=== PATIENT | female | born 1950 | race Caucasian/White ===

== ENCOUNTER 2017-04-14 23:21 | Observation (INO) | payer MEDICARE, OTHER ==
[2017-04-15 00:40] LABS: Appearance,Urine Clear (Clear); Bilirubin,Urine Negative (Negative); Glucose,Urine (UA) Negative (Negative); Ketones,Urine 1+ (Negative); Leukocyte Esterase,Urine Negative (Negative); Nitrite,Urine Negative (Negative); PH, Urine 7.5 (5.0-8.0); Protein,Urine Negative (Negative); Specific Gravity,Urine 1.004 (1.001-1.035); UA Billing (MACRO vs. MICRO) CHEM; Urobilinogen,Urine <2.0 mg/dL (<2.0)
[2017-04-15 00:57] LABS: Basophils # (A) 0.1 k/uL (0-0.2); Basophils % (A) 0 %; CH 32.2; CHCM 34.3; Eosinophils # (A) 0.1 k/uL (0-0.7); Eosinophils % (A) 1 %; HCT 48.1 % (34.0-46.0); HDW 2.28; HGB 15.9 gm/dL (11.4-16.0); Luc # (Auto) 0.15; Luc % (Auto) 1; Lymphocytes # (A) 1.3 k/uL (1.0-4.8); Lymphocytes % (A) 6 %; MCH 31.2 pg (25.0-35.0); MCHC 33.1 g/dL (31.0-37.0); MCV 94.4 fL (80.0-100.0); Mean Platelet Volume 7.7; Monocytes # (A) 1.3 k/uL (0-1.0); Monocytes % (A) 6 %; Neutrophils # (A) 18.9 k/uL (1.3-7.7); Neutrophils % (A) 87 %; RDW 13.2 % (11.5-15.5); WBC 21.8 k/uL (3.8-10.6); WBC (Perox) 20.46
[2017-04-15 01:11] LABS: ALT 20 U/L (9-52); AST 32 U/L (14-36); Alkaline Phosphatase 85 U/L (38-126); Anion Gap 13 mmol/L; Blood Urea Nitrogen 6 mg/dL (7-17); Calcium 9.5 mg/dL (8.4-10.2); Carbon Dioxide 20 mmol/L (22-30); Chloride 98 mmol/L (98-107); Glucose 107 mg/dL (74-99); Non-African American GFR(MDRD) >60 (>60 ml/min/1.73 sqM); Potassium 4.7 mmol/L (3.5-5.1); Sodium 131 mmol/L (137-145); Total Bilirubin 1.2 mg/dL (0.2-1.3); Total Protein 7.1 g/dL (6.3-8.2)
[2017-04-15] MEDS ORDERED: SODIUM CHLORIDE 0.9% 1,000 ML IV ONE (02:09)
--- NOTE | 2017-04-15 02:12 | CT ---
EXAM: CT Head Without Intravenous Contrast CLINICAL HISTORY: Reason: Pain TECHNIQUE: Axial computed tomography images of the head/brain without intravenous contrast. CTDI is 60.30 mGy and DLP is 1090.40 mGy-cm. This CT exam was performed using one or more of the following dose reduction techniques: automated exposure control, adjustment of the mA and/or kV according to patient size, and/or use of iterative reconstruction technique. COMPARISON: None available. FINDINGS: Brain: Mild generalized atrophy and minimal presumed chronic small vessel ischemic changes. No acute bleed, midline shift, mass effect or recent territorial infarct. Ventricles: No hydrocephalus. Bones/joints: No acute fracture. Soft tissues: Unremarkable. Sinuses: Unremarkable. No acute sinusitis. Mastoid air cells: No mastoid effusion. IMPRESSION: No definite acute intracranial abnormality is seen, as above.
[2017-04-15] MEDS ORDERED: NALOXONE 0.4 MG/ML 1 ML VIAL IV PRN (02:15)
[2017-04-15] MEDS ORDERED: SODIUM CHLORIDE 0.9% 1,000 ML IV SCH (02:15)
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
--- NOTE | 2017-04-15 02:47 | XR ---
EXAM: XR Chest, 1 View CLINICAL HISTORY: Reason: Pain TECHNIQUE: Frontal view of the chest. COMPARISON: No relevant prior studies available. FINDINGS: The patient is rotated towards the right. Lungs: No defined airspace consolidation. Pleural space: Unremarkable. No effusion or pneumothorax. Heart: Within normal limits without cardiomegaly. Mediastinum: Within normal limits for portable AP technique and rightward rotation. Bones/joints: Degenerative changes without acute displaced fracture seen. IMPRESSION: No definite acute intrathoracic abnormality is seen.
[2017-04-15 03:51] VITALS: BMI 32.9
[2017-04-15 07:30] LABS: Basophils # (A) 0.1 k/uL (0-0.2); Basophils % (A) 0 %; CH 31.8; CHCM 32.8; Eosinophils % (A) 0 %; HCT 46.7 % (34.0-46.0); HGB 15.1 gm/dL (11.4-16.0); Luc # (Auto) 0.29; Luc % (Auto) 2; Lymphocytes # (A) 1.1 k/uL (1.0-4.8); Lymphocytes % (A) 6 %; MCH 31.6 pg (25.0-35.0); MCHC 32.4 g/dL (31.0-37.0); MCV 97.6 fL (80.0-100.0); Mean Platelet Volume 7.7; Monocytes # (A) 1.4 k/uL (0-1.0); Monocytes % (A) 8 %; Neutrophils # (A) 15.2 k/uL (1.3-7.7); Neutrophils % (A) 84 %; RBC 4.78 m/uL (3.80-5.40); RDW 13.2 % (11.5-15.5); WBC 18.1 k/uL (3.8-10.6); WBC (Perox) 17.22
[2017-04-15 07:51] LABS: Anion Gap 9 mmol/L; Blood Urea Nitrogen 5 mg/dL (7-17); Calcium 8.9 mg/dL (8.4-10.2); Carbon Dioxide 23 mmol/L (22-30); Chloride 105 mmol/L (98-107); Glucose 109 mg/dL (74-99); Non-African American GFR(MDRD) >60 (>60 ml/min/1.73 sqM); Sodium 137 mmol/L (137-145)
[2017-04-15 08:03] LABS: Potassium 3.5 mmol/L (3.5-5.1)
[2017-04-15] MEDS ORDERED: DIVALPROEX 500 MG TABLET.DR PO SCH (10:45)
[2017-04-15] MEDS ORDERED: LEVOTHYROXINE 75 MCG TAB PO SCH (11:00)
[2017-04-15] MEDS ORDERED: SPIRONOLACTONE 25 MG TAB PO SCH (11:00)
[2017-04-15] MEDS ORDERED: VENLAFAXINE HCL ER 75 MG CAP PO SCH (11:00)
[2017-04-15] MEDS ORDERED: FUROSEMIDE 40 MG TAB PO SCH (11:00)
[2017-04-15] MEDS: oxyCODONE-APAP 10-325MG 1 EACH TAB PO SCH ×2 (11:13→17:07)
[2017-04-15] MEDS ORDERED: MULTIVITAMINS, THERA 1 EACH TAB PO SCH (12:00)
[2017-04-15] MEDS ORDERED: CHOLECALCIFEROL 1,000 UNIT TAB PO SCH (12:00)
[2017-04-15] MEDS ORDERED: ALBUTEROL NEBULIZED 2.5 MG/3 ML INHALATION SCH (13:00)
[2017-04-15 17:11] LABS: Glucose,Whole Blood 80 mg/dL (75-99)
[2017-04-15 18:24] VITALS: BP 101/58; PULSE 68; RESP 15; TEMP 97.8
[2017-04-15] MEDS ORDERED: traZODone HCL 50 MG TAB PO SCH (21:00)
[2017-04-15] MEDS ORDERED: CYCLOBENZAPRINE 10 MG TAB PO SCH (21:00)
[2017-04-15] MEDS ORDERED: ATORVASTATIN 10 MG TAB PO SCH (21:00)
[2017-04-15] MEDS ORDERED: LORazepam 1 MG TAB PO SCH (21:00)
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
[2017-04-16] MEDS ORDERED: NICOTINE 14MG/24HR PATCH TRANSDERM SCH (09:00)
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
== END 2017-04-15 18:45 ==
LOC: EC 23:21 → 3OBS 04-15 02:17
PROVIDERS: ADMIT Hospitalist; ATTEND Hospitalist
DX: F22 Delusional disorders (principal); F23 Brief psychotic disorder; F31.9 Bipolar disorder, unspecified; M19.90 Unspecified osteoarthritis, unspecified site; J44.9 Chronic obstructive pulmonary disease, unspecified; E78.5 Hyperlipidemia, unspecified; H40.9 Unspecified glaucoma; C50.819 Malignant neoplasm of overlapping sites of unspecified female breast; F41.9 Anxiety disorder, unspecified; E87.1 Hypo-osmolality and hyponatremia; G89.29 Other chronic pain; I10 Essential (primary) hypertension; G40.909 Epilepsy, unspecified, not intractable, without status epilepticus; E03.9 Hypothyroidism, unspecified; Z87.891 Personal history of nicotine dependence; Z79.899 Other long term (current) drug therapy; Z79.51 Long term (current) use of inhaled steroids; Z88.3 Allergy status to other anti-infective agents; Z88.5 Allergy status to narcotic agent; Z88.2 Allergy status to sulfonamides; Z88.0 Allergy status to penicillin; Z88.8 Allergy status to other drugs, medicaments and biological substances; Z85.3 Personal history of malignant neoplasm of breast
CPT/HCPCS: 96365 ×2; 99285 ×2; 82075; 36415; 80053; 80048; 83605; 85025; 81003; 87040; 80306; 71010; 70450; G0378; J0696

== ENCOUNTER 2017-04-15 18:19 | Inpatient (IN) | payer MEDICARE, MEDICAID ==
[2017-04-15] MEDS ORDERED: ZIPRASIDONE 20 MG VIAL IM PRN (18:30)
[2017-04-15] MEDS: ALBUTEROL NEBULIZED 2.5 MG/3 ML INHALATION SCH (18:40)
[2017-04-15] MEDS ORDERED: LORazepam 2 MG/ML SYRINGE IM PRN (18:43)
[2017-04-15] MEDS: ATORVASTATIN 10 MG TAB PO SCH (21:13)
[2017-04-15] MEDS: CYCLOBENZAPRINE 10 MG TAB PO SCH (21:16)
[2017-04-15] MEDS: DIVALPROEX 500 MG TABLET.DR PO SCH (21:16)
[2017-04-15] MEDS: traZODone HCL 50 MG TAB PO SCH (21:16)
[2017-04-15] MEDS: oxyCODONE-APAP 10-325MG 1 EACH TAB PO SCH (21:16)
[2017-04-16] MEDS: LEVOTHYROXINE 75 MCG TAB PO SCH (05:59)
[2017-04-16] MEDS: ACETAMINOPHEN TAB 325 MG TAB PO PRN ×2 (06:02→12:20)
[2017-04-16] MEDS ORDERED: VENLAFAXINE HCL ER 75 MG CAP PO SCH (09:00)
[2017-04-16] MEDS: SPIRONOLACTONE 25 MG TAB PO SCH (09:31)
[2017-04-16] MEDS: DIVALPROEX 500 MG TABLET.DR PO SCH (09:31)
[2017-04-16] MEDS: oxyCODONE-APAP 10-325MG 1 EACH TAB PO SCH ×3 (09:31→21:35)
[2017-04-16] MEDS: CHOLECALCIFEROL 1,000 UNIT TAB PO SCH (09:31)
[2017-04-16] MEDS: ALBUTEROL NEBULIZED 2.5 MG/3 ML INHALATION SCH ×3 (09:41→21:24)
[2017-04-16 09:48] LABS: Basophils # (A) 0.1 k/uL (0-0.2); Basophils % (A) 0 %; CH 31.7; CHCM 34.2; Eosinophils # (A) 0.1 k/uL (0-0.7); Eosinophils % (A) 1 %; HDW 2.35; HGB 14.2 gm/dL (11.4-16.0); Luc # (Auto) 0.19; Luc % (Auto) 1; Lymphocytes # (A) 1.5 k/uL (1.0-4.8); Lymphocytes % (A) 11 %; MCH 32.1 pg (25.0-35.0); MCHC 34.5 g/dL (31.0-37.0); MCV 93.1 fL (80.0-100.0); Mean Platelet Volume 8.3; Monocytes # (A) 0.9 k/uL (0-1.0); Monocytes % (A) 6 %; Neutrophils # (A) 11.4 k/uL (1.3-7.7); Neutrophils % (A) 81 %; RDW 13.1 % (11.5-15.5); WBC 14.2 k/uL (3.8-10.6); WBC (Perox) 13.54
[2017-04-16 11:26] LABS: Anion Gap 14 mmol/L; Calcium 9.2 mg/dL (8.4-10.2); Carbon Dioxide 20 mmol/L (22-30); Chloride 104 mmol/L (98-107); Glucose 74 mg/dL (74-99); Non-African American GFR(MDRD) >60 (>60 ml/min/1.73 sqM); Sodium 138 mmol/L (137-145); Total Bilirubin 0.4 mg/dL (0.2-1.3)
[2017-04-16 12:19] LABS: ALT 26 U/L (9-52); AST 21 U/L (14-36); Blood Urea Nitrogen 8 mg/dL (7-17)
[2017-04-16] MEDS: MULTIVITAMINS, THERA 1 EACH TAB PO SCH (12:19)
[2017-04-16 12:20] LABS: Alkaline Phosphatase 77 U/L (38-126)
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
--- NOTE | 2017-04-16 17:23 | P.CONS ---
History of Present Illness - Reason for Consult leukocytosis, medical clearance, COPD - History of Present Illness 66-year-old female was admitted for acute psychosis, patient had leukocytosis on admission without any signs or symptoms of infection patient is not on antibiotics at this point of time. Patient denies any fever, chills, nausea, vomiting patient denied any shortness of breath. Review of Systems REVIEW OF SYSTEMS: CONSTITUTIONAL: No fever, no malaise, no fatigue. HEENT: No recent visual problems or hearing problems. Denied any sore throat. CARDIOVASCULAR: No chest pain, orthopnea, PND, no palpitations, no syncope. PULMONARY: No shortness of breath, no cough, no hemoptysis. GASTROINTESTINAL: No diarrhea, no nausea, no vomiting, no abdominal pain. Normoactive bowel sounds. NEUROLOGICAL: No headaches, no weakness, no numbness. HEMATOLOGICAL: Denies any bleeding or petechiae. GENITOURINARY: Denies any burning micturition, frequency, or urgency. MUSCULOSKELETAL/RHEUMATOLOGICAL: Denies any joint pain, swelling, or any muscle pain. ENDOCRINE: Denies any polyuria or polydipsia. The rest of the 14-point review of systems is negative. Past Medical History Past Medical History: Asthma, Cancer, Eye Disorder, Hyperlipidemia, Osteoarthritis (OA), Thyroid Disorder Additional Past Medical History / Comment(s): "low BP", edema lower legs, uses a cane, emphysema, glaucoma, "lump on kidney", breast cancer, last seizure 2011 History of Any Multi-Drug Resistant Organisms: None Reported Past Surgical History: Breast Surgery, Hysterectomy, Tubal Ligation Additional Past Surgical History / Comment(s): left mastectomy Past Anesthesia/Blood Transfusion Reactions: Motion Sickness Past Psychological History: Anxiety, Bipolar, Schizophrenia Smoking Status: Former smoker Past Alcohol Use History: None Reported Past Drug Use History: Marijuana - Past Family History Father Additional Family Medical History / Comment(s): Father at age at 87 from old age. Daughter(s) Additional Family Medical History / Comment(s): Patient states that she has 3 children and 2 are on drugs. Sister(s) Family Medical History: Cancer Additional Family Medical History / Comment(s): She has one sister that from some type of cancer. Mother Family Medical History: Cancer Additional Family Medical History / Comment(s): Mother at age 56 from cancer, unknown type. Medications and Allergies Home Medications Medication Instructions Recorded Confirmed Type Cholecalciferol [Vitamin D3] 5,000 unit PO DAILY 03/06/15 04/15/17 History Cyclobenzaprine [Flexeril] 10 mg PO HS 03/06/15 04/15/17 History Divalproex [Depakote] 1,000 mg PO BID 03/06/15 04/15/17 History Levothyroxine Sodium [Synthroid] 150 mcg PO DAILY 03/06/15 04/15/17 History Multivitamins, Thera [Multivitamin 1 tab PO DAILY 03/06/15 04/15/17 History (formulary)] Simvastatin [Zocor] 10 mg PO HS 03/06/15 04/15/17 History oxyCODONE-APAP 10-325MG [Percocet 1 tab PO TID 03/06/15 04/15/17 History 10-325 mg] Albuterol Nebulized [Ventolin 2.5 mg INHALATION RT-TID 04/15/17 04/15/17 History Nebulized] LORazepam [Ativan] 2 mg PO HS 04/15/17 04/15/17 History Spironolactone [Aldactone] 25 mg PO DAILY 04/15/17 04/15/17 History rOPINIRole HCL [Requip] 0.25 mg PO TID 04/15/17 04/15/17 History Allergies Allergy/AdvReac Type Severity Reaction Status Date / Time metronidazole [From Flagyl] Allergy Severe Swelling Verified 04/15/17 20:02 morphine Allergy Severe passed out Verified 04/15/17 20:02 pregabalin [From Lyrica] Allergy Severe throat Verified 04/15/17 20:02 swelling Sulfa (Sulfonamide Allergy Severe Swelling Verified 04/15/17 20:02 Antibiotics) cortisone Allergy Rash/Hives Verified 04/15/17 20:02 Penicillins Allergy Rash/Hives Verified 04/15/17 20:02 Physical Exam Vitals: Vital Signs Temp Pulse Pulse Resp BP Pulse Ox 04/16/17 13:50 76 04/16/17 09:40 94 20 126/68 97 04/16/17 01:57 97.3 F L 94 12 122/58 04/15/17 22:52 97 110/56 04/15/17 19:00 98.4 F 101 H 20 100/61 94 L PHYSICAL EXAMINATION: GENERAL: The patient is alert and oriented x3, not in any acute distress. Well developed, well nourished. HEENT: Pupils are round and equally reacting to light. EOMI. No scleral icterus. No conjunctival pallor. Normocephalic, atraumatic. No pharyngeal erythema. No thyromegaly. CARDIOVASCULAR: S1 and S2 present. No murmurs, rubs, or gallops. PULMONARY: Chest is clear to auscultation, no wheezing or crackles. ABDOMEN: Soft, nontender, nondistended, normoactive bowel sounds. No palpable organomegaly. MUSCULOSKELETAL: No joint swelling or deformity. EXTREMITIES: No cyanosis, clubbing, or pedal edema. NEUROLOGICAL: Gross neurological examination did not reveal any focal deficits. SKIN: No rashes. Results CBC & Chem 7: 04/16/17 08:53 04/16/17 08:53 Labs: Abnormal Lab Results - Last 24 Hours (Table) 04/16/17 04/16/17 04/16/17 Range/Units 08:53 08:53 15:16 WBC 14.2 H (3.8-10.6) k/uL Neutrophils # 11.4 H (1.3-7.7) k/uL Carbon Dioxide 20 L (22-30) mmol/L Creatinine 0.50 L (0.52-1.04) mg/dL Ammonia 90 H (<30) umol/L Total Protein 6.0 L (6.3-8.2) g/dL TSH <0.015 L (0.465-4.680) mIU/L Assessment and Plan Plan: 1 leukocytosis without any acute infection. This is improving and reactive in nature. 2 COPD without any acute exacerbation. 3 hypothyroidism 4 hyperlipidemia 6 chronic pain 7 acute psychosis with possible schizophrenia management as per primary service Plan: At admission medications were reviewed and appear to be appropriate, no further recommendation from his perspective will follow the patient on as- needed basis.
[2017-04-16] MEDS: CYCLOBENZAPRINE 10 MG TAB PO SCH (21:35)
[2017-04-16] MEDS: ATORVASTATIN 10 MG TAB PO SCH (21:35)
[2017-04-16] MEDS: traZODone HCL 50 MG TAB PO SCH (21:35)
[2017-04-16] MEDS: LACTULOSE 20 GM/30 ML CUP PO SCH (21:35)
[2017-04-17] MEDS: ACETAMINOPHEN TAB 325 MG TAB PO PRN ×2 (03:53→12:29)
[2017-04-17] MEDS: LEVOTHYROXINE 75 MCG TAB PO SCH (03:54)
[2017-04-17 04:29] LABS: Hepatitis B Surface Ag Index 0.04
[2017-04-17 04:35] LABS: Hepatitis B Core IgM Index 0.03
[2017-04-17 04:46] LABS: Hepatitis C Virus IgG Ab Negative (Negative); Hepatitis C Virus IgG Index 0.02
[2017-04-17] MEDS: oxyCODONE-APAP 10-325MG 1 EACH TAB PO SCH ×3 (08:23→21:23)
[2017-04-17] MEDS: LACTULOSE 20 GM/30 ML CUP PO SCH ×2 (08:23→21:24)
[2017-04-17] MEDS: CHOLECALCIFEROL 1,000 UNIT TAB PO SCH (08:23)
[2017-04-17] MEDS: SPIRONOLACTONE 25 MG TAB PO SCH (08:25)
[2017-04-17] MEDS: ALBUTEROL NEBULIZED 2.5 MG/3 ML INHALATION SCH ×2 (10:06→13:22)
[2017-04-17] MEDS: ARIPiprazole 5 MG TAB PO SCH (12:00)
[2017-04-17] MEDS: MULTIVITAMINS, THERA 1 EACH TAB PO SCH (12:00)
[2017-04-17] MEDS: VENLAFAXINE HCL ER 75 MG CAP PO SCH (12:00)
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
[2017-04-17] MEDS: ALBUTEROL INHALER 60 PUFF/8 GM INHALER INHALATION SCH (20:59)
[2017-04-17] MEDS: ATORVASTATIN 10 MG TAB PO SCH (21:23)
[2017-04-17] MEDS: traZODone HCL 50 MG TAB PO SCH (21:23)
[2017-04-17] MEDS: CYCLOBENZAPRINE 10 MG TAB PO SCH (21:23)
[2017-04-18] MEDS: LEVOTHYROXINE 75 MCG TAB PO SCH (06:02)
[2017-04-18] MEDS: oxyCODONE-APAP 10-325MG 1 EACH TAB PO SCH ×3 (06:08→20:49)
[2017-04-18] MEDS: LACTULOSE 20 GM/30 ML CUP PO SCH ×2 (08:16→20:50)
[2017-04-18] MEDS: VENLAFAXINE HCL ER 75 MG CAP PO SCH (08:16)
[2017-04-18] MEDS: ARIPiprazole 5 MG TAB PO SCH (08:16)
[2017-04-18] MEDS: SPIRONOLACTONE 25 MG TAB PO SCH (08:16)
[2017-04-18] MEDS: CHOLECALCIFEROL 1,000 UNIT TAB PO SCH (08:17)
[2017-04-18] MEDS: ALBUTEROL INHALER 60 PUFF/8 GM INHALER INHALATION SCH ×3 (11:36→19:23)
[2017-04-18] MEDS: MULTIVITAMINS, THERA 1 EACH TAB PO SCH (12:08)
[2017-04-18] MEDS: ACETAMINOPHEN TAB 325 MG TAB PO PRN (12:13)
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
[2017-04-18] MEDS: ATORVASTATIN 10 MG TAB PO SCH (20:50)
[2017-04-18] MEDS: CYCLOBENZAPRINE 10 MG TAB PO SCH (20:50)
[2017-04-18] MEDS: traZODone HCL 50 MG TAB PO SCH (20:51)
[2017-04-19] MEDS: LEVOTHYROXINE 75 MCG TAB PO SCH (06:08)
[2017-04-19] MEDS: ALBUTEROL INHALER 60 PUFF/8 GM INHALER INHALATION SCH ×3 (08:33→21:26)
[2017-04-19] MEDS: SPIRONOLACTONE 25 MG TAB PO SCH (09:00)
[2017-04-19] MEDS: VENLAFAXINE HCL ER 37.5 MG CAP PO SCH (09:00)
[2017-04-19] MEDS: CHOLECALCIFEROL 1,000 UNIT TAB PO SCH (09:00)
[2017-04-19] MEDS: ARIPiprazole 5 MG TAB PO SCH (09:00)
[2017-04-19] MEDS: LACTULOSE 20 GM/30 ML CUP PO SCH ×2 (09:01→20:04)
[2017-04-19] MEDS: oxyCODONE-APAP 10-325MG 1 EACH TAB PO SCH ×3 (09:01→21:19)
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
[2017-04-19] MEDS: ACETAMINOPHEN TAB 325 MG TAB PO PRN (13:44)
[2017-04-19] MEDS: MULTIVITAMINS, THERA 1 EACH TAB PO SCH (13:44)
[2017-04-19] MEDS: CYCLOBENZAPRINE 10 MG TAB PO SCH (20:04)
[2017-04-19] MEDS: traZODone HCL 50 MG TAB PO SCH (20:04)
[2017-04-19] MEDS: ATORVASTATIN 10 MG TAB PO SCH (20:04)
[2017-04-20] MEDS: LEVOTHYROXINE 75 MCG TAB PO SCH (07:15)
[2017-04-20] MEDS: ALBUTEROL INHALER 60 PUFF/8 GM INHALER INHALATION SCH ×3 (08:01→21:52)
[2017-04-20] MEDS: CHOLECALCIFEROL 1,000 UNIT TAB PO SCH (08:17)
[2017-04-20] MEDS: ARIPiprazole 10 MG TAB PO SCH (08:17)
[2017-04-20] MEDS: oxyCODONE-APAP 10-325MG 1 EACH TAB PO SCH ×3 (08:17→21:06)
[2017-04-20] MEDS: SPIRONOLACTONE 25 MG TAB PO SCH (08:17)
[2017-04-20] MEDS: VENLAFAXINE HCL ER 37.5 MG CAP PO SCH (08:17)
[2017-04-20] MEDS: LACTULOSE 20 GM/30 ML CUP PO SCH ×2 (08:21→20:28)
--- NOTE | 2017-04-20 10:12 | P.PN ---
Progress Note - Text Interval history: The patient is found in her room she is seated upright at the side of her bed leaning on the adjacent table. She is observed talking to herself prior to me entering the room. She states that someone next order her was killed today. She states nursing did something to her medication because after she took it it tasted like "cottage cheese". She spontaneously describes other delusional thoughts. Mental status exam: The patient is an overweight female she seated upright at the side of her bed. Eye contact is appropriate. She is dressed in her own clothing. Speech is spontaneous she is verbose hyperverbal at times. She describes a variety of delusional thoughts. For the most part these are persecutory in nature. Insight and judgment are poor. Thought process is not well organized she demonstrates tangential thinking and loose associations. She demonstrates no verbal or physical aggressiveness. Briefly she will become mildly verbally agitated but she is easily redirected. She was oriented to person place and date today. She recalls my name upon approach. Again affect demonstrates lability. She is reporting no suicidal or homicidal ideation. Plan: The patient will continue on her current medication, I have just titrated the Abilify yesterday. We will continue to monitor her for safety. Reality orientation is provided when possible. We are looking for some attenuation of her psychosis prior to discharge. Vital signs reviewed.
[2017-04-20] MEDS: ACETAMINOPHEN TAB 325 MG TAB PO PRN (13:28)
[2017-04-20] MEDS: MULTIVITAMINS, THERA 1 EACH TAB PO SCH (13:28)
[2017-04-20] MEDS: ATORVASTATIN 10 MG TAB PO SCH (20:28)
[2017-04-20] MEDS: traZODone HCL 50 MG TAB PO SCH (20:29)
[2017-04-20] MEDS: CYCLOBENZAPRINE 10 MG TAB PO SCH (20:29)
[2017-04-21] MEDS: LEVOTHYROXINE 75 MCG TAB PO SCH (06:00)
[2017-04-21] MEDS: ALBUTEROL INHALER 60 PUFF/8 GM INHALER INHALATION SCH ×3 (09:26→20:21)
[2017-04-21] MEDS: CHOLECALCIFEROL 1,000 UNIT TAB PO SCH (09:44)
[2017-04-21] MEDS: SPIRONOLACTONE 25 MG TAB PO SCH (09:45)
[2017-04-21] MEDS: VENLAFAXINE HCL ER 37.5 MG CAP PO SCH (09:45)
[2017-04-21] MEDS: LACTULOSE 20 GM/30 ML CUP PO SCH ×2 (09:46→21:56)
[2017-04-21] MEDS: ARIPiprazole 10 MG TAB PO SCH (09:47)
[2017-04-21] MEDS: oxyCODONE-APAP 10-325MG 1 EACH TAB PO SCH ×3 (09:47→21:55)
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
[2017-04-21] MEDS: MULTIVITAMINS, THERA 1 EACH TAB PO SCH (13:05)
[2017-04-21] MEDS: LORazepam 1 MG TAB PO PRN (19:27)
[2017-04-21] MEDS: ACETAMINOPHEN TAB 325 MG TAB PO PRN (19:30)
[2017-04-21] MEDS: traZODone HCL 50 MG TAB PO SCH (21:54)
[2017-04-21] MEDS: CYCLOBENZAPRINE 10 MG TAB PO SCH (21:56)
[2017-04-21] MEDS: ATORVASTATIN 10 MG TAB PO SCH (21:56)
[2017-04-22] MEDS: LEVOTHYROXINE 75 MCG TAB PO SCH (07:12)
[2017-04-22] MEDS: VENLAFAXINE HCL ER 37.5 MG CAP PO SCH (08:16)
[2017-04-22] MEDS: CHOLECALCIFEROL 1,000 UNIT TAB PO SCH (08:16)
[2017-04-22] MEDS: MULTIVITAMINS, THERA 1 EACH TAB PO SCH (08:17)
[2017-04-22] MEDS: oxyCODONE-APAP 10-325MG 1 EACH TAB PO SCH ×3 (08:17→21:41)
[2017-04-22] MEDS: ARIPiprazole 10 MG TAB PO SCH (08:17)
[2017-04-22] MEDS: SPIRONOLACTONE 25 MG TAB PO SCH (08:17)
[2017-04-22] MEDS: LACTULOSE 20 GM/30 ML CUP PO SCH ×2 (10:47→21:02)
[2017-04-22] MEDS: ACETAMINOPHEN TAB 325 MG TAB PO PRN (11:17)
[2017-04-22] MEDS: MAG HYDROX/AL HYDROX/SIMETH 30 ML CUP PO PRN (11:18)
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
[2017-04-22] MEDS: ALBUTEROL INHALER 60 PUFF/8 GM INHALER INHALATION SCH ×3 (12:09→20:13)
[2017-04-22] MEDS: CYCLOBENZAPRINE 10 MG TAB PO SCH (21:01)
[2017-04-22] MEDS: OXcarbazepine 150 MG TAB PO SCH (21:01)
[2017-04-22] MEDS: traZODone HCL 50 MG TAB PO SCH (21:01)
[2017-04-22] MEDS: ATORVASTATIN 10 MG TAB PO SCH (21:02)
[2017-04-23] MEDS: LEVOTHYROXINE 75 MCG TAB PO SCH (06:05)
[2017-04-23] MEDS: SPIRONOLACTONE 25 MG TAB PO SCH (08:47)
[2017-04-23] MEDS: CHOLECALCIFEROL 1,000 UNIT TAB PO SCH (08:47)
[2017-04-23] MEDS: LACTULOSE 20 GM/30 ML CUP PO SCH ×2 (08:47→21:25)
[2017-04-23] MEDS: VENLAFAXINE HCL ER 37.5 MG CAP PO SCH (08:48)
[2017-04-23] MEDS: ARIPiprazole 15 MG TAB PO SCH (08:49)
[2017-04-23] MEDS: oxyCODONE-APAP 10-325MG 1 EACH TAB PO SCH ×3 (08:49→21:29)
[2017-04-23] MEDS: OXcarbazepine 150 MG TAB PO SCH ×2 (08:50→21:25)
[2017-04-23] MEDS: ALBUTEROL INHALER 60 PUFF/8 GM INHALER INHALATION SCH ×5 (09:35→21:20)
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
[2017-04-23] MEDS: MULTIVITAMINS, THERA 1 EACH TAB PO SCH (12:08)
--- NOTE | 2017-04-23 15:48 | P.PN ---
Subjective This 66-year-old woman who was admitted for psych evaluation also had a COPD. Patient is complaining of bilateral edema. Lasix is being initiated. Recommended close monitoring of the electrolytes. Objective - Vital Signs Vital signs: Vital Signs Temp 98.3 F 04/23/17 02:27 Pulse 99 04/23/17 08:55 Resp 18 04/23/17 08:55 BP 133/76 04/23/17 08:55 Pulse Ox 97 04/16/17 09:40 - Exam On exam, alert and oriented x3. HEENT: Conjunctivae normal. eyes normal. NECK: No JVD. No thyroid enlargement. No LNs CARDIOVASCULAR: S1, S2 muffled. No murmur RESPIRATION: Breath sounds diminished in the bases. No rhonchi or crackles. No bronchial breathing. ABDOMEN: Soft, nontender . No guarding. no masses palpable. No ascites, No hepatosplenomegaly.Bowel sounds heard. LEGS: Mild bilateral leg swelling plus. NERVOUS SYSTEM: Cranial N 2-12 grossly normal. Moves all 4 limbs. No focal deficits. No sensory deficit. No signs of cerebellar dysfucntion. Skin: no ulcer no rash Joints: No active swelling. No inflammation. Lymphatic system. No LN neck axilla or groin. - Labs CBC & Chem 7: 04/16/17 08:53 04/16/17 08:53 Assessment and Plan Plan: Assessment 1. Generalized edema accidental. COPD 3. Hypothyroidism explained 4. Hyperlipidemia 6. Chronic pain syndrome 7. Acute psychosis Line In this 66-year-old woman who was admitted with the one medical issues at this time recommend to continue with the current medications add small dose of Lasix and potassium check BMP in 2 days and monitor periodically. once the swelling is improved Lasix can be stopped. Be happy to review. Recommended close follow -up with primary physician. Thank you.
[2017-04-23] MEDS: POTASSIUM CHLORIDE ER 20 MEQ TAB.ER PO SCH (16:35)
[2017-04-23] MEDS: CYCLOBENZAPRINE 10 MG TAB PO SCH (21:25)
[2017-04-23] MEDS: ATORVASTATIN 10 MG TAB PO SCH (21:25)
[2017-04-23] MEDS: traZODone HCL 50 MG TAB PO SCH (21:25)
[2017-04-24] MEDS: LEVOTHYROXINE 75 MCG TAB PO SCH (05:34)
[2017-04-24] MEDS: FUROSEMIDE 20 MG TAB PO SCH (08:15)
[2017-04-24] MEDS: CHOLECALCIFEROL 1,000 UNIT TAB PO SCH (08:15)
[2017-04-24] MEDS: LACTULOSE 20 GM/30 ML CUP PO SCH ×2 (08:15→21:44)
[2017-04-24] MEDS: OXcarbazepine 150 MG TAB PO SCH ×2 (08:15→21:11)
[2017-04-24] MEDS: POTASSIUM CHLORIDE ER 20 MEQ TAB.ER PO SCH (08:15)
[2017-04-24] MEDS: oxyCODONE-APAP 10-325MG 1 EACH TAB PO SCH ×3 (08:16→21:11)
[2017-04-24] MEDS: SPIRONOLACTONE 25 MG TAB PO SCH (08:16)
[2017-04-24] MEDS: ARIPiprazole 15 MG TAB PO SCH (08:17)
[2017-04-24] MEDS ORDERED: FUROSEMIDE 40 MG TAB PO SCH (09:00)
[2017-04-24] MEDS: ALBUTEROL INHALER 60 PUFF/8 GM INHALER INHALATION SCH ×3 (09:16→21:36)
[2017-04-24] MEDS: MULTIVITAMINS, THERA 1 EACH TAB PO SCH (12:17)
[2017-04-24] MEDS: MAGNESIUM HYDROXIDE 2,400 MG/10 ML CUP PO PRN (12:54)
[2017-04-24] MEDS: ACETAMINOPHEN TAB 325 MG TAB PO PRN (12:54)
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
[2017-04-24] MEDS: CYCLOBENZAPRINE 10 MG TAB PO SCH (21:10)
[2017-04-24] MEDS: ATORVASTATIN 10 MG TAB PO SCH (21:10)
[2017-04-24] MEDS: traZODone HCL 50 MG TAB PO SCH (21:11)
[2017-04-24] MEDS: LORazepam 1 MG TAB PO PRN (21:16)
[2017-04-25] MEDS: ACETAMINOPHEN TAB 325 MG TAB PO PRN (04:07)
[2017-04-25] MEDS: LEVOTHYROXINE 75 MCG TAB PO SCH (05:39)
[2017-04-25] MEDS: ALBUTEROL INHALER 60 PUFF/8 GM INHALER INHALATION SCH ×3 (09:28→18:48)
[2017-04-25] MEDS: OXcarbazepine 150 MG TAB PO SCH (09:47)
[2017-04-25] MEDS: SPIRONOLACTONE 25 MG TAB PO SCH (09:48)
[2017-04-25] MEDS: oxyCODONE-APAP 10-325MG 1 EACH TAB PO SCH ×3 (09:48→21:28)
[2017-04-25] MEDS: LACTULOSE 20 GM/30 ML CUP PO SCH ×3 (09:49→21:29)
[2017-04-25] MEDS: ARIPiprazole 15 MG TAB PO SCH (09:49)
[2017-04-25] MEDS: CHOLECALCIFEROL 1,000 UNIT TAB PO SCH (09:50)
[2017-04-25] MEDS: FUROSEMIDE 20 MG TAB PO SCH (09:50)
[2017-04-25] MEDS: POTASSIUM CHLORIDE ER 20 MEQ TAB.ER PO SCH (09:50)
[2017-04-25 10:01] LABS: Anion Gap 11 mmol/L; Blood Urea Nitrogen 8 mg/dL (7-17); Calcium 9.5 mg/dL (8.4-10.2); Carbon Dioxide 26 mmol/L (22-30); Chloride 100 mmol/L (98-107); Glucose 97 mg/dL (74-99); Non-African American GFR(MDRD) >60 (>60 ml/min/1.73 sqM); Sodium 137 mmol/L (137-145)
[2017-04-25] MEDS: MAGNESIUM HYDROXIDE 2,400 MG/10 ML CUP PO PRN (10:02)
[2017-04-25] MEDS: MULTIVITAMINS, THERA 1 EACH TAB PO SCH (12:17)
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
[2017-04-25] MEDS: LORazepam 1 MG TAB PO PRN (15:16)
[2017-04-25] MEDS: ATORVASTATIN 10 MG TAB PO SCH (21:27)
[2017-04-25] MEDS: CYCLOBENZAPRINE 10 MG TAB PO SCH (21:27)
[2017-04-25] MEDS: OXcarbazepine 300 MG TAB PO SCH (21:28)
[2017-04-25] MEDS: traZODone HCL 50 MG TAB PO SCH (21:28)
[2017-04-26] MEDS: LORazepam 1 MG TAB PO PRN ×2 (03:25→22:21)
[2017-04-26] MEDS: LEVOTHYROXINE 75 MCG TAB PO SCH (08:49)
[2017-04-26] MEDS: ARIPiprazole 15 MG TAB PO SCH (08:52)
[2017-04-26] MEDS: oxyCODONE-APAP 10-325MG 1 EACH TAB PO SCH ×3 (08:52→21:01)
[2017-04-26] MEDS: OXcarbazepine 300 MG TAB PO SCH ×2 (08:52→21:01)
[2017-04-26] MEDS: CHOLECALCIFEROL 1,000 UNIT TAB PO SCH (08:53)
[2017-04-26] MEDS: FUROSEMIDE 20 MG TAB PO SCH (08:53)
[2017-04-26] MEDS: POTASSIUM CHLORIDE ER 20 MEQ TAB.ER PO SCH (08:54)
[2017-04-26] MEDS: SPIRONOLACTONE 25 MG TAB PO SCH (08:54)
[2017-04-26] MEDS: ALBUTEROL INHALER 60 PUFF/8 GM INHALER INHALATION SCH ×3 (08:59→19:33)
[2017-04-26] MEDS: LACTULOSE 20 GM/30 ML CUP PO SCH ×2 (09:14→21:01)
[2017-04-26] MEDS: MAGNESIUM HYDROXIDE 2,400 MG/10 ML CUP PO PRN (11:17)
[2017-04-26] MEDS: MULTIVITAMINS, THERA 1 EACH TAB PO SCH (11:21)
[2017-04-26] MEDS: MAG HYDROX/AL HYDROX/SIMETH 30 ML CUP PO PRN (16:41)
--- NOTE | 2017-04-26 17:25 | P.PN ---
Progress Note - Text Date of service: 04/26/2017 Chief complaint: "I want to be transferred to the babies floor " Subjective: The patient has been seen today as follow-up, chart reviewed, case discussed with the treatment team. The patient presented very delusional, circumstantial , and sometimes tangential. She was talking about she wanted be discharged or to be transferred to the babies floor because she doesn't like people here. Patient admitted for feeling very agitated, and angry. She presented with very agitated mood, talking about "I want to be my own psychiatrist" and addressed "all the staff not helping me". Patient was not fully coherent and she has bizarre speech. She was alert and fully oriented, but she presented very paranoid and extremely guarded especially about the staff. The patient kept asking for nicotine gum. Review of other systems: Patient denies any physical symptoms besides what has been mentioned above. No breathing problems, no chest pain reported today. Objective: Vitals has been reviewed. Mental status examination; Appearance: The patient appears older than his stated age, disheveled, or rapidly obese and using the cane. Gait/posture: using cocaine, No abnormal movements. Attitude and behavior: Not fully engaged, not cooperative, staring eye contact. Motor activity: increased psychomotor activity Speech: Loud and pressured Mood: Agitated Affect: Labile Thought form: Circumstantial sometimes tangential: In general bizarre speech. Thought content: Delusional, paranoid. Perception: Denies any auditory or visual hallucinations Attention: No impairment. Orientation: Patient patient was fully oriented to time place person and situation. Insight: Patient has limited insight about his psychiatric disorder. Judgment: Patient has limited judgment about his psychiatric treatment. Assessment: bipolar disorder, manic with psychotic symptoms. Plan: Continue with inpatient psychiatric hospitalization for monitoring and continue treatment. Continue group therapy and other unit activities. Continue follow up with medical team to address physical problems including asthma, low vitamin D, hypothyroidism, restless leg syndrome, and chronic pain Continue psychiatric medications: increase in Abilify to 20 mg by mouth daily to address psychotic symptoms, and increase Trileptal to 300 mg a.m. and 600 mg at bedtime to address the mood symptoms. Nicotine gum 2 mg by mouth when necessary for cravings Continue monitoring and follow-up
[2017-04-26] MEDS ORDERED: OLANZapine ODT 5 MG TAB PO PRN (17:28)
[2017-04-26] MEDS ORDERED: NICOTINE POLACRILEX 2 MG GUM BUCCAL PRN (17:30)
[2017-04-26] MEDS: traZODone HCL 50 MG TAB PO SCH (21:01)
[2017-04-26] MEDS: ATORVASTATIN 10 MG TAB PO SCH (21:01)
[2017-04-26] MEDS: CYCLOBENZAPRINE 10 MG TAB PO SCH (21:01)
[2017-04-27] MEDS: ALBUTEROL INHALER 60 PUFF/8 GM INHALER INHALATION SCH ×3 (09:08→21:04)
[2017-04-27] MEDS: POTASSIUM CHLORIDE ER 20 MEQ TAB.ER PO SCH (09:53)
[2017-04-27] MEDS: SPIRONOLACTONE 25 MG TAB PO SCH (09:53)
[2017-04-27] MEDS: CHOLECALCIFEROL 1,000 UNIT TAB PO SCH (09:53)
[2017-04-27] MEDS: LACTULOSE 20 GM/30 ML CUP PO SCH ×2 (09:53→21:31)
[2017-04-27] MEDS: FUROSEMIDE 20 MG TAB PO SCH (09:53)
[2017-04-27] MEDS: LEVOTHYROXINE 75 MCG TAB PO SCH (09:54)
[2017-04-27] MEDS: oxyCODONE-APAP 10-325MG 1 EACH TAB PO SCH ×3 (09:55→21:32)
[2017-04-27] MEDS: OXcarbazepine 300 MG TAB PO SCH ×2 (09:56→21:31)
--- NOTE | 2017-04-27 11:25 | P.PN ---
Progress Note - Text Date of service: 04/27/2017 Chief complaint: "I feel better today" Subjective: The patient has been seen today as follow-up, chart reviewed, case discussed with the treatment team. Patient slept about 4-5 hours last night. Patient has been not going to groups and other unit activities. Patient reports appetite problems. Patient presented with less agitated mood and more cooperative and less demanding. The patient continued to have some bizarre talk about dancing with Catarino Vidal in the past. She continued to be circumstantial with flight of ideas. She denies feeling hopeless or suicidal. Patient continued to present with some paranoid behavior and refused to go to groups. She was watched eating by herself earlier today. Review of other systems: Patient denies any physical symptoms besides what has been mentioned above. No breathing problems, no chest pain reported today. Objective: Vitals has been reviewed. Mental status examination; Appearance: The patient appears older than his stated age, partially disheveled , morbidly obese and using the cane. Gait/posture: using cane, No abnormal movements. Attitude and behavior: Not fully engaged, partially cooperative, fair eye contact. Motor activity: increased psychomotor activity Speech: less pressured but circumstantial Mood: irritable Affect: Labile Thought form: Circumstantial. Thought content: Delusional (grandiose delusions), paranoid. Perception: Denies any auditory or visual hallucinations Attention: No impairment. Orientation: Patient was fully oriented to time place person and situation. Insight: Patient has limited insight about her psychiatric disorder. Judgment: Patient has limited judgment about her psychiatric treatment. Assessment: bipolar disorder, manic with psychotic symptoms. Plan: Continue with inpatient psychiatric hospitalization for monitoring and continue treatment. Continue group therapy and other unit activities. Continue follow up with medical team to address physical problems including asthma, low vitamin D, hypothyroidism, restless leg syndrome, and chronic pain Continue psychiatric medications: Abilify 20 mg by mouth daily to address psychotic symptoms, and Trileptal 300 mg a.m. and 600 mg at bedtime to address the mood symptoms. Continue monitoring and follow-up
[2017-04-27] MEDS: MULTIVITAMINS, THERA 1 EACH TAB PO SCH (12:31)
[2017-04-27] MEDS: LORazepam 1 MG TAB PO PRN ×2 (12:32→21:32)
[2017-04-27] MEDS: CYCLOBENZAPRINE 10 MG TAB PO SCH (21:31)
[2017-04-27] MEDS: ATORVASTATIN 10 MG TAB PO SCH (21:31)
[2017-04-27] MEDS: traZODone HCL 50 MG TAB PO SCH (21:32)
[2017-04-28] MEDS: LEVOTHYROXINE 75 MCG TAB PO SCH (07:17)
[2017-04-28] MEDS: LACTULOSE 20 GM/30 ML CUP PO SCH ×2 (08:45→20:27)
[2017-04-28] MEDS: CHOLECALCIFEROL 1,000 UNIT TAB PO SCH (08:45)
[2017-04-28] MEDS: POTASSIUM CHLORIDE ER 20 MEQ TAB.ER PO SCH (08:45)
[2017-04-28] MEDS: OXcarbazepine 300 MG TAB PO SCH (08:45)
[2017-04-28] MEDS: SPIRONOLACTONE 25 MG TAB PO SCH (08:46)
[2017-04-28] MEDS: FUROSEMIDE 20 MG TAB PO SCH (08:46)
[2017-04-28] MEDS: oxyCODONE-APAP 10-325MG 1 EACH TAB PO SCH ×3 (08:46→21:06)
[2017-04-28] MEDS: ALBUTEROL INHALER 60 PUFF/8 GM INHALER INHALATION SCH ×3 (09:30→20:18)
[2017-04-28 11:11] LABS: Anion Gap 12 mmol/L; Blood Urea Nitrogen 5 mg/dL (7-17); Calcium 9.1 mg/dL (8.4-10.2); Carbon Dioxide 24 mmol/L (22-30); Chloride 88 mmol/L (98-107); Glucose 86 mg/dL (74-99); Non-African American GFR(MDRD) >60 (>60 ml/min/1.73 sqM); Potassium 4.1 mmol/L (3.5-5.1); Sodium 124 mmol/L (137-145)
--- NOTE | 2017-04-28 11:49 | P.PN ---
Progress Note - Text Interval History: Patient is a 66-year-old female who was seen today and she was requesting discharge. Patient states she's sleeping well and does take naps during the day. She reported that she feels a little groggy this morning and states that she is eating. She denied any visual hallucinations and states she is not hearing any voices. She reported that she was no longer talking to herself. Patient states that she is rating to go home and did not voice any bizarre thoughts that she had been in the past. She denied any side effects from the medication but she did appear groggy on interview. Mental Status: Appearance/Attitude: Patient was neatly dressed, using a cane to ambulate and did come to the interview room today, she was cooperative. Behavior: Patient did not display any psychomotor agitation or retardation, was not found talking to herself in her room. Speech/Language: Patient's speech was spontaneous and of normal volume and rhythm. Thought Process: Patient was goal-directed, she did not exhibit any circumstantial or tangential thought, no loose associations or flight of ideas. Thought Content: Patient denied any auditory or visual hallucinations, did not verbalize any bizarre thoughts and stated she was no longer talking to her self to broadcast the news. She states that she was feeling sleepy this morning, states she has been eating and is ready to return home. Suicidal/Homicidal Ideation: Patient denies any suicidal or homicidal ideation. Sensorium/Cognition: Patient is alert and oriented to person, place, and time and her memory is grossly intact. Mood/Affect: Patient's mood is less irritable and she reports not feeling depressed and her affect was appropriate. Insight/Judgement: Patient's insight and judgment are fair. Assessment: Patient is now on Trileptal 900 mg a day since yesterday as well as her Abilify being increased to 20 mg and she appears slightly sedated this morning, unclear if it was due to her medications or her only sleeping 4-5 hours a night. Patient is requesting to return home and she appears much less irritable today and has not been found talking to herself in her room. She is not attending groups and continues to spend the bulk of her day in her room and she is napping during the day. Patient's sodium this am was 127, down from prior level. Patient discussed in treatment meeting and discharge plans were discussed. Plan: Patient will continue on Abilify 20mg qam to target her mood, psychotic symptoms, will discontinue the trileptal due to her low sodium, will repeat her ammonia level. At this time patient will continue on abilify only. Patient and I discussed her discharge but follow up is being explored, patient wants to return to her PCP. Patient's daughter will be contacted by social work regarding discharge. Plan on discharge in next several days.
[2017-04-28] MEDS: MULTIVITAMINS, THERA 1 EACH TAB PO SCH (12:06)
[2017-04-28 15:31] VITALS: BMI 28.0
[2017-04-28] MEDS: traZODone HCL 50 MG TAB PO SCH (20:27)
[2017-04-28] MEDS: CYCLOBENZAPRINE 10 MG TAB PO SCH (20:27)
[2017-04-28] MEDS: ATORVASTATIN 10 MG TAB PO SCH (20:27)
[2017-04-28] MEDS: LORazepam 1 MG TAB PO PRN (21:09)
[2017-04-28] MEDS: MAG HYDROX/AL HYDROX/SIMETH 30 ML CUP PO PRN (21:10)
[2017-04-29] MEDS: LEVOTHYROXINE 75 MCG TAB PO SCH (05:30)
[2017-04-29] MEDS: LACTULOSE 20 GM/30 ML CUP PO SCH ×2 (08:01→21:14)
[2017-04-29] MEDS: oxyCODONE-APAP 10-325MG 1 EACH TAB PO SCH ×3 (08:02→21:12)
[2017-04-29] MEDS: FUROSEMIDE 20 MG TAB PO SCH (08:02)
[2017-04-29] MEDS: CHOLECALCIFEROL 1,000 UNIT TAB PO SCH (08:02)
[2017-04-29] MEDS: MULTIVITAMINS, THERA 1 EACH TAB PO SCH (08:03)
[2017-04-29] MEDS: SPIRONOLACTONE 25 MG TAB PO SCH (08:03)
[2017-04-29] MEDS: POTASSIUM CHLORIDE ER 20 MEQ TAB.ER PO SCH (08:03)
[2017-04-29] MEDS: ALBUTEROL INHALER 60 PUFF/8 GM INHALER INHALATION SCH ×3 (12:22→19:08)
--- NOTE | 2017-04-29 12:50 | P.PN ---
Progress Note - Text Interval History: Patient is a 66-year-old female who was interviewed today and she reported that she needs to get home so that she can pay her bills. Patient denied any difficulty with her sleep stating that she did sleep last night even though it is documented that the patient only slept about 2 hours. Patient states that she is not hearing or seeing things and states that she has no thoughts of hurting herself or anyone else. She states she is eager to return home so that she can pay her bills. Patient reported no side effects from medication and had no other concerns. Mental Status: Appearance/Attitude: Patient was appropriately dressed and was lying in her bed when I approached. She made good eye contact and was cooperative. Behavior: Patient displayed no evidence of psychomotor agitation or retardation. Was not observed to be talking to herself and was much less irritable. Speech/Language: Patient's speech was spontaneous, normal volume and rhythm and she was coherent. Thought Process: Patient was goal-directed, no evidence of any circumstantial or tangential thought and no evidence of flight of ideas or loose associations. Thought Content: Patient denied any auditory or visual hallucinations, no delusions or paranoid ideation were elicited. Patient did not verbalize any somatic concerns or complaints she has in the past, was not observed to be talking to herself in her room as she has in the past. Patient reported that she is feeling well and needs to return home to pay her bills. Suicidal/Homicidal Ideation: Patient denied any suicidal or homicidal ideation currently. Sensorium/Cognition: Patient was alert and oriented to person, place, and time and her memory is grossly intact. Mood/Affect: Patient's mood was stable, not irritable and her affect was appropriate. Insight/Judgement: Patient's insight and judgment are fair. Assessment: Patient has been less irritable but continues to not attend groups or activities. She is not been observed talking to herself in her room and states that she no longer needs to broadcast the news. Patient and I discussed her medications and she understood the changes that were made. Patient has been cooperative on the unit and reports that her sleep is restful and her appetite is good. Patient was discussed in team treatment meeting, a family meeting was held the phone yesterday and her son has stated he will assist with her medication. Plan: Patient will continue on Abilify 20 mg a day to target her mood and psychotic symptoms. Patient's Trileptal was discontinued yesterday due to a low sodium and her sodium level was repeated this evening. Patient and I discussed discharge tomorrow and she was agreeable with this. Patient's family also feels that the patient is doing well and her son has offered to assist with her medication. Patient's follow-up is being arranged after discharge.
[2017-04-29 18:25] LABS: Anion Gap 10 mmol/L; Blood Urea Nitrogen 7 mg/dL (7-17); Calcium 9.2 mg/dL (8.4-10.2); Carbon Dioxide 24 mmol/L (22-30); Chloride 93 mmol/L (98-107); Glucose 79 mg/dL (74-99); Non-African American GFR(MDRD) >60 (>60 ml/min/1.73 sqM); Potassium 4.6 mmol/L (3.5-5.1); Sodium 127 mmol/L (137-145)
[2017-04-29] MEDS: traZODone HCL 50 MG TAB PO SCH (21:09)
[2017-04-29] MEDS: ATORVASTATIN 10 MG TAB PO SCH (21:09)
[2017-04-29] MEDS: CYCLOBENZAPRINE 10 MG TAB PO SCH (21:09)
[2017-04-29] MEDS: MAG HYDROX/AL HYDROX/SIMETH 30 ML CUP PO PRN (21:09)
[2017-04-29] MEDS: LORazepam 1 MG TAB PO PRN (21:12)
[2017-04-30] MEDS: ACETAMINOPHEN TAB 325 MG TAB PO PRN (01:36)
[2017-04-30] MEDS: LEVOTHYROXINE 75 MCG TAB PO SCH (05:45)
[2017-04-30 05:53] VITALS: TEMP 97.7
[2017-04-30] MEDS: SPIRONOLACTONE 25 MG TAB PO SCH (08:14)
[2017-04-30] MEDS: FUROSEMIDE 20 MG TAB PO SCH (08:14)
[2017-04-30] MEDS: POTASSIUM CHLORIDE ER 20 MEQ TAB.ER PO SCH (08:14)
[2017-04-30] MEDS: LACTULOSE 20 GM/30 ML CUP PO SCH (08:15)
[2017-04-30] MEDS: oxyCODONE-APAP 10-325MG 1 EACH TAB PO SCH (08:15)
[2017-04-30] MEDS: CHOLECALCIFEROL 1,000 UNIT TAB PO SCH (08:18)
[2017-04-30] MEDS: MAG HYDROX/AL HYDROX/SIMETH 30 ML CUP PO PRN (08:20)
[2017-04-30 08:22] VITALS: BP 108/62; PULSE 94; RESP 18
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
== END 2017-04-30 11:45 | disposition home or self-care (01) | DRG 885 ==
LOC: 3MHU 18:48
PROVIDERS: ADMIT Psychiatry & Neurology Psychiatry; ATTEND Psychiatry & Neurology Psychiatry
DX: F31.2 Bipolar disorder, current episode manic severe with psychotic features (principal); J44.9 Chronic obstructive pulmonary disease, unspecified; E66.01 Morbid (severe) obesity due to excess calories; G89.4 Chronic pain syndrome; E03.9 Hypothyroidism, unspecified; H40.9 Unspecified glaucoma; D72.829 Elevated white blood cell count, unspecified; G25.81 Restless legs syndrome; M19.91 Primary osteoarthritis, unspecified site; E78.5 Hyperlipidemia, unspecified; Z79.891 Long term (current) use of opiate analgesic; Z79.899 Other long term (current) drug therapy; Z85.3 Personal history of malignant neoplasm of breast; Z90.12 Acquired absence of left breast and nipple; Z90.710 Acquired absence of both cervix and uterus; Z87.891 Personal history of nicotine dependence; Z88.5 Allergy status to narcotic agent; Z88.0 Allergy status to penicillin; Z88.2 Allergy status to sulfonamides; Z88.8 Allergy status to other drugs, medicaments and biological substances
CPT/HCPCS: 80048; 80053; 80074; 80164; 82140; 84443; 85025; 94640

== ENCOUNTER 2017-05-02 12:59 | Inpatient (IN) | payer MEDICARE, MEDICAID ==
--- NOTE | 2017-05-02 13:43 | ED ---
General Adult HPI - General Source: patient, RN notes reviewed Mode of arrival: ambulatory Limitations: no limitations <Kp Cox - Last Filed: 05/02/17 17:47> <Catarino Mota - Last Filed: 05/03/17 06:01> - General Chief complaint: Psychiatric Symptoms Stated complaint: mental health Time Seen by Provider: 05/02/17 13:17 - History of Present Illness Initial comments: this a 66-year-old female presents emergency Department chief complaint psychiatric evaluation. Patient is brought here by son is patient refused to go to [facility] today. Patient states that she needs her medications. Patient was recently admitted to [facility] for bipolar disorder manic with psychosis. Patient son states that she is presenting similar to last time. She denies any suicidal or homicidal ideations. Patient is making bizarre statements in the emergency Department. She denies any drug or alcohol use. (Kp Cox) - Related Data Home Medications Medication Instructions Recorded Confirmed Cholecalciferol [Vitamin D3] 5,000 unit PO DAILY 03/06/15 05/02/17 Previous Rx's Medication Instructions Recorded ARIPiprazole [Abilify] 20 mg PO DAILY #14 tab 04/30/17 traZODone HCL [Desyrel] 50 mg PO HS #14 tab 04/30/17 Allergies Allergy/AdvReac Type Severity Reaction Status Date / Time metronidazole [From Flagyl] Allergy Severe Swelling Verified 05/02/17 14:17 morphine Allergy Severe passed out Verified 05/02/17 14:17 pregabalin [From Lyrica] Allergy Severe throat Verified 05/02/17 14:17 swelling Sulfa (Sulfonamide Allergy Severe Swelling Verified 05/02/17 14:17 Antibiotics) cortisone Allergy Rash/Hives Verified 05/02/17 14:17 Penicillins Allergy Rash/Hives Verified 05/02/17 14:17 Review of Systems ROS Other: All systems not noted in ROS Statement are negative. <Kp Cox - Last Filed: 05/02/17 17:47> ROS Other: All systems not noted in ROS Statement are negative. <Catarino Mota - Last Filed: 05/03/17 06:01> ROS Statement: Those systems with pertinent positive or pertinent negative responses have been documented in the HPI. Past Medical History Past Medical History: Asthma, Cancer, Eye Disorder, Hyperlipidemia, Osteoarthritis (OA), Thyroid Disorder Additional Past Medical History / Comment(s): "low BP", edema lower legs, uses a cane, emphysema, glaucoma, "lump on kidney", breast cancer, last seizure 2011 History of Any Multi-Drug Resistant Organisms: None Reported Past Surgical History: Breast Surgery, Hysterectomy, Tubal Ligation Additional Past Surgical History / Comment(s): left mastectomy Past Anesthesia/Blood Transfusion Reactions: Motion Sickness Past Psychological History: Anxiety, Bipolar, Schizophrenia Smoking Status: Former smoker Past Alcohol Use History: None Reported Past Drug Use History: Marijuana - Past Family History Father Additional Family Medical History / Comment(s): Father at age at 87 from old age. Daughter(s) Additional Family Medical History / Comment(s): Patient states that she has 3 children and 2 are on drugs. Sister(s) Family Medical History: Cancer Additional Family Medical History / Comment(s): She has one sister that from some type of cancer. Mother Family Medical History: Cancer Additional Family Medical History / Comment(s): Mother at age 56 from cancer, unknown type. <Kp Cox - Last Filed: 05/02/17 17:47> General Exam Limitations: no limitations General appearance: alert, in no apparent distress Head exam: Present: atraumatic, normocephalic, normal inspection Neck exam: Present: normal inspection. Absent: tenderness, meningismus, lymphadenopathy Respiratory exam: Present: normal lung sounds bilaterally. Absent: respiratory distress, wheezes, rales, rhonchi, stridor Cardiovascular Exam: Present: regular rate, normal rhythm, normal heart sounds. Absent: systolic murmur, diastolic murmur, rubs, gallop, clicks Neurological exam: Present: alert, oriented X3, CN II-XII intact, reflexes normal. Absent: motor sensory deficit Psychiatric exam: Present: anxious, manic Skin exam: Present: warm, dry, intact, normal color. Absent: rash <Kp Cox - Last Filed: 05/02/17 17:47> Course <Kp Cox - Last Filed: 05/02/17 17:47> <Catarino Mota - Last Filed: 05/03/17 06:01> Vital Signs 05/02/17 05/02/17 05/03/17 13:03 19:51 02:51 Temperature 97.2 F L 97.8 F Pulse Rate 104 H 85 78 Respiratory 18 18 16 Rate Blood Pressure 125/84 156/66 142/66 O2 Sat by Pulse 98 100 99 Oximetry - Reevaluation(s) Reevaluation #1: 05/03/17 06:00 The patient is resting comfortably throughout the lecturer of portuguese. She is awaiting transfer to a outside psychiatric facility. (Catarino Mota) Medical Decision Making - Lab Data Result diagrams: 05/02/17 13:48 05/02/17 13:48 <Kp Cox - Last Filed: 05/02/17 17:47> - Lab Data Result diagrams: 05/02/17 13:48 05/02/17 13:48 <Catarino Mota - Last Filed: 05/03/17 06:01> - Lab Data Lab Results 05/02/17 05/02/17 05/02/17 Range/Units 13:48 13:48 14:30 WBC 8.1 (3.8-10.6) k/uL RBC 4.07 (3.80-5.40) m/uL Hgb 13.1 (11.4-16.0) gm/dL Hct 39.2 (34.0-46.0) % MCV 96.3 (80.0-100.0) fL MCH 32.2 (25.0-35.0) pg MCHC 33.5 (31.0-37.0) g/dL RDW 14.2 (11.5-15.5) % Plt Count 326 (150-450) k/uL Neutrophils % 76 % Lymphocytes % 16 % Monocytes % 4 % Eosinophils % 2 % Basophils % 1 % Neutrophils # 6.1 (1.3-7.7) k/uL Lymphocytes # 1.3 (1.0-4.8) k/uL Monocytes # 0.4 (0-1.0) k/uL Eosinophils # 0.1 (0-0.7) k/uL Basophils # 0.1 (0-0.2) k/uL Sodium 133 L (137-145) mmol/L Potassium 4.4 (3.5-5.1) mmol/L Chloride 102 (98-107) mmol/L Carbon Dioxide 20 L (22-30) mmol/L Anion Gap 11 mmol/L BUN 7 (7-17) mg/dL Creatinine 0.56 (0.52-1.04) mg/dL Est GFR (MDRD) Af Amer >60 (>60 ml/min/1.73 sqM) Est GFR (MDRD) Non-Af >60 (>60 ml/min/1.73 sqM) Glucose 123 H (74-99) mg/dL Calcium 9.4 (8.4-10.2) mg/dL Total Bilirubin 0.8 (0.2-1.3) mg/dL AST 32 (14-36) U/L ALT 43 (9-52) U/L Alkaline Phosphatase 72 (38-126) U/L Total Protein 6.5 (6.3-8.2) g/dL Albumin 4.0 (3.5-5.0) g/dL Urine Color Yellow Urine Appearance Clear (Clear) Urine pH 6.5 (5.0-8.0) Ur Specific [place] 1.005 (1.001-1.035) Urine Protein Negative (Negative) Urine Glucose (UA) Negative (Negative) Urine Ketones Negative (Negative) Urine Blood Negative (Negative) Urine Nitrite Negative (Negative) Urine Bilirubin Negative (Negative) Urine Urobilinogen <2.0 (<2.0) mg/dL Ur Leukocyte Esterase Negative (Negative) Urine Opiates Screen Not Detected (NotDetected) Ur Oxycodone Screen Not Detected (NotDetected) Urine Methadone Screen Not Detected (NotDetected) Ur Propoxyphene Screen Not Detected (NotDetected) Ur Barbiturates Screen Not Detected (NotDetected) U Tricyclic Antidepress Not Detected (NotDetected) Ur Phencyclidine Scrn Not Detected (NotDetected) Ur Amphetamines Screen Not Detected (NotDetected) U Methamphetamines Scrn Not Detected (NotDetected) U Benzodiazepines Scrn Not Detected (NotDetected) Urine Cocaine Screen Not Detected (NotDetected) U Marijuana (THC) Screen Not Detected (NotDetected) Disposition <Kp Cox - Last Filed: 05/02/17 17:47> <Catarino Mota - Last Filed: 05/03/17 06:01> Clinical Impression: Bipolar disorder Disposition: [facility] Condition: Fair Referrals: Alex Morrissey MD [Primary Care Provider] - 1-2 days
[2017-05-02 14:04] LABS: Basophils # (A) 0.1 k/uL (0-0.2); Basophils % (A) 1 %; CHCM 33.4; Eosinophils # (A) 0.1 k/uL (0-0.7); Eosinophils % (A) 2 %; HCT 39.2 % (34.0-46.0); HDW 2.44; HGB 13.1 gm/dL (11.4-16.0); Luc # (Auto) 0.12; Luc % (Auto) 2; Lymphocytes # (A) 1.3 k/uL (1.0-4.8); Lymphocytes % (A) 16 %; MCH 32.2 pg (25.0-35.0); MCHC 33.5 g/dL (31.0-37.0); MCV 96.3 fL (80.0-100.0); Mean Platelet Volume 7.6; Monocytes # (A) 0.4 k/uL (0-1.0); Monocytes % (A) 4 %; Neutrophils # (A) 6.1 k/uL (1.3-7.7); Neutrophils % (A) 76 %; RBC 4.07 m/uL (3.80-5.40); RDW 14.2 % (11.5-15.5); WBC 8.1 k/uL (3.8-10.6); WBC (Perox) 8.43
[2017-05-02 14:23] LABS: ALT 43 U/L (9-52); AST 32 U/L (14-36); Alkaline Phosphatase 72 U/L (38-126); Anion Gap 11 mmol/L; Blood Urea Nitrogen 7 mg/dL (7-17); Calcium 9.4 mg/dL (8.4-10.2); Carbon Dioxide 20 mmol/L (22-30); Chloride 102 mmol/L (98-107); Glucose 123 mg/dL (74-99); Non-African American GFR(MDRD) >60 (>60 ml/min/1.73 sqM); Potassium 4.4 mmol/L (3.5-5.1); Sodium 133 mmol/L (137-145); Total Bilirubin 0.8 mg/dL (0.2-1.3); Total Protein 6.5 g/dL (6.3-8.2)
[2017-05-02 14:49] LABS: Appearance,Urine Clear (Clear); Bilirubin,Urine Negative (Negative); Glucose,Urine (UA) Negative (Negative); Ketones,Urine Negative (Negative); Leukocyte Esterase,Urine Negative (Negative); Nitrite,Urine Negative (Negative); PH, Urine 6.5 (5.0-8.0); Protein,Urine Negative (Negative); Specific Gravity,Urine 1.005 (1.001-1.035); UA Billing (MACRO vs. MICRO) CHEM; Urobilinogen,Urine <2.0 mg/dL (<2.0)
[2017-05-02] MEDS ORDERED: HYDROcodone/APAP 5-325MG 1 EACH TAB PO STA (21:08)
[2017-05-02] MEDS ORDERED: traZODone HCL 50 MG TAB PO ONE (21:10)
[2017-05-03] MEDS ORDERED: MAG HYDROX/AL HYDROX/SIMETH 30 ML CUP PO PRN (13:42)
[2017-05-03] MEDS ORDERED: MAGNESIUM HYDROXIDE 2,400 MG/10 ML CUP PO PRN (13:42)
[2017-05-03 15:43] VITALS: BMI 34.9
[2017-05-03] MEDS: oxyCODONE-APAP 10-325MG 1 EACH TAB PO SCH ×2 (15:44→23:52)
[2017-05-03] MEDS: LEVOTHYROXINE 75 MCG TAB PO SCH (16:09)
--- NOTE | 2017-05-03 16:38 | P.HP ---
Psychiatric H&P - . H&P Date: 05/03/17 History & Physical: Allergies Allergy/AdvReac Type Severity Reaction Status Date / Time metronidazole [From Flagyl] Allergy Severe Swelling Verified 05/03/17 15:16 morphine Allergy Severe passed out Verified 05/03/17 15:16 pregabalin [From Lyrica] Allergy Severe throat Verified 05/03/17 15:16 swelling Sulfa (Sulfonamide Allergy Severe Swelling Verified 05/03/17 15:16 Antibiotics) cortisone Allergy Rash/Hives Verified 05/03/17 15:16 Penicillins Allergy Rash/Hives Verified 05/03/17 15:16 Vital Signs Temp 98 F 05/03/17 15:22 Pulse 82 05/03/17 15:22 Resp 18 05/03/17 15:22 BP 137/79 05/03/17 15:22 Pulse Ox 98 05/03/17 12:11 Intake & Output 05/02/17 05/03/17 05/03/17 18:59 06:59 18:59 Weight 78.018 kg 86.6 kg Laboratory Last Values WBC 8.1 k/uL (3.8-10.6) 05/02/17 13:48 RBC 4.07 m/uL (3.80-5.40) 05/02/17 13:48 Hgb 13.1 gm/dL (11.4-16.0) 05/02/17 13:48 Hct 39.2 % (34.0-46.0) 05/02/17 13:48 MCV 96.3 fL (80.0-100.0) 05/02/17 13:48 MCH 32.2 pg (25.0-35.0) 05/02/17 13:48 MCHC 33.5 g/dL (31.0-37.0) 05/02/17 13:48 RDW 14.2 % (11.5-15.5) 05/02/17 13:48 Plt Count 326 k/uL (150-450) 05/02/17 13:48 Neutrophils % 76 % 05/02/17 13:48 Lymphocytes % 16 % 05/02/17 13:48 Monocytes % 4 % 05/02/17 13:48 Eosinophils % 2 % 05/02/17 13:48 Basophils % 1 % 05/02/17 13:48 Neutrophils # 6.1 k/uL (1.3-7.7) 05/02/17 13:48 Lymphocytes # 1.3 k/uL (1.0-4.8) 05/02/17 13:48 Monocytes # 0.4 k/uL (0-1.0) 05/02/17 13:48 Eosinophils # 0.1 k/uL (0-0.7) 05/02/17 13:48 Basophils # 0.1 k/uL (0-0.2) 05/02/17 13:48 Sodium 133 mmol/L (137-145) L 05/02/17 13:48 Potassium 4.4 mmol/L (3.5-5.1) 05/02/17 13:48 Chloride 102 mmol/L (98-107) 05/02/17 13:48 Carbon Dioxide 20 mmol/L (22-30) L 05/02/17 13:48 Anion Gap 11 mmol/L 05/02/17 13:48 BUN 7 mg/dL (7-17) 05/02/17 13:48 Creatinine 0.56 mg/dL (0.52-1.04) 05/02/17 13:48 Est GFR (MDRD) Af Amer >60 (>60 ml/min/1.73 sqM) 05/02/17 13:48 Est GFR (MDRD) Non-Af >60 (>60 ml/min/1.73 sqM) 05/02/17 13:48 Glucose 123 mg/dL (74-99) H 05/02/17 13:48 Calcium 9.4 mg/dL (8.4-10.2) 05/02/17 13:48 Total Bilirubin 0.8 mg/dL (0.2-1.3) 05/02/17 13:48 AST 32 U/L (14-36) 05/02/17 13:48 ALT 43 U/L (9-52) 05/02/17 13:48 Alkaline Phosphatase 72 U/L (38-126) 05/02/17 13:48 Total Protein 6.5 g/dL (6.3-8.2) 05/02/17 13:48 Albumin 4.0 g/dL (3.5-5.0) 05/02/17 13:48 Urine Color Yellow 05/02/17 14:30 Urine Appearance Clear (Clear) 05/02/17 14:30 Urine pH 6.5 (5.0-8.0) 05/02/17 14:30 Ur Specific [place] 1.005 (1.001-1.035) 05/02/17 14:30 Urine Protein Negative (Negative) 05/02/17 14:30 Urine Glucose (UA) Negative (Negative) 05/02/17 14:30 Urine Ketones Negative (Negative) 05/02/17 14:30 Urine Blood Negative (Negative) 05/02/17 14:30 Urine Nitrite Negative (Negative) 05/02/17 14:30 Urine Bilirubin Negative (Negative) 05/02/17 14:30 Urine Urobilinogen <2.0 mg/dL (<2.0) 05/02/17 14:30 Ur Leukocyte Esterase Negative (Negative) 05/02/17 14:30 Urine Opiates Screen Not Detected (NotDetected) 05/02/17 14:30 Ur Oxycodone Screen Not Detected (NotDetected) 05/02/17 14:30 Urine Methadone Screen Not Detected (NotDetected) 05/02/17 14:30 Ur Propoxyphene Screen Not Detected (NotDetected) 05/02/17 14:30 Ur Barbiturates Screen Not Detected (NotDetected) 05/02/17 14:30 U Tricyclic Antidepress Not Detected (NotDetected) 05/02/17 14:30 Ur Phencyclidine Scrn Not Detected (NotDetected) 05/02/17 14:30 Ur Amphetamines Screen Not Detected (NotDetected) 05/02/17 14:30 U Methamphetamines Scrn Not Detected (NotDetected) 05/02/17 14:30 U Benzodiazepines Scrn Not Detected (NotDetected) 05/02/17 14:30 Urine Cocaine Screen Not Detected (NotDetected) 05/02/17 14:30 U Marijuana (THC) Screen Not Detected (NotDetected) 05/02/17 14:30 05/03/17 16:15 Identification: Patient is a 66-year-old female who was discharged from the psychiatric unit on 04/30/2017. Apparently when she went home her daughter did not understand that she was supposed to continue the patient's medications for her medical reasons, the patient was given prescriptions for Abilify and trazodone and had sufficient medication at home but her family did not give them to her. Patient was brought to the hospital under a petition from her son who stated that the patient "had knives everywhere in front of her thinking people were coming in to target her". Patient was in the emergency room since yesterday afternoon and was admitted to the inpatient unit today. History of Present Illness: Patient is a 66-year-old female who was brought to the emergency room by her [id number] with a petition signed by her son stating that the patient had "knives everywhere in front of her and was thinking that people were coming in to target her". Patient had been discharged from the psychiatric unit on April 30 and was continued on Abilify and trazodone by her family but they did not give her any of her other medications that were available for the patient, apparently they thought these were all discontinued. Patient was seen today and she was extremely irritable and angry about her family and and there interference in her life. Patient continued to complain about her family, using vulgar language, stating that her [id number] had stolen some of her clothing, that her grandchildren were wearing her clothing and that she couldn't stand to have any of them on her yard. Patient reported that she was not seeing or hearing things currently and stated that she did not sleep when she was at home and was up cleaning her house and washing her clothing. Patient insists that she needs to leave to pay her bills which were due on May 01. Patient continues to insist she is not going to go see a psychiatrist stating "ever since I came out of my mother's ass psychiatrists were waiting in the delivery room". Patient did not keep her appointment on May 02 at [facility] for an intake. She states she is not going to see a psychiatrist and wants to return to have her primary care physician prescribe her medications. Patient also insists that she will control her medications and does not want her son in control of her medication. Past Psychiatric History: Patient states that she has been seeing psychiatrists all her life and has a long history of psychiatric admissions, patient's most recent admission prior to her admission in March was in 2013. Prior to her admission she had been receiving her medication from her primary care physician. Past Medical/Surgical History: Patient has a history of COPD, hyperlipidemia, hypothyroidism, history of breast cancer status post left mastectomy, glaucoma and she complains of chronic pain. Current Medications Acetaminophen (Tylenol Tab) 650 mg PO Q4HR PRN PRN Reason: Pain/Discomfort Al Hydroxide/Mg Hydroxide (Maalox) 30 ml PO Q4HR PRN PRN Reason: GI Upset Albuterol Sulfate (Ventolin Nebulized) 2.5 mg INHALATION TID [facility] Aripiprazole (Abilify) 20 mg PO DAILY [facility] Last Admin: 05/03/17 15:44 Dose: 20 mg Atorvastatin Calcium (Lipitor) 10 mg PO HS [facility] Cholecalciferol (Vitamin D3) 5,000 unit PO DAILY [facility] Cyclobenzaprine HCl (Flexeril) 10 mg PO HS [facility] Levothyroxine Sodium (Synthroid) 150 mcg PO DAILY@0630 [facility] Last Admin: 05/03/17 16:09 Dose: 150 mcg Magnesium Hydroxide (Milk Of Magnesia) 2,400 mg PO DAILY PRN PRN Reason: Constipation Multivitamins (Theragran) 1 each PO DAILY@1200 [facility] Oxycodone/Acetaminophen (Percocet 10-325) 1 each PO Q8HR [facility] Last Admin: 05/03/17 15:44 Dose: 1 each Ropinirole HCl (Requip) 0.25 mg PO TID [facility] Last Admin: 05/03/17 16:10 Dose: 0.25 mg Spironolactone (Aldactone) 25 mg PO DAILY [facility] Trazodone HCl (Desyrel) 75 mg PO [facility] Family History: Patient would not discuss her family history Social History: Patient states that she lives alone, her children live near her and stated that she was able to care for her own ADLs and take her medications. Patient again would not elaborate further on her social history with me at this time. Substance Use History: Patient would not discuss her alcohol or substance use in the past Legal History: Unknown Mental Status:[Appearance/Attitude: Patient is neatly groomed and wearing a hospital gown and sitting in her room. Patient was superficially cooperative and made good eye contact. Behavior: Patient was not exhibiting any psychomotor retardation but became increasingly irritable when discussing her family. Speech/Language: Patient's speech was spontaneous, she spoke in a normal tone until she became irritable and her voice became louder and she was coherent. Thought Process: Patient was goal-directed, mostly complaining about her family and her dislike of them, her dislike of psychiatrists there is no evidence of flight of ideas or loose associations. Thought Content: Patient denied any auditory or visual hallucinations and denied any paranoid or delusional ideation. Patient complained about having to see psychiatrists all of her life, complained about her family and they're taking her clothing, that she was capable of handling her own medication and did not want her children involved in her life. Patient did not report any somatic delusions, as she had on her prior stay. Patient's only complaints were about being return to the hospital, seeing psychiatrist in about her family not being involved with her care. Patient was insistent that she needed to leave to pay bills. Suicidal/Homicidal Ideation: Patient denies any current suicidal or homicidal ideation. Sensorium/Cognition: Patient was alert and oriented to person, place, and time and her memory was grossly intact. Mood/Affect: Patient's mood is irritable and her affect is appropriate to her mood. Insight/Judgement: Patient's insight and judgment are fair. Intellectual Functioning: Her intellectual functioning appears to be average. Strength/Weaknesses: Patient has her own home/noncompliance with referrals for psychiatric outpatient care. Assessment: [Patient was readmitted on a petition by her family which stated the patient was sitting at home with knives everywhere in front of her and thinking that people were coming in to target her. Patient stated she had her wedding knife out to clean it and was getting ready to prepare cake. She complained about her children being in charge of her medication, they're not giving her her medication after her discharge other than the Abilify and trazodone. She is not experiencing any auditory or visual hallucinations currently and did not verbalize any somatic delusions as she had on her prior admission. Patient was agreeable to signing in voluntarily but insists that she will not follow-up with outpatient psychiatrist and only will see her family physician. Patient also insists that she will be in charge of her medication upon discharge. Patient's sodium is 133 and a basic metabolic panel will be repeated. Patient's sodium is been trending upward since the discontinuation of Trileptal. Admission Diagnoses: Bipolar I disorder, hypomanic Plan: Patient was restarted on her Abilify 20 mg in the morning and her trazodone was increased to 75 mg at bedtime due to her reports of not sleeping when she was at home. I suspect some of the difficulties at home were compounded by her not receiving her medical medications and these have all been restarted here. Patient will be placed on routine precautions, group and activity therapy were ordered, the basic metabolic panel will be ordered to recheck her sodium level. Patient is not expressing any delusional ideation, not reporting any suicidal or homicidal ideation and was agreeable to signing in on a voluntary basis. Patient remains irritable especially when discussing her family, follow-up psychiatric care in control of her medications. Discharge planning will be discussed and hopefully patient can be discharged in several days. 05/03/17 16:15 05/03/17 16:20 05/03/17 16:36
[2017-05-03] MEDS: ALBUTEROL NEBULIZED 2.5 MG/3 ML INHALATION SCH ×2 (16:44→21:07)
[2017-05-03] MEDS: traZODone HCL 50 MG TAB PO SCH (20:56)
[2017-05-03] MEDS: CYCLOBENZAPRINE 10 MG TAB PO SCH (20:57)
[2017-05-03] MEDS: ATORVASTATIN 10 MG TAB PO SCH (20:57)
[2017-05-03] MEDS ORDERED: ALBUTEROL INHALER 60 PUFF/8 GM INHALER INHALATION PRN (21:57)
[2017-05-04] MEDS: LEVOTHYROXINE 75 MCG TAB PO SCH (05:41)
[2017-05-04] MEDS: CHOLECALCIFEROL 1,000 UNIT TAB PO SCH (08:08)
[2017-05-04] MEDS: oxyCODONE-APAP 10-325MG 1 EACH TAB PO SCH ×3 (08:08→21:08)
[2017-05-04] MEDS: SPIRONOLACTONE 25 MG TAB PO SCH (08:19)
[2017-05-04] MEDS: ALBUTEROL INHALER 60 PUFF/8 GM INHALER INHALATION SCH ×3 (09:21→21:13)
--- NOTE | 2017-05-04 10:09 | P.PN ---
Progress Note - Text Interval History: Patient is a 66-year-old female who was seen this morning and states that she slept through the evening, she states she is feeling much less irritable as morning now that she is back on her medications. Patient states that she wishes to return home tomorrow so that she can pay her bills and patient continues to be adamant about not seeing a psychiatrist but only receiving her medications from her primary care physician. Patient becomes quite agitated and irritable when discussing having her children control her medications, she states that she has a safe at home that she keeps her medications. Patient had no other complaints this morning. Mental Status: Appearance/Attitude: Patient is neatly dressed and groomed, sitting in a wheelchair and is cooperative. Behavior: Patient is not displaying any psychomotor retardation and she is much less irritable this morning. Speech/Language: Patient's speech is spontaneous, her volume and rhythm are normal and she is coherent. Thought Process: Patient is goal-directed and there is no evidence of any circumstantial or tangential thought and no flu's associations or flight of ideas. Thought Content: Patient denies any auditory or visual hallucinations, continues to insist that her children should not control her medication, she is not expressing any somatic delusions. Patient states that she slept and ate well. Suicidal/Homicidal Ideation: Patient denies any suicidal or homicidal ideation. Sensorium/Cognition: Patient is alert and oriented to person, place, and time and her memory is grossly intact. Mood/Affect: Patient's mood is much less irritable and her affect is appropriate. Insight/Judgement: Patient's insight and judgment are fair. Assessment: Patient is much less irritable today but continues to insist that she will not see a psychiatrist and only wants to receive her medication from her primary care physician and becomes increasingly irritated when discussing her medications and having her children being control of them. Patient has been cooperative on the unit and continues to not attend groups. Plan: Patient will continue on Abilify 20 mg in the morning to target her mood and psychotic symptoms and Desyrel at 75 mg at bedtime to target her insomnia. Patient will continue on her prior medications for her medical problems. Discharge planning regarding follow-up and medication administration will be discussed in team treatment meeting and consider patient for discharge in several days. A basic metabolic panel was done today and the results of which are unavailable to check patient's sodium level.
[2017-05-04 10:48] LABS: Anion Gap 12 mmol/L; Blood Urea Nitrogen 9 mg/dL (7-17); Calcium 9.5 mg/dL (8.4-10.2); Carbon Dioxide 21 mmol/L (22-30); Chloride 106 mmol/L (98-107); Glucose 111 mg/dL (74-99); Non-African American GFR(MDRD) >60 (>60 ml/min/1.73 sqM); Potassium 4.7 mmol/L (3.5-5.1); Sodium 139 mmol/L (137-145)
[2017-05-04] MEDS: MULTIVITAMINS, THERA 1 EACH TAB PO SCH (11:55)
[2017-05-04] MEDS: ACETAMINOPHEN TAB 325 MG TAB PO PRN (12:56)
[2017-05-04] MEDS: ATORVASTATIN 10 MG TAB PO SCH (21:03)
[2017-05-04] MEDS: traZODone HCL 50 MG TAB PO SCH (21:03)
[2017-05-04] MEDS: CYCLOBENZAPRINE 10 MG TAB PO SCH (21:03)
[2017-05-05 03:57] VITALS: RESP 18; TEMP 98.3
[2017-05-05] MEDS: LEVOTHYROXINE 75 MCG TAB PO SCH (06:17)
[2017-05-05] MEDS: CHOLECALCIFEROL 1,000 UNIT TAB PO SCH (08:20)
[2017-05-05] MEDS: oxyCODONE-APAP 10-325MG 1 EACH TAB PO SCH (08:20)
[2017-05-05] MEDS: SPIRONOLACTONE 25 MG TAB PO SCH (08:21)
[2017-05-05] MEDS: ALBUTEROL INHALER 60 PUFF/8 GM INHALER INHALATION SCH ×2 (09:44→13:57)
[2017-05-05 09:48] VITALS: BP 110/67; PULSE 107
[2017-05-05] MEDS: MULTIVITAMINS, THERA 1 EACH TAB PO SCH (11:03)
--- NOTE | 2017-05-05 11:10 | CONS ---
DATE OF CONSULTATION: 05/04/2017 REASON FOR CONSULTATION: Medical management requested by Dr. Fraire. CONSULTATION: This is a 66-year-old patient followed by Dr. Morrissey. Chronic stable medical condition includes seizure disorder, COPD, hypertension, hypothyroidism, osteoarthritis, hyperlipidemia. Patient's psychiatry diagnosis from previous admission of bipolar effective mixed phase disorder with paranoid illusions. Patient was prescribed medications and apparently patient has not been given these by the family and patient is putting a knife around the house. Patient is actually rather upset when interviewing that why she is not getting medications by her family members, hence she was brought in here and admitted in the Psychiatry. At this time, she has been diagnosed with bipolar I disorder, hypomanic. REVIEW OF SYSTEMS: CONSTITUTIONAL: Tired. HEENT: None. RESPIRATORY: Occasional wheezing. CARDIOVASCULAR: None. GASTROINTESTINAL: None. GENITOURINARY: None. MUSCULOSKELETAL: Aches and pains in different joints. DERMATOLOGICAL: None. HEMATOLOGICAL: None. LYMPHATICS: None. PSYCHIATRY: As above. NEUROLOGICAL: None. PAST HISTORY: Seizures, COPD, hypertension, hypothyroid, osteoarthritis, hyperlipidemia, bipolar disorder. PAST SURGICAL HISTORY: Breast surgery, hysterectomy, tubal ligation, left mastectomy. SOCIAL HISTORY: Patient smokes about 1/2 pack a day. She states she just stopped about 2 months ago. She is a . Drinks alcohol rarely, smoked marijuana for a short time. FAMILY HISTORY: Sister from cancer, type unknown. HOME MEDICATIONS: Trazodone, ( ) q.h.s., Requip 0.25 p.o. t.i.d., Percocet 10 one tablet q.8 p.r.n., Aldactone 25 mg p.o. daily, Zocor 10 mg q.h.s., multivitamin 1 tablet p.o. daily, Synthroid 150 mcg p.o. daily, Flexeril 10 mg p.o. q.h.s., vitamin D3 five thousand units p.o. daily, Ventolin 2 puffs t.i.d. , Abilify 20 mg p.o. daily. Allergies to PENICILLIN, CORTISONE, SULFA, LYRICA, MORPHINE, FLAGYL. On examination, temperature 98, pulse 112, respirations 18, blood pressure 111/ 72, pulse ox 98% on room air. GENERAL APPEARANCE: Well build, BMI 34.9, sitting up, not in distress. EYES: Pupils equal, conjunctivae normal. HEENT: Oral cavity normal. NECK; JVD not raised, mass not palpable. RESPIRATORY: Effort normal. LUNGS: Diminished breath sounds. CARDIOVASCULAR: First and second sounds are normal, no edema. ABDOMEN: Distended, soft, liver and spleen not palpable. LYMPHATICS: No lymph node palpable in neck or axilla. PSYCHIATRY; Alert and oriented x3. Mood and affect anxious appearing. NEUROLOGICAL: Pupils equal, cranial nerves grossly intact. Power and sensation grossly intact. INVESTIGATIONS: White count 8.1, hemoglobin 13.1, potassium 4.4. UA negative, urine drug screen negative. ASSESSMENT: 1. Epilepsy disorder, type unknown. 2. Chronic obstructive pulmonary disease in an ex-smoker. 3. Hypertension. 4. Hypothyroidism. 5. 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 5. Hyperlipidemia. 6. Bipolar disorder, hypomanic type per psychiatry. 7. Obesity, body mass index of 34.9. PLAN: Home medications are resumed. Patient asked to cut back on her weight. She will see a batch unloader in outpatient. She says she has already stopped smoking. Thank you Dr. Fraire. [facility]
[2017-05-05] MEDS: ACETAMINOPHEN TAB 325 MG TAB PO PRN (11:53)
--- NOTE | 2017-05-05 12:34 | P.DS ---
Providers Date of admission: 05/03/17 13:32 Expected date of discharge: 05/05/17 Attending physician: Emi Fraire MD Consults: 05/03/17 14:24 Consult Physician Routine Consulting Provider: Mike Cedeño Consult Reason/Comments: H and P and medical management Do you want consulting provider notified?: Yes Primary care physician: Alex Morrissey [place] [facility] Course: Discharge Diagnoses: Bipolar I disorder, current episode hypomanic Reason for Admission: Patient was brought to the hospital by her daughter-in- law and son who petitioned the patient, the patient stated that the patient was sitting at home with knives and threatening to hurt herself. Patient had been discharged several days previously and the family had only been giving her Abilify and trazodone and none of her other medications. Patient was initially kept in the emergency room for 24 hours awaiting an inpatient bed and was eventually admitted to our unit. Hospital Course: Patient was admitted and signed a voluntary admission form and was restarted on her previous home medications and Abilify 20 mg was continued and her Desyrel was increased to 75 mg at bedtime due to her complaints of not sleeping at home. Patient was also placed on routine precautions, a basic metabolic panel was ordered and patient was encouraged to attend groups and activity therapy. Patient was initially quite irritable on the unit, once her medications had been reinstated patient was less irritable, was not verbalizing any somatic delusional ideation as she had in the past. She denied any suicidal ideation and states she was not hearing voices. Patient was adamant that she would not allow her family to control her medication and also was adamant that she would not go to [facility], patient had refused to attend her appointment that was scheduled on the day she was taken to the emergency room. Patient attended only some of the groups. Patient was cooperative on the unit but insisting that she needs to return home to pay her bills. Discharge Mental Status:Appearance/Attitude: Patient was neatly groomed, using a walker to ambulate and was cooperative and made good eye contact. Behavior: Patient displayed no psychomotor agitation or retardation and when questioned about why she was always talking to herself in her room she reported that she has always done that because she has no one to talk to. Speech/Language: Patient was spontaneous, not pressured and at times loud and she was coherent. Thought Process: Patient was goal-directed and responding to questions and no circumstantial or tangential ideation was elicited and no loose associations or flight of ideas were elicited. Thought Content: Patient denied any auditory or visual hallucinations, no paranoid or delusional ideation was elicited and she did not verbalize any somatic delusions she had on her prior admission. Patient however continued to be adamant about the fact that she did not want her family involved with her medication and that she did not want to follow-up with a psychiatrist only with her primary care physician. Patient was able to repeat her medications and stated to me that she was able to cook for herself and had her family take her shopping. Patient stated she was comfortable returning to her home and needed to get back home to pay her bills which were due on May 01. Suicidal/Homicidal Ideation: Patient denied any current suicidal or homicidal ideation. Sensorium/Cognition: She was alert and oriented to person, place, and date and her memory is grossly intact Mood/Affect: Patient's mood was slightly irritable, her affect was appropriate to her mood. Insight/Judgement: Patient's insight and judgment are fair. Risk Assessment: Patient's risk for self-harm remains low that she has no prior history of suicide attempts, has been compliant with her medication Discharge Plan: Patient will return to live in her own home and she will follow- up with her primary care physician for her psychiatric medications. Patient will be discharged on Abilify 20 mg every morning and trazodone 75 mg at bedtime. She will continue on her prior medications for medical problems. Prescriptions for 2 weeks of all of the patient's medications were printed. Patient was agreeable to have [facility] provide medication management and psychiatric nursing. Laboratory Last Values WBC 8.1 k/uL (3.8-10.6) 05/02/17 13:48 RBC 4.07 m/uL (3.80-5.40) 05/02/17 13:48 Hgb 13.1 gm/dL (11.4-16.0) 05/02/17 13:48 Hct 39.2 % (34.0-46.0) 05/02/17 13:48 MCV 96.3 fL (80.0-100.0) 05/02/17 13:48 MCH 32.2 pg (25.0-35.0) 05/02/17 13:48 MCHC 33.5 g/dL (31.0-37.0) 05/02/17 13:48 RDW 14.2 % (11.5-15.5) 05/02/17 13:48 Plt Count 326 k/uL (150-450) 05/02/17 13:48 Neutrophils % 76 % 05/02/17 13:48 Lymphocytes % 16 % 05/02/17 13:48 Monocytes % 4 % 05/02/17 13:48 Eosinophils % 2 % 05/02/17 13:48 Basophils % 1 % 05/02/17 13:48 Neutrophils # 6.1 k/uL (1.3-7.7) 05/02/17 13:48 Lymphocytes # 1.3 k/uL (1.0-4.8) 05/02/17 13:48 Monocytes # 0.4 k/uL (0-1.0) 05/02/17 13:48 Eosinophils # 0.1 k/uL (0-0.7) 05/02/17 13:48 Basophils # 0.1 k/uL (0-0.2) 05/02/17 13:48 Sodium 139 mmol/L (137-145) 05/04/17 09:42 Potassium 4.7 mmol/L (3.5-5.1) 05/04/17 09:42 Chloride 106 mmol/L (98-107) 05/04/17 09:42 Carbon Dioxide 21 mmol/L (22-30) L 05/04/17 09:42 Anion Gap 12 mmol/L 05/04/17 09:42 BUN 9 mg/dL (7-17) 05/04/17 09:42 Creatinine 0.62 mg/dL (0.52-1.04) 05/04/17 09:42 Est GFR (MDRD) Af Amer >60 (>60 ml/min/1.73 sqM) 05/04/17 09:42 Est GFR (MDRD) Non-Af >60 (>60 ml/min/1.73 sqM) 05/04/17 09:42 Glucose 111 mg/dL (74-99) H 05/04/17 09:42 Calcium 9.5 mg/dL (8.4-10.2) 05/04/17 09:42 Total Bilirubin 0.8 mg/dL (0.2-1.3) 05/02/17 13:48 AST 32 U/L (14-36) 05/02/17 13:48 ALT 43 U/L (9-52) 05/02/17 13:48 Alkaline Phosphatase 72 U/L (38-126) 05/02/17 13:48 Total Protein 6.5 g/dL (6.3-8.2) 05/02/17 13:48 Albumin 4.0 g/dL (3.5-5.0) 05/02/17 13:48 Urine Color Yellow 05/02/17 14:30 Urine Appearance Clear (Clear) 05/02/17 14:30 Urine pH 6.5 (5.0-8.0) 05/02/17 14:30 Ur Specific [place] 1.005 (1.001-1.035) 05/02/17 14:30 Urine Protein Negative (Negative) 05/02/17 14:30 Urine Glucose (UA) Negative (Negative) 05/02/17 14:30 Urine Ketones Negative (Negative) 05/02/17 14:30 Urine Blood Negative (Negative) 05/02/17 14:30 Urine Nitrite Negative (Negative) 05/02/17 14:30 Urine Bilirubin Negative (Negative) 05/02/17 14:30 Urine Urobilinogen <2.0 mg/dL (<2.0) 05/02/17 14:30 Ur Leukocyte Esterase Negative (Negative) 05/02/17 14:30 Urine Opiates Screen Not Detected (NotDetected) 05/02/17 14:30 Ur Oxycodone Screen Not Detected (NotDetected) 05/02/17 14:30 Urine Methadone Screen Not Detected (NotDetected) 05/02/17 14:30 Ur Propoxyphene Screen Not Detected (NotDetected) 05/02/17 14:30 Ur Barbiturates Screen Not Detected (NotDetected) 05/02/17 14:30 U Tricyclic Antidepress Not Detected (NotDetected) 05/02/17 14:30 Ur Phencyclidine Scrn Not Detected (NotDetected) 05/02/17 14:30 Ur Amphetamines Screen Not Detected (NotDetected) 05/02/17 14:30 U Methamphetamines Scrn Not Detected (NotDetected) 05/02/17 14:30 U Benzodiazepines Scrn Not Detected (NotDetected) 05/02/17 14:30 Urine Cocaine Screen Not Detected (NotDetected) 05/02/17 14:30 U Marijuana (THC) Screen Not Detected (NotDetected) 05/02/17 14:30 Allergies metronidazole [From Flagyl] Allergy (Severe, Verified 05/03/17 15:16) Swelling morphine Allergy (Severe, Verified 05/03/17 15:16) passed out pregabalin [From Lyrica] Allergy (Severe, Verified 05/03/17 15:16) throat swelling Sulfa (Sulfonamide Antibiotics) Allergy (Severe, Verified 05/03/17 15:16) Swelling cortisone Allergy (Verified 05/03/17 15:16) Rash/Hives Penicillins Allergy (Verified 05/03/17 15:16) Rash/Hives Patient Condition at Discharge: Stable Plan - Discharge Summary New Discharge Prescriptions: Continue Albuterol Nebulized [Ventolin Nebulized] 2 puff INHALATION TID 30 Days ARIPiprazole [Abilify] 20 mg PO DAILY #14 tab Cholecalciferol [Vitamin D3] 5,000 unit PO DAILY #70 Cyclobenzaprine [Flexeril] 10 mg PO HS #14 Levothyroxine Sodium [Synthroid] 150 mcg PO DAILY #14 Multivitamin,Therapeutic [Thera] 1 tab PO DAILY #14 oxyCODONE-APAP 10-325MG [Percocet 10-325 mg] 1 tab PO Q8HR #42 rOPINIRole HCL [Requip] 0.25 mg PO TID #42 Simvastatin [Zocor] 10 mg PO HS #14 Spironolactone [Aldactone] 25 mg PO DAILY #14 traZODone HCL [Desyrel] 75 mg PO HS #21 Discharge Medication List ARIPiprazole [Abilify] 20 mg PO DAILY #14 tab 05/05/17 [Rx] Albuterol Nebulized [Ventolin Nebulized] 2 puff INHALATION TID 30 Days 05/05/17 [Rx] Cholecalciferol [Vitamin D3] 5,000 unit PO DAILY #70 05/05/17 [Rx] Cyclobenzaprine [Flexeril] 10 mg PO HS #14 05/05/17 [Rx] Levothyroxine Sodium [Synthroid] 150 mcg PO DAILY #14 05/05/17 [Rx] Multivitamin,Therapeutic [Thera] 1 tab PO DAILY #14 05/05/17 [Rx] Simvastatin [Zocor] 10 mg PO HS #14 05/05/17 [Rx] Spironolactone [Aldactone] 25 mg PO DAILY #14 05/05/17 [Rx] oxyCODONE-APAP 10-325MG [Percocet 10-325 mg] 1 tab PO Q8HR #42 05/05/17 [Rx] rOPINIRole HCL [Requip] 0.25 mg PO TID #42 05/05/17 [Rx] traZODone HCL [Desyrel] 75 mg PO HS #21 05/05/17 [Rx] Follow up Appointment(s)/Referral(s): Alex Morrissey MD [Primary Care Provider] - 1-2 days Discharge Disposition: HOME WITH HOME HEALTH SERVICES
== END 2017-05-05 14:42 | disposition home health service (06) | DRG 885 ==
LOC: EC 12:59 → 3MHU 05-03 13:32
PROVIDERS: ADMIT Psychiatry & Neurology Psychiatry; ATTEND Psychiatry & Neurology Psychiatry
DX: F31.0 Bipolar disorder, current episode hypomanic (principal); R45.851 Suicidal ideations; J44.9 Chronic obstructive pulmonary disease, unspecified; G40.909 Epilepsy, unspecified, not intractable, without status epilepticus; T45.2X6A Underdosing of vitamins, initial encounter; T46.6X6A Underdosing of antihyperlipidemic and antiarteriosclerotic drugs, initial encounter; F41.9 Anxiety disorder, unspecified; F20.9 Schizophrenia, unspecified; E78.5 Hyperlipidemia, unspecified; E03.9 Hypothyroidism, unspecified; G89.29 Other chronic pain; M19.90 Unspecified osteoarthritis, unspecified site; E66.9 Obesity, unspecified; I10 Essential (primary) hypertension; T48.1X6A Underdosing of skeletal muscle relaxants [neuromuscular blocking agents], initial encounter; T50.0X6A Underdosing of mineralocorticoids and their antagonists, initial encounter; T38.1X6A Underdosing of thyroid hormones and substitutes, initial encounter; T40.2X6A Underdosing of other opioids, initial encounter; T42.8X6A Underdosing of antiparkinsonism drugs and other central muscle-tone depressants, initial encounter; K59.00 Constipation, unspecified; H40.9 Unspecified glaucoma; G47.00 Insomnia, unspecified; Z90.710 Acquired absence of both cervix and uterus; Z98.51 Tubal ligation status; Z80.9 Family history of malignant neoplasm, unspecified; Z71.3 Dietary counseling and surveillance; Z88.0 Allergy status to penicillin; Z90.12 Acquired absence of left breast and nipple; Z85.3 Personal history of malignant neoplasm of breast; Z79.899 Other long term (current) drug therapy; Z91.138 Patient's unintentional underdosing of medication regimen for other reason; Z87.891 Personal history of nicotine dependence; Z88.1 Allergy status to other antibiotic agents; Z88.5 Allergy status to narcotic agent; Z88.2 Allergy status to sulfonamides; Z88.8 Allergy status to other drugs, medicaments and biological substances; Z81.3 Family history of other psychoactive substance abuse and dependence; Z91.19 Patient's noncompliance with other medical treatment and regimen; Z79.891 Long term (current) use of opiate analgesic; Z91.14 Patient's other noncompliance with medication regimen; Y92.009 Unspecified place in unspecified non-institutional (private) residence as the place of occurrence of the external cause
CPT/HCPCS: 36415; 80048; 80053; 80306; 81003; 82075; 85025; 94640; 99285

== ENCOUNTER → 2018-06-24 | Outpatient (CLI) | payer MEDICARE ==
--- NOTE | 2018-06-26 09:50 | MM ---
Reason for exam: screening (asymptomatic). Last mammogram was performed 3 years and 5 months ago. History: Patient is postmenopausal and has history of breast cancer at age 41. Family history of breast cancer in sister at age 42. Mastectomy of the left breast, 1991. Chemotherapy. Took antineoplastic for 5 years beginning at age 41. Physical Findings: A clinical breast exam by your physician is recommended on an annual basis and results should be correlated with mammographic findings. MG Screen Sobeida Unilateral W/Cad Bilateral CC and MLO view(s) were taken. XCCL view(s) were taken of the right breast. Prior study comparison: January 26, 2015, right breast MG diagnostic mammo RT w CAD. January 14, 2014, right diagnostic mammogram w/CAD. There are scattered fibroglandular densities. Finding: There are intermediate concern, suspicious round, grouped/clustered calcifications in the lower inner quadrant, middle position of the right breast 5cm from the nipple. New finding since January 26, 2015. ASSESSMENT: Incomplete: need additional imaging evaluation, BI-RAD 0 RECOMMENDATION: Special view mammogram of the right breast. [facility] will attempt to contact patient to return for supplemental views.
== END | disposition home or self-care (01) ==
LOC: RADMAMWWP 09:08
PROVIDERS: ATTEND Family Medicine
DX: Z12.31 Encounter for screening mammogram for malignant neoplasm of breast (principal)
CPT/HCPCS: 77067

== ENCOUNTER → 2018-07-23 | Outpatient (CLI) | payer MEDICARE ==
--- NOTE | 2018-07-23 09:08 | MM ---
Reason for exam: additional evaluation requested from abnormal screening. Last mammogram was performed 1 month ago. History: Patient is postmenopausal and has history of breast cancer at age 41. Family history of breast cancer in sister at age 42. Mastectomy of the left breast, 1991. Chemotherapy. Took antineoplastic for 5 years beginning at age 41. Physical Findings: Nurse did not find any significant physical abnormalities on exam. MG 3D Work Up W/Cad RT CC and MLO view(s) were taken of the right breast. Prior study comparison: June 24, 2018, bilateral MG screen shira unilateral w/cad. January 26, 2015, right breast MG diagnostic mammo RT w CAD. There are grouped pleomorphic central inner calcifications at middle depth spanning 1.2cm. These results were verbally communicated with the patient and result sheet given to the patient on 07/23/18. ASSESSMENT: Suspicious, BI-RAD 4 RECOMMENDATION: Stereotactic core biopsy of the right breast. Called Dr. Morrissey with mammographic findings and has scheduled an appointment for the patient for 08/28/18 at 9:[address] Mohamud. PRELIMINARY REPORT CALLED AND FAXED TO DR. MOHAMUD ON 07/23/18.
== END | disposition home or self-care (01) ==
LOC: RADMAMWWP 07:32
PROVIDERS: ATTEND Family Medicine
DX: R92.8 Other abnormal and inconclusive findings on diagnostic imaging of breast (principal)
CPT/HCPCS: 77065; G0279; 77061

== ENCOUNTER → 2018-08-07 | Outpatient (CLI) | payer MEDICARE ==
[2018-08-07 10:41] VITALS: BP 107/58; PULSE 58; RESP 18; TEMP 96.8; BMI 32.1
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
== END | disposition home or self-care (01) ==
LOC: WWCWWP 10:14
PROVIDERS: ATTEND Surgery
DX: Z53.9 Procedure and treatment not carried out, unspecified reason (principal)

== ENCOUNTER 2018-09-03 13:34 | Inpatient (IN) | payer MEDICARE, MEDICAID ==
--- NOTE | 2018-09-03 14:48 | ED ---
General Adult HPI - General Chief complaint: Psychiatric Symptoms Stated complaint: MENTAL HEALTH Time Seen by Provider: 09/03/18 14:00 Source: patient, police, EMS, RN notes reviewed Mode of arrival: EMS Limitations: altered mental status - History of Present Illness Initial comments: This is a 67-year-old female who presents to the emergency department in the custody of the police there is a court order for her to come here. There is no family or caregiver the only history we have is that she is hallucinating and taking her medications randomly. Patient has a very poor historian and is uncooperative. Patient did however mention that she is a schizophrenic. She does not know what her medications are she does not answer any questions. Patient will not tell me if she has any physical complaints today but she does not appear to be in any distress. - Related Data Home Medications Medication Instructions Recorded Confirmed ARIPiprazole [Abilify] 20 mg PO DAILY 09/03/18 09/03/18 Albuterol Inhaler [Ventolin Hfa 2 puff INHALATION DIRECTED 09/03/18 09/03/18 Inhaler] Cholecalciferol [Vitamin D3] 5,000 unit PO DAILY 09/03/18 09/03/18 Cyclobenzaprine [Flexeril] 10 mg PO HS 09/03/18 09/03/18 LORazepam [Ativan] 0.5 mg PO TID 09/03/18 09/03/18 Levothyroxine Sodium 150 mcg PO DAILY 09/03/18 09/03/18 Paliperidone IM [Invega Sustenna] 156 mg IM Q7D 09/03/18 09/03/18 Potassium Chloride ER [K-Dur 10] 10 meq PO DAILY 09/03/18 09/03/18 Simvastatin [Zocor] 10 mg PO DAILY 09/03/18 09/03/18 Spironolactone [Aldactone] 25 mg PO DAILY 09/03/18 09/03/18 Travoprost [Travatan Z 0.004%] 1 drop BOTH EYES [id number] 09/03/18 09/03/18 Venlafaxine HCl [Venlafaxine HCl 225 mg PO DAILY 09/03/18 09/03/18 ER] carBAMazepine [TEGretol] 200 mg PO DAILY 09/03/18 09/03/18 oxyCODONE-APAP 10-325MG [Percocet 1 tab PO Q6HR 09/03/18 09/03/18 10-325 mg] rOPINIRole HCL [Requip] 0.25 g PO TID 09/03/18 09/03/18 traZODone HCL [Desyrel] 100 mg PO HS 09/03/18 09/03/18 Previous Rx's Medication Instructions Recorded Furosemide [Lasix] 40 mg PO DAILY tab 10/02/17 Allergies Allergy/AdvReac Type Severity Reaction Status Date / Time lamotrigine [From Lamictal] Allergy Severe throat Verified 09/03/18 15:16 swelling metronidazole [From Flagyl] Allergy Severe Swelling Verified 09/03/18 15:16 pregabalin [From Lyrica] Allergy Severe throat Verified 09/03/18 15:16 swelling Sulfa (Sulfonamide Allergy Severe Swelling Verified 09/03/18 15:16 Antibiotics) morphine AdvReac Severe passed out Verified 09/03/18 15:16 cortisone AdvReac Rash/Hives Verified 09/03/18 15:16 Penicillins AdvReac Rash/Hives Verified 09/03/18 15:16 Review of Systems ROS Statement: Those systems with pertinent positive or pertinent negative responses have been documented in the HPI. ROS Other: All systems not noted in ROS Statement are negative. Past Medical History Past Medical History: Asthma, Cancer, Eye Disorder, Hyperlipidemia, Osteoarthritis (OA), Thyroid Disorder Additional Past Medical History / Comment(s): "low BP", edema lower legs, uses a cane, emphysema, glaucoma, "lump on kidney", breast cancer, last seizure 2011 History of Any Multi-Drug Resistant Organisms: None Reported Past Surgical History: Breast Surgery, Hysterectomy, Tubal Ligation Additional Past Surgical History / Comment(s): left mastectomy Past Anesthesia/Blood Transfusion Reactions: Motion Sickness Past Psychological History: Anxiety, Bipolar, Schizophrenia Smoking Status: Former smoker Past Alcohol Use History: None Reported Past Drug Use History: Marijuana - Past Family History Father Additional Family Medical History / Comment(s): Father at age at 87 from old age. Daughter(s) Additional Family Medical History / Comment(s): Patient states that she has 3 children and 2 are on drugs. Sister(s) Family Medical History: Cancer Additional Family Medical History / Comment(s): She has one sister that from some type of cancer. Mother Family Medical History: Cancer Additional Family Medical History / Comment(s): Mother at age 56 from cancer, unknown type. General Exam - General Exam Comments Initial Comments: GENERAL: Patient is well-developed and well-nourished. Patient is nontoxic and well- hydrated and is in mild distress. ENT: Neck is soft and supple. No significant lymphadenopathy is noted. Oropharynx is clear. Moist mucous membranes. Neck has full range of motion without eliciting any pain. EYES: The sclera were anicteric and conjunctiva were pink and moist. Extraocular movements were intact and pupils were equal round and reactive to light. Eyelids were unremarkable. PULMONARY: Unlabored respirations. Good breath sounds bilaterally. No audible rales rhonchi or wheezing was noted. CARDIOVASCULAR: There is a regular rate and rhythm without any murmurs gallops or rubs. ABDOMEN: Soft and nontender with normal bowel sounds. No palpable organomegaly was noted. There is no palpable pulsatile mass. SKIN: Skin is clear with no lesions or rashes and otherwise unremarkable. NEUROLOGIC: Patient is alert and oriented 1 Cranial nerves II through XII are grossly intact. Motor and sensory are also intact. Normal speech, volume and content. Symmetrical smile. MUSCULOSKELETAL: Normal extremities with adequate strength and full range of motion. No lower extremity swelling or edema. No calf tenderness. LYMPHATICS: No significant lymphadenopathy is noted PSYCHIATRIC: Difficult to assess since patient does not answer any of my questions and does not like to follow commands. Patient is babbling in the room but not about any specific topics I inquired about. Limitations: altered mental status Course Vital Signs 09/03/18 14:37 Temperature 97.2 F L Pulse Rate 91 Respiratory 18 Rate Blood Pressure 151/72 O2 Sat by Pulse 98 Oximetry Medical Decision Making - Medical Decision Making Dr. Villalpando will be taking over the care of this patient at 5 PM - Lab Data Result diagrams: 09/03/18 15:18 09/03/18 15:18 Lab Results 09/03/18 09/03/18 09/03/18 Range/Units 14:20 15:18 15:18 WBC 18.6 H (3.8-10.6) k/uL RBC 4.96 (3.80-5.40) m/uL Hgb 15.1 (11.4-16.0) gm/dL Hct 45.4 (34.0-46.0) % MCV 91.6 (80.0-100.0) fL MCH 30.6 (25.0-35.0) pg MCHC 33.4 (31.0-37.0) g/dL RDW 13.1 (11.5-15.5) % Plt Count 311 (150-450) k/uL Neutrophils % 84 % Lymphocytes % 9 % Monocytes % 4 % Eosinophils % 1 % Basophils % 0 % Neutrophils # 15.7 H (1.3-7.7) k/uL Lymphocytes # 1.8 (1.0-4.8) k/uL Monocytes # 0.7 (0-1.0) k/uL Eosinophils # 0.2 (0-0.7) k/uL Basophils # 0.0 (0-0.2) k/uL Sodium 134 L (137-145) mmol/L Potassium 3.9 (3.5-5.1) mmol/L Chloride 96 L (98-107) mmol/L Carbon Dioxide 27 (22-30) mmol/L Anion Gap 11 mmol/L BUN 15 (7-17) mg/dL Creatinine 0.58 (0.52-1.04) mg/dL Est GFR (CKD-EPI)AfAm >90 (>60 ml/min/1.73 sqM) Est GFR (CKD-EPI)NonAf >90 (>60 ml/min/1.73 sqM) Glucose 78 (74-99) mg/dL Calcium 9.4 (8.4-10.2) mg/dL Total Bilirubin 0.8 (0.2-1.3) mg/dL AST 49 H (14-36) U/L ALT 32 (9-52) U/L Alkaline Phosphatase 123 (38-126) U/L Total Protein 6.6 (6.3-8.2) g/dL Albumin 3.6 (3.5-5.0) g/dL Urine Color Yellow Urine Appearance Cloudy H (Clear) Urine pH 6.0 (5.0-8.0) Ur Specific [place] 1.016 (1.001-1.035) Urine Protein Negative (Negative) Urine Glucose (UA) Negative (Negative) Urine Ketones 1+ H (Negative) Urine Blood Negative (Negative) Urine Nitrite Negative (Negative) Urine Bilirubin Negative (Negative) Urine Urobilinogen 2.0 (<2.0) mg/dL Ur Leukocyte Esterase Negative (Negative) Urine RBC <1 (0-5) /hpf Urine WBC 1 (0-5) /hpf Ur Squamous Epith Cells 1 (0-4) /hpf Urine Bacteria Rare H (None) /hpf Hyaline Casts 8 H (0-2) /lpf Urine Mucus Rare H (None) /hpf Urine Opiates Screen Not Detected (NotDetected) Ur Oxycodone Screen Not Detected (NotDetected) Urine Methadone Screen Not Detected (NotDetected) Ur Propoxyphene Screen Not Detected (NotDetected) Ur Barbiturates Screen Not Detected (NotDetected) U Tricyclic Antidepress Not Detected (NotDetected) Ur Phencyclidine Scrn Not Detected (NotDetected) Ur Amphetamines Screen Not Detected (NotDetected) U Methamphetamines Scrn Not Detected (NotDetected) U Benzodiazepines Scrn Not Detected (NotDetected) Urine Cocaine Screen Not Detected (NotDetected) U Marijuana (THC) Screen Detected H (NotDetected) Disposition Referrals: Alex Morrissey MD [Primary Care Provider] - 1-2 days
[2018-09-03 15:34] LABS: Basophils % (A) 0 %; Eosinophils # (A) 0.2 k/uL (0-0.7); Eosinophils % (A) 1 %; HCT 45.4 % (34.0-46.0); HGB 15.1 gm/dL (11.4-16.0); Lymphocytes # (A) 1.8 k/uL (1.0-4.8); Lymphocytes % (A) 9 %; MCH 30.6 pg (25.0-35.0); MCHC 33.4 g/dL (31.0-37.0); MCV 91.6 fL (80.0-100.0); Mean Platelet Volume 7.8; Monocytes # (A) 0.7 k/uL (0-1.0); Monocytes % (A) 4 %; Neutrophils # (A) 15.7 k/uL (1.3-7.7); Neutrophils % (A) 84 %; Platelet Count 311 k/uL (150-450); RBC 4.96 m/uL (3.80-5.40); RDW 13.1 % (11.5-15.5); WBC 18.6 k/uL (3.8-10.6)
[2018-09-03 15:35] LABS: Appearance,Urine Cloudy (Clear); Bacteria,Urine Rare /hpf; Bilirubin,Urine Negative (Negative); Blood,Urine Negative (Negative); Color,Urine Yellow; Glucose,Urine (UA) Negative (Negative); Hyaline Casts,Urine 8 /lpf (0-2); Ketones,Urine 1+ (Negative); Leukocyte Esterase,Urine Negative (Negative); Mucus,Urine Rare /hpf; Nitrite,Urine Negative (Negative); Protein,Urine Negative (Negative); RBC,Urine <1 /hpf (0-5); Specific Gravity,Urine 1.016 (1.001-1.035); Squamous Epithelial Cell,Urine 1 /hpf (0-4); WBC,Urine 1 /hpf (0-5)
[2018-09-03 15:41] LABS: Amphetamine Screen,Urine Not Detected (NotDetected); Barbiturate Screen,Urine Not Detected (NotDetected); Benzodiazepines Screen,Urine Not Detected (NotDetected); Cocaine Screen,Urine Not Detected (NotDetected); Methadone Screen, Urine Not Detected (NotDetected); Opiate Screen,Urine Not Detected (NotDetected); Oxycodone Screen, Urine Not Detected (NotDetected); Phencyclidine Screen,Urine Not Detected (NotDetected); Tricyclic Antidepressant,Urine Not Detected (NotDetected); Urn Cannabinoid Scrn Detected (NotDetected)
[2018-09-03 15:43] LABS: AST 49 U/L (14-36); Albumin 3.6 g/dL (3.5-5.0); Alkaline Phosphatase 123 U/L (38-126); Anion Gap 11 mmol/L; Blood Urea Nitrogen 15 mg/dL (7-17); Calcium 9.4 mg/dL (8.4-10.2); Carbon Dioxide 27 mmol/L (22-30); Chloride 96 mmol/L (98-107); Glucose 78 mg/dL (74-99); Potassium 3.9 mmol/L (3.5-5.1); Sodium 134 mmol/L (137-145); Total Bilirubin 0.8 mg/dL (0.2-1.3); Total Protein 6.6 g/dL (6.3-8.2)
[2018-09-03 15:44] LABS: ALT 32 U/L (9-52)
--- NOTE | 2018-09-03 16:20 | XR ---
EXAMINATION TYPE: XR chest 2V DATE OF EXAM: 09/03/2018 COMPARISON: 04/15/2017 HISTORY: Shortness of breath TECHNIQUE: Frontal and lateral views of the chest are obtained. FINDINGS: There is no focal air space opacity, pleural effusion, or pneumothorax seen. The cardiac silhouette size is within normal limits. The osseous structures are intact. There is an exaggerated thoracic kyphosis. Interstitial lung markings are slightly pronounced. IMPRESSION: Slightly pronounced interstitial lung markings that could relate to minimal interstitial pulmonary edema or atypical pneumonitis.
[2018-09-03] MEDS ORDERED: MAG HYDROX/AL HYDROX/SIMETH 30 ML CUP PO PRN (21:00)
[2018-09-03] MEDS ORDERED: MAGNESIUM HYDROXIDE 2,400 MG/10 ML CUP PO PRN (21:00)
[2018-09-03] MEDS ORDERED: LORazepam 2 MG/ML INJ IM PRN (21:03)
[2018-09-03] MEDS ORDERED: PALIPERIDONE 3 MG TAB.ER.24 PO PRN (21:04)
[2018-09-03 22:15] LABS: Basophils # (A) 0.1 k/uL (0-0.2); Basophils % (A) 0 %; Eosinophils # (A) 0.3 k/uL (0-0.7); Eosinophils % (A) 1 %; HCT 46.3 % (34.0-46.0); Lymphocytes # (A) 1.8 k/uL (1.0-4.8); Lymphocytes % (A) 9 %; MCH 30.3 pg (25.0-35.0); MCHC 32.5 g/dL (31.0-37.0); MCV 93.3 fL (80.0-100.0); Mean Platelet Volume 7.6; Monocytes # (A) 0.7 k/uL (0-1.0); Monocytes % (A) 4 %; Neutrophils # (A) 16.4 k/uL (1.3-7.7); Neutrophils % (A) 84 %; Platelet Count 318 k/uL (150-450); RBC 4.96 m/uL (3.80-5.40); RDW 13.1 % (11.5-15.5); WBC 19.5 k/uL (3.8-10.6)
[2018-09-03 22:34] LABS: ALT 29 U/L (9-52); AST 52 U/L (14-36); Albumin 3.7 g/dL (3.5-5.0); Alkaline Phosphatase 126 U/L (38-126); Anion Gap 9 mmol/L; Blood Urea Nitrogen 16 mg/dL (7-17); C Reactive Protein 47.7 mg/L (<10.0); Calcium 9.3 mg/dL (8.4-10.2); Carbon Dioxide 27 mmol/L (22-30); Chloride 95 mmol/L (98-107); Glucose 88 mg/dL (74-99); Potassium 4.4 mmol/L (3.5-5.1); Sodium 131 mmol/L (137-145); Total Bilirubin 0.7 mg/dL (0.2-1.3); Total Protein 6.6 g/dL (6.3-8.2)
[2018-09-03] MEDS: CALAMINE/ZINC OXIDE LOTION 177 ML BTL TOPICAL SCH (23:55)
[2018-09-04] MEDS: LEVOTHYROXINE 75 MCG TAB PO SCH (06:28)
--- NOTE | 2018-09-04 07:35 | CONS ---
CONSULTATION DATE OF CONSULTATION: 09/03/2018 REASON FOR CONSULTATION: Medical management requested by Dr. Roy. CONSULTATION: This is a 67-year-old patient of Dr. Morrissey with rather extensive psychiatry history. Apparently , she was not taking her medications. She got a court order was brought in by the police to the ER. The patient is very erratic with a history keeps snapping, really does not give much of a history. What I could collect from the nurse and from the old notes that the patient has a history of asthma/emphysema, hyperlipidemia, bipolar disorder, mixed with psychotic features. All patient wants to do right now is eat. Very difficult to obtain any history from the patient. REVIEW OF SYSTEMS: CONSTITUTIONAL: Tired. HEENT: None. RESPIRATORY: Short of breath, some wheezing. CARDIOVASCULAR: None. GASTROINTESTINAL: None. GENITOURINARY: None. MUSCULOSKELETAL: Does have arthritic pain. PSYCHIATRY: As above. NEUROLOGICAL: None. PAST MEDICAL HISTORY: Eye disorder, hyperlipidemia, osteoarthritis, hypothyroid, edema lower extremities, uses a cane, emphysema, glaucoma, breast cancer, seizure in 2011. PAST SURGICAL HISTORY: Breast surgery, hysterectomy, tubal ligation, left mastectomy. PSYCH HISTORY: Bipolar schizophrenia. The patient still smoking for close to 50 years, about half a pack a day. Does marijuana quite regularly. Denies street drugs. She is a . FAMILY HISTORY: She had a sister who from some type of cancer. HOME MEDICATIONS LISTED: 1. Desyrel 100 mg q.h.s. 2. Requip 0.25 p.o. t.i.d. 3. Percocet 10 one tab q.6. 4. Tegretol 200 mg p.o. daily. 5. Venlafaxine ER 225 p.o. daily. 6. Travatan 0.004% 1 drop to both eyes q.14 days. 7. Aldactone 25 mg a day. 8. Zocor 10 mg p.o. daily. 9. Potassium 10 mEq p.o. daily. 10.Invega 156 mg IM every 7 days. 11.Levothyroxine 150 mcg a day. 12.Ativan 0.5 p.o. t.i.d. 13.Lasix 40 mg p.o. daily. 14.Flexeril 10 mg p.o. q.h.s. 15.Vitamin D3, 5000 units p.o. daily. 16.Ventolin HFA 2 puffs p.r.n. 17.Abilify 20 mg p.o. daily. ALLERGIES: Allergies to LAMICTAL, FLAGYL, LYRICA, SULFA, MORPHINE, CORTISONE, PENICILLIN. PHYSICAL EXAMINATION: On examination, temperature 96.9, pulse 90, respiration 17, blood pressure 107/65 pulse ox 97% on room air. GENERAL APPEARANCE: Well built, BMI 36.2 with kyphotic. EYES: Pupils equal. Conjunctivae normal. HENT: External appearance of nose and ears normal. Oral cavity normal. NECK: JVD unable to assess. Mass not palpable. RESPIRATORY: Effort increased. LUNGS: Diminished breath sounds. CARDIOVASCULAR: First and second sounds normal. Some edema. ABDOMEN: Soft, nontender. Liver and spleen not palpable. LYMPHATIC: No lymph node palpable in neck or axillae. PSYCHIATRY: Difficult to assess. The patient is very short with her answers. NEUROLOGICAL: Pupils equal. No facial asymmetry. DERMATOLOGICAL: The patient has got superficial burn alexander what is typically known erythema ab igne. MUSCULOSKELETAL: Evidence of osteoarthritis especially in the hands and knees. INVESTIGATIONS: White count 19.5, hemoglobin 15. Potassium 4.4. BUN 16, creatinine 0.5. ASSESSMENT: 1. Chronic marijuana use. 2. Chronic nicotine dependence. Patient is a cigarette smoker. 3. Primary osteoarthritis especially of the hands and knees. 4. Erythema ab igne from sitting in the front of the heater. 5. Chronic obstructive pulmonary disease in a current smoker. 6. Hyperlipidemia. 7. Restless legs syndrome. PLAN: Patient's home medications will be resumed. Will hold off patient's antipsychotic medications. This will be determined by Dr. Roy. The patient is advised against smoking. Will be given a nicotine patch. May use a calamine lotion for the legs. Discussed this with the nurse. No need for any antibiotics for the same. Keep a close eye. Thank you Dr. Roy. MMJAIMEL / ESHAN: [id number] /
[2018-09-04] MEDS: ATORVASTATIN 10 MG TAB PO SCH (08:19)
[2018-09-04] MEDS: CALAMINE/ZINC OXIDE LOTION 177 ML BTL TOPICAL SCH ×2 (08:19→20:44)
[2018-09-04] MEDS: FUROSEMIDE 40 MG TAB PO SCH (08:19)
[2018-09-04] MEDS: SPIRONOLACTONE 25 MG TAB PO SCH (08:19)
[2018-09-04 09:46] LABS: Cholesterol 160 mg/dL (<200); HDL Cholesterol 51 mg/dL (40-60); LDL Cholesterol,Calculated 92 mg/dL (0-99); Triglycerides 87 mg/dL (<150)
[2018-09-04 10:44] VITALS: BMI 36.2
[2018-09-04] MEDS ORDERED: HALOPERIDOL LACTATE 5 MG/ML 1 ML VIAL IM PRN (11:33)
--- NOTE | 2018-09-04 13:00 | HP ---
HISTORY AND PHYSICAL DATE OF SERVICE DICTATION: 09/04/2018 IDENTIFYING DATA: This patient is a 67-year-old female who was admitted to the mental health unit through the emergency room for agitated behavior and psychosis. HISTORY OF PRESENT ILLNESS: The patient is well known to this psychiatric service. She has an existing diagnosis of schizoaffective disorder, bipolar type. She presents from a halfway, demonstrating a lack of ability to attend to her own self care. She has been more disorganized in terms of thought process and has been more psychotic. The patient is uncooperative this morning and is a poor historian. Several attempts are made to ask her questions. She provides brief nonsensical answers and is fairly agitated. She refuses to follow me to an interview room. She is laying across her bed in a diagonal fashion. Staff report that her hygiene has been poor. She did eat most of her breakfast this morning and did eat dinner last evening. Please refer to the EPS assessment for further detail. PAST PSYCHIATRIC HISTORY: The patient has had numerous inpatient admissions. Her last admission on this unit was September 25, 2017, another on May 03, 2017, April 15, 2017, January 01, 2016 and several prior to that. She has been on numerous psychotropic medications. It appears that she was just recently restarted on Invega Sustenna. She received the 234 mg injection and received the 156 mg injection on 08/31/2018. She is also prescribed trazodone 100 mg at bedtime and Effexor XR 225 mg daily. PAST MEDICAL HISTORY: She has significant leukocytosis with a white count greater than 19, history of COPD, hyperlipidemia, hypothyroidism, history of breast cancer, glaucoma and chronic pain. ALLERGIES: LAMICTAL, METRONIDAZOLE, LYRICA, SULFA, MORPHINE, CORTISONE, PENICILLIN. There is no known history of alcohol use. She did have marijuana present in her urine during urinary drug screen. FAMILY PSYCHIATRIC HISTORY: Unknown. FAMILY CHEMICAL DEPENDENCY HISTORY: Unknown. SOCIAL HISTORY: The patient is 67 years old. She resides in a halfway. No other informations available at this time. LEGAL HISTORY: Unknown. ABUSE HISTORY: Unknown. MENTAL STATUS EXAM: The patient is a female appearing older than her stated age. She is lying in the bed in a diagonal fashion. Eye contact is poor. She is looking up at the ceiling. She demonstrates psychomotor slowing in her movements. She does not answer some questions asked of her. Others she will provide an answer that is not relevant to the question asked. She uses profanity frequently and appears agitated at times. She appears to have poor hygiene and grooming. She is dressed in a hospital gown. She is demonstrating no involuntary repetitive movements. She demonstrated no physical aggressiveness. Insight and judgment are poor. She provides no relevant answer to questions, such as questions pertaining to suicidal ideation or homicidal ideation. She does not answer if she is experiencing hallucinations or any specific delusions. It is evident; however, she is psychotic. Thought process appears to be disorganized. STRENGTHS: Housing in a halfway, [facility] [address] support. WEAKNESSES: Ongoing symptoms of psychosis. INTELLECT: Average. IMPRESSION: 1. Schizoaffective disorder, bipolar type. Most likely manic. Cannabis use disorder. 2. Leukocytosis. History of chronic obstructive pulmonary disease, hypothyroidism, hyperlipidemia, history of breast cancer, glaucoma, chronic pain. PLAN: The patient has been admitted to the mental health unit involuntarily. She is on an existing court order that will not until October. She has been seen by Internal Medicine for routine history and physical exam. The emergency room physician felt that the leukocytosis was a chronic condition that required no further intervention. Chest x-ray demonstrated no acute findings. Vital signs reviewed. We will monitor her p.o. intake. She has just been initiated on Invega again and received the second dose 4 days ago. We will allow that time to demonstrate efficacy. We will use Haldol as needed for acute symptoms. We will defer restarting the antidepressant at this time. We will provide reality orientation when possible. We will continue monitoring her for safety. We will involve her guardian in treatment and discharge planning. MMODL / IJN: [id number] /
[2018-09-04] MEDS: VANCOMYCIN ORAL SOLUTION 250 MG/5 ML BOTTLE PO SCH (18:36)
[2018-09-04] MEDS: CYCLOBENZAPRINE 10 MG TAB PO SCH (20:44)
[2018-09-04 21:53] LABS: Hemoglobin A1C 5.4 % (4.0-6.0)
[2018-09-05] MEDS: VANCOMYCIN ORAL SOLUTION 250 MG/5 ML BOTTLE PO SCH ×4 (00:01→17:12)
[2018-09-05] MEDS: ACETAMINOPHEN TAB 325 MG TAB PO PRN ×2 (00:04→09:22)
[2018-09-05] MEDS: LEVOTHYROXINE 75 MCG TAB PO SCH (06:02)
[2018-09-05] MEDS: SPIRONOLACTONE 25 MG TAB PO SCH (09:13)
[2018-09-05] MEDS: ATORVASTATIN 10 MG TAB PO SCH (09:13)
[2018-09-05] MEDS: CALAMINE/ZINC OXIDE LOTION 177 ML BTL TOPICAL SCH ×2 (09:14→21:18)
[2018-09-05] MEDS: FUROSEMIDE 40 MG TAB PO SCH (09:14)
[2018-09-05] MEDS: LORazepam 1 MG TAB PO PRN (09:25)
--- NOTE | 2018-09-05 09:36 | P.PN ---
Progress Note - Text Interval history: The patient is found in her room she prefers not to speak in an interview room. She is seated upright at the edge of her bed. Her breakfast tray is in front of her but she has not eaten any of it. Staff report no acute behavioral symptoms. She did test positive for C. diff and has been started on vancomycin. The patient selectively answers questions. Overall she was less agitated today. Mental status exam: The patient is an overweight female dressed in hospital gown seated at the edge of her bed. She maintained alertness throughout our interaction. She has a disheveled appearance. Eye contact is intermittent. She is oriented to person place and date. She indicates she wants to be discharged. She does continued use profanity often and her speech but demonstrates no verbal or physical aggressiveness today. She lacks insight into her presenting symptoms. She endorses auditory and visual hallucinations "all of the time" she reports no command auditory hallucinations. She demonstrates no involuntary repetitive movements. Plan: The patient will continue on her current psychotropic medication. We will monitor her for safety. We will monitor her by mouth intake. Vital signs reviewed. She is encouraged to participate in the milieu when possible.
[2018-09-05] MEDS: CHERRY FLAVOR 60 ML BOTTLE PO PRN (12:10)
[2018-09-05] MEDS: CYCLOBENZAPRINE 10 MG TAB PO SCH (21:17)
[2018-09-06] MEDS: VANCOMYCIN ORAL SOLUTION 250 MG/5 ML BOTTLE PO SCH ×5 (00:07→23:37)
[2018-09-06] MEDS: LORazepam 1 MG TAB PO PRN ×2 (02:08→19:22)
[2018-09-06] MEDS: LEVOTHYROXINE 75 MCG TAB PO SCH (06:10)
[2018-09-06] MEDS: CALAMINE/ZINC OXIDE LOTION 177 ML BTL TOPICAL SCH ×2 (08:19→21:14)
[2018-09-06] MEDS: FUROSEMIDE 40 MG TAB PO SCH (08:19)
[2018-09-06] MEDS: SPIRONOLACTONE 25 MG TAB PO SCH (08:19)
[2018-09-06] MEDS: ATORVASTATIN 10 MG TAB PO SCH (08:19)
--- NOTE | 2018-09-06 09:00 | P.PN ---
Progress Note - Text Interval history: The patient is found in her room seated upright at the edge of her bed eating some of her breakfast. The patient does not prefer to go to an interview room. She states that she has a bag of bees in her abdomen. She indicates they were placed there by her . The patient continues to asked to be discharged. She demonstrates a disorganized thought process and makes several unrelated statements. Mental status exam: The patient is alert she seated upright at the edge of her bed she is eating some of her sausage off of her breakfast tray. She demonstrates some psychomotor slowing. Affect is labile. She can appear irritable and then start laughing which is not congruent with the conversation at the time. She describes certain paranoid and persecutory thoughts. Thoughts are very disorganized she demonstrates loose associations and flight of ideas but is not pressured. Speech is fluent and spontaneous. She demonstrates no involuntary repetitive movements. She describes no thoughts of harming herself or others. Insight and judgment are poor. Plan: The patient will continue on her current psychotropic medications. We will monitor her for safety and provide reality orientation when possible. We will continue to treat the C. diff. Vital signs reviewed.
[2018-09-06] MEDS: CHERRY FLAVOR 60 ML BOTTLE PO PRN ×2 (11:29→17:35)
[2018-09-06] MEDS: CYCLOBENZAPRINE 10 MG TAB PO SCH (21:14)
[2018-09-07] MEDS: LORazepam 1 MG TAB PO PRN (00:14)
[2018-09-07] MEDS: LEVOTHYROXINE 75 MCG TAB PO SCH (08:09)
[2018-09-07] MEDS: VANCOMYCIN ORAL SOLUTION 250 MG/5 ML BOTTLE PO SCH ×3 (08:09→18:07)
[2018-09-07] MEDS: FUROSEMIDE 40 MG TAB PO SCH ×2 (08:10→08:24)
[2018-09-07] MEDS: CALAMINE/ZINC OXIDE LOTION 177 ML BTL TOPICAL SCH ×2 (08:10→22:15)
[2018-09-07] MEDS: SPIRONOLACTONE 25 MG TAB PO SCH ×2 (08:10→08:24)
[2018-09-07] MEDS: ATORVASTATIN 10 MG TAB PO SCH (08:10)
--- NOTE | 2018-09-07 11:59 | P.PN ---
Progress Note - Text Interval history: The patient is found in her room she seated upright in bed. She indicates she does swell herself and is waiting for nursing to help clean her. She has no questions or concerns regarding medication. She makes statements that are unrelated to questions being asked. She spontaneously states that she wants to go home and she has been trying her best to eat enough food. Mental status exam: The patient is alert she demonstrates less psychomotor slowing during our interaction. She is dressed in hospital gown seated on her bed. Speech fluent nonpressured. She is less irritable during our interaction. She continues to demonstrate a delusional thought content. She demonstrates poor insight and judgment for example believing she is providing adequate care for herself. As noted thought process is quite disorganized. She is oriented to being in the hospital and to person. She names the correct month and year incorrectly names the day the week as Friday. She demonstrates no involuntary repetitive movements. She demonstrated no aggressiveness during our interaction. Plan: The patient will continue on her current medications. Her presentation to the hospital may be due in part to medical issues such as the C. diff infection and poor self-care. Social work has spoken with the patient's daughter who plans on obtaining guardianship. At this point appears that the patient would benefit from more structure after being discharged as she obviously was not caring for herself sufficiently. Vital signs reviewed. We will continue to monitor her for safety and provide reality orientation when possible
[2018-09-07 12:38] LABS: Basophils # (A) 0.1 k/uL (0-0.2); Basophils % (A) 1 %; Eosinophils # (A) 0.2 k/uL (0-0.7); Eosinophils % (A) 2 %; HCT 46.5 % (34.0-46.0); HGB 14.5 gm/dL (11.4-16.0); Lymphocytes # (A) 1.6 k/uL (1.0-4.8); Lymphocytes % (A) 13 %; MCH 29.9 pg (25.0-35.0); MCHC 31.2 g/dL (31.0-37.0); MCV 95.7 fL (80.0-100.0); Mean Platelet Volume 7.5; Monocytes # (A) 0.7 k/uL (0-1.0); Monocytes % (A) 6 %; Neutrophils # (A) 8.9 k/uL (1.3-7.7); Neutrophils % (A) 76 %; Platelet Count 292 k/uL (150-450); RBC 4.86 m/uL (3.80-5.40); RDW 13.1 % (11.5-15.5); WBC 11.8 k/uL (3.8-10.6)
[2018-09-07 13:03] LABS: ALT 26 U/L (9-52); AST 44 U/L (14-36); Albumin 3.5 g/dL (3.5-5.0); Alkaline Phosphatase 102 U/L (38-126); Anion Gap 10 mmol/L; Blood Urea Nitrogen 16 mg/dL (7-17); Calcium 9.2 mg/dL (8.4-10.2); Carbon Dioxide 28 mmol/L (22-30); Chloride 96 mmol/L (98-107); Glucose 126 mg/dL (74-99); Sodium 134 mmol/L (137-145); Total Bilirubin 0.5 mg/dL (0.2-1.3); Total Protein 6.3 g/dL (6.3-8.2)
[2018-09-07 13:40] LABS: Potassium 4.3 mmol/L (3.5-5.1)
[2018-09-07] MEDS: CYCLOBENZAPRINE 10 MG TAB PO SCH (22:15)
[2018-09-08] MEDS: LORazepam 1 MG TAB PO PRN ×4 (00:14→23:57)
[2018-09-08] MEDS: VANCOMYCIN ORAL SOLUTION 250 MG/5 ML BOTTLE PO SCH ×4 (00:23→17:45)
[2018-09-08] MEDS: ACETAMINOPHEN TAB 325 MG TAB PO PRN ×2 (05:13→17:47)
[2018-09-08] MEDS: LEVOTHYROXINE 75 MCG TAB PO SCH (05:47)
[2018-09-08] MEDS: FUROSEMIDE 40 MG TAB PO SCH (09:06)
[2018-09-08] MEDS: ATORVASTATIN 10 MG TAB PO SCH (09:06)
[2018-09-08] MEDS: SPIRONOLACTONE 25 MG TAB PO SCH (09:06)
[2018-09-08] MEDS: CALAMINE/ZINC OXIDE LOTION 177 ML BTL TOPICAL SCH ×2 (09:07→22:32)
[2018-09-08] MEDS: ALBUTEROL INHALER 60 PUFF/8 GM INHALER INHALATION PRN (09:42)
--- NOTE | 2018-09-08 09:54 | P.PN ---
Progress Note - Text Interval history: The patient is found in her room. She prefers not to come out of her room. She is beginning to eat some of her breakfast. Staff reported the patient remains irritable and appears psychotic. [facility] the patient was noted to be noncompliant with medication prior to this admission. She had received her first invega systemic injection on 08/25/2018 and the second one was given on 09/01/2018 156 mg. Mental status exam: The patient is an overweight female appearing older than her stated age. She is seated upright in bed she is wearing a hospital gown she has a disheveled appearance. Eye contact is staring in nature. She is irritable in terms of affect. She makes several delusional type statements that are paranoid and persecutory in nature. She states she's not to come out of her room is people will spit on her and assault her. She demands to be discharged today lacking insight into her current presentation. She is requiring assistance for ADLs. Thought process is quite disorganized she struggles with answering questions. Oftentimes a question will be asked and she will go off on a tangent. She is oriented to person been in the hospital the month and the year. She demonstrates no involuntary repetitive movements. She does demonstrate psychomotor slowing. Insight and judgment are poor. Plan: The patient has recently received the to initiation injections of Invega Sustenna prior to this hospitalization. We are using when necessary medication as needed for acute psychosis. She continues being treated for C. diff. Lab studies show a reduction in her total white count. We are monitoring vital signs which can be on the low side at times. We're monitoring her for safety we are providing reality orientation when possible. The patient requires continued psychiatric hospitalization. She cannot be discharged to a less structured environment at this time as she would be expected to decompensate.
[2018-09-08] MEDS: CHERRY FLAVOR 60 ML BOTTLE PO PRN (17:36)
[2018-09-08] MEDS: HALOPERIDOL 5 MG TAB PO PRN (19:10)
[2018-09-08] MEDS: CYCLOBENZAPRINE 10 MG TAB PO SCH (22:34)
[2018-09-09] MEDS: LEVOTHYROXINE 75 MCG TAB PO SCH (06:50)
[2018-09-09] MEDS: VANCOMYCIN ORAL SOLUTION 250 MG/5 ML BOTTLE PO SCH ×5 (06:52→23:15)
[2018-09-09] MEDS: LORazepam 1 MG TAB PO PRN ×3 (07:07→19:10)
[2018-09-09] MEDS: ATORVASTATIN 10 MG TAB PO SCH (09:25)
[2018-09-09] MEDS: FUROSEMIDE 40 MG TAB PO SCH (09:26)
[2018-09-09] MEDS: SPIRONOLACTONE 25 MG TAB PO SCH (09:26)
[2018-09-09] MEDS: CALAMINE/ZINC OXIDE LOTION 177 ML BTL TOPICAL SCH ×2 (09:32→22:14)
[2018-09-09] MEDS: ALBUTEROL INHALER 60 PUFF/8 GM INHALER INHALATION PRN (10:48)
--- NOTE | 2018-09-09 11:07 | P.PN ---
Progress Note - Text Interval history: The patient is found in her room she continues to be on contact precautions due to her C. diff infection. Staff reported the patient was up most of the night yelling and agitated. She can be heard throughout the morning yelling out to herself. She continues to demonstrate significant disorganization of thought with a disorganized delusional thought content. Her daughter informed us that she is scheduled to undergo a breast biopsy on . Mental status exam: The patient is an overweight female she seated in bed she has intermittent eye contact she has spontaneous constant speech. She again demonstrates disorganization of thought frequently demonstrating loose associations and flight of ideas. She demonstrates a labile affect and is often irritable. Disorganized delusions continue. She has poor insight and judgment into her symptoms and demands to be discharged. She demonstrates no involuntary repetitive movements. She reports no thoughts of harming herself or others. Plan: The patient remains acutely symptomatic. We will continue with her current psychotropic medication I will add Depakote ER 500 mg bedtime we may titrate this further. The patient requires continued inpatient psychiatric hospitalization it would be unsafe to discharge her at this time. She is not suitable for a lesser level of care. She is in fact not appropriate for a biopsy at this time but we will hope that her symptoms have stabilized prior to 09/15/18. If not that biopsy will be rescheduled.
[2018-09-09] MEDS: CHERRY FLAVOR 60 ML BOTTLE PO PRN ×2 (12:24→17:32)
[2018-09-09] MEDS: ACETAMINOPHEN TAB 325 MG TAB PO PRN (12:26)
[2018-09-09] MEDS: CYCLOBENZAPRINE 10 MG TAB PO SCH (20:26)
[2018-09-09] MEDS ORDERED: DIVALPROEX ER 500 MG TAB.ER.24H PO SCH (21:00)
[2018-09-10] MEDS: VANCOMYCIN ORAL SOLUTION 250 MG/5 ML BOTTLE PO SCH ×3 (06:26→17:37)
[2018-09-10] MEDS: LEVOTHYROXINE 75 MCG TAB PO SCH (06:28)
[2018-09-10] MEDS: CALAMINE/ZINC OXIDE LOTION 177 ML BTL TOPICAL SCH ×2 (08:16→20:12)
[2018-09-10] MEDS: ATORVASTATIN 10 MG TAB PO SCH (08:16)
[2018-09-10] MEDS: FUROSEMIDE 40 MG TAB PO SCH (08:16)
[2018-09-10] MEDS: SPIRONOLACTONE 25 MG TAB PO SCH (08:16)
[2018-09-10] MEDS: ACETAMINOPHEN TAB 325 MG TAB PO PRN (08:22)
[2018-09-10] MEDS: ALBUTEROL INHALER 60 PUFF/8 GM INHALER INHALATION PRN (08:59)
--- NOTE | 2018-09-10 09:55 | P.PN ---
Progress Note - Text Interval history: The patient is in her room she stated at the edge of her bed. She states she is doing well today. She reports no episodes of diarrhea. We talked about her possibly ambulating out of her room today but she is resistant stating she does not want to clean other people's rooms. She makes several other statements that seem to be delusional in nature. Thought process remains disorganized. She has no questions regarding her psychotropic medication. She continues to demonstrate poor insight into her presenting symptoms. She continues to demand to be discharged. Mental status exam: The patient is an overweight female she is dressed in hospital gowns she seated at the edge of her bed. She has portions of her hair wrapped in toilet paper. She has spontaneous speech. Thought processes disorganized. She demonstrates ongoing disorganized delusional thoughts. Insight and judgment are poor. She demonstrates no involuntary repetitive movements. No verbal or physical aggressiveness demonstrated today. Overall she was less agitated during this interaction. She reports no thoughts of wanting to harm herself or others. When asked about hallucinations she states she's been hearing and seeing things her whole life Plan: The patient will continue on her current medications we have just added the Depakote last evening. We will monitor by mouth intake. Reality orientation is provided when possible. She has not yet approximated her known baseline function and requires continued psychiatric hospitalization. Vital signs reviewed.
[2018-09-10] MEDS: CHERRY FLAVOR 60 ML BOTTLE PO PRN ×2 (11:10→17:37)
[2018-09-10] MEDS: LORazepam 1 MG TAB PO PRN (20:11)
[2018-09-10] MEDS: CYCLOBENZAPRINE 10 MG TAB PO SCH (20:12)
[2018-09-10] MEDS: VALPROIC ACID ORAL SOLN 250 MG/5 ML CUP PO SCH (20:12)
[2018-09-11] MEDS: VANCOMYCIN ORAL SOLUTION 250 MG/5 ML BOTTLE PO SCH ×4 (00:48→20:30)
[2018-09-11] MEDS: HALOPERIDOL 5 MG TAB PO PRN ×2 (01:19→15:14)
[2018-09-11] MEDS: LORazepam 1 MG TAB PO PRN ×2 (04:34→15:14)
[2018-09-11] MEDS: LEVOTHYROXINE 75 MCG TAB PO SCH (06:08)
[2018-09-11] MEDS: ATORVASTATIN 10 MG TAB PO SCH (07:59)
[2018-09-11] MEDS: SPIRONOLACTONE 25 MG TAB PO SCH (07:59)
[2018-09-11] MEDS: FUROSEMIDE 40 MG TAB PO SCH (07:59)
[2018-09-11] MEDS: CALAMINE/ZINC OXIDE LOTION 177 ML BTL TOPICAL SCH ×2 (07:59→22:02)
--- NOTE | 2018-09-11 10:54 | P.PN ---
Progress Note - Text Interval history: The patient is found in her room seated on her bed. Staff report she continues to be loud and overly vocal throughout the day. She struggles with sleep at night. She continues to demonstrate a disorganized thought process and disorganized delusional thought content. She continues to choose to isolate in her room. She has no questions or concerns regarding her psychotropic medication. Mental status exam: The patient is an overweight female she is dressed in hospital gowns. She seated at the side of her bed. Eye contact is appropriate speech is spontaneous fluent pressured at times. She is overly verbose. Thought process is disorganized and mistreating loose associations and flight of ideas. She spontaneously describes disorganized delusions. Some delusional thought is paranoid/persecutory in nature. She reports no thoughts of harming herself or others. Insight and judgment are impaired. She requires frequent redirection from staff in terms of her activities of daily living. Plan: The patient will continue on her current psychotropic medications. After the weekend we will get a Depakote level and then consider titrating the dose if needed. We will monitor her for safety. She requires continued psychiatric hospitalization due to her current level of dysfunction.
[2018-09-11] MEDS: VALPROIC ACID ORAL SOLN 250 MG/5 ML CUP PO SCH (22:02)
[2018-09-11] MEDS: CYCLOBENZAPRINE 10 MG TAB PO SCH (22:02)
[2018-09-12] MEDS: VANCOMYCIN ORAL SOLUTION 250 MG/5 ML BOTTLE PO SCH ×4 (00:58→17:59)
[2018-09-12] MEDS: ACETAMINOPHEN TAB 325 MG TAB PO PRN ×2 (00:59→08:34)
[2018-09-12] MEDS: LORazepam 1 MG TAB PO PRN ×2 (00:59→10:48)
[2018-09-12] MEDS: LEVOTHYROXINE 75 MCG TAB PO SCH (08:13)
[2018-09-12] MEDS: FUROSEMIDE 40 MG TAB PO SCH (08:15)
[2018-09-12] MEDS: SPIRONOLACTONE 25 MG TAB PO SCH (08:15)
[2018-09-12] MEDS: ATORVASTATIN 10 MG TAB PO SCH (08:15)
[2018-09-12] MEDS: CALAMINE/ZINC OXIDE LOTION 177 ML BTL TOPICAL SCH ×2 (08:15→19:49)
--- NOTE | 2018-09-12 15:24 | P.PN ---
Progress Note - Text Progress Note Date: 09/12/18 Interval history: Patient is seen in cross coverage today. She is found in her room seated in a wheelchair. She is agreeable to talk. She does not voice any adverse psychotropic medication side effects. Mental status exam: She is found in her room. She describes her mood as "as usual." She denies any thoughts of harm to self or others. She denies any hallucinations. She does not show any agitation. Plan: Patient will be maintained on current psychotropic medication regimen. We 'll monitor for any medication side effects monitor her ongoing response to treatment. We'll continue to cover this patient through the weekend.
[2018-09-12] MEDS: CYCLOBENZAPRINE 10 MG TAB PO SCH (19:49)
[2018-09-12] MEDS: VALPROIC ACID ORAL SOLN 250 MG/5 ML CUP PO SCH (19:49)
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
[2018-09-13] MEDS: VANCOMYCIN ORAL SOLUTION 250 MG/5 ML BOTTLE PO SCH ×4 (00:47→17:38)
[2018-09-13] MEDS: LORazepam 1 MG TAB PO PRN ×2 (00:51→21:48)
[2018-09-13] MEDS: LEVOTHYROXINE 75 MCG TAB PO SCH (05:57)
[2018-09-13] MEDS: ACETAMINOPHEN TAB 325 MG TAB PO PRN ×2 (05:58→21:04)
[2018-09-13] MEDS: ATORVASTATIN 10 MG TAB PO SCH (08:08)
[2018-09-13] MEDS: FUROSEMIDE 40 MG TAB PO SCH (08:09)
[2018-09-13] MEDS: SPIRONOLACTONE 25 MG TAB PO SCH (08:09)
[2018-09-13] MEDS: CALAMINE/ZINC OXIDE LOTION 177 ML BTL TOPICAL SCH ×2 (08:09→21:04)
--- NOTE | 2018-09-13 13:19 | P.PN ---
Progress Note - Text Progress Note Date: 09/13/18 Interval history: Patient is found in her room seated in a wheelchair. She relays that she slept well last night and is eating well. She seems to be compliant with her psychotropic medications. She makes reference to wanting to be low to go home. She is seen again in cross coverage today. Mental status exam: She is alert and cooperative with the interview. She is not showing any agitation. She relays that her mood is doing good. She does not voice any thoughts of harm to self or others. She denies any active auditory hallucinations but states that she has auditory hallucinations every day. Plan: Patient will be maintained on current psychotropic medication regimen. Continue to monitor for any medication side effects monitor her ongoing response to treatment.
[2018-09-13] MEDS: CYCLOBENZAPRINE 10 MG TAB PO SCH (21:04)
[2018-09-13] MEDS: VALPROIC ACID ORAL SOLN 250 MG/5 ML CUP PO SCH (21:05)
[2018-09-14] MEDS: VANCOMYCIN ORAL SOLUTION 250 MG/5 ML BOTTLE PO SCH ×4 (06:05→17:44)
[2018-09-14] MEDS: LEVOTHYROXINE 75 MCG TAB PO SCH (06:06)
[2018-09-14] MEDS: LORazepam 1 MG TAB PO PRN ×2 (08:42→20:42)
[2018-09-14] MEDS: FUROSEMIDE 40 MG TAB PO SCH (08:42)
[2018-09-14] MEDS: SPIRONOLACTONE 25 MG TAB PO SCH (08:42)
[2018-09-14] MEDS: ATORVASTATIN 10 MG TAB PO SCH (08:43)
[2018-09-14] MEDS: CALAMINE/ZINC OXIDE LOTION 177 ML BTL TOPICAL SCH ×2 (09:10→23:47)
--- NOTE | 2018-09-14 10:57 | P.PN ---
Progress Note - Text Interval history: The patient is found in her room she seated in a chair at a bedside table eating breakfast. Staff report that the patient continues to be disorganized in terms of thought process often yelling out. She slept quite poorly last evening. The patient has no questions or concerns regarding medication. Mental status exam: The patient is an overweight female she is dressed in hospital gowns eye contact is intermittent. She is largely preoccupied during our conversation. She has spontaneous speech that is disorganized. She demonstrates loose associations. She is not oriented fully and describes the current month is October the current year is 1921. She speaks of grandiose paranoid and other disorganized delusions. She demonstrates no verbal or physical aggressiveness but affect is labile. She demonstrates poor insight and judgment. She demonstrates no involuntary repetitive movements. She denies having any suicidal ideation intent or plan or homicidal ideation intent or plan. Plan: The patient will continue on her current psychotropic medications. We will draw a Depakote level and titrate the dose depending on the results. We will repeat a CBC. We will continue to monitor her for safety. Reality orientation is provided. This patient is familiar to us she has not yet achieved her baseline function. She requires continued psychiatric hospitalization. We would expect her to decompensate if discharged to a lesser level of care at this time.
[2018-09-14] MEDS: CHERRY FLAVOR 60 ML BOTTLE PO PRN (17:45)
[2018-09-14] MEDS: VALPROIC ACID ORAL SOLN 250 MG/5 ML CUP PO SCH (20:41)
[2018-09-14] MEDS: CYCLOBENZAPRINE 10 MG TAB PO SCH (20:41)
[2018-09-15] MEDS: VANCOMYCIN ORAL SOLUTION 250 MG/5 ML BOTTLE PO SCH (00:07)
[2018-09-15] MEDS: LEVOTHYROXINE 75 MCG TAB PO SCH (06:33)
[2018-09-15] MEDS: SPIRONOLACTONE 25 MG TAB PO SCH ×2 (09:54→10:09)
[2018-09-15] MEDS: FUROSEMIDE 40 MG TAB PO SCH ×2 (09:54→10:09)
[2018-09-15] MEDS: ATORVASTATIN 10 MG TAB PO SCH (09:54)
[2018-09-15] MEDS: CALAMINE/ZINC OXIDE LOTION 177 ML BTL TOPICAL SCH ×2 (09:54→20:13)
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
[2018-09-15 13:42] LABS: Basophils % (A) 0 %; Eosinophils # (A) 0.2 k/uL (0-0.7); Eosinophils % (A) 2 %; HCT 39.2 % (34.0-46.0); HGB 12.6 gm/dL (11.4-16.0); Lymphocytes # (A) 1.3 k/uL (1.0-4.8); Lymphocytes % (A) 15 %; MCH 30.3 pg (25.0-35.0); MCHC 32.2 g/dL (31.0-37.0); MCV 94.1 fL (80.0-100.0); Mean Platelet Volume 7.4; Monocytes # (A) 0.5 k/uL (0-1.0); Monocytes % (A) 6 %; Neutrophils # (A) 6.5 k/uL (1.3-7.7); Neutrophils % (A) 76 %; Platelet Count 312 k/uL (150-450); RBC 4.17 m/uL (3.80-5.40); RDW 13.4 % (11.5-15.5); WBC 8.7 k/uL (3.8-10.6)
[2018-09-15] MEDS: ACETAMINOPHEN TAB 325 MG TAB PO PRN (14:11)
[2018-09-15] MEDS: LORazepam 1 MG TAB PO PRN (20:12)
[2018-09-15] MEDS: CYCLOBENZAPRINE 10 MG TAB PO SCH (20:12)
[2018-09-15] MEDS ORDERED: VALPROIC ACID ORAL SOLN 250 MG/5 ML CUP PO SCH (21:00)
[2018-09-16] MEDS: LORazepam 1 MG TAB PO PRN ×3 (01:10→20:51)
[2018-09-16] MEDS: LEVOTHYROXINE 75 MCG TAB PO SCH (06:11)
[2018-09-16] MEDS: SPIRONOLACTONE 25 MG TAB PO SCH (08:08)
[2018-09-16] MEDS: ATORVASTATIN 10 MG TAB PO SCH (08:08)
[2018-09-16] MEDS: FUROSEMIDE 40 MG TAB PO SCH (08:08)
[2018-09-16] MEDS: CALAMINE/ZINC OXIDE LOTION 177 ML BTL TOPICAL SCH ×2 (08:09→20:51)
--- NOTE | 2018-09-16 11:01 | P.PN ---
Progress Note - Text Interval history: The patient's found in her room she seated in a geriatric chair. She has just completed her breakfast. Staff report that she is more irritable and agitated this morning she is yelling using profanity. Sleep was decreased and they recorded she slept 3 hours. The patient states that she slept all night. She continues to state that she is ready to be discharged home. She has been compliant with her medication. Her Depakote level came back subtherapeutic at 22. We'll increase the dose to 750 mg for last night. Mental status exam: The patient seated in her chair she continues to demonstrate a disorganized thought process. She spontaneously demonstrates a delusional thought content. She describes paranoid and persecutory thoughts along with other disorganized delusions. Insight and judgment are impaired. She demonstrates labile affect during our brief interaction. She is heard earlier this morning yelling profanities. She refuses to leave her room as she feels it's unsafe. She demonstrates no involuntary repetitive movements. Eye contact is intermittent. Speech is fluent and spontaneous and pressured at times. Plan: The patient will continue on her current medications we will titrate the Depakene to 1000 mg at bedtime. We will monitor her for safety and encourage participation in the milieu. She has not yet stabilized for transfer to a lesser level of care. She will very likely need correction placement upon discharge.
--- NOTE | 2018-09-16 17:26 | US ---
EXAMINATION TYPE: US venous doppler duplex LE BI DATE OF EXAM: 09/16/2018 5:14 PM COMPARISON: NONE CLINICAL HISTORY: r/t DVT. Edema SIDE PERFORMED: Bilateral TECHNIQUE: The lower extremity deep venous system is examined utilizing real time linear array sonog phyllis with graded compression, doppler sonography and color-flow sonography. VESSELS IMAGED: External Iliac Vein (EIV) Common Femoral Vein Deep Femoral Vein Greater Saphenous Vein * Femoral Vein Popliteal Vein Small Saphenous Vein * Proximal Calf Veins (* superficial vessels) Right Leg: No evidence of DVT Left Leg: No evidence of DVT IMPRESSION: Normal bilateral leg duplex venous sonogram.
[2018-09-16] MEDS: CYCLOBENZAPRINE 10 MG TAB PO SCH (20:51)
[2018-09-16] MEDS: ACETAMINOPHEN TAB 325 MG TAB PO PRN (20:52)
[2018-09-16] MEDS: VALPROIC ACID ORAL SOLN 250 MG/5 ML CUP PO SCH (20:53)
[2018-09-17] MEDS: ACETAMINOPHEN TAB 325 MG TAB PO PRN ×2 (01:36→13:44)
[2018-09-17] MEDS: LEVOTHYROXINE 75 MCG TAB PO SCH (06:09)
--- NOTE | 2018-09-17 07:18 | P.PN ---
Progress Note - Text Interval history: The patient is found awake seated upright in the geriatric chair. She states that she did not sleep well last night staff recorded she slept 2-3 hours. She states that she is not getting the correct medicines were giving her counterfeit ones. 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 She states she wants to be discharged. She states that she did not leave her room yesterday. She endorses ongoing auditory hallucinations that she hears all the time. She endorses no command auditory hallucinations. Throughout the morning the patient can be heard talking to herself loudly in the room. Mental status exam: The patient is an overweight disheveled female. She is dressed in hospital gowns. She has fluent and spontaneous speech she is pressured at times and overly verbose. She endorses auditory hallucinations that are noncommanding. She is reporting no suicidal or homicidal ideation. She demonstrates no verbal or physical aggressiveness. Affect continues to be labile during our brief interaction. Insight and judgment are poor. She demonstrates no involuntary repetitive movements. She appears to be in no physical distress. She is oriented to person and place. Plan: The patient will continue on her current psychotropic medication. We have just increased her Depakote. We will monitor her for safety and continue encouraging her participation in the milieu. We are trying to approximate her to her baseline function and we are hoping she will be eligible for halfway placement once sufficiently stabilized. This has been discussed with community mental health. Vital signs reviewed.
[2018-09-17] MEDS: FUROSEMIDE 40 MG TAB PO SCH (07:50)
[2018-09-17] MEDS: CALAMINE/ZINC OXIDE LOTION 177 ML BTL TOPICAL SCH ×2 (07:50→21:22)
[2018-09-17] MEDS: LATANOPROST 0.005% OPHTH DROPS 2.5 ML BTL BOTH EYES SCH (07:50)
[2018-09-17] MEDS: ATORVASTATIN 10 MG TAB PO SCH (07:51)
[2018-09-17] MEDS: SPIRONOLACTONE 25 MG TAB PO SCH (07:51)
[2018-09-17] MEDS: LORazepam 1 MG TAB PO PRN ×2 (13:40→20:55)
[2018-09-17] MEDS: HALOPERIDOL 5 MG TAB PO PRN ×2 (13:40→13:51)
[2018-09-17] MEDS: VALPROIC ACID ORAL SOLN 250 MG/5 ML CUP PO SCH (20:54)
[2018-09-17] MEDS: CYCLOBENZAPRINE 10 MG TAB PO SCH (20:54)
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
[2018-09-18] MEDS: ACETAMINOPHEN TAB 325 MG TAB PO PRN (02:12)
[2018-09-18] MEDS: LEVOTHYROXINE 75 MCG TAB PO SCH (06:39)
[2018-09-18] MEDS: SPIRONOLACTONE 25 MG TAB PO SCH (09:20)
[2018-09-18] MEDS: ATORVASTATIN 10 MG TAB PO SCH (09:20)
[2018-09-18] MEDS: FUROSEMIDE 40 MG TAB PO SCH (09:20)
[2018-09-18] MEDS: CALAMINE/ZINC OXIDE LOTION 177 ML BTL TOPICAL SCH ×2 (09:20→20:47)
--- NOTE | 2018-09-18 10:55 | P.PN ---
Progress Note - Text Interval history: The patient is found in her room she seated in her geriatric chair. She indicates she slept well last night staff reports she slept approximate 3-4 hours. She was seen by internal medicine yesterday their input is appreciated. She underwent ultrasound of her lower extremities bilaterally with no acute findings. She continues to isolate in her room. She continues to demand a discharge believing she is able to return to her own home. We have been discussing the need for her to go to a jail upon discharge. She continues to have spontaneous speech out loud while she is alone in her room. She can be pleasant throughout the day but there are times when she's heard being verbally aggressive. Mental status exam: The patient is an overweight female she seated in her geriatric chair. Eye contact is appropriate speech is spontaneous she is verbose. She demonstrates lability of affect specifically being overly bright and then switching to irritability. She will make several statements that are delusional in nature and unrelated. Thought process therefore can be quite disorganized. There are times when she can provide a linear answer however. She has poor insight into her delusional thoughts and thought disorganization. She is reporting no thoughts of harming herself or others. She endorses always hearing things but no command auditory hallucinations. Plan: The patient will continue on her current psychotropic medication we will order a Depakote level once the medication is had time to reach steady state since the last titration. We will monitor her for safety and encourage participation outside of her room. Once she clinically stabilizes we will pursue a jail as a transition out of the mental health unit. Vital signs reviewed.
[2018-09-18] MEDS: CYCLOBENZAPRINE 10 MG TAB PO SCH (20:45)
[2018-09-18] MEDS: VALPROIC ACID ORAL SOLN 250 MG/5 ML CUP PO SCH (20:45)
[2018-09-19] MEDS: LEVOTHYROXINE 75 MCG TAB PO SCH (07:00)
[2018-09-19] MEDS: ATORVASTATIN 10 MG TAB PO SCH (09:18)
[2018-09-19] MEDS: CALAMINE/ZINC OXIDE LOTION 177 ML BTL TOPICAL SCH ×2 (09:18→22:09)
[2018-09-19] MEDS: FUROSEMIDE 40 MG TAB PO SCH ×2 (09:27→11:19)
[2018-09-19] MEDS: SPIRONOLACTONE 25 MG TAB PO SCH ×2 (09:27→11:19)
--- NOTE | 2018-09-19 19:23 | P.PN ---
Progress Note - Text Progress Note Date: 09/19/18 Interval history: The patient is found in her room. Found responding to internal stimuli. She was very loud and visibly upset. Asked me to help her cut some piece of cloth. She continues to isolate in her room. She continues to demand a discharge believing she is able to return to her own home. She can be pleasant throughout the day but there are times when she's heard being verbally aggressive. Mental status exam: The patient is an overweight female she seated in her geriatric chair. Eye contact is appropriate speech is spontaneous she is verbose. She demonstrates lability of affect specifically being overly bright and then switching to irritability. She will make several statements that are delusional in nature and unrelated. Thought process therefore can be quite disorganized. There are times when she can provide a linear answer however. She has poor insight into her delusional thoughts and thought disorganization. She is reporting no thoughts of harming herself or others. She endorses always hearing things but no command auditory hallucinations. Plan: The patient will continue on her current psychotropic medication we will order a Depakote level once the medication is had time to reach steady state since the last titration. We will monitor her for safety and encourage participation outside of her room. Once she clinically stabilizes we will pursue a intermediate as a transition out of the mental health unit. Vital signs reviewed.
[2018-09-19] MEDS: CYCLOBENZAPRINE 10 MG TAB PO SCH (20:20)
[2018-09-19] MEDS: VALPROIC ACID ORAL SOLN 250 MG/5 ML CUP PO SCH (20:20)
[2018-09-19] MEDS: LORazepam 1 MG TAB PO PRN (20:21)
[2018-09-19] MEDS: ACETAMINOPHEN TAB 325 MG TAB PO PRN (21:25)
[2018-09-20] MEDS: LEVOTHYROXINE 75 MCG TAB PO SCH (05:48)
[2018-09-20] MEDS: ACETAMINOPHEN TAB 325 MG TAB PO PRN ×2 (05:50→20:27)
[2018-09-20] MEDS: ATORVASTATIN 10 MG TAB PO SCH (09:36)
[2018-09-20] MEDS: SPIRONOLACTONE 25 MG TAB PO SCH (09:36)
[2018-09-20] MEDS: FUROSEMIDE 40 MG TAB PO SCH (09:36)
[2018-09-20] MEDS: CALAMINE/ZINC OXIDE LOTION 177 ML BTL TOPICAL SCH ×2 (09:48→21:58)
--- NOTE | 2018-09-20 12:00 | P.PN ---
Progress Note - Text Progress Note Date: 09/20/18 Interval history: The patient is found in her room. Found upset about her swelling on her feet. She continues to isolate in her room. She continues to demand a discharge believing she is able to return to her own home. She can be pleasant throughout the day but there are times when she's heard being verbally aggressive. Mental status exam: The patient is an overweight female she seated in her geriatric chair. Eye contact is appropriate speech is spontaneous she is verbose. She demonstrates lability of affect specifically being overly bright and then switching to irritability. She will make several statements that are delusional in nature and unrelated. Thought process therefore can be quite disorganized. There are times when she can provide a linear answer however. She has poor insight into her delusional thoughts and thought disorganization. She is reporting no thoughts of harming herself or others. She endorses always hearing things but no command auditory hallucinations. Plan: Medicine on board. The patient will continue on her current psychotropic medication we will order a Depakote level once the medication is had time to reach steady state since the last titration. We will monitor her for safety and encourage participation outside of her room. Once she clinically stabilizes we will pursue a usp as a transition out of the mental health unit. Vital signs reviewed.
[2018-09-20] MEDS: LORazepam 1 MG TAB PO PRN (20:27)
[2018-09-20] MEDS: CYCLOBENZAPRINE 10 MG TAB PO SCH (20:27)
[2018-09-20] MEDS: VALPROIC ACID ORAL SOLN 250 MG/5 ML CUP PO SCH (20:28)
[2018-09-21] MEDS: LEVOTHYROXINE 75 MCG TAB PO SCH (06:01)
[2018-09-21] MEDS: ACETAMINOPHEN TAB 325 MG TAB PO PRN ×2 (06:02→15:57)
[2018-09-21] MEDS: SPIRONOLACTONE 25 MG TAB PO SCH (08:12)
[2018-09-21] MEDS: FUROSEMIDE 40 MG TAB PO SCH (08:12)
[2018-09-21] MEDS: ATORVASTATIN 10 MG TAB PO SCH (08:12)
[2018-09-21] MEDS: CALAMINE/ZINC OXIDE LOTION 177 ML BTL TOPICAL SCH ×2 (08:19→20:23)
[2018-09-21 12:09] LABS: Glucose,Whole Blood 135 mg/dL (75-99)
[2018-09-21 13:08] LABS: Valproic Acid (Depakene) 31.2 ug/mL
--- NOTE | 2018-09-21 17:06 | P.PN ---
Progress Note - Text Progress Note Date: 09/21/18 Interval history: The patient is found in her room. Found in fair mood. She continues to isolate in her room. She continues to talk lous to voices which are bothering her at times. Mental status exam: The patient is an overweight female she seated in her geriatric chair. Eye contact is appropriate speech is spontaneous she is verbose. She demonstrates lability of affect specifically being overly bright and then switching to irritability. She will make several statements that are delusional in nature and unrelated. Thought process therefore can be quite disorganized. There are times when she can provide a linear answer however. She has poor insight into her delusional thoughts and thought disorganization. She is reporting no thoughts of harming herself or others. She endorses always hearing things but no command auditory hallucinations. Plan: Medicine on board. The patient will continue on her current psychotropic medication. We will monitor her for safety and encourage participation outside of her room. Once she clinically stabilizes we will pursue a senior care as a transition out of the mental health unit. Vital signs reviewed.
[2018-09-21] MEDS: VALPROIC ACID ORAL SOLN 250 MG/5 ML CUP PO SCH (20:23)
[2018-09-21] MEDS: CYCLOBENZAPRINE 10 MG TAB PO SCH (20:23)
[2018-09-22] MEDS: LEVOTHYROXINE 75 MCG TAB PO SCH (05:46)
[2018-09-22] MEDS: LORazepam 1 MG TAB PO PRN ×4 (05:47→20:20)
[2018-09-22] MEDS: ACETAMINOPHEN TAB 325 MG TAB PO PRN ×4 (05:48→20:19)
[2018-09-22] MEDS: ATORVASTATIN 10 MG TAB PO SCH (09:19)
[2018-09-22] MEDS: FUROSEMIDE 40 MG TAB PO SCH (09:19)
[2018-09-22] MEDS: CALAMINE/ZINC OXIDE LOTION 177 ML BTL TOPICAL SCH ×2 (09:19→20:18)
[2018-09-22] MEDS: SPIRONOLACTONE 25 MG TAB PO SCH (09:19)
--- NOTE | 2018-09-22 11:58 | P.PN ---
Progress Note - Text Progress Note Date: 09/22/18 Interval history: The patient is found in her room. Found in fair mood. She continues to isolate in her room. She continues to talk loud to voices which are bothering her at times. Mental status exam: The patient is an overweight female she seated in her geriatric chair. Eye contact is appropriate speech is spontaneous she is verbose. She demonstrates lability of affect specifically being overly bright and then switching to irritability. She will make several statements that are delusional in nature and unrelated. Thought process therefore can be quite disorganized. There are times when she can provide a linear answer however. She has poor insight into her delusional thoughts and thought disorganization. She is reporting no thoughts of harming herself or others. She endorses always hearing things but no command auditory hallucinations. Plan: Medicine team on board. The patient will continue on her current psychotropic medication. We will monitor her for safety and encourage participation outside of her room. Once she clinically stabilizes we will pursue a senior living as a transition out of the mental health unit. Vital signs reviewed.
[2018-09-22] MEDS: CYCLOBENZAPRINE 10 MG TAB PO SCH (20:19)
[2018-09-22] MEDS: VALPROIC ACID ORAL SOLN 250 MG/5 ML CUP PO SCH (20:19)
[2018-09-23] MEDS: LEVOTHYROXINE 75 MCG TAB PO SCH (06:21)
[2018-09-23] MEDS: ACETAMINOPHEN TAB 325 MG TAB PO PRN ×2 (09:15→20:30)
[2018-09-23] MEDS: SPIRONOLACTONE 25 MG TAB PO SCH (09:15)
[2018-09-23] MEDS: LORazepam 1 MG TAB PO PRN ×2 (09:15→17:31)
[2018-09-23] MEDS: ATORVASTATIN 10 MG TAB PO SCH (09:15)
[2018-09-23] MEDS: FUROSEMIDE 40 MG TAB PO SCH (09:15)
[2018-09-23] MEDS: CALAMINE/ZINC OXIDE LOTION 177 ML BTL TOPICAL SCH ×3 (09:22→20:43)
--- NOTE | 2018-09-23 17:19 | P.PN ---
Progress Note - Text Progress Note Date: 09/23/18 Interval history: The patient is found in her room. Found in fair mood. She continues to isolate in her room. She continues to talk loud to voices which are bothering her at times. Mental status exam: The patient is an overweight female she seated in her geriatric chair. Eye contact is appropriate speech is spontaneous she is verbose. She demonstrates lability of affect specifically being overly bright and then switching to irritability. She will make several statements that are delusional in nature and unrelated. Thought process therefore can be quite disorganized. There are times when she can provide a linear answer however. She has poor insight into her delusional thoughts and thought disorganization. She is reporting no thoughts of harming herself or others. She endorses always hearing things but no command auditory hallucinations. Plan: Medicine team on board. The patient will continue on her current psychotropic medication. We will monitor her for safety and encourage participation outside of her room. Once she clinically stabilizes we will pursue a long-term as a transition out of the mental health unit. Vital signs reviewed.
[2018-09-23] MEDS: CYCLOBENZAPRINE 10 MG TAB PO SCH (20:30)
[2018-09-23] MEDS: VALPROIC ACID ORAL SOLN 250 MG/5 ML CUP PO SCH (20:31)
[2018-09-24] MEDS: LEVOTHYROXINE 75 MCG TAB PO SCH (06:05)
[2018-09-24] MEDS: FUROSEMIDE 40 MG TAB PO SCH (09:41)
[2018-09-24] MEDS: ATORVASTATIN 10 MG TAB PO SCH (09:41)
[2018-09-24] MEDS: SPIRONOLACTONE 25 MG TAB PO SCH (09:43)
[2018-09-24] MEDS: CALAMINE/ZINC OXIDE LOTION 177 ML BTL TOPICAL SCH ×2 (10:03→20:25)
--- NOTE | 2018-09-24 10:03 | P.PN ---
Progress Note - Text Interval history: The patient is found in her room seated in a geriatric chair. She reports her mood is good until somebody pisses her off, unfortunately she feels that is happening all of the time. She indicates she ate. Sleep remains impaired staff reported she slept 3 hours. She remains hyperverbal even while alone in her room. She is encouraged to come out and participate in the milieu but she refuses. Labs reviewed the Depakote level remained subtherapeutic liver enzymes were within normal limits. Mental status exam: The patient is alert she seated in her chair she prefers to have the room dark. Eye contact is staring in nature. She has spontaneous speech. She continues to demonstrate lability of affect. She does continue to verbalize delusional thought content. She is oriented to day of the week is being Friday. She is aware of her name and our current location. She has poor insight into her symptoms her judgment is subsequently compromised. She is reporting no auditory or visual hallucinations today. Thought process remains disorganized she jumps from topic to topic. She is reporting no thoughts of harming herself or others. Plan: The patient remains acutely symptomatic. Thought process remains quite disorganized she demonstrates excessive lability of affect. She continues to verbalize delusional thoughts. She is known to have a delusional thought content at baseline but the former symptoms are usually more controlled. She is not appropriate for a lesser level of care at this time. Once she clinically stabilizes we are pursuing prison placement. I will titrate the Depakene again to 1250 mg at bedtime. We will continue monitoring her for safety. Vital signs reviewed.
[2018-09-24] MEDS: LORazepam 1 MG TAB PO PRN (15:06)
[2018-09-24] MEDS: CYCLOBENZAPRINE 10 MG TAB PO SCH (20:25)
[2018-09-24] MEDS: VALPROIC ACID ORAL SOLN 250 MG/5 ML CUP PO SCH (20:25)
[2018-09-25] MEDS: ACETAMINOPHEN TAB 325 MG TAB PO PRN ×2 (00:06→20:40)
[2018-09-25] MEDS: LORazepam 1 MG TAB PO PRN ×3 (00:06→20:39)
[2018-09-25] MEDS: LEVOTHYROXINE 75 MCG TAB PO SCH (05:37)
[2018-09-25] MEDS: FUROSEMIDE 40 MG TAB PO SCH (09:05)
[2018-09-25] MEDS: ATORVASTATIN 10 MG TAB PO SCH (09:05)
[2018-09-25] MEDS: SPIRONOLACTONE 25 MG TAB PO SCH (09:05)
[2018-09-25] MEDS: CALAMINE/ZINC OXIDE LOTION 177 ML BTL TOPICAL SCH ×2 (09:06→20:32)
--- NOTE | 2018-09-25 10:51 | P.PN ---
Progress Note - Text Interval history: The patient is found in her room she seated in a geriatric chair. She is heard talking to herself out loud prior to me entering the room. She indicates she wants to be discharged immediately. She feels that she is able to go home and care for herself. She continues to not ambulate in the hallway as she feels we will force her to clean rooms and she will be exposed to other patients. She reports she slept all night staff report she slept 3-4 hours. She indicates she had taken naps during the day. We reviewed her psychotropic medication. We reviewed the dates of the last invega systemic injection. She will be due for her next one on 10/01/2018. Mental status exam: The patient is alert she is an overweight female. She has a disheveled appearance eye contact is intermittent. She has ongoing spontaneous speech. She is overly verbose she is pressured at times. She demonstrates lability of affect including irritability. Her voice becomes loud at times she uses profanity at times. Thought process is not well organized she will demonstrate loose associations flight of ideas. She has ongoing delusional thought content. She overestimates her ability to care for herself. She demonstrates no physical aggressiveness. She demonstrates no involuntary repetitive movements. She reports no suicidal or homicidal thoughts. When asked about auditory hallucinations she states "all the time". Plan: The patient will continue on her current psychotropic medications. She will be due for Depakote level on Friday. We will continue the Invega Sustenna and we'll give her next injection on 10/01/2018. We will monitor her for safety. She is encouraged to ambulate the hallway and participate in the milieu although she refuses. Vital signs reviewed.
[2018-09-25] MEDS: CYCLOBENZAPRINE 10 MG TAB PO SCH (20:32)
[2018-09-25] MEDS: VALPROIC ACID ORAL SOLN 250 MG/5 ML CUP PO SCH (20:33)
[2018-09-26] MEDS: LEVOTHYROXINE 75 MCG TAB PO SCH (06:27)
[2018-09-26] MEDS: ATORVASTATIN 10 MG TAB PO SCH (07:39)
[2018-09-26] MEDS: CALAMINE/ZINC OXIDE LOTION 177 ML BTL TOPICAL SCH ×2 (07:39→22:08)
[2018-09-26] MEDS: FUROSEMIDE 40 MG TAB PO SCH (07:39)
[2018-09-26] MEDS: SPIRONOLACTONE 25 MG TAB PO SCH (07:40)
[2018-09-26] MEDS: LORazepam 1 MG TAB PO PRN ×3 (09:51→21:09)
[2018-09-26] MEDS: VALPROIC ACID ORAL SOLN 250 MG/5 ML CUP PO SCH (20:47)
[2018-09-26] MEDS: CYCLOBENZAPRINE 10 MG TAB PO SCH (20:47)
[2018-09-26] MEDS: ACETAMINOPHEN TAB 325 MG TAB PO PRN (21:02)
[2018-09-26] MEDS: HALOPERIDOL 5 MG TAB PO PRN (21:03)
--- NOTE | 2018-09-26 21:46 | PN ---
DATE OF SERVICE: 09/26/2018 PROGRESS NOTE CHIEF COMPLAINT: The patient had agitation, poor self-care and disorganized thoughts. She had increasing psychotic thoughts. INTERVAL HISTORY: The patient has been doing fair. She continues with ups and downs in her mood. She will get into periods where she gets agitated, she will start yelling and being quite demanding. It is not always clear what seems to be bothering her. She has received p.r.n. medications. She sleeps fair at night. Today, she has been up mostly. She stays in her room. She will come out in the day area. She does not attend groups. She does not interact too much with others, though she will pay some attention to things going on around her. She is cooperative with basic care and taking her medications. She will respond some of the time to staff support in a positive way. She tolerates psychotropic medications. MENTAL STATUS: Patient initially was in her room. She gave good eye contact. She was restless. She answered questions with brief responses, then she would often make random comments that were disconnected from the subject at hand. Her affect was intense. She had a fairly strong voice. Her thoughts were coherent and goal directed. Her mood was difficult to assess. Some of the times she seemed down and distressed, though other times was more positive. ASSESSMENT: I will continue the current diagnosis and treatment plan. I will continue psychotropic medications the same. She continues with some level of delusional thoughts. General she has been cooperative. Whether she is at a point that would be stable for her to move to a care facility remains to be seen. We will continue to focus on stabilization and discharge planning. OG / MISTI: [id number] / MTDD
[2018-09-27] MEDS: ACETAMINOPHEN TAB 325 MG TAB PO PRN (05:48)
[2018-09-27] MEDS: LORazepam 1 MG TAB PO PRN ×3 (05:48→20:20)
[2018-09-27] MEDS: LEVOTHYROXINE 75 MCG TAB PO SCH (06:17)
[2018-09-27] MEDS: ATORVASTATIN 10 MG TAB PO SCH (07:43)
[2018-09-27] MEDS: SPIRONOLACTONE 25 MG TAB PO SCH (07:43)
[2018-09-27] MEDS: FUROSEMIDE 40 MG TAB PO SCH (07:44)
[2018-09-27] MEDS: CALAMINE/ZINC OXIDE LOTION 177 ML BTL TOPICAL SCH ×2 (07:44→20:53)
--- NOTE | 2018-09-27 14:48 | PN ---
DATE OF SERVICE: 09/27/2018 PROGRESS NOTE CHIEF COMPLAINT: The patient had agitation, poor self-care and disorganized thoughts. She had increasing psychotic thoughts. INTERVAL HISTORY: The patient has been doing fair. She had a quiet evening last night. She slept fair. According to nursing, she slept about 3 or 4 hours ago that is better for her than what she had been sleeping. Overall her mood has been more even. She has had a calmer manner. She has been coming out of her room some last evening and today. Nursing notes that as being a moderate level of improvement compared to how much isolation she has been having. She does not attend groups. She has been more even in her manner. She has not had any episodes today of yelling or getting distressed. It is noteworthy that the pressure sore that she had on her bottom has completely healed. She tolerates psychotropic medications. MENTAL STATUS: Patient was in her room. She gave fair eye contact. Psychomotor activity was slow. She answered questions with brief responses. Her thoughts were clear. Her affect was blunted. Her mood quiet. She did not appear to be significantly distressed in any way. ASSESSMENT: I will continue the current diagnosis and treatment plan. I will continue psychotropic medications the same while her Depakote level is in the low range. Given improvements that she has been showing, I will defer making any change in her Depakote dosing at this time. We discussed discharge planning issues. We will continue to focus on stabilization and setting up followup care. MMSUZY / MISTI: [id number] / MTDD
[2018-09-27] MEDS: CYCLOBENZAPRINE 10 MG TAB PO SCH ×2 (20:18→20:19)
[2018-09-27] MEDS: VALPROIC ACID ORAL SOLN 250 MG/5 ML CUP PO SCH ×2 (20:19→21:07)
[2018-09-28] MEDS: LEVOTHYROXINE 75 MCG TAB PO SCH (06:56)
[2018-09-28] MEDS: CALAMINE/ZINC OXIDE LOTION 177 ML BTL TOPICAL SCH ×2 (08:14→20:19)
[2018-09-28] MEDS: SPIRONOLACTONE 25 MG TAB PO SCH (08:14)
[2018-09-28] MEDS: ATORVASTATIN 10 MG TAB PO SCH (08:14)
[2018-09-28] MEDS: FUROSEMIDE 40 MG TAB PO SCH (08:14)
--- NOTE | 2018-09-28 09:37 | P.PN ---
Progress Note - Text Interval history: The patient is found in her room seated in the geriatric chair. There is some documentation that she was coming out of her room a bit over the weekend. Nursing staff report that the patient refused the Depakote last evening. We discussed the importance of complying with the Depakote. The patient had difficulty attending to the conversation and remains disorganized. We discussed the need for her to comply with the Depakote sober able to have her attain a therapeutic level. She is focused on being discharged and we discussed the goals we need to accomplish prior to her being discharged. Due to her irritability and disorganization of thought it was difficult to communicate this to her effectively. Mental status exam: The patient is alert she maintains appropriate eye contact speech is fluent spontaneous she does become loud at times. Affect remains labile she can initially presented as calm and then become irritable. She continues to have a delusional thought content mainly focusing on persecutory thoughts today. She reports no suicidal or homicidal thoughts she demonstrates no physical aggressiveness. Prior to our interaction she can be heard talking to herself loudly in her room. Insight and judgment are impaired. Plan: The patient remains acutely symptomatic. We will follow her compliance regarding the Depakote. We will verify that she is on a court order. If she refuses the Depakote further we will give an injectable medication such as Geodon if there is no contraindication. We will monitor her for safety she is encouraged to participate in the milieu. Vital signs reviewed.
[2018-09-28] MEDS: ACETAMINOPHEN TAB 325 MG TAB PO PRN ×2 (11:26→20:09)
[2018-09-28] MEDS: LORazepam 1 MG TAB PO PRN (11:26)
[2018-09-28] MEDS: VALPROIC ACID ORAL SOLN 250 MG/5 ML CUP PO SCH (20:07)
[2018-09-29] MEDS: ACETAMINOPHEN TAB 325 MG TAB PO PRN ×3 (02:20→21:02)
[2018-09-29] MEDS: LORazepam 1 MG TAB PO PRN ×3 (02:31→19:40)
[2018-09-29] MEDS: ATORVASTATIN 10 MG TAB PO SCH (08:04)
[2018-09-29] MEDS: LEVOTHYROXINE 75 MCG TAB PO SCH (08:04)
[2018-09-29] MEDS: SPIRONOLACTONE 25 MG TAB PO SCH (08:04)
[2018-09-29] MEDS: CALAMINE/ZINC OXIDE LOTION 177 ML BTL TOPICAL SCH ×2 (08:04→21:08)
[2018-09-29] MEDS: FUROSEMIDE 40 MG TAB PO SCH (08:04)
--- NOTE | 2018-09-29 12:13 | P.PN ---
Progress Note - Text Interval history: The patient is found in her room. She is seated in the same geriatric chair. She is dressed in her own clothes and wearing a blanket over top. Eye contact is appropriate she states that her mood is good she states she slept well however staff report she slept 4 hours. Appetite is been stable. She did comply with the Depakene last evening and did not require an injection of Haldol. She continues to be allowed and is demonstrating ongoing speech as she sits alone in her room. She cannot be convinced to ambulate in the hallway for exercise. Affect remains labile. Mental status exam: The patient's alert she is in no acute distress. She demonstrates continued labile affect she is irritable. Her voice quickly becomes loud. She demonstrates poor insight and judgment. She states she is able to go home live by herself and meet her own needs. She continues to demonstrate a delusional thought content. Thought process is disorganized she demonstrates loose associations and at times flight of ideas. She reports no suicidal or homicidal ideation. Speech is spontaneous and ongoing frequently using profanity. She endorses auditory hallucinations. Plan: We will continue the patient on her current medication. There was some partial noncompliance with the Depakene but she did comply last evening. Once we have enough consecutive nights with her compliance we will draw a Depakote level. She is due for her next invega systemic injection. We have received input from family that she had been on Prolixin in the past and that may have worked better for her. We will consider changing her Prolixin if her outpatient psychiatrist feels that is appropriate. The patient requires continued psychiatric hospitalization due to her disorganized thought process and psychosis. It would be unsafe for her to be discharged at this time to a lesser level of care as she would be expected to further decompensate. Vital signs reviewed.
[2018-09-29] MEDS: CYCLOBENZAPRINE 10 MG TAB PO SCH (20:42)
[2018-09-29] MEDS: VALPROIC ACID ORAL SOLN 250 MG/5 ML CUP PO SCH (20:42)
[2018-09-29] MEDS: ALBUTEROL INHALER 60 PUFF/8 GM INHALER INHALATION PRN (21:13)
[2018-09-30] MEDS: LEVOTHYROXINE 75 MCG TAB PO SCH (06:19)
[2018-09-30] MEDS: CALAMINE/ZINC OXIDE LOTION 177 ML BTL TOPICAL SCH ×2 (07:48→23:22)
[2018-09-30] MEDS: SPIRONOLACTONE 25 MG TAB PO SCH (07:48)
[2018-09-30] MEDS: FUROSEMIDE 40 MG TAB PO SCH (07:48)
[2018-09-30] MEDS: ATORVASTATIN 10 MG TAB PO SCH (07:48)
[2018-09-30] MEDS: LORazepam 1 MG TAB PO PRN ×2 (07:57→23:51)
[2018-09-30] MEDS: ACETAMINOPHEN TAB 325 MG TAB PO PRN ×2 (07:57→23:52)
--- NOTE | 2018-09-30 10:27 | PN ---
PROGRESS NOTE DATE OF SERVICE: 09/30/2018 CHIEF COMPLAINT: The patient had agitation, poor self-care and disorganized thoughts. She had increasing psychotic thoughts. INTERVAL HISTORY: Patient has been doing fair. She had a quiet evening last night. It was documented that she slept 6 hours last night. Today she has been up, mostly she stays in her room. She eats meals in her room. Some of the time she can be heard in her room talking, some of the time it seems that she may be communicating with staff even though no one is actually in the room with her. At other times, she does seem to be responding to internal stimuli. She talks about ideas of needing to go up to the next floor to "see the babies." She talked about her medications, including needing to get her " control pills." When I saw her this morning, she gave good eye contact. She actually was awake, alert, and sitting up. She had a pleasant manner and was quite responsive in the interview. She was able to discuss in a limited way some issues related to discharge planning. She appears to tolerate her psychotropic medications. MENTAL STATUS: Patient gave good eye contact. She had a little restlessness and psychomotor activity. She answered questions with direct responses. Her thoughts were clear. She could get a little loud at times, though not to a significant degree as she has been doing at other times. She talked quite a bit. Her affect was somewhat intense. Her mood was even. She responded appropriately to positive comments. She did not appear to be significantly distressed when I walked out of the room. She continued to talk some of the time she was talking about something she wanted including some clothing items. She did seem to be trying to communicate some to me in regards to that. It was not clear. However, she also may have just been not talking in a random way without expecting response from anyone. ASSESSMENT: I will continue the current diagnosis and treatment plan. I will continue psychotropic medications the same. Patient does appear to be making progress. We will continue to focus on stabilization and discharge planning. OG / MISTI: [id number] /
[2018-09-30] MEDS: ALBUTEROL INHALER 60 PUFF/8 GM INHALER INHALATION PRN ×2 (10:56→20:44)
[2018-09-30] MEDS: VALPROIC ACID ORAL SOLN 250 MG/5 ML CUP PO SCH (20:04)
[2018-09-30] MEDS: CYCLOBENZAPRINE 10 MG TAB PO SCH (20:04)
[2018-10-01] MEDS: LEVOTHYROXINE 75 MCG TAB PO SCH (06:17)
[2018-10-01] MEDS: LATANOPROST 0.005% OPHTH DROPS 2.5 ML BTL BOTH EYES SCH (09:55)
[2018-10-01] MEDS: FUROSEMIDE 40 MG TAB PO SCH (09:55)
[2018-10-01] MEDS: CALAMINE/ZINC OXIDE LOTION 177 ML BTL TOPICAL SCH ×2 (09:56→20:26)
[2018-10-01] MEDS: ATORVASTATIN 10 MG TAB PO SCH (09:57)
[2018-10-01] MEDS: SPIRONOLACTONE 25 MG TAB PO SCH (09:57)
--- NOTE | 2018-10-01 11:27 | P.PN ---
Progress Note - Text Interval history: The patient is found in her room she seated in her chair. She has eaten her breakfast. She indicates her mood is good. Staff report that she does continue to yell throughout the day but there has been a slight decrease in the frequency. I was able to speak with her outpatient psychiatrist Dr. Zee. The patient is due for the invega systemic injection today. The patient is known to previously been on Prolixin. Her outpatient psychiatrist was planning to continue the Invega Sustenna however he states in reviewing the records she did stay out of the hospital longer on Prolixin. After further discussion we decided we would proceed with placing her back on Prolixin decanoate. Staff feel that the patient's been complying with the Depakote at bedtime for the last several days. We will order a Depakote level. The [facility] liaison his indicated that the patient will qualify for half-way placement and they are looking for an appropriate placement while we wait for her to clear. Mental status exam: The patient is an overweight female she seated in the geriatric chair. Eye contact is appropriate. She has spontaneous speech she is pressured. She demonstrates thought disorganization. She shows me Styrofoam cups in which she has been drawing designs on. She states that staff have stolen all of her paintings. She requests that I bring her to the roof so she can see what it looks like up there. She does raise her voice she demonstrates lability of affect. She is heard yelling out loud while seated in her room alone which is audible in the hallway. She is reporting no suicidal or homicidal thoughts. She indicates having auditory hallucinations but does not describe the type. Insight and judgment are impaired. Plan: We will draw a Depakote level tomorrow morning. After discussing her care with her outpatient psychiatrist it was ultimately decided we would change back to Prolixin Decanoate she will receive a 50 mg injection today. We will continue working with [facility] to arrange her placement upon discharge. Vital signs reviewed. The patient requires continued psychiatric hospitalization at this time.
[2018-10-01] MEDS ORDERED: fluPHENAZine DECANOATE 25 MG/ML 5ML MDV IM ONE (11:30)
[2018-10-01] MEDS: ACETAMINOPHEN TAB 325 MG TAB PO PRN (17:22)
[2018-10-01] MEDS: LORazepam 1 MG TAB PO PRN (17:25)
[2018-10-01] MEDS: CYCLOBENZAPRINE 10 MG TAB PO SCH (20:25)
[2018-10-01] MEDS: VALPROIC ACID ORAL SOLN 250 MG/5 ML CUP PO SCH (20:25)
[2018-10-02] MEDS: LORazepam 1 MG TAB PO PRN ×3 (02:07→16:14)
[2018-10-02] MEDS: ACETAMINOPHEN TAB 325 MG TAB PO PRN ×3 (02:07→16:14)
[2018-10-02] MEDS: LEVOTHYROXINE 75 MCG TAB PO SCH (06:23)
[2018-10-02] MEDS: FUROSEMIDE 40 MG TAB PO SCH (08:59)
[2018-10-02] MEDS: SPIRONOLACTONE 25 MG TAB PO SCH (08:59)
[2018-10-02] MEDS: ATORVASTATIN 10 MG TAB PO SCH (08:59)
[2018-10-02] MEDS: CALAMINE/ZINC OXIDE LOTION 177 ML BTL TOPICAL SCH ×2 (09:06→21:01)
[2018-10-02 10:13] LABS: Valproic Acid (Depakene) 35.6 ug/mL
--- NOTE | 2018-10-02 10:25 | P.PN ---
Progress Note - Text Interval history: The patient is found in her room she seated in her geriatric chair at her table. She asks that I read what she has written on a Styrofoam cup on her table. It was a note addressed to me asking to be released although there was some disorganization to the sentence structure. She also had written to pages on a folded placemat. Again this is written to me list seen some of the things she feels she needs to do upon discharge such as painting her credit card bill water bill etc. Although there were discernible items listed in that rating there was an element of disorganization as well. The patient continues to be hyperverbal at times and yelling out loud which can be heard in the hallway. She has been compliant with the Depakote last night. We are drawing a Depakote level this morning. She continues to believe she is able to live on her own without the assistance of a guardian. Mental status exam: The patient is alert she has appropriate eye contact speech is fluent she is pressured at times and hyperverbal. She can be heard speaking very loudly to herself while she seated in the room. Insight and judgment are impaired. She continues to have ongoing delusional thought content there is paranoid in nature and grandiose at times. She is demonstrating no involuntary repetitive movements. She reports no suicidal or homicidal thoughts. Affect is labile. She endorses auditory hallucinations. Plan: The patient's will continue on her current psychotropic medications. We will await the Depakote level result. She was started on Prolixin decanoate yesterday. Vital signs reviewed they're within normal limits. We continue to collaborate with [facility] in terms of finding [facility] placement that we'll be available once she is clinically stabilized.
[2018-10-02] MEDS: CYCLOBENZAPRINE 10 MG TAB PO SCH (20:26)
[2018-10-02] MEDS: VALPROIC ACID ORAL SOLN 250 MG/5 ML CUP PO SCH (20:27)
[2018-10-03] MEDS: LORazepam 1 MG TAB PO PRN ×4 (00:20→20:46)
[2018-10-03] MEDS: ACETAMINOPHEN TAB 325 MG TAB PO PRN ×3 (00:21→15:07)
[2018-10-03] MEDS: LEVOTHYROXINE 75 MCG TAB PO SCH (07:07)
[2018-10-03] MEDS: FUROSEMIDE 40 MG TAB PO SCH (08:13)
[2018-10-03] MEDS: ATORVASTATIN 10 MG TAB PO SCH (08:13)
[2018-10-03] MEDS: SPIRONOLACTONE 25 MG TAB PO SCH (08:13)
[2018-10-03] MEDS: CALAMINE/ZINC OXIDE LOTION 177 ML BTL TOPICAL SCH ×2 (08:16→22:13)
--- NOTE | 2018-10-03 10:44 | P.PN ---
Progress Note - Text Interval history: The patient is found in her room she is up and ambulating putting stuff in a brown bag. She states "I'm just sorting shit". In a loud tone she states "I'm not going to a snf". Efforts were made to discuss this further without success. She has been compliant with her medication. She continues to isolate in her room. She was loud during our interaction and was asked to lower the tone of her voice. Mental status exam: The patient is an overweight female she has a disheveled appearance she is dressed in her own clothing. Eye contact is intermittent. She has an irritable affect this morning and raises her voice frequently to the point of needing to be redirected. She continues to have no insight into her delusional thoughts or disorganization of thought, judgment is subsequently impaired. She is reporting no suicidal or homicidal ideation. She does continue to have paranoid and grandiose thinking. She demonstrates no physical aggressiveness she demonstrates no involuntary repetitive movements. Plan: The patient will continue on her current medication I will titrate the Depakote to 1500 mg at bedtime as her level continues to be low despite her compliance with the medication. She has received the Prolixin Decanoate injection. We are planning on a discharge to snf and will continue to discuss this option with the patient. Vital signs reviewed.
[2018-10-03] MEDS: CYCLOBENZAPRINE 10 MG TAB PO SCH (20:45)
[2018-10-03] MEDS: VALPROIC ACID ORAL SOLN 250 MG/5 ML CUP PO SCH (20:45)
[2018-10-03] MEDS: ALBUTEROL INHALER 60 PUFF/8 GM INHALER INHALATION PRN (21:02)
[2018-10-04] MEDS: LORazepam 1 MG TAB PO PRN ×3 (01:07→15:24)
[2018-10-04] MEDS: ACETAMINOPHEN TAB 325 MG TAB PO PRN ×4 (01:08→20:14)
[2018-10-04] MEDS: LEVOTHYROXINE 75 MCG TAB PO SCH (05:53)
[2018-10-04] MEDS: FUROSEMIDE 40 MG TAB PO SCH (09:05)
[2018-10-04] MEDS: SPIRONOLACTONE 25 MG TAB PO SCH (09:05)
[2018-10-04] MEDS: CALAMINE/ZINC OXIDE LOTION 177 ML BTL TOPICAL SCH ×2 (09:05→20:12)
[2018-10-04] MEDS: ATORVASTATIN 10 MG TAB PO SCH (09:05)
[2018-10-04] MEDS: ALBUTEROL INHALER 60 PUFF/8 GM INHALER INHALATION PRN ×2 (12:11→20:23)
--- NOTE | 2018-10-04 13:24 | P.PN ---
Progress Note - Text Interval history: The patient is found in her room she seated in her chair. She indicates that she slept last night staff reported she slept 5 hours. Appetite stable. She has been compliant with her medications including the Depakote. The Depakote dose was recently increased due to our continued subtherapeutic values with lab work. She continues to spontaneously verbalize a desire to return to her own home. She continues to lack insight into the need for placement at a [facility] upon discharge. Mental status exam: The patient is alert she seated in the chair. Eye contact is appropriate. She has spontaneous speech. She was not verbally aggressive during interaction. She does become loud when discussing the need for fci placement upon discharge. She does not allow that conversation to continue. She is able to be distracted to another topic. She is reporting no suicidal or homicidal ideation. She continues to lack insight into current symptoms and her inability to provide her own care. Delusional thought content persists. Plan: The patient will continue on her current psychotropic medication. We will monitor for safety and provide reality orientation when possible. We are encouraging her to comply with the direction to go to a fci upon discharge. Vital signs reviewed.
[2018-10-04] MEDS: VALPROIC ACID ORAL SOLN 250 MG/5 ML CUP PO SCH (20:12)
[2018-10-04] MEDS: CYCLOBENZAPRINE 10 MG TAB PO SCH (20:12)
[2018-10-05] MEDS: LEVOTHYROXINE 75 MCG TAB PO SCH (05:39)
[2018-10-05] MEDS: ACETAMINOPHEN TAB 325 MG TAB PO PRN ×2 (05:40→17:37)
[2018-10-05] MEDS: LORazepam 1 MG TAB PO PRN (05:45)
[2018-10-05] MEDS: FUROSEMIDE 40 MG TAB PO SCH (07:45)
[2018-10-05] MEDS: SPIRONOLACTONE 25 MG TAB PO SCH (07:46)
[2018-10-05] MEDS: ATORVASTATIN 10 MG TAB PO SCH (07:46)
[2018-10-05] MEDS: CALAMINE/ZINC OXIDE LOTION 177 ML BTL TOPICAL SCH ×2 (07:46→21:09)
[2018-10-05] MEDS: ALBUTEROL INHALER 60 PUFF/8 GM INHALER INHALATION PRN ×3 (08:51→19:00)
--- NOTE | 2018-10-05 11:03 | P.PN ---
Progress Note - Text Interval history: The patient is found in her room she is lying in bed. She indicates her mood is good she is hoping to be discharged soon. Staff report that the patient has been yelling less and has been more directable. Over the weekend she ambulated out of her room to shower. She has been compliant with medication. It appears that she may have a retirement bed available as soon as tomorrow. The Depakote dosage was recently raised we plan to draw a Depakote level tomorrow. Mental status exam: The patient is an overweight female she is lying in bed she is dressed in her own clothing. Eye contact is appropriate speech is fluent spontaneous. She is less pressured today. She is able to provide linear answers at times she will demonstrate disorganized thought process at times. She does continue to spontaneously describe delusional thoughts. She demonstrates no verbal or physical aggressiveness. She does not get loud during our session. Over the last several days she has been doing better in terms of attending to the conversation. Insight and judgment are slowly improving. Plan: We will draw a Depakote level tomorrow. Continue current psychotropic medication. We will consider discharging her tomorrow to the retirement if she demonstrates continued improvement over the next 24 hours. Vital signs reviewed.
[2018-10-05] MEDS: VALPROIC ACID ORAL SOLN 250 MG/5 ML CUP PO SCH (21:09)
[2018-10-05] MEDS: CYCLOBENZAPRINE 10 MG TAB PO SCH (21:09)
[2018-10-06] MEDS: ACETAMINOPHEN TAB 325 MG TAB PO PRN ×3 (04:36→16:19)
[2018-10-06] MEDS: LORazepam 1 MG TAB PO PRN ×2 (04:37→09:17)
[2018-10-06 05:23] VITALS: BP 119/80; PULSE 91; RESP 16; TEMP 98
[2018-10-06] MEDS: LEVOTHYROXINE 75 MCG TAB PO SCH (06:11)
[2018-10-06] MEDS: ALBUTEROL INHALER 60 PUFF/8 GM INHALER INHALATION PRN (09:13)
[2018-10-06] MEDS: FUROSEMIDE 40 MG TAB PO SCH (09:16)
[2018-10-06] MEDS: ATORVASTATIN 10 MG TAB PO SCH (09:16)
[2018-10-06] MEDS: SPIRONOLACTONE 25 MG TAB PO SCH (09:16)
[2018-10-06] MEDS: CALAMINE/ZINC OXIDE LOTION 177 ML BTL TOPICAL SCH (09:17)
--- NOTE | 2018-10-06 09:45 | P.DS ---
Providers Date of admission: 09/03/18 20:58 Expected date of discharge: 10/06/18 Attending physician: Joe Roy Consults: 09/03/18 21:00 Consult Physician Routine Consulting Provider: Mike Cedeño Consult Reason/Comments: Medical Management Do you want consulting provider notified?: Yes Primary care physician: Alex Morrissey - Discharge Diagnosis(es) (1) Schizoaffective disorder, bipolar type Current Visit: Yes Status: Acute Priority: High Hospital Course: Brief summary of admission note: This patient is a 67-year-old female who was admitted to the mental health unit through the emergency room for agitated behavior and psychosis. The patient has an ongoing diagnosis of schizoaffective disorder bipolar type. She presented from a skilled nursing setting demonstrating a lack of ability to attend her own care. She had been described as being more disorganized in terms of thought process and had been demonstrating more severe psychosis. Upon presentation the patient was uncooperative and was a poor historian. She presented with poor hygiene grooming. For full details please refer to my psychiatric evaluation dated 03/2018. Summary of hospital course: The patient presented to the mental health unit on the existing court order for treatment. Her presenting symptoms were reviewed efforts were made to discuss treatment options with the patient but she was uncooperative and disorganized at that time. She was already on an invega systemic injection and had received the second dose on 09/01/2018. She was seen by internal medicine for routine history and physical exam she was diagnosed with C. diff and was placed on antibiotic therapy. After treating his C. diff there seemed to be no significant improvement in her agitation or psychosis. I did proceed with placing her on Depakene syrup at bedtime to stabilize mood. She has had several Depakote levels and they were all subtherapeutic. During the course of the hospitalization I did have the opportunity to speak with her outpatient psychiatrist Dr. Zee and we discussed her antipsychotic treatment. After review it appeared that she had remained out of the hospital longer while on Prolixin decanoate. We decided to forego the next invega systemic injection and Prolixin decanoate 50 mg IM was given on 10/01/2018. Dr. Zee indicated he would determine if he was going to continue that weekly or every 2 weeks once she was discharged. Her Depakote was titrated to 1500 mg at bedtime and her level is pending this morning. Although resistant to the idea of the patient will be transitioned back to a skilled nursing. The patient's daughter is applying for guardianship and that hearing is early October. Over the last week the patient has been demonstrating a decrease in yelling behavior she has been more cooperative. She has been eating she's dressing in her own clothing and her sleep has mildly improved at nighttime. She does appear to be appropriate for transition back to skilled nursing care. Mental status exam: The patient is an overweight female she is dressed in her own clothing. Hygiene and grooming are adequate. Eye contact is appropriate speech is fluent and spontaneous. She is not pressured today. She does continue to demonstrate some disorganization of thought. She continues to have some delusional thinking and that is known to persist at baseline. She is reporting no suicidal or homicidal ideation intent or plan. She endorses hallucinations but states she's having no command auditory hallucinations. Insight and judgment chronically impaired but better than at presentation to the hospital. She demonstrates no verbal or physical aggressiveness she demonstrates no involuntary repetitive movements. Impressions 1. Schizoaffective disorder bipolar type, cannabis use disorder 2. Recent history of C. diff which is now resolved, hyperlipidemia hypertension Plan: The patient will be discharged from mental health unit today to reside in a skilled nursing setting. She [facility]. The patient will continue on Depakene syrup 1500 mg at bedtime. She received her first injection of Prolixin decanoate 50 mg IM on 10/01/2018. At the latest she will be due for her next injection 2018. At this time the patient is at no imminent safety risk she is appropriate for transition to the next level of care as described. This care plan has been discussed with her daughter as well as [facility]. Patient Condition at Discharge: Stable Plan - Discharge Summary New Discharge Prescriptions: New Valproic Acid Oral Soln [Depakene Syrup] 1,500 mg PO HS #450 ml Continue Albuterol Inhaler [Ventolin Hfa Inhaler] 2 puff INHALATION DIRECTED #1 puff Cyclobenzaprine [Flexeril] 10 mg PO HS #30 tab Furosemide [Lasix] 40 mg PO DAILY #30 tab Levothyroxine Sodium 150 mcg PO DAILY #30 tablet rOPINIRole HCL [Requip] 0.25 g PO TID #90 tab Simvastatin [Zocor] 10 mg PO DAILY #30 tablet Spironolactone [Aldactone] 25 mg PO DAILY #30 tab Travoprost [Travatan Z 0.004%] 1 drop BOTH EYES [id number] #1 bottle Discontinued carBAMazepine [TEGretol] 200 mg PO DAILY Venlafaxine HCl [Venlafaxine HCl ER] 225 mg PO DAILY ARIPiprazole [Abilify] 20 mg PO DAILY traZODone HCL [Desyrel] 100 mg PO HS Paliperidone IM [Invega Sustenna] 156 mg IM Q7D oxyCODONE-APAP 10-325MG [Percocet 10-325 mg] 1 tab PO Q6HR Potassium Chloride ER [K-Dur 10] 10 meq PO DAILY LORazepam [Ativan] 0.5 mg PO TID Cholecalciferol [Vitamin D3] 5,000 unit PO DAILY Discharge Medication List Albuterol Inhaler [Ventolin Hfa Inhaler] 2 puff INHALATION DIRECTED #1 puff 10/06/18 [Rx] Cyclobenzaprine [Flexeril] 10 mg PO HS #30 tab 10/06/18 [Rx] Furosemide [Lasix] 40 mg PO DAILY #30 tab 10/06/18 [Rx] Levothyroxine Sodium 150 mcg PO DAILY #30 tablet 10/06/18 [Rx] Simvastatin [Zocor] 10 mg PO DAILY #30 tablet 10/06/18 [Rx] Spironolactone [Aldactone] 25 mg PO DAILY #30 tab 10/06/18 [Rx] Travoprost [Travatan Z 0.004%] 1 drop BOTH EYES [id number] #1 bottle 10/06/18 [Rx] Valproic Acid Oral Soln [Depakene Syrup] 1,500 mg PO HS #450 ml 10/06/18 [Rx] rOPINIRole HCL [Requip] 0.25 g PO TID #90 tab 10/06/18 [Rx] Follow up Appointment(s)/Referral(s): Aelx Morrissey MD [Primary Care Provider] - 1-2 days
[2018-10-06 10:32] LABS: Valproic Acid (Depakene) 39.2 ug/mL
== END 2018-10-06 18:27 | disposition home or self-care (01) | DRG 885 ==
LOC: EC 13:34 → 3MHU 20:58
PROVIDERS: ADMIT Psychiatry & Neurology Psychiatry; ATTEND Psychiatry & Neurology Psychiatry
DX: F25.0 Schizoaffective disorder, bipolar type (principal); A04.72 Enterocolitis due to Clostridium difficile, not specified as recurrent; J43.9 Emphysema, unspecified; G40.909 Epilepsy, unspecified, not intractable, without status epilepticus; J45.909 Unspecified asthma, uncomplicated; E03.9 Hypothyroidism, unspecified; T24.101A Burn of first degree of unspecified site of right lower limb, except ankle and foot, initial encounter; T24.102A Burn of first degree of unspecified site of left lower limb, except ankle and foot, initial encounter; I10 Essential (primary) hypertension; E66.3 Overweight; E78.5 Hyperlipidemia, unspecified; G25.81 Restless legs syndrome; G89.29 Other chronic pain; M19.042 Primary osteoarthritis, left hand; M19.041 Primary osteoarthritis, right hand; M17.0 Bilateral primary osteoarthritis of knee; H40.9 Unspecified glaucoma; F12.10 Cannabis abuse, uncomplicated; F17.210 Nicotine dependence, cigarettes, uncomplicated; T43.596A Underdosing of other antipsychotics and neuroleptics, initial encounter; Z79.890 Hormone replacement therapy; Z79.891 Long term (current) use of opiate analgesic; Z79.899 Other long term (current) drug therapy; Z85.3 Personal history of malignant neoplasm of breast; Z90.12 Acquired absence of left breast and nipple; Z90.710 Acquired absence of both cervix and uterus; Z98.51 Tubal ligation status; Z88.5 Allergy status to narcotic agent; Z88.0 Allergy status to penicillin; Z88.2 Allergy status to sulfonamides; Z88.8 Allergy status to other drugs, medicaments and biological substances; Z80.9 Family history of malignant neoplasm, unspecified; X16.XXXA Contact with hot heating appliances, radiators and pipes, initial encounter; Y92.009 Unspecified place in unspecified non-institutional (private) residence as the place of occurrence of the external cause; F41.9 Anxiety disorder, unspecified
CPT/HCPCS: 36415; 71046; 80053; 80061; 80164; 80306; 81001; 82075; 83036; 84450; 84460; 85025; 86140; 87324; 93970; 94640; 99285

== ENCOUNTER → 2018-09-18 | Outpatient (CLI) | payer MEDICARE ==
--- NOTE | 2018-09-18 08:25 | XR ---
EXAMINATION TYPE: XR chest 2V DATE OF EXAM: 09/18/2018 COMPARISON: 09/03/2018 HISTORY: Shortness of breath TECHNIQUE: Frontal and lateral views of the chest are obtained. FINDINGS: Scattered senescent parenchymal changes noted. Hyperinflation compatible with COPD. No evidence for infiltrate. No evidence for atelectasis. Heart size is stable. Mediastinal structures are stable and grossly unremarkable. No evidence for hilar prominence. Degenerative changes dorsal spine. IMPRESSION: 1. No evidence for acute pulmonary disease.
--- NOTE | 2018-09-18 10:41 | ECHOF ---
Referral Reason:assess LV function MEASUREMENTS -------- HEIGHT: 165.1 cm WEIGHT: 83.5 kg BP: RVIDd: 3.3 cm (< 3.3) IVSd: 1.2 cm (0.6 - 1.1) LVIDd: 3.7 cm (3.9 - 5.3) LVPWd: 1.2 cm (0.6 - 1.1) IVSs: 1.5 cm LVIDs: 2.6 cm LVPWs: 1.1 cm LA Diam: 2.7 cm (2.7 - 3.8) Ao Diam: 3.5 cm (2.0 - 3.7) MV EXCURSION: 17.384 mm (> 18.000) MV EF SLOPE: 67 mm/s (70 - 150) EPSS: 1.8 cm MV E Rodrick: 0.50 m/s MV DecT: 279 ms MV A Rodrick: 0.78 m/s MV E/A Ratio: 0.64 RAP: 5.00 mmHg RVSP: 9.71 mmHg FINDINGS -------- Sinus rhythm. The left ventricular size is normal. There is mild concentric left ventricular hypertrophy. Overa ll left ventricular systolic function is normal with, an EF between 55 - 60 %. The right ventricle is normal in size. The left atrial size is normal. The right atrial size is normal. There is mild aortic valve sclerosis. There is no evidence of aortic regurgitation. Mild mitral annular calcification present. Mild mitral regurgitation is present. Mild tricuspid regurgitation present. There is no evidence of pulmonary hypertension. The right v entricular systolic pressure, as measured by Doppler, is 9.71mmHg. There is no pulmonic regurgitation present. CONCLUSIONS -------- 1. The left ventricular size is normal. 2. There is mild concentric left ventricular hypertrophy. 3. Overall left ventricular systolic function is normal with, an EF between 55 - 60 %. 4. The right ventricle is normal in size. 5. The left atrial size is normal. 6. The right atrial size is normal. 7. There is mild aortic valve sclerosis. 8. Mild mitral annular calcification present. 9. Mild mitral regurgitation is present. 10. Mild tricuspid regurgitation present. 11. There is no evidence of pulmonary hypertension. 12. The right ventricular systolic pressure, as measured by Doppler, is 9.71mmHg. 13. There is no pulmonic regurgitation present. [facility] [employer]ROL COMMANDER: Eneida Boothe RDCS
== END ==
LOC: WWCWWP 07:00
PROVIDERS: ATTEND Hospitalist
DX: R06.02 Shortness of breath (principal); I51.7 Cardiomegaly; I35.0 Nonrheumatic aortic (valve) stenosis; I34.0 Nonrheumatic mitral (valve) insufficiency; I07.1 Rheumatic tricuspid insufficiency
CPT/HCPCS: 71046; 93306

== ENCOUNTER → 2018-10-20 | Outpatient (CLI) | payer MEDICARE ==
[2018-10-20 11:08] LABS: ALT 29 U/L (8-44); AST 26 U/L (13-35); Alkaline Phosphatase 90 U/L (41-126); Bilirubin, Conjugated <0.20 mg/dL (0.20-0.40); Cholesterol 151 mg/dL (0-200); Globulin 2.1 g/dL (1.6-3.3); Glucose 91 mg/dL (70-110); Total Bilirubin 0.3 mg/dL (0.2-1.2); Total Protein 6.3 g/dL (6.2-8.2); Valproic Acid (Depakene) 44.4 ug/mL (50.0-100.0)
[2018-10-20 12:50] LABS: Hemoglobin A1C 5.5 % (4.0-6.0)
== END | disposition home or self-care (01) ==
LOC: LABWHC1 07:07
PROVIDERS: ATTEND Psychiatry & Neurology Psychiatry
DX: Z51.81 Encounter for therapeutic drug level monitoring (principal); Z79.899 Other long term (current) drug therapy
CPT/HCPCS: 36415; 80061; 80076; 80164; 82947; 83036; 84439; 84443

== ENCOUNTER → 2018-10-29 | Day surgery (SDC) | payer MEDICARE ==
[2018-10-29 07:29] VITALS: RESP 16; BMI 34.9
[2018-10-29 08:48] VITALS: BP 108/69; PULSE 68; TEMP 97.7
--- NOTE | 2018-10-29 09:01 | P.OP ---
Date of Procedure: 10/29/18 Preoperative Diagnosis: Mammographic abnormality right breast Postoperative Diagnosis: same Procedure(s) Performed: Right breast stereotactic core biopsy Anesthesia: local Surgeon: Kristen Mohamud Estimated Blood Loss (ml): 1 Pathology: other (Breast tissue) Condition: stable Disposition: same day Indications for Procedure: Pleomorphic right breast microcalcifications Operative Findings: Microcalcifications right breast Description of Procedure: Meri Copeland is a 68-year-old white female who presented for evaluation related to pleomorphic microcalcifications noted in the right breast. These were at a middle depth spanning 1.2 cm and were central inner calcifications. The patient was recommended to undergo a stereotactic core biopsy. The risk and benefits of the procedure were discussed with the patient and she wished to proceed. The patient was taken to the stereotactic core room. She was positioned on the low rad table and the area of concern in the right breast was targeted from a medial to lateral approach. After the area of concern had been noted a stereotactic pair was radiographed. The area of concern was targeted. The breast was prepped using Betadine. 20 mL of 1% lidocaine was used to anesthetize the area of concern. A 9-gauge vacuum-assisted cutting biopsy needle was inserted to the correct targets. Prefire films were obtained showing the needle to be in the correct location. The needle was fired and post -fire films were obtained again showing the needle to be in the correct location. 12 core biopsies were then obtained. Radiograph the specimen revealed that the microcalcifications of concern were adequately sampled. A top as secure jennifer marker was placed and radiograph revealed that this was in the correct location. The patient tolerated procedure in stable condition. The specimen was sent for pathology. The patient will follow-up with Dr. Taylor in 1 week. Cc: Dr. Morrissey
--- NOTE | 2018-10-29 09:24 | MM ---
EXAMINATION TYPE: MG stereo VAD BX RT DATE OF EXAM: 10/29/2018 COMPARISON: 07/23/2018, 06/24/2018 CLINICAL HISTORY: Abnormal calcifications right breast TECHNIQUE: Stereotactic guided core biopsy of right breast. FINDINGS: The procedure was performed by surgery. Targeting was performed by surgery. Stereotactic imaging demonstrates the targeting and biopsy of multiple calcifications. Specimen: Calcifications are within the specimen. Postprocedure mammogram: Postprocedure mammogram ordered by the physician was performed. The clip appears to be in the appropriate location in relation to the previous calcifications. IMPRESSION: 1. Successful stereotactic core biopsy right breast calcifications. Recommendations: 1. Recommendations are pending pathology results. Pathology Results: Benign CORE BIOPSY, RIGHT BREAST: Fibroadenoma demonstrating dystrophic calcification. Recommendation Follow up mammogram of the right breast in 6 months. MARGARET
== END | disposition home or self-care (01) ==
LOC: RADMAMWWP 07:12
PROVIDERS: ATTEND Surgery
DX: D24.1 Benign neoplasm of right breast (principal)
CPT/HCPCS: 88305; 19081; A4648; J2001

== ENCOUNTER → 2018-11-06 | Outpatient (CLI) | payer MEDICARE ==
[2018-11-06 13:11] VITALS: BP 123/55; PULSE 87; RESP 18; TEMP 96; BMI 30.3
--- NOTE | 2018-11-06 15:47 | P.PN ---
Progress Note - Text Progress Note Date: 11/06/18 The patient is a 68-year-old white female who presents for results of stereotactic core biopsy of the right breast. The patient has no complaints related to the biopsy at this time. Pathology was benign fibroadenoma. Physical exam: Examination of the puncture site reveals no evidence of infection or hematoma Impression: 1. 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 Prior left mastectomy 3. Hypothyroidism 4. Chronic back pain Plan: 1. Repeat right breast mammogram in 6 months with a physician exam 2. Medical management of medical conditions CC: Dr. Henry Morrissey
== END | disposition home or self-care (01) ==
LOC: WWCWWP 12:38
PROVIDERS: ATTEND Surgery
DX: Z53.9 Procedure and treatment not carried out, unspecified reason (principal)

== ENCOUNTER → 2019-08-09 | Outpatient (CLI) | payer MEDICARE ==
--- NOTE | 2019-08-09 11:24 | MM ---
Reason for exam: additional evaluation requested from prior study. Last mammogram was performed 1 year and 1 month ago. History: Patient is postmenopausal and has history of breast cancer at age 41. Family history of breast cancer in sister at age 42. Benign MG stereo VAD BX RT of the right breast, October 29, 2018. Mastectomy of the left breast, 1991. Chemotherapy. Took antineoplastic for 5 years beginning at age 41. Physical Findings: Nurse did not find any significant physical abnormalities on exam. MG Diagnostic Mammo RT w CAD CC, MLO, and CV view(s) were taken of the right breast. Prior study comparison: July 23, 2018, right breast MG 3d work up w/cad RT. June 24, 2018, bilateral MG screen shira unilateral w/cad. There are scattered fibroglandular densities. No suspicious calcifications are seen. Cutaneous lesion inner right breast. No significant new findings when compared with previous films. These results were verbally communicated with the patient and result sheet given to the patient on 08/09/19. ASSESSMENT: Benign, BI-RAD 2 RECOMMENDATION: Follow-up diagnostic mammogram of the right breast in 1 year.
== END | disposition home or self-care (01) ==
LOC: RADMAMWWP 08:52
PROVIDERS: ATTEND Family Medicine
DX: R92.8 Other abnormal and inconclusive findings on diagnostic imaging of breast (principal)
CPT/HCPCS: 77065

== ENCOUNTER 2019-12-25 16:10 | Inpatient (IN) | payer MEDICARE, OTHER ==
[2019-12-25] MEDS ORDERED: SODIUM CHLORIDE 0.9% 500 ML 500 ML IV STA (16:31)
[2019-12-25] MEDS ORDERED: NALOXONE 0.4 MG/ML 10 ML VIAL IVP PRN (16:32)
[2019-12-25 17:00] LABS: Appearance,Urine Clear (Clear); Bilirubin,Urine Negative (Negative); Blood,Urine Negative (Negative); Color,Urine Light Yellow; Glucose,Urine (UA) Negative (Negative); Ketones,Urine Negative (Negative); Leukocyte Esterase,Urine Negative (Negative); Nitrite,Urine Negative (Negative); Protein,Urine Negative (Negative); Specific Gravity,Urine 1.007 (1.001-1.035); Urobilinogen,Urine <2.0 mg/dL (<2.0)
--- NOTE | 2019-12-25 17:01 | ED ---
Overdose HPI - General Chief Complaint: Overdose Stated Complaint: Overdose Time Seen by Provider: 12/25/19 16:24 Source: patient, EMS Mode of arrival: EMS Limitations: no limitations - History of Present Illness Initial Comments: 69-year-old female with history of hypotension, schizophrenia, jonny, bilateral LE edema presenting to the ER today for cc of overdose. Patient was brought to the ER after family called EMS due to patient acting lethargic after taking her morning and evening dose of medications at one time. Patient states she was tired around 2:30PM and wanted to go to bed so she took her evening medications at that time she saw that she hadnt taken her morning medications and took them all at once. Patient denies intentional overdose. Patient denies suicidal ideations. On arrival patient AAOx4. Patient states she knows that part of her medications are zyprexa, benadryl and ativan, she is unsure of the other medications. Upon medication review as family was unable to provide the bottles nor a list of medications, it appears most of patients medications are once daily. There does not appears to be any BID dosing aside from the ativan, which is TID 1mg as needed--this medication was also new to patient according to chart review being prescribed 3 days prior. Patient denies headaches, chest pain, dizziness, nausea, vomiting. She denies any symptoms aside from being tired. Upon arrival patient appears lethargic but is arousable to sound, touch and is AAOx4. Able to follow commands. Glucose in EMS 133. - Related Data Home Medications Medication Instructions Recorded Confirmed LORazepam [Ativan] 1 tab PO TID 10/19/18 12/25/19 diphenhydrAMINE [Benadryl] 1 cap PO HS 10/19/18 12/25/19 Acetaminophen [Tylenol] 500 mg PO Q4-6H PRN 12/25/19 12/25/19 Albuterol Inhaler [Ventolin Hfa 2 puff INHALATION Q6H PRN 12/25/19 12/25/19 Inhaler] Cholecalciferol [Vitamin D3 (25 1,000 unit PO DAILY 12/25/19 12/25/19 Mcg = 1000 Iu)] Fluphenazine Deconoate 25mg/1mg Oil 50 mg IM Q14D 12/25/19 12/25/19 Multivitamins, Thera [Multivitamin 1 tab PO DAILY 12/25/19 12/25/19 (formulary)] OLANZapine [ZyPREXA] 20 mg PO HS 12/25/19 12/25/19 Potassium Chloride [Klor-Con 10] 10 meq PO DAILY 12/25/19 12/25/19 rOPINIRole HCL [Requip] 0.25 g PO TID-W/MEALS 12/25/19 12/25/19 Previous Rx's Medication Instructions Recorded Cyclobenzaprine [Flexeril] 10 mg PO HS #30 tab 10/06/18 Furosemide [Lasix] 40 mg PO DAILY #30 tab 10/06/18 Levothyroxine Sodium 150 mcg PO DAILY #30 tablet 10/06/18 Simvastatin [Zocor] 10 mg PO DAILY #30 tablet 10/06/18 Spironolactone [Aldactone] 25 mg PO DAILY #30 tab 10/06/18 Allergies Allergy/AdvReac Type Severity Reaction Status Date / Time lamotrigine [From Lamictal] Allergy Severe throat Verified 12/25/19 17:13 swelling metronidazole [From Flagyl] Allergy Severe Swelling Verified 12/25/19 17:13 pregabalin [From Lyrica] Allergy Severe throat Verified 12/25/19 17:13 swelling Sulfa (Sulfonamide Allergy Severe Swelling Verified 12/25/19 17:13 Antibiotics) morphine AdvReac Severe passed out Verified 12/25/19 17:13 cortisone AdvReac Rash/Hives Verified 12/25/19 17:13 Penicillins AdvReac Rash/Hives Verified 12/25/19 17:13 Review of Systems ROS Statement: Those systems with pertinent positive or pertinent negative responses have been documented in the HPI. ROS Other: All systems not noted in ROS Statement are negative. Past Medical History Past Medical History: Asthma, Cancer, Eye Disorder, Hyperlipidemia, Osteoarthritis (OA), Thyroid Disorder Additional Past Medical History / Comment(s): "low BP", edema lower legs, uses a cane, emphysema, glaucoma, "lump on kidney", breast cancer, last seizure 2011 History of Any Multi-Drug Resistant Organisms: None Reported Past Surgical History: Breast Surgery, Hysterectomy, Tubal Ligation Additional Past Surgical History / Comment(s): left mastectomy Past Anesthesia/Blood Transfusion Reactions: Motion Sickness Past Psychological History: Anxiety, Bipolar, Schizophrenia Smoking Status: Current every day smoker Past Alcohol Use History: None Reported Past Drug Use History: Marijuana - Past Family History Father Additional Family Medical History / Comment(s): Father at age at 87 from old age. Daughter(s) Additional Family Medical History / Comment(s): Patient states that she has 3 children and 2 are on drugs. Sister(s) Family Medical History: Cancer Additional Family Medical History / Comment(s): She has one sister that from some type of cancer. Mother Family Medical History: Cancer Additional Family Medical History / Comment(s): Mother at age 56 from cancer, unknown type. General Exam - General Exam Comments Initial Comments: General: The patient is easily aroused but lethargic Eye: +2 mm pupils are equal, round and reactive to light, extra-ocular movements are intact. No nystagmus. There is normal conjunctiva bilaterally. No signs of icterus. Ears, nose, mouth and throat: There are moist mucous membranes and no oral lesions. No racoon or grady sign. Neck: The neck is supple, there is no tenderness or JVD. Cardiovascular: There is a regular rate and rhythm. No murmur, rub or gallop is appreciated. Respiratory: Lungs are clear to auscultation, respirations are non-labored, breath sounds are equal. No wheezes, stridor, rales, or rhonchi. Gastrointestinal: Soft, non-distended, non-tender abdomen without masses or organomegaly noted. There is no rebound or guarding present. Musculoskeletal: Normal ROM, no tenderness. Strength 5/5. Sensation intact. Radial pulses equal bilaterally 2+. Neurological: A&O x 3. CN II-XII intact, There are no obvious motor or sensory deficits. Coordination appears grossly intact. Speech is normal. Skin: Skin is warm and dry and no rashes or lesions are noted. Pedal edema +1. Psychiatric: Cooperative, follows commands appropriately Limitations: no limitations Course Vital Signs 12/25/19 12/25/19 12/25/19 16:19 17:10 17:22 Temperature 97.9 F Pulse Rate 99 98 92 Respiratory 18 16 16 Rate Blood Pressure 139/93 118/70 104/63 O2 Sat by Pulse 98 97 97 Oximetry 12/25/19 12/25/19 12/25/19 18:07 18:29 19:34 Temperature Pulse Rate 92 95 85 Respiratory 18 18 16 Rate Blood Pressure 115/55 114/75 104/68 O2 Sat by Pulse 95 95 96 Oximetry Medical Decision Making - Medical Decision Making 69-year-old female presenting for overdose, Took AM and PM medication which inc luded medicatiosn with sedative effects such as bendaryl, zyprexa and ativan. Patient denies intentional overdose, AAOx4 on arrival. Patient has no focal neurological deficits. CT brain (-) for acute process. VS stable. EKG revealed QT prolongation. Drug screen revealed benzodiazepines, salicytate, alcohol and acetaminophen levels (-). Patient will be admitted for observation. Family was contacted who states patient has had increasing paranoid thoughts and requested pyschiatric evaluation, Patient does not appears acute psychotic at this time however she is lethargic making it difficult to make a psychiatric assessment, psychiatry on consultation. Patient will be admitted for observation as medication dosing/exact amount not 100% known, patient on telemetry. Patient creatinine kinase elevated placed on fluids and will trend. Scheduled repeat CMP and creatinine kinase. Dr. Cedeño accepted admission after discussing case with Dr. Hammer my attending physician who reviewed case and is agreeable to care plan. - Lab Data Result diagrams: 12/25/19 17:02 12/25/19 17:56 Lab Results 12/25/19 12/25/19 12/25/19 Range/Units 16:42 17:02 17:02 WBC 17.9 H (3.8-10.6) k/uL RBC 5.38 (3.80-5.40) m/uL Hgb 17.0 H (11.4-16.0) gm/dL Hct 51.5 H (34.0-46.0) % MCV 95.8 (80.0-100.0) fL MCH 31.5 (25.0-35.0) pg MCHC 32.9 (31.0-37.0) g/dL RDW 13.2 (11.5-15.5) % Plt Count 316 (150-450) k/uL Neutrophils % 85 % Lymphocytes % 8 % Monocytes % 5 % Eosinophils % 0 % Basophils % 0 % Neutrophils # 15.3 H (1.3-7.7) k/uL Lymphocytes # 1.4 (1.0-4.8) k/uL Monocytes # 0.8 (0-1.0) k/uL Eosinophils # 0.1 (0-0.7) k/uL Basophils # 0.0 (0-0.2) k/uL Sodium (137-145) mmol/L Potassium (3.5-5.1) mmol/L Chloride (98-107) mmol/L Carbon Dioxide (22-30) mmol/L Anion Gap mmol/L BUN (7-17) mg/dL Creatinine (0.52-1.04) mg/dL Est GFR (CKD-EPI)AfAm (>60 ml/min/1.73 sqM) Est GFR (CKD-EPI)NonAf (>60 ml/min/1.73 sqM) Glucose (74-99) mg/dL Plasma Lactic Acid Dylon 1.7 (0.7-2.0) mmol/L Calcium (8.4-10.2) mg/dL Phosphorus (2.5-4.5) mg/dL Magnesium (1.6-2.3) mg/dL Total Bilirubin (0.2-1.3) mg/dL AST (14-36) U/L ALT (4-34) U/L Alkaline Phosphatase (38-126) U/L Creatine Kinase (30-135) U/L Total Protein (6.3-8.2) g/dL Albumin (3.5-5.0) g/dL Urine Color Light Yellow Urine Appearance Clear (Clear) Urine pH 7.0 (5.0-8.0) Ur Specific [place] 1.007 (1.001-1.035) Urine Protein Negative (Negative) Urine Glucose (UA) Negative (Negative) Urine Ketones Negative (Negative) Urine Blood Negative (Negative) Urine Nitrite Negative (Negative) Urine Bilirubin Negative (Negative) Urine Urobilinogen <2.0 (<2.0) mg/dL Ur Leukocyte Esterase Negative (Negative) Salicylates mg/dL Urine Opiates Screen Not Detected (NotDetected) Ur Oxycodone Screen Not Detected (NotDetected) Urine Methadone Screen Not Detected (NotDetected) Ur Propoxyphene Screen Not Detected (NotDetected) Acetaminophen ug/mL Ur Barbiturates Screen Not Detected (NotDetected) U Tricyclic Antidepress Not Detected (NotDetected) Ur Phencyclidine Scrn Not Detected (NotDetected) Ur Amphetamines Screen Not Detected (NotDetected) U Methamphetamines Scrn Not Detected (NotDetected) U Benzodiazepines Scrn Detected H (NotDetected) Urine Cocaine Screen Not Detected (NotDetected) U Marijuana (THC) Screen Not Detected (NotDetected) Serum Alcohol mg/dL 12/25/19 Range/Units 17:56 WBC (3.8-10.6) k/uL RBC (3.80-5.40) m/uL Hgb (11.4-16.0) gm/dL Hct (34.0-46.0) % MCV (80.0-100.0) fL MCH (25.0-35.0) pg MCHC (31.0-37.0) g/dL RDW (11.5-15.5) % Plt Count (150-450) k/uL Neutrophils % % Lymphocytes % % Monocytes % % Eosinophils % % Basophils % % Neutrophils # (1.3-7.7) k/uL Lymphocytes # (1.0-4.8) k/uL Monocytes # (0-1.0) k/uL Eosinophils # (0-0.7) k/uL Basophils # (0-0.2) k/uL Sodium 133 L (137-145) mmol/L Potassium 3.4 L (3.5-5.1) mmol/L Chloride 100 (98-107) mmol/L Carbon Dioxide 23 (22-30) mmol/L Anion Gap 10 mmol/L BUN 21 H (7-17) mg/dL Creatinine 0.65 (0.52-1.04) mg/dL Est GFR (CKD-EPI)AfAm >90 (>60 ml/min/1.73 sqM) Est GFR (CKD-EPI)NonAf >90 (>60 ml/min/1.73 sqM) Glucose 89 (74-99) mg/dL Plasma Lactic Acid Dylon (0.7-2.0) mmol/L Calcium 9.3 (8.4-10.2) mg/dL Phosphorus 3.9 (2.5-4.5) mg/dL Magnesium 1.9 (1.6-2.3) mg/dL Total Bilirubin 0.6 (0.2-1.3) mg/dL AST 55 H (14-36) U/L ALT 29 (4-34) U/L Alkaline Phosphatase 86 (38-126) U/L Creatine Kinase 829 H (30-135) U/L Total Protein 6.2 L (6.3-8.2) g/dL Albumin 3.8 (3.5-5.0) g/dL Urine Color Urine Appearance (Clear) Urine pH (5.0-8.0) Ur Specific [place] (1.001-1.035) Urine Protein (Negative) Urine Glucose (UA) (Negative) Urine Ketones (Negative) Urine Blood (Negative) Urine Nitrite (Negative) Urine Bilirubin (Negative) Urine Urobilinogen (<2.0) mg/dL Ur Leukocyte Esterase (Negative) Salicylates <1.0 mg/dL Urine Opiates Screen (NotDetected) Ur Oxycodone Screen (NotDetected) Urine Methadone Screen (NotDetected) Ur Propoxyphene Screen (NotDetected) Acetaminophen <10.0 ug/mL Ur Barbiturates Screen (NotDetected) U Tricyclic Antidepress (NotDetected) Ur Phencyclidine Scrn (NotDetected) Ur Amphetamines Screen (NotDetected) U Methamphetamines Scrn (NotDetected) U Benzodiazepines Scrn (NotDetected) Urine Cocaine Screen (NotDetected) U Marijuana (THC) Screen (NotDetected) Serum Alcohol <10 mg/dL Disposition Clinical Impression: QT prolongation, Medication overdose, Lethargy, Abnormal creatine kinase level, Leukocytosis Disposition: ADMITTED IP TO THIS [facility] Condition: Stable Is patient prescribed a controlled substance at d/c from ED?: No Time of Disposition: 18:43 Decision to Admit Reason: Admit from EC Decision Date: 12/25/19 Decision Time: 18:43
[2019-12-25 17:11] LABS: Amphetamine Screen,Urine Not Detected (NotDetected); Barbiturate Screen,Urine Not Detected (NotDetected); Benzodiazepines Screen,Urine Detected (NotDetected); Cocaine Screen,Urine Not Detected (NotDetected); Methadone Screen, Urine Not Detected (NotDetected); Opiate Screen,Urine Not Detected (NotDetected); Oxycodone Screen, Urine Not Detected (NotDetected); Phencyclidine Screen,Urine Not Detected (NotDetected); Tricyclic Antidepressant,Urine Not Detected (NotDetected); Urn Cannabinoid Scrn Not Detected (NotDetected)
[2019-12-25 17:14] LABS: Basophils % (A) 0 %; Eosinophils # (A) 0.1 k/uL (0-0.7); Eosinophils % (A) 0 %; HCT 51.5 % (34.0-46.0); Lymphocytes # (A) 1.4 k/uL (1.0-4.8); Lymphocytes % (A) 8 %; MCH 31.5 pg (25.0-35.0); MCHC 32.9 g/dL (31.0-37.0); MCV 95.8 fL (80.0-100.0); Mean Platelet Volume 7.9; Monocytes # (A) 0.8 k/uL (0-1.0); Monocytes % (A) 5 %; Neutrophils # (A) 15.3 k/uL (1.3-7.7); Neutrophils % (A) 85 %; Platelet Count 316 k/uL (150-450); RBC 5.38 m/uL (3.80-5.40); RDW 13.2 % (11.5-15.5); WBC 17.9 k/uL (3.8-10.6)
--- NOTE | 2019-12-25 17:29 | CT ---
EXAMINATION TYPE: CT brain wo con DATE OF EXAM: 12/25/2019 HISTORY: AMS CT DLP: 1158.4 mGycm. Automated Exposure Control for Dose Reduction was Utilized. TECHNIQUE: CT scan of the head is performed without contrast. COMPARISON: CT brain April 15, 2017. FINDINGS: There is no acute intracranial hemorrhage or midline shift identified. There is diffuse v entricular and sulcal prominence consistent with mild diffuse age-related cerebral atrophy. Enciso-whit e matter differentiation is fairly well maintained. The globes are intact and the visualized sinuses are clear. IMPRESSION: No acute intracranial hemorrhage or midline shift. There is mild diffuse age-related ce rebral atrophy noted. No significant change from prior.
--- NOTE | 2019-12-25 18:06 | XR ---
EXAMINATION TYPE: XR chest 2V DATE OF EXAM: 12/25/2019 COMPARISON: Chest x-ray September 18, 2018. HISTORY: Leukocytosis. TECHNIQUE: Frontal and lateral views of the chest are obtained. FINDINGS: Current exam suboptimal due to artifact overlying upper abdomen along with diminished inspi ration. Also suboptimal due to right-sided rotation. The osseous structures are demineralized. There is chronic parenchymal change without suspicious new focal air space opacity, pleural effusion, or pn eumothorax seen. The cardiac silhouette size is upper limits of normal in current study. The osseo us structures are intact. IMPRESSION: Suboptimal study, chronic parenchymal changes without new acute infiltrate. Poor inspira tion noted.
[2019-12-25 18:18] LABS: ALT 29 U/L (4-34); AST 55 U/L (14-36); Acetaminophen <10.0 ug/mL; African American GFR (CKD) >90 (>60 ml/min/1.73 sqM); Albumin 3.8 g/dL (3.5-5.0); Alcohol <10 mg/dL; Alkaline Phosphatase 86 U/L (38-126); Anion Gap 10 mmol/L; Blood Urea Nitrogen 21 mg/dL (7-17); Calcium 9.3 mg/dL (8.4-10.2); Carbon Dioxide 23 mmol/L (22-30); Chloride 100 mmol/L (98-107); Creatine Kinase 829 U/L (30-135); Glucose 89 mg/dL (74-99); Magnesium 1.9 mg/dL (1.6-2.3); Non-African American GFR(CKD) >90 (>60 ml/min/1.73 sqM); Phosphorus 3.9 mg/dL (2.5-4.5); Potassium 3.4 mmol/L (3.5-5.1); Salicylate <1.0 mg/dL; Sodium 133 mmol/L (137-145); Total Bilirubin 0.6 mg/dL (0.2-1.3); Total Protein 6.2 g/dL (6.3-8.2)
[2019-12-25] MEDS: SODIUM CHLORIDE 0.9% 1,000 ML IV SCH (19:23)
[2019-12-25 23:47] LABS: ALT 25 U/L (4-34); AST 48 U/L (14-36); African American GFR (CKD) >90 (>60 ml/min/1.73 sqM); Albumin 3.3 g/dL (3.5-5.0); Alkaline Phosphatase 78 U/L (38-126); Anion Gap 7 mmol/L; Blood Urea Nitrogen 21 mg/dL (7-17); Calcium 8.9 mg/dL (8.4-10.2); Carbon Dioxide 24 mmol/L (22-30); Chloride 101 mmol/L (98-107); Glucose 96 mg/dL (74-99); Non-African American GFR(CKD) >90 (>60 ml/min/1.73 sqM); Potassium 3.2 mmol/L (3.5-5.1); Sodium 132 mmol/L (137-145); Total Bilirubin 0.5 mg/dL (0.2-1.3); Total Protein 5.5 g/dL (6.3-8.2)
[2019-12-26] MEDS ORDERED: POTASSIUM CHLORIDE ER 20 MEQ TAB.ER PO STA
[2019-12-26] MEDS: SODIUM CHLORIDE 0.9% 1,000 ML IV SCH ×3 (04:36→17:23)
[2019-12-26 06:15] LABS: Glucose,Whole Blood 80 mg/dL (75-99)
[2019-12-26] MEDS: LEVOTHYROXINE 50 MCG TAB PO SCH (06:21)
[2019-12-26 07:44] LABS: African American GFR (CKD) >90 (>60 ml/min/1.73 sqM); Anion Gap 2 mmol/L; Blood Urea Nitrogen 20 mg/dL (7-17); Calcium 8.6 mg/dL (8.4-10.2); Carbon Dioxide 22 mmol/L (22-30); Chloride 106 mmol/L (98-107); Creatine Kinase 298 U/L (30-135); Glucose 74 mg/dL (74-99); Non-African American GFR(CKD) >90 (>60 ml/min/1.73 sqM); Potassium 4.2 mmol/L (3.5-5.1); Sodium 130 mmol/L (137-145)
[2019-12-26] MEDS: POTASSIUM CHLORIDE ER 10 MEQ TAB.ER.PRT PO SCH (09:16)
[2019-12-26] MEDS: FUROSEMIDE 40 MG TAB PO SCH (09:16)
[2019-12-26] MEDS: SPIRONOLACTONE 25 MG TAB PO SCH (09:16)
[2019-12-26] MEDS: CHOLECALCIFEROL 1,000 UNIT TAB PO SCH (09:16)
[2019-12-26] MEDS: ATORVASTATIN 10 MG TAB PO SCH (09:16)
[2019-12-26] MEDS: MULTIVITAMINS, THERA 1 EACH TAB PO SCH (09:16)
[2019-12-26] MEDS: ACETAMINOPHEN TAB 500 MG TAB PO PRN (09:20)
[2019-12-26] MEDS: LORazepam 1 MG TAB PO PRN ×3 (09:21→21:07)
[2019-12-26 12:08] LABS: Glucose,Whole Blood 87 mg/dL (75-99)
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
[2019-12-26 16:39] LABS: Glucose,Whole Blood 106 mg/dL (75-99)
[2019-12-26] MEDS: ALBUTEROL NEBULIZED 2.5 MG/3 ML INHALATION PRN (20:45)
[2019-12-26 20:54] LABS: Glucose,Whole Blood 100 mg/dL (75-99)
[2019-12-26] MEDS: CYCLOBENZAPRINE 10 MG TAB PO SCH (20:59)
[2019-12-26] MEDS: OLANZapine 10 MG TAB PO SCH (20:59)
[2019-12-26] MEDS: diphenhydrAMINE 25 MG CAP PO SCH (20:59)
[2019-12-27] MEDS: LEVOTHYROXINE 50 MCG TAB PO SCH (06:11)
[2019-12-27] MEDS: FUROSEMIDE 40 MG TAB PO SCH (07:50)
[2019-12-27] MEDS: POTASSIUM CHLORIDE ER 10 MEQ TAB.ER.PRT PO SCH (07:50)
[2019-12-27] MEDS: MULTIVITAMINS, THERA 1 EACH TAB PO SCH (07:50)
[2019-12-27] MEDS: SPIRONOLACTONE 25 MG TAB PO SCH (07:51)
[2019-12-27] MEDS: ATORVASTATIN 10 MG TAB PO SCH (07:51)
[2019-12-27] MEDS: CHOLECALCIFEROL 1,000 UNIT TAB PO SCH (07:51)
[2019-12-27] MEDS: ALBUTEROL NEBULIZED 2.5 MG/3 ML INHALATION PRN ×2 (07:52→19:29)
[2019-12-27] MEDS: LORazepam 1 MG TAB PO PRN (11:08)
[2019-12-27] MEDS: ACETAMINOPHEN TAB 500 MG TAB PO PRN (16:14)
[2019-12-27] MEDS: CYCLOBENZAPRINE 10 MG TAB PO SCH (21:24)
[2019-12-27] MEDS: OLANZapine 10 MG TAB PO SCH (21:24)
[2019-12-27] MEDS: diphenhydrAMINE 25 MG CAP PO SCH (21:24)
--- NOTE | 2019-12-27 22:49 | P.PN ---
Progress Note - Text Progress Note Date: 12/27/19 Chief Complaint: Confusion from overdose History of presenting complaint: This is a [address] diaz. Chronic stable medical conditions include emphysema, hyperlipidemia, osteoarthritis, COPD, hyperlipidemia, restless leg syndrome. Patient seems to live with her granddaughter and what she described as a son-in-law. Patient is difficult to get a history out of. She presented to ER after family called the EMS. Patient had been acting lethargic and appar ently taken some extra medications not for intervention of 40%. No suicidal ideation. Patient thinks she may have taken extra Ativan or she not sure what is happening to the same. She not a reliable historian. She is eating pretty well otherwise. Denies any hearing voices or seeing things. No chest pain breathing is stable. Today-sitting up. Eating. No new issues. Review of systems: Was done for constitutional, cardiovascular, GI, pulmonary. relevant finding as above Active Medications Acetaminophen (Tylenol Tab) 500 mg PO Q6H PRN PRN Reason: Pain Last Admin: 12/27/19 16:14 Dose: 500 mg Documented by: Albuterol Sulfate (Ventolin Nebulized) 2.5 mg INHALATION Q6H PRN PRN Reason: Shortness Of Breath Last Admin: 12/27/19 19:29 Dose: 2.5 mg Documented by: Atorvastatin Calcium (Lipitor) 10 mg PO DAILY [facility] Last Admin: 12/27/19 07:51 Dose: 10 mg Documented by: Cholecalciferol (Vitamin D3 (25 Mcg = 1000 Iu)) 1,000 unit PO DAILY [facility] Last Admin: 12/27/19 07:51 Dose: 1,000 unit Documented by: Cyclobenzaprine HCl (Flexeril) 10 mg PO [facility] Last Admin: 12/27/19 21:24 Dose: 10 mg Documented by: Diphenhydramine HCl (Benadryl) 50 mg PO [facility] Last Admin: 12/27/19 21:24 Dose: 50 mg Documented by: Furosemide (Lasix) 40 mg PO DAILY [facility] Last Admin: 12/27/19 07:50 Dose: 40 mg Documented by: Levothyroxine Sodium (Synthroid) 150 mcg PO DAILY@0630 [facility] Last Admin: 12/27/19 06:11 Dose: 150 mcg Documented by: Lorazepam (Ativan) 1 mg PO TID PRN PRN Reason: Anxiety Last Admin: 12/27/19 11:08 Dose: 1 mg Documented by: Multivitamins (Theragran) 1 each PO DAILY [facility] Last Admin: 12/27/19 07:50 Dose: 1 each Documented by: Naloxone HCl (Narcan) 0.2 mg IVP Q2M PRN PRN Reason: Opioid Reversal Olanzapine (Zyprexa) 20 mg PO HS [facility] Last Admin: 12/27/19 21:24 Dose: 20 mg Documented by: Potassium Chloride (K-Dur 10) 10 meq PO DAILY [facility] Last Admin: 12/27/19 07:50 Dose: 10 meq Documented by: Ropinirole HCl (Requip) 0.25 mg PO TID-W/MEALS [facility] Last Admin: 12/27/19 16:14 Dose: 0.25 mg Documented by: Spironolactone (Aldactone) 25 mg PO DAILY [facility] Last Admin: 12/27/19 07:51 Dose: 25 mg Documented by: Physical examination: VITAL SIGNS: 97.5, 89, 16, 1302, 97% on room air GENERAL: Sitting on a chair, anxious EYES: Pupils equal. Conjunctiva normal. HEENT: External appearance of nose and ears normal, oral cavity grossly normal. NECK: JVD not raised; masses not palpable. HEART: First and second heart sounds are normal; no edema. LUNGS: Respiratory rate normal; decreased breath sounds. ABDOMEN: Soft, nontender, liver spleen not palpable, no masses palpable. PSYCH: Patient is able to answer questions though rather anxious and oftentimes answers and no straight forwardl. INVESTIGATIONS, reviewed in the clinical context: Sodium 1:30 potassium 4.2 creatinine 0.5 to Previous testing Sodium 133 potassium 3.4 bun 21 Salicylate less than 1 acetaminophen less than 10 serum alcohol less than 10 Urine drug screen positive for benzodiazepine UA negative EKG tracing personally reviewed by me-prolonged QT. Chest x-ray film personally reviewed by me-possibly chronic parenchymal changes Assessment: -Acute delirium from accidental overdose of medications-improving -Bipolar disorder -COPD in an ex-smoker -Hyperlipidemia -Primary osteoarthritis -Seizure disorder -Restless leg syndrome -Hypothyroid -Chronic nicotine dependence, cigarette smoker Plan: Patient awaiting transfer to 3 W./psychiatry unit. Medically stable.
[2019-12-27] MEDS ORDERED: SODIUM CHLORIDE 0.9% 1,000 ML IV SCH (23:00)
[2019-12-27 23:10] VITALS: RESP 18
[2019-12-28] MEDS: LEVOTHYROXINE 50 MCG TAB PO SCH (05:51)
[2019-12-28 06:05] VITALS: BP 106/70; PULSE 70; TEMP 97.7
[2019-12-28] MEDS: ATORVASTATIN 10 MG TAB PO SCH (07:07)
[2019-12-28] MEDS: SPIRONOLACTONE 25 MG TAB PO SCH (07:07)
[2019-12-28] MEDS: CHOLECALCIFEROL 1,000 UNIT TAB PO SCH (07:07)
[2019-12-28] MEDS: MULTIVITAMINS, THERA 1 EACH TAB PO SCH (07:07)
[2019-12-28] MEDS: LORazepam 1 MG TAB PO PRN (07:10)
[2019-12-28] MEDS: ACETAMINOPHEN TAB 500 MG TAB PO PRN (07:13)
--- NOTE | 2019-12-28 11:16 | CDI ---
Documentation Clarification Form Date: 12/28/2019 10:49:03 AM From: Gita Nina RN CCDS Admit Date: 12/25/2019 06:53:00 PM Patient Name: Meri Copeland Visit Number: [id number] Discharge Date: ATTENTION: The Clinical Documentation Specialists (CDI) and [facility] Coding Staff appreciate your assistance in clarifying documentation. Please respond to the clarification below the line at the bottom and electronically sign. The CDI & [facility] Coding staff will review the response and follow-up if needed. Please note: Queries are made part of the Legal Health Record. If you have any questions, please contact the author of this message via ITS. Dr. Mike Cedeño Confusion from overdose is documented in your progress note 12/26 History/Risk Factors: 63-year-old female presents to the ED via EMS for overdose. The patient was acting lethargic after taking morning and evening dose of medication at the same time ED note 12/24. Medical history Schizoaffective disorder bipolar type. Clinical Indicators: Per ED Note 12/24 It appears most of the patients medications are once daily. There does not appear to be any BID dosing aside from the Ativan, which is TID 1mg as need this medication was also new to patient according to chart review being prescribed 3 days prior. Per Psychology consult 12/25 on day of admission Sarah found her bent over on her bed and vomiting. She stated that she took her morning, afternoon and nighttime pills. Labs 12/24: UDS Benzodiazepines Detected X Ray 12/24: Supotimal study, chronic parenchymal changes without new infiltrate poor inspiration noted. CT Brian12/24: There is mild diffuse age-related cerebral atrophy noted. Treatment: CT of the Brain In your professional opinion, please clarify the etiology of the Confusion, if known. Toxic Encephalopathy from unintentional overdose Other condition (please specify) Unable to determine (Last Revision: December 2017) See discharge summary-no further change in documentation MTDD
--- NOTE | 2019-12-28 12:38 | P.PN ---
Progress Note - Text Progress Note Date: 12/28/19 Psychiatric progress note: Interval History: Patient was seen today for psychiatric follow-up as requested by the primary care team. Patient was previously seen by Dr. Bell for psychiatric consultation who at that time recommended patient continue on with current medications and needed to be admitted to inpatient psychiatry. Patient has been taking her Zyprexa and also taking her other medications and has been gradually improving. Patient was seen at the bedside by field underwriter and patient was polite and calm during interview. Patient was non-bizarre and appropriate. Patient spoke about having difficulty at times with her family in the house and states that she accidentally talk her medications at the same time and denied any suicide attempt or intention. She states that her mood is "fine now". She was not endorsing any delusions at this time or any paranoia. Patient states that she would like to go home and explained that she takes Prolixin-D every 2 weeks and has been regularly taking her medications and endorsed wanting to follow up with her outpatient appointments. That she slept well last night denied any overnight complaints and claims to have a fair appetite and fair energy. She denied any depression at this time or any anxiety. At this time patient denies any suicidal or homical ideations, intent or plan. Patient denies any auditory, visual hallucinations. Patient denies any side effects from the medications and has been compliant with meds. Mental Status Exam: General Appearance: Patient appears to be older than stated age, has long cat hair is alert, directable, and attempts to be cooperative. Marginal hygiene and grooming. Behavior: Patient is calmly seated without any agitated behavior. Appropriate. Speech: Patient's speech is fluent and nonpressured. Mood/Affect: Mood is "fine now", affect is congruent and constricted. Suicidality/Homicidality: Patient denies having any suicidal or homicidal ideation intent or plan. Perceptions: Patient denies any visual hallucinations and denies any auditory hallucinations Though content/process: There is no evidence of any delusional thought content or paranoia. Patient is concrete in his poverty of content. Memory and concentration: AOX3, grossly intact for the purposes of this session Judgment and insight: Improved Assessment Schizoaffective disorder bipolar type Plan: -At this time patient does NOT meet criteria for inpatient psychiatric hospitalization and is okay to continue with outpatient follow-up for mental health services -Patient likely had an unintentional overdose with her medications and the recommendation would be to have family look after patient's medications and help dispense them to her. I also would caution prescribing patient anymore opiates as this may have a negative effect on patient's cognition and could lead to higher probability of potential overdose especially combined with her psychiatric medications. -Medications: Continue with Zyprexa 20 mg daily at bedtime for psychosis and mood stabilization. Patient can continue to receive Prolixin D 50 mg injections every 2 weeks. -Would recommend discontinuing Benadryl at this time as it may lead to more confusion due to anticholinergic effects. -Psychiatry will sign off at this time, please contact with any questions.
[2019-12-28] MEDS ORDERED: MELATONIN 3 MG TABLET PO SCH (21:00)
--- NOTE | 2019-12-28 21:34 | P.DS ---
Providers Date of admission: 12/25/19 18:53 Expected date of discharge: 12/28/19 Attending physician: Mike Cedeño Consults: 12/25/19 18:39 Consult Physician Routine Consulting Provider: Jono Bell Consult Reason/Comments: family states patient has been having bizzare thoughts, hx schizophrenia Do you want consulting provider notified?: Yes Primary care physician: Alex Morrissey [facility] Course: Chief Complaint: Confusion from overdose History of presenting complaint: This is a [address] morris[address]. Chronic stable medical conditions include emphysema, hyperlipidemia, osteoarthritis, COPD, hyperlipidemia, restless leg syndrome. Patient seems to live with her granddaughter and what she described as a son-in-law. Patient is difficult to get a history out of. She presented to ER after family called the EMS. Patient had been acting lethargic and apparently taken some extra medications not for intervention of 40%. No suicidal ideation. Patient thinks she may have taken extra Ativan or she not sure what is happening to the same. She not a reliable historian. She is eating pretty well otherwise. Denies any hearing voices or seeing things. No chest pain breathing is stable. Patient seen by psychiatry. Initially accepted to the psychiatry floor. Subsequently she had significant improvement.. Today-Seen by Dr. Lama is from psychiatry. Cleared to go home. Otherwise patient doing well. Tolerating a diet. Stable. Benadryl and Lasix was discontinued. Consultation: Psychiatry Physical examination: VITAL SIGNS: 97.7, 70, 18, blood pressure 106/70, 96% on room air GENERAL: Sitting on a chair, anxious EYES: Pupils equal. Conjunctiva normal. HEENT: External appearance of nose and ears normal, oral cavity grossly normal. NECK: JVD not raised; masses not palpable. HEART: First and second heart sounds are normal; no edema. LUNGS: Respiratory rate normal; decreased breath sounds. ABDOMEN: Soft, nontender, liver spleen not palpable, no masses palpable. PSYCH: Patient is able to answer questions though rather anxious and oftentimes answers and no straight forwardl. INVESTIGATIONS, reviewed in the clinical context: Sodium 1:30 potassium 4.2 creatinine 0.5 to Previous testing Sodium 133 potassium 3.4 bun 21 Salicylate less than 1 acetaminophen less than 10 serum alcohol less than 10 Urine drug screen positive for benzodiazepine UA negative EKG tracing personally reviewed by me-prolonged QT. Chest x-ray film personally reviewed by me-possibly chronic parenchymal changes Assessment: -Acute delirium from accidental overdose of medications- -Bipolar disorder -COPD in an ex-smoker -Hyperlipidemia -Primary osteoarthritis -Seizure disorder -Restless leg syndrome -Hyponatremia -Hypothyroid -Chronic nicotine dependence, cigarette smoker Disposition: Home Patient Condition at Discharge: Stable Plan - Discharge Summary Discharge Rx Participant: Yes New Discharge Prescriptions: Continue Cyclobenzaprine [Flexeril] 10 mg PO HS #30 tab Levothyroxine Sodium 150 mcg PO DAILY #30 tablet Simvastatin [Zocor] 10 mg PO DAILY #30 tablet Spironolactone [Aldactone] 25 mg PO DAILY #30 tab LORazepam [Ativan] 1 tab PO TID Cholecalciferol [Vitamin D3 (25 Mcg = 1000 Iu)] 1,000 unit PO DAILY Albuterol Inhaler [Ventolin Hfa Inhaler] 2 puff INHALATION Q6H PRN PRN Reason: Shortness Of Breath rOPINIRole HCL [Requip] 0.25 mg PO TID-W/MEALS Multivitamins, Thera [Multivitamin (formulary)] 1 tab PO DAILY OLANZapine [ZyPREXA] 20 mg PO HS Acetaminophen [Tylenol] 500 mg PO Q4-6H PRN PRN Reason: Pain Fluphenazine Deconoate 25mg/1mg Oil 50 mg IM Q14D Discontinued Furosemide [Lasix] 40 mg PO DAILY #30 tab diphenhydrAMINE [Benadryl] 1 cap PO HS Potassium Chloride [Klor-Con 10] 10 meq PO DAILY Discharge Medication List Cyclobenzaprine [Flexeril] 10 mg PO HS #30 tab 10/06/18 [Rx] Levothyroxine Sodium 150 mcg PO DAILY #30 tablet 10/06/18 [Rx] Simvastatin [Zocor] 10 mg PO DAILY #30 tablet 10/06/18 [Rx] Spironolactone [Aldactone] 25 mg PO DAILY #30 tab 10/06/18 [Rx] LORazepam [Ativan] 1 tab PO TID 10/19/18 [History] Acetaminophen [Tylenol] 500 mg PO Q4-6H PRN 12/25/19 [History] Albuterol Inhaler [Ventolin Hfa Inhaler] 2 puff INHALATION Q6H PRN 12/25/19 [History] Cholecalciferol [Vitamin D3 (25 Mcg = 1000 Iu)] 1,000 unit PO DAILY 12/25/19 [History] Fluphenazine Deconoate 25mg/1mg Oil 50 mg IM Q14D 12/25/19 [History] Multivitamins, Thera [Multivitamin (formulary)] 1 tab PO DAILY 12/25/19 [History] OLANZapine [ZyPREXA] 20 mg PO HS 12/25/19 [History] rOPINIRole HCL [Requip] 0.25 mg PO TID-W/MEALS 12/25/19 [History] Follow up Appointment(s)/Referral(s): Alex Morrissey MD [Primary Care Provider] - 1 Week Patient Instructions/Handouts: Adult Overdose (ED) Discharge Disposition: HOME SELF-CARE
== END 2019-12-28 15:19 | disposition home or self-care (01) | DRG 918 ==
LOC: EC 16:10 → 3SCARD 18:53 → 6NMEDSUR 12-26 23:32
PROVIDERS: ADMIT Hospitalist; ATTEND Hospitalist
DX: T50.911A Poisoning by multiple unspecified drugs, medicaments and biological substances, accidental (unintentional), initial encounter (principal); E87.1 Hypo-osmolality and hyponatremia; F13.921 Sedative, hypnotic or anxiolytic use, unspecified with intoxication delirium; F25.0 Schizoaffective disorder, bipolar type; R41.0 Disorientation, unspecified; E66.9 Obesity, unspecified; D72.829 Elevated white blood cell count, unspecified; E03.9 Hypothyroidism, unspecified; E78.5 Hyperlipidemia, unspecified; F17.210 Nicotine dependence, cigarettes, uncomplicated; F41.9 Anxiety disorder, unspecified; G25.81 Restless legs syndrome; G40.909 Epilepsy, unspecified, not intractable, without status epilepticus; J43.9 Emphysema, unspecified; M19.91 Primary osteoarthritis, unspecified site; H40.9 Unspecified glaucoma; R94.31 Abnormal electrocardiogram [ECG] [EKG]; Z68.30 Body mass index [BMI] 30.0-30.9, adult; Z79.890 Hormone replacement therapy; Z79.899 Other long term (current) drug therapy; Z88.1 Allergy status to other antibiotic agents; Z88.5 Allergy status to narcotic agent; Z88.0 Allergy status to penicillin; Z88.2 Allergy status to sulfonamides; Z88.8 Allergy status to other drugs, medicaments and biological substances; Z90.12 Acquired absence of left breast and nipple; Z90.710 Acquired absence of both cervix and uterus; Z85.3 Personal history of malignant neoplasm of breast; Z98.51 Tubal ligation status; Z80.9 Family history of malignant neoplasm, unspecified
CPT/HCPCS: 36415; 70450; 71046; 80048; 80053; 80306; 80320; 80329; 81003; 82550; 83520; 83605; 83735; 84100; 85025; 93005; 94640; 99285

== ENCOUNTER 2020-02-04 15:41 | Inpatient (IN) | payer MEDICARE, OTHER ==
[2020-02-04] MEDS ORDERED: SODIUM CHLORIDE 0.9% 1,000 ML IV STA (15:48)
[2020-02-04] MEDS ORDERED: CEFEPIME 2 GM in SODIUM CHLORIDE 0.9% 100 ML IVPB STA (15:51)
[2020-02-04] MEDS ORDERED: VANCOMYCIN IV PER PHARMACY 1 EACH MISC MISCELLANE PRN (15:51)
--- NOTE | 2020-02-04 16:24 | ED ---
General Adult HPI - General Chief complaint: Altered Mental Status Stated complaint: Shortness of Breath Time Seen by Provider: 02/04/20 15:43 Source: patient, EMS, RN notes reviewed, old records reviewed Mode of arrival: EMS - History of Present Illness Initial comments: 69-year-old female history schizophrenia presents from home with increased work of breathing, confusion, right lower leg swelling and erythema. Patient is a very poor historian. She has no complaints the time my evaluation. She was transported by EMS at the request of her daughter. No reported vomiting. Patient had defecated on herself at home. - Related Data Home Medications Medication Instructions Recorded Confirmed LORazepam [Ativan] 1 tab PO TID 10/19/18 12/25/19 Acetaminophen [Tylenol] 500 mg PO Q4-6H PRN 12/25/19 12/25/19 Albuterol Inhaler (Mhu) [Ventolin 2 puff INHALATION Q6H PRN 12/25/19 12/25/19 Hfa Inhaler (Mhu)] Cholecalciferol [Vitamin D3 (25 1,000 unit PO DAILY 12/25/19 12/25/19 Mcg = 1000 Iu)] Fluphenazine Deconoate 25mg/1mg Oil 50 mg IM Q14D 12/25/19 12/25/19 Multivitamins, Thera [Multivitamin 1 tab PO DAILY 12/25/19 12/25/19 (formulary)] OLANZapine [ZyPREXA] 20 mg PO HS 12/25/19 12/25/19 rOPINIRole HCL [Requip] 0.25 mg PO TID-W/MEALS 12/25/19 12/26/19 Previous Rx's Medication Instructions Recorded Cyclobenzaprine [Flexeril] 10 mg PO HS #30 tab 10/06/18 Levothyroxine Sodium 150 mcg PO DAILY #30 tablet 10/06/18 Simvastatin [Zocor] 10 mg PO DAILY #30 tablet 10/06/18 Spironolactone [Aldactone] 25 mg PO DAILY #30 tab 10/06/18 Allergies Allergy/AdvReac Type Severity Reaction Status Date / Time lamotrigine [From Lamictal] Allergy Severe throat Verified 02/04/20 15:59 swelling metronidazole [From Flagyl] Allergy Severe Swelling Verified 02/04/20 15:59 pregabalin [From Lyrica] Allergy Severe throat Verified 02/04/20 15:59 swelling Sulfa (Sulfonamide Allergy Severe Swelling Verified 02/04/20 15:59 Antibiotics) morphine AdvReac Severe passed out Verified 02/04/20 15:59 cortisone AdvReac Rash/Hives Verified 02/04/20 15:59 Penicillins AdvReac Rash/Hives Verified 02/04/20 15:59 Review of Systems ROS Statement: Those systems with pertinent positive or pertinent negative responses have been documented in the HPI. ROS Other: All systems not noted in ROS Statement are negative. Past Medical History Past Medical History: Asthma, Cancer, Eye Disorder, Hyperlipidemia, Osteoarthritis (OA), Thyroid Disorder Additional Past Medical History / Comment(s): "low BP", edema lower legs, uses a cane, emphysema, glaucoma, "lump on kidney", breast cancer, last seizure 2011 History of Any Multi-Drug Resistant Organisms: None Reported Past Surgical History: Breast Surgery, Hysterectomy, Tubal Ligation Additional Past Surgical History / Comment(s): left mastectomy Past Anesthesia/Blood Transfusion Reactions: Motion Sickness Past Psychological History: Anxiety, Bipolar, Schizophrenia Smoking Status: Current every day smoker Past Alcohol Use History: None Reported Past Drug Use History: Marijuana - Past Family History Father Additional Family Medical History / Comment(s): Father at age at 87 from old age. Daughter(s) Additional Family Medical History / Comment(s): Patient states that she has 3 children and 2 are on drugs. Sister(s) Family Medical History: Cancer Additional Family Medical History / Comment(s): She has one sister that from some type of cancer. Mother Family Medical History: Cancer Additional Family Medical History / Comment(s): Mother at age 56 from cancer, unknown type. General Exam General appearance: alert, in distress Head exam: Present: atraumatic, normocephalic Eye exam: Absent: PERRL (2 mm bilaterally sluggish), periorbital swelling Neck exam: Present: normal inspection. Absent: tenderness, meningismus Respiratory exam: Present: normal lung sounds bilaterally. Absent: respiratory distress, wheezes, rales Cardiovascular Exam: Present: normal rhythm, tachycardia GI/Abdominal exam: Present: soft. Absent: distended, tenderness, guarding, rebound Extremities exam: Present: pedal edema (Right leg is erythematous, ecchymotic, nontender no crepitus) Neurological exam: Present: alert. Absent: motor sensory deficit Skin exam: Present: warm, mottled. Absent: diaphoretic Course Vital Signs 02/04/20 02/04/20 02/04/20 15:50 16:22 17:06 Temperature 98.4 F Pulse Rate 118 H 116 H 112 H Respiratory 24 18 18 Rate Blood Pressure 105/37 96/45 99/60 O2 Sat by Pulse 96 96 96 Oximetry 02/04/20 02/04/20 18:22 18:40 Temperature Pulse Rate 109 H 104 H Respiratory 18 18 Rate Blood Pressure 118/53 110/54 O2 Sat by Pulse 96 96 Oximetry - Reevaluation(s) Reevaluation #1: 02/04/20 19:19 Patient reassessed, mental status has improved, she is alert and oriented answering all questions. Blood pressures normalized with fluid resuscitation. Her lungs reevaluated, perfusion is improved, she has circumferential cellulitis of the right lower extremity. EKG Findings - EKG Comments: EKG Findings:: EKG: Sinus tachycardia, left atrial enlargement, left axis dev iation, rate of 118, NH interval 140, QRS duration 70, QTC 479, no ST segment elevation. Medical Decision Making - Medical Decision Making 69-year-old female presenting with confusion, fever, right lower extremity cellulitis. She has hypertension when she arrives patient responds well to IV hydration. Workup reveals a white count 21,000, stable hemoglobin, normal pH. She has a lactic acid of 3.2. Elevated serum creatinine at 1.07. I did perform CT of the brain she was somewhat confused, this is negative for any acute findings. CT of the right lower extremity shows signs consistent with cellulitis, no soft tissue gas. Ultrasound performed negative for DVT. She is given broad-spectrum antibiotics in the emergency department. Case is discussed with Dr. Leyva, he will admit. He will evaluate the patient emergency department. - Lab Data Result diagrams: 02/04/20 16:19 02/04/20 16:19 Lab Results 02/04/20 02/04/20 02/04/20 Range/Units 16:19 16:19 16:19 WBC 21.2 H (3.8-10.6) k/uL RBC 4.77 (3.80-5.40) m/uL Hgb 14.7 (11.4-16.0) gm/dL Hct 46.1 H (34.0-46.0) % MCV 96.6 (80.0-100.0) fL MCH 30.9 (25.0-35.0) pg MCHC 32.0 (31.0-37.0) g/dL RDW 14.2 (11.5-15.5) % Plt Count 191 (150-450) k/uL Neutrophils % 95 % Lymphocytes % 2 % Monocytes % 2 % Eosinophils % 0 % Basophils % 0 % Neutrophils # 20.2 H (1.3-7.7) k/uL Lymphocytes # 0.3 L (1.0-4.8) k/uL Monocytes # 0.5 (0-1.0) k/uL Eosinophils # 0.1 (0-0.7) k/uL Basophils # 0.0 (0-0.2) k/uL PT (9.0-12.0) sec INR (<1.2) APTT (22.0-30.0) sec VBG pH (7.31-7.41) VBG pCO2 (37-51) mmHg VBG HCO3 (24-28) mmol/L Sodium 128 L (137-145) mmol/L Potassium 4.5 (3.5-5.1) mmol/L Chloride 101 (98-107) mmol/L Carbon Dioxide 16 L (22-30) mmol/L Anion Gap 11 mmol/L BUN 18 H (7-17) mg/dL Creatinine 1.07 H (0.52-1.04) mg/dL Est GFR (CKD-EPI)AfAm 62 (>60 ml/min/1.73 sqM) Est GFR (CKD-EPI)NonAf 54 (>60 ml/min/1.73 sqM) Glucose 118 H (74-99) mg/dL Plasma Lactic Acid Dylon 3.2 H* (0.7-2.0) mmol/L Calcium 8.8 (8.4-10.2) mg/dL Magnesium 1.8 (1.6-2.3) mg/dL Total Bilirubin 1.1 (0.2-1.3) mg/dL AST 125 H (14-36) U/L ALT 50 H (4-34) U/L Alkaline Phosphatase 83 (38-126) U/L Creatine Kinase 1559 H* (30-135) U/L Total Protein 5.9 L (6.3-8.2) g/dL Albumin 3.2 L (3.5-5.0) g/dL 02/04/20 02/04/20 Range/Units 16:19 16:48 WBC (3.8-10.6) k/uL RBC (3.80-5.40) m/uL Hgb (11.4-16.0) gm/dL Hct (34.0-46.0) % MCV (80.0-100.0) fL MCH (25.0-35.0) pg MCHC (31.0-37.0) g/dL RDW (11.5-15.5) % Plt Count (150-450) k/uL Neutrophils % % Lymphocytes % % Monocytes % % Eosinophils % % Basophils % % Neutrophils # (1.3-7.7) k/uL Lymphocytes # (1.0-4.8) k/uL Monocytes # (0-1.0) k/uL Eosinophils # (0-0.7) k/uL Basophils # (0-0.2) k/uL PT 9.6 (9.0-12.0) sec INR 0.9 (<1.2) APTT 29.3 (22.0-30.0) sec VBG pH 7.38 (7.31-7.41) VBG pCO2 30 L (37-51) mmHg VBG HCO3 17 L (24-28) mmol/L Sodium (137-145) mmol/L Potassium (3.5-5.1) mmol/L Chloride (98-107) mmol/L Carbon Dioxide (22-30) mmol/L Anion Gap mmol/L BUN (7-17) mg/dL Creatinine (0.52-1.04) mg/dL Est GFR (CKD-EPI)AfAm (>60 ml/min/1.73 sqM) Est GFR (CKD-EPI)NonAf (>60 ml/min/1.73 sqM) Glucose (74-99) mg/dL Plasma Lactic Acid Dylon (0.7-2.0) mmol/L Calcium (8.4-10.2) mg/dL Magnesium (1.6-2.3) mg/dL Total Bilirubin (0.2-1.3) mg/dL AST (14-36) U/L ALT (4-34) U/L Alkaline Phosphatase (38-126) U/L Creatine Kinase (30-135) U/L Total Protein (6.3-8.2) g/dL Albumin (3.5-5.0) g/dL Critical Care Time Critical Care Time: Yes Total Critical Care Time: 35 Disposition Clinical Impression: Sepsis, Cellulitis of right lower extremity Disposition: ADMITTED IP TO THIS [facility] Condition: Stable Is patient prescribed a controlled substance at d/c from ED?: No Referrals: Alex Morrissey MD [Primary Care Provider] - 1-2 days Decision to Admit Reason: Admit from EC Decision Date: 02/04/20 Decision Time: 19:21
[2020-02-04] MEDS ORDERED: CLINDAMYCIN 600 MG in DEXTROSE 5% IN WATER 50 ML IVPB ONE ×2 (16:30)
[2020-02-04 16:34] LABS: VBG PH 7.38 (7.31-7.41)
[2020-02-04 16:35] LABS: Basophils % (A) 0 %; Eosinophils # (A) 0.1 k/uL (0-0.7); Eosinophils % (A) 0 %; HCT 46.1 % (34.0-46.0); HGB 14.7 gm/dL (11.4-16.0); Lymphocytes # (A) 0.3 k/uL (1.0-4.8); Lymphocytes % (A) 2 %; MCH 30.9 pg (25.0-35.0); MCV 96.6 fL (80.0-100.0); Mean Platelet Volume 7.9; Monocytes # (A) 0.5 k/uL (0-1.0); Monocytes % (A) 2 %; Neutrophils # (A) 20.2 k/uL (1.3-7.7); Neutrophils % (A) 95 %; Platelet Count 191 k/uL (150-450); RBC 4.77 m/uL (3.80-5.40); RDW 14.2 % (11.5-15.5); WBC 21.2 k/uL (3.8-10.6)
[2020-02-04 16:49] LABS: Albumin 3.2 g/dL (3.5-5.0); Calcium 8.8 mg/dL (8.4-10.2); Magnesium 1.8 mg/dL (1.6-2.3); Potassium 4.5 mmol/L (3.5-5.1); Total Bilirubin 1.1 mg/dL (0.2-1.3); Total Protein 5.9 g/dL (6.3-8.2)
[2020-02-04 17:05] LABS: INR 0.9 (<1.2); Partial Thromboplastin Time 29.3 sec (22.0-30.0); Prothrombin Time 9.6 sec (9.0-12.0)
--- NOTE | 2020-02-04 17:18 | XR ---
EXAMINATION TYPE: XR chest 2V DATE OF EXAM: 02/04/2020 COMPARISON: Prior chest x-ray 12/25/2019 HISTORY: Weakness, altered mental status TECHNIQUE: Frontal and lateral views of the chest are obtained. FINDINGS: Findings are similar to prior exam. Interstitium is mildly increased. Patient is rotated. There are overlying cardiac leads. Cardiothymic style silhouette, pulmonary vascular and bren are sim ilar to prior exam. No pneumothorax or pleural effusion. IMPRESSION: Interstitial lung disease.
[2020-02-04] MEDS ORDERED: SODIUM CHLORIDE 0.9% 1,000 ML IV ONE (17:41)
[2020-02-04] MEDS ORDERED: VANCOMYCIN 1,250 MG in SODIUM CHLORIDE 0.9% 250 ML IVPB ONE (18:00)
--- NOTE | 2020-02-04 18:18 | CT ---
EXAMINATION TYPE: CT brain wo con DATE OF EXAM: 02/04/2020 COMPARISON: CT brain 12/25/2019 HISTORY: ams CT DLP: 1247.4 mGycm Automated exposure control for dose reduction was used. CT brain performed using departmental protoco l. FINDINGS: There is no hemorrhage or hydrocephalus. Calvarium is intact. Paranasal sinuses and mastoid air cells as visualized are stable. IMPRESSION: STABLE EXAM, NO ACUTE ABNORMALITY IS EVIDENT.
--- NOTE | 2020-02-04 18:37 | CT ---
CT right leg HISTORY: Nonhealing infection Helical acquisition through the right leg following 80 cc Isovue-300 IV. Automated exposure control f or dose reduction, DLP 228.7 mGycm. There is extensive soft tissue edema, increased density within subcutaneous fat. No evident abscess. There is no evident periostitis to suggest osteomyelitis. Small knee joint effusion is present. There is fatty replacement of much of the musculature. Normal arterial enhancement is noted. No fracture o r dislocation. Osteoarthritic changes are noted within the knee. Impression: Correlate for cellulitis, edema. No evident abscess.
--- NOTE | 2020-02-04 18:40 | US ---
EXAMINATION TYPE: US venous doppler duplex LE RT DATE OF EXAM: 02/04/2020 6:14 PM COMPARISON: US 2018 CLINICAL HISTORY: dvt. Right leg pain SIDE PERFORMED: Right TECHNIQUE: The lower extremity deep venous system is examined utilizing real time linear array sonog phyllis with graded compression, doppler sonography and color-flow sonography. VESSELS IMAGED: External Iliac Vein (EIV) Common Femoral Vein Deep Femoral Vein Greater Saphenous Vein * Femoral Vein Popliteal Vein Small Saphenous Vein * Proximal Calf Veins (* superficial vessels) There is normal flow, compressibility, vascular waveforms. Right Leg: Appears negative for DVT IMPRESSION: No evident deep venous thrombosis at or above the right knee.
[2020-02-04] MEDS ORDERED: NALOXONE 0.4 MG/ML 1 ML VIAL IV PRN (19:15)
[2020-02-04] MEDS: SODIUM CHLORIDE 0.9% 1,000 ML IV SCH (19:44)
[2020-02-04 20:29] LABS: Appearance,Urine Clear (Clear); Bilirubin,Urine Negative (Negative); Blood,Urine Trace (Negative); Color,Urine Yellow; Glucose,Urine (UA) Negative (Negative); Ketones,Urine 1+ (Negative); Leukocyte Esterase,Urine Negative (Negative); Nitrite,Urine Negative (Negative); PH, Urine 6.5 (5.0-8.0); Protein,Urine 1+ (Negative); Specific Gravity,Urine 1.041 (1.001-1.035); Urobilinogen,Urine <2.0 mg/dL (<2.0)
[2020-02-04 21:02] LABS: Bacteria,Urine Rare /hpf; Hyaline Casts,Urine 1 /lpf (0-2); RBC,Urine 1 /hpf (0-5); Squamous Epithelial Cell,Urine 2 /hpf (0-4); WBC,Urine 1 /hpf (0-5)
[2020-02-04] MEDS ORDERED: IPRATROPIUM-ALBUTEROL 3 ML NEB INHALATION PRN (22:02)
--- NOTE | 2020-02-04 22:04 | P.HPIM ---
History of Present Illness H&P Date: 02/04/20 Patient is a 69-year-old female with a PMH of COPD and hyperlipidemia who presented to the ED from home due to right leg pain and swelling, fall at home, and difficulty breathing. The patient is a somewhat poor historian. She notes that her leg has been hurting for the past few days and that earlier today she was walking to her restroom when she lost her balance and fell, prompting her to call EMS. She reports falling on her knees, and denied loss of consciousness, or head/hip trauma. She also denied any pain in her knees currently, or tingling or numbness of her legs. The patient denied trauma to the R leg prior to onset of her symptoms. The patient states that she lives by herself though her children often check in on her. She also reports mild shortness of breath for which she has been taking inhalers at home. She denied fever, chills, chest pain, nausea, vomiting, or diarrhea. The patient underwent an extensive evaluation in the emergency room with chest x-ray showing chronic interstitial changes, with brain CT that was unremarkable. Lower extremity duplex was negative for DVT with a lower extremity CT showing cellulitis without evidence of an abscess. EKG revealed sinus a cardiac 118 bpm with left axis deviation and no ST/T-wave changes noted. Laboratory evaluation revealed lactate of 3.2, WBC count 21.2, CK 1559, AST 125, ALT 50, hemoglobin 14.7, platelets 191, sodium 128, potassium 4.5, chloride 101, CO2 16, BUN 18, creatinine 1.07, and glucose 118. Patient is being admitted to the medicine service for further management of severe sepsis secondary to right lower extremity cellulitis and a COPD exacerbation. Review of Systems Pertinent positives and negatives as discussed in HPI, a complete review of systems was performed and all other systems are negative. Past Medical History Past Medical History: Asthma, Cancer, Eye Disorder, Hyperlipidemia, Osteoarthritis (OA), Thyroid Disorder Additional Past Medical History / Comment(s): "low BP", edema lower legs, uses a cane, emphysema, glaucoma, "lump on kidney", breast cancer, last seizure 2011 History of Any Multi-Drug Resistant Organisms: None Reported Past Surgical History: Breast Surgery, Hysterectomy, Tubal Ligation Additional Past Surgical History / Comment(s): left mastectomy Past Anesthesia/Blood Transfusion Reactions: Motion Sickness Past Psychological History: Anxiety, Bipolar, Schizophrenia Smoking Status: Current every day smoker Past Alcohol Use History: None Reported Past Drug Use History: Marijuana - Past Family History Father Additional Family Medical History / Comment(s): Father at age at 87 from old age. Daughter(s) Additional Family Medical History / Comment(s): Patient states that she has 3 children and 2 are on drugs. Sister(s) Family Medical History: Cancer Additional Family Medical History / Comment(s): She has one sister that from some type of cancer. Mother Family Medical History: Cancer Additional Family Medical History / Comment(s): Mother at age 56 from cancer, unknown type. Medications and Allergies Home Medications Medication Instructions Recorded Confirmed Type Cyclobenzaprine [Flexeril] 10 mg PO HS #30 tab 10/06/18 12/25/19 Rx Levothyroxine Sodium 150 mcg PO DAILY #30 tablet 10/06/18 12/25/19 Rx Simvastatin [Zocor] 10 mg PO DAILY #30 tablet 10/06/18 12/25/19 Rx Spironolactone [Aldactone] 25 mg PO DAILY #30 tab 10/06/18 12/25/19 Rx LORazepam [Ativan] 1 tab PO TID 10/19/18 12/25/19 History Acetaminophen [Tylenol] 500 mg PO Q4-6H PRN 12/25/19 12/25/19 History Albuterol Inhaler (Mhu) [Ventolin 2 puff INHALATION Q6H PRN 12/25/19 12/25/19 History Hfa Inhaler (Mhu)] Cholecalciferol [Vitamin D3 (25 1,000 unit PO DAILY 12/25/19 12/25/19 History Mcg = 1000 Iu)] Fluphenazine Deconoate 25mg/1mg Oil 50 mg IM Q14D 12/25/19 12/25/19 History Multivitamins, Thera [Multivitamin 1 tab PO DAILY 12/25/19 12/25/19 History (formulary)] OLANZapine [ZyPREXA] 20 mg PO HS 12/25/19 12/25/19 History rOPINIRole HCL [Requip] 0.25 mg PO TID-W/MEALS 12/25/19 12/26/19 History Allergies Allergy/AdvReac Type Severity Reaction Status Date / Time lamotrigine [From Lamictal] Allergy Severe throat Verified 02/04/20 15:59 swelling metronidazole [From Flagyl] Allergy Severe Swelling Verified 02/04/20 15:59 pregabalin [From Lyrica] Allergy Severe throat Verified 02/04/20 15:59 swelling Sulfa (Sulfonamide Allergy Severe Swelling Verified 02/04/20 15:59 Antibiotics) morphine AdvReac Severe passed out Verified 02/04/20 15:59 cortisone AdvReac Rash/Hives Verified 02/04/20 15:59 Penicillins AdvReac Rash/Hives Verified 02/04/20 15:59 Physical Exam Vitals: Vital Signs Temp Pulse Resp BP Pulse Ox 02/04/20 20:00 100 22 98/58 98 02/04/20 19:50 101 H 24 102/66 100 02/04/20 18:40 104 H 18 110/54 96 02/04/20 18:22 109 H 18 118/53 96 02/04/20 17:06 112 H 18 99/60 96 02/04/20 16:22 116 H 18 96/45 96 02/04/20 15:50 98.4 F 118 H 24 105/37 96 Intake and Output 02/04/20 02/04/20 02/04/20 06:59 14:59 22:59 Other: Weight 72.575 kg General: Ill-appearing female, appears at stated age, overweight Derm: Right lower extremity circumferential erythema, induration, and warmth from toes to upper anderson, no obvious fluctuance noted Head: atraumatic, normocephalic, symmetric Eyes: EOMI, no lid lag, anicteric sclera, pupils equal round reactive to light ENT: Nose and ears atraumatic, no thrush, no pharyngeal erythema Neck: No thyromegaly, no cervical lymphadenopathy, trachea midline, supple Mouth: no lip lesion, mucus membranes dry Cardiovascular: S1S2 reg, no murmur, positive posterior tibial pulse bilateral, capillary refill less than 2 seconds Lungs: Somewhat poor air entry bilaterally with scattered rhonchi and minimal expiratory wheezing, no rales, no accessory muscle use Abdominal: soft, nontender to palpation, no guarding, no appreciable organomegaly, normal bowel sounds Ext: no gross muscle atrophy, muscle strength 4 out of 5 in all 4 extremities g rossly, no contractures, dorsalis pedis pulses 2+ bilaterally Neuro: CN II-XI grossly intact, no focal neuro deficits noted Psych: Alert, awake, oriented to person, place, and time, though slow to respond Results CBC & Chem 7: 02/04/20 16:19 02/04/20 16:19 Labs: Abnormal Lab Results - Last 24 Hours (Table) 02/04/20 02/04/20 02/04/20 Range/Units 16:19 16:19 16:19 WBC 21.2 H (3.8-10.6) k/uL Hct 46.1 H (34.0-46.0) % Neutrophils # 20.2 H (1.3-7.7) k/uL Lymphocytes # 0.3 L (1.0-4.8) k/uL VBG pCO2 (37-51) mmHg VBG HCO3 (24-28) mmol/L Sodium 128 L (137-145) mmol/L Carbon Dioxide 16 L (22-30) mmol/L BUN 18 H (7-17) mg/dL Creatinine 1.07 H (0.52-1.04) mg/dL Glucose 118 H (74-99) mg/dL Plasma Lactic Acid Dylon 3.2 H* (0.7-2.0) mmol/L AST 125 H (14-36) U/L ALT 50 H (4-34) U/L Creatine Kinase 1559 H* (30-135) U/L Total Protein 5.9 L (6.3-8.2) g/dL Albumin 3.2 L (3.5-5.0) g/dL Ur Specific [place] (1.001-1.035) Urine Protein (Negative) Urine Ketones (Negative) Urine Blood (Negative) Urine Bacteria (None) /hpf 02/04/20 02/04/20 Range/Units 16:19 19:53 WBC (3.8-10.6) k/uL Hct (34.0-46.0) % Neutrophils # (1.3-7.7) k/uL Lymphocytes # (1.0-4.8) k/uL VBG pCO2 30 L (37-51) mmHg VBG HCO3 17 L (24-28) mmol/L Sodium (137-145) mmol/L Carbon Dioxide (22-30) mmol/L BUN (7-17) mg/dL Creatinine (0.52-1.04) mg/dL Glucose (74-99) mg/dL Plasma Lactic Acid Dylon (0.7-2.0) mmol/L AST (14-36) U/L ALT (4-34) U/L Creatine Kinase (30-135) U/L Total Protein (6.3-8.2) g/dL Albumin (3.5-5.0) g/dL Ur Specific [place] 1.041 H (1.001-1.035) Urine Protein 1+ H (Negative) Urine Ketones 1+ H (Negative) Urine Blood Trace H (Negative) Urine Bacteria Rare H (None) /hpf Assessment and Plan Plan: Severe sepsis secondary to right lower extremity cellulitis -Status post cefepime and clindamycin single doses -Continue with vancomycin for MRSA coverage with low suspicion for anaerobes or gram-negative bacilli -Demarcate the area of infection to track progress -Follow up blood cultures -C/w IVFs 150 cc/hr for now. S/p 2 L NS in ED -Monitor for signs of fluid overload Lactic acidosis -Monitor to resolution Acute COPD exacerbation -Duonebs -Prednisone 40 mg qd for now Mild toxic metabolic encephalopathy in setting of severe sepsis -C/w cellulitis management as above Rhabdomyolysis -Continue with IV fluids and monitor CK -Possibly due to cellulitis along with poor oral intake Abnormal LFTs, possibly secondary to severe sepsis -Monitor LFTs for now Hyponatremia, possibly secondary to poor oral intake -Monitor BMP for now DVT prophylaxis -Heparin subq The patient is admitted with an anticipated greater than 2 midnight stay for evaluation of severe sepsis CODE STATUS: Full Code Discussed with: Patient Anticipated discharge date: 02/[address]: Home A total of 45 minutes was spent on the care of this complex patient more than 50% of the time was spent in counseling and care coordination.
[2020-02-04] MEDS: predniSONE 20 MG TAB PO SCH (22:34)
[2020-02-04] MEDS: HEPARIN SODIUM,PORCINE 5,000 UNIT/ML 1 ML VIAL SQ SCH (22:34)
[2020-02-05] MEDS: LEVOTHYROXINE 50 MCG TAB PO SCH (05:10)
[2020-02-05] MEDS: SODIUM CHLORIDE 0.9% 1,000 ML IV SCH ×3 (05:11→19:52)
[2020-02-05 06:35] LABS: HCT 41.1 % (34.0-46.0); HGB 13.4 gm/dL (11.4-16.0); MCH 31.4 pg (25.0-35.0); MCHC 32.6 g/dL (31.0-37.0); MCV 96.2 fL (80.0-100.0); Mean Platelet Volume 8.1; Platelet Count 180 k/uL (150-450); RBC 4.27 m/uL (3.80-5.40); RDW 14.4 % (11.5-15.5); WBC 16.7 k/uL (3.8-10.6)
[2020-02-05 06:44] LABS: ALT 60 U/L (4-34); AST 116 U/L (14-36); African American GFR (CKD) >90 (>60 ml/min/1.73 sqM); Albumin 2.5 g/dL (3.5-5.0); Alkaline Phosphatase 75 U/L (38-126); Anion Gap 9 mmol/L; Blood Urea Nitrogen 17 mg/dL (7-17); Calcium 7.7 mg/dL (8.4-10.2); Carbon Dioxide 15 mmol/L (22-30); Chloride 108 mmol/L (98-107); Glucose 110 mg/dL (74-99); Non-African American GFR(CKD) >90 (>60 ml/min/1.73 sqM); Potassium 3.7 mmol/L (3.5-5.1); Sodium 132 mmol/L (137-145); Total Bilirubin 0.5 mg/dL (0.2-1.3)
[2020-02-05 06:54] LABS: Creatine Kinase 1389 U/L (30-135)
[2020-02-05] MEDS: IPRATROPIUM-ALBUTEROL 3 ML NEB INHALATION SCH ×4 (07:21→18:57)
[2020-02-05] MEDS: HEPARIN SODIUM,PORCINE 5,000 UNIT/ML 1 ML VIAL SQ SCH ×2 (07:54→16:50)
[2020-02-05] MEDS: predniSONE 20 MG TAB PO SCH (07:54)
[2020-02-05] MEDS ORDERED: VANCOMYCIN 1,250 MG in SODIUM CHLORIDE 0.9% 250 ML IVPB SCH (09:00)
--- NOTE | 2020-02-05 09:01 | P.PN ---
Subjective Progress Note Date: 02/05/20 Principal diagnosis: Severe sepsis secondary to right lower extremity cellulitis Patient seen and examined at bedside. Patient is currently eating breakfast. Patient admits to mild exertional dyspnea. Patient does have right lower extremity pain secondary to cellulitis. Patient denies chest pain. Temperature this morning was 97.5F mildly low. Labs this morning showed a white blood cell count has decreased from 21.2-16.7. Sodium has improved to 132 from 128. Creatinine kinase has improved from 1559 to 1389. Patient is a 69-year-old female with a PMH of COPD and hyperlipidemia who presented to the ED from home due to right leg pain and swelling, fall at home, and difficulty breathing. The patient is a somewhat poor historian. She notes that her leg has been hurting for the past few days and that earlier today she was walking to her restroom when she lost her balance and fell, prompting her to call EMS. She reports falling on her knees, and denied loss of consciousness, or head/hip trauma. She also denied any pain in her knees currently, or tingling or numbness of her legs. The patient denied trauma to the R leg prior to onset of her symptoms. The patient states that she lives by herself though her children often check in on her. She also reports mild shortness of breath for which she has been taking inhalers at home. She denied fever, chills, chest pain, nausea, vomiting, or diarrhea. The patient underwent an extensive evaluation in the emergency room with chest x-ray showing chronic interstitial changes, with brain CT that was unremarkable. Lower extremity duplex was negative for DVT with a lower extremity CT showing cellulitis without evidence of an abscess. Objective - Vital Signs Vital signs: Vital Signs Temp 97.5 F L 02/05/20 05:44 Pulse 96 02/05/20 07:30 Resp 20 02/05/20 05:44 BP 103/63 02/05/20 05:44 Pulse Ox 97 02/05/20 05:44 Intake & Output 02/04/20 02/05/20 02/05/20 18:59 06:59 18:59 Intake Total 1440 Balance 1440 Weight 72.575 kg 72.575 kg Intake: Intake, IV Titration 1200 Amount Sodium Chloride 0.9% 1, 1200 000 ml @ 150 mls/hr IV . Q6H40M [facility] Rx#:[id number] Oral 240 Other: # Voids 1 # Bowel Movements 1 - Exam General: [non toxic], [no distress], [appears at stated age] Derm: [warm], [dry] Head: [atraumatic], [normocephalic], [symmetric] Eyes: [EOMI], [no lid lag], [anicteric sclera] Mouth: [no lip lesion], [mucus membranes moist] Cardiovascular: [S1S2 reg], [no murmur], [positive posterior tibial pulse bilateral], Lungs: [bilateral expiratory wheezing], [no rhonchi, no rales] , [no accessory muscle use] Abdominal: [soft], [ nontender to palpation], [no guarding], [no appreciable organomegaly] Ext: [no gross muscle atrophy], [+2 edema RLE with erythema and pain with palpation ], [no contractures] Neuro: [ CN II-XI grossly intact], [no focal neuro deficits] Psych: [Alert], [oriented], [appropriate affect] - Labs CBC & Chem 7: 02/05/20 05:54 02/05/20 05:54 Labs: Abnormal Lab Results - Last 24 Hours (Table) 02/04/20 02/04/20 02/04/20 Range/Units 16:19 16:19 16:19 WBC 21.2 H (3.8-10.6) k/uL Hct 46.1 H (34.0-46.0) % Neutrophils # 20.2 H (1.3-7.7) k/uL Lymphocytes # 0.3 L (1.0-4.8) k/uL VBG pCO2 (37-51) mmHg VBG HCO3 (24-28) mmol/L Sodium 128 L (137-145) mmol/L Chloride (98-107) mmol/L Carbon Dioxide 16 L (22-30) mmol/L BUN 18 H (7-17) mg/dL Creatinine 1.07 H (0.52-1.04) mg/dL Glucose 118 H (74-99) mg/dL Plasma Lactic Acid Dylon 3.2 H* (0.7-2.0) mmol/L Calcium (8.4-10.2) mg/dL AST 125 H (14-36) U/L ALT 50 H (4-34) U/L Creatine Kinase 1559 H* (30-135) U/L Total Protein 5.9 L (6.3-8.2) g/dL Albumin 3.2 L (3.5-5.0) g/dL Ur Specific [place] (1.001-1.035) Urine Protein (Negative) Urine Ketones (Negative) Urine Blood (Negative) Urine Bacteria (None) /hpf 02/04/20 02/04/20 02/05/20 Range/Units 16:19 19:53 05:54 WBC 16.7 H (3.8-10.6) k/uL Hct (34.0-46.0) % Neutrophils # (1.3-7.7) k/uL Lymphocytes # (1.0-4.8) k/uL VBG pCO2 30 L (37-51) mmHg VBG HCO3 17 L (24-28) mmol/L Sodium (137-145) mmol/L Chloride (98-107) mmol/L Carbon Dioxide (22-30) mmol/L BUN (7-17) mg/dL Creatinine (0.52-1.04) mg/dL Glucose (74-99) mg/dL Plasma Lactic Acid Dylon (0.7-2.0) mmol/L Calcium (8.4-10.2) mg/dL AST (14-36) U/L ALT (4-34) U/L Creatine Kinase (30-135) U/L Total Protein (6.3-8.2) g/dL Albumin (3.5-5.0) g/dL Ur Specific [place] 1.041 H (1.001-1.035) Urine Protein 1+ H (Negative) Urine Ketones 1+ H (Negative) Urine Blood Trace H (Negative) Urine Bacteria Rare H (None) /hpf 02/05/20 Range/Units 05:54 WBC (3.8-10.6) k/uL Hct (34.0-46.0) % Neutrophils # (1.3-7.7) k/uL Lymphocytes # (1.0-4.8) k/uL VBG pCO2 (37-51) mmHg VBG HCO3 (24-28) mmol/L Sodium 132 L (137-145) mmol/L Chloride 108 H (98-107) mmol/L Carbon Dioxide 15 L (22-30) mmol/L BUN (7-17) mg/dL Creatinine (0.52-1.04) mg/dL Glucose 110 H (74-99) mg/dL Plasma Lactic Acid Dylon (0.7-2.0) mmol/L Calcium 7.7 L (8.4-10.2) mg/dL AST 116 H (14-36) U/L ALT 60 H (4-34) U/L Creatine Kinase 1389 H* (30-135) U/L Total Protein 5.0 L (6.3-8.2) g/dL Albumin 2.5 L (3.5-5.0) g/dL Ur Specific [place] (1.001-1.035) Urine Protein (Negative) Urine Ketones (Negative) Urine Blood (Negative) Urine Bacteria (None) /hpf Assessment and Plan Assessment: Severe sepsis secondary to right lower extremity cellulitis -Status post cefepime and clindamycin single doses currently on Vanco IVPB -Continue with vancomycin for MRSA coverage with low suspicion for anaerobes or gram-negative bacilli -Demarcate the area of infection to track progress -Follow up blood cultures -C/w IVFs 150 cc/hr for now. S/p 2 L NS in ED -Monitor for signs of fluid overload -Consult ID and wound care -PT/OT Lactic acidosis -Monitor to resolution Acute COPD exacerbation -Duonebs -Prednisone 40 mg qd for now Mild toxic metabolic encephalopathy in setting of severe sepsis -C/w cellulitis management as above Rhabdomyolysis -Continue with IV fluids and monitor CK improving -Possibly due to cellulitis along with poor oral intake Abnormal LFTs, possibly secondary to severe sepsis -Monitor LFTs for now Hyponatremia, possibly secondary to poor oral intake- improving -Monitor BMP for now GI and DVT prophylaxis -Pepcid daily -Heparin subq The patient is admitted with an anticipated greater than 2 midnight stay for evaluation of severe sepsis CODE STATUS: Full Code Discussed with: Patient Anticipated discharge date: 02/[address]: Rehab vs home Case management consulted A total of 30 minutes was spent on the care of this complex patient more than 50% of the time was spent in counseling and care coordination.
[2020-02-05] MEDS: FAMOTIDINE 20 MG TAB PO SCH (09:39)
[2020-02-05] MEDS ORDERED: NYSTAT-TRIAMCIN 100,000-0.1 UNIT/GM-% CREAM 30 GM TUBE TOPICAL SCH (15:00)
[2020-02-05] MEDS: NYSTATIN 100,000UNIT/GM CREAM 30 GM TUBE TOPICAL SCH (16:51)
[2020-02-05] MEDS: TRIAMCINOLONE 0.1% CREAM 80 GM TUBE TOPICAL SCH (16:51)
[2020-02-05] MEDS: OLANZapine 10 MG TAB PO SCH (21:52)
[2020-02-05] MEDS: ACETAMINOPHEN TAB 325 MG TAB PO PRN (21:57)
--- NOTE | 2020-02-05 23:59 | P.CONS ---
History of Present Illness - Reason for Consult Consult date: 02/05/20 right leg cellulitis Requesting physician: Preston Castellanos - Chief Complaint right leg pain and swelling x few days - History of Present Illness Patient is a 69-year-old female presenting to the ER at [facility] yesterday with chief complaints of increasing shortness of breath and increasing right lower extremity swelling and erythema patient symptom has been going on for few days before she presented to hospital patient did have diffuse swelling redness of the right leg will be complaining of pain to the right leg to be throbbing and sharp almost 70 8 out of 10 with no radiation worse with touching of her right leg currently with no open wound or any drainage patient denies high-grade fever however did have some chills with associated shortness of breath no chest pain no cough no nausea no vomiting no vomiting no diarrhea with the symptom the patient has been evaluated by the ER physician on arrival to the ER the patient has been afebrile however he did have elevated white of 21.2 thousand patient did have mild remittent creatinine 1.07 lactate was elevated at 3.2 CK was also elevated as well as mild elevated liver enzymes patient UA has been negative yoo PCR was negative patient chest x-ray shows interstitial lung disease lower extremity Doppler was negative for DVT patient also have lower extremity CT correlate for cellulitis edema no evidence of any abscess patient has been admitted to the hospital patient was started on vancomycin she did receive a dose of cefepime and clindamycin in the ER infectious was consulted for further management of antibiotic therapy follow extremity cellulitis. Review of Systems Positive point has been mentioned in HPI rest of the systems are negative Past Medical History Past Medical History: Asthma, Cancer, Eye Disorder, Hyperlipidemia, Osteoarthritis (OA), Thyroid Disorder Additional Past Medical History / Comment(s): "low BP", edema lower legs, uses a cane, emphysema, glaucoma, "lump on kidney", breast cancer, last seizure 2011 History of Any Multi-Drug Resistant Organisms: None Reported Past Surgical History: Breast Surgery, Hysterectomy, Tubal Ligation Additional Past Surgical History / Comment(s): left mastectomy Past Anesthesia/Blood Transfusion Reactions: Motion Sickness Past Psychological History: Anxiety, Bipolar, Schizophrenia Smoking Status: Current every day smoker Past Alcohol Use History: None Reported Past Drug Use History: Marijuana - Past Family History Father Additional Family Medical History / Comment(s): Father at age at 87 from old age. Daughter(s) Additional Family Medical History / Comment(s): Patient states that she has 3 children and 2 are on drugs. Sister(s) Family Medical History: Cancer Additional Family Medical History / Comment(s): She has one sister that from some type of cancer. Mother Family Medical History: Cancer Additional Family Medical History / Comment(s): Mother at age 56 from cancer, unknown type. Medications and Allergies Home Medications Medication Instructions Recorded Confirmed Type Cyclobenzaprine [Flexeril] 10 mg PO HS #30 tab 10/06/18 02/04/20 Rx Levothyroxine Sodium 150 mcg PO DAILY #30 tablet 10/06/18 02/04/20 Rx Simvastatin [Zocor] 10 mg PO DAILY #30 tablet 10/06/18 02/04/20 Rx Spironolactone [Aldactone] 25 mg PO DAILY #30 tab 10/06/18 02/04/20 Rx Cholecalciferol [Vitamin D3 (25 1,000 unit PO DAILY 12/25/19 02/04/20 History Mcg = 1000 Iu)] Fluphenazine Deconoate 25mg/1mg Oil 50 mg IM Q14D 12/25/19 02/04/20 History Multivitamins, Thera [Multivitamin 1 tab PO DAILY 12/25/19 02/04/20 History (formulary)] OLANZapine [ZyPREXA] 20 mg PO HS 12/25/19 02/04/20 History rOPINIRole HCL [Requip] 0.25 mg PO TID-W/MEALS 12/25/19 02/04/20 History Albuterol Sulfate [Ventolin HFA] 2 puff INHALATION RT-Q6H PRN 02/04/20 02/04/20 History Allergies Allergy/AdvReac Type Severity Reaction Status Date / Time lamotrigine [From Lamictal] Allergy Severe throat Verified 02/04/20 23:08 swelling metronidazole [From Flagyl] Allergy Severe Swelling Verified 02/04/20 23:08 pregabalin [From Lyrica] Allergy Severe throat Verified 02/04/20 23:08 swelling Sulfa (Sulfonamide Allergy Severe Swelling Verified 02/04/20 23:08 Antibiotics) morphine AdvReac Severe passed out Verified 02/04/20 23:08 cortisone AdvReac Rash/Hives Verified 02/04/20 23:08 Penicillins AdvReac Rash/Hives Verified 02/04/20 23:08 Physical Exam Vitals: Vital Signs Temp Pulse Pulse Pulse Resp BP BP 02/05/20 12:15 97.7 F 91 17 103/69 02/05/20 11:05 92 02/05/20 10:52 88 02/05/20 07:30 96 02/05/20 07:20 92 02/05/20 05:44 97.5 F L 91 20 103/63 02/05/20 00:00 20 02/04/20 22:18 98.9 F 98 20 99/63 02/04/20 21:40 98.9 F 100 22 107/68 02/04/20 20:00 100 22 98/58 02/04/20 19:50 101 H 24 102/66 02/04/20 18:40 104 H 18 110/54 02/04/20 18:22 109 H 18 118/53 02/04/20 17:06 112 H 18 99/60 02/04/20 16:22 116 H 18 96/45 02/04/20 15:50 98.4 F 118 H 24 105/37 Pulse Ox 02/05/20 12:15 99 02/05/20 11:05 02/05/20 10:52 02/05/20 07:30 02/05/20 07:20 02/05/20 05:44 97 02/05/20 00:00 02/04/20 22:18 99 02/04/20 21:40 97 02/04/20 20:00 98 02/04/20 19:50 100 02/04/20 18:40 96 02/04/20 18:22 96 02/04/20 17:06 96 02/04/20 16:22 96 02/04/20 15:50 96 Intake and Output 02/04/20 02/05/20 02/05/20 22:59 06:59 14:59 Intake Total 1440 1200 Balance 1440 1200 Intake: Intake, IV Titration 1200 1200 Amount Sodium Chloride 0.9% 1, 1200 1200 000 ml @ 150 mls/hr IV . Q6H40M [facility] Rx#:[id number] Oral 240 Other: # Voids 1 # Bowel Movements 1 1 Weight 72.575 kg GENERAL DESCRIPTION: Elderly female lying in bed, no distress. No tachypnea or accessory muscle of respiration use. HEENT: Shows Pallor , no scleral icterus. Oral mucous membrane is dry. NECK: Trachea central, no thyromegaly. LUNGS: Unlabored breathing. Clear to auscultation anteriorly. No wheeze or crackle. HEART: S1, S2, regular rate and rhythm. ABDOMEN: Soft, no tenderness , guarding or rigidity EXTREMITIES: Diffuse swelling of the right lower extremity from superficial ulceration slightly warm and tender to touch no drainage sKIN: No rash, no masses palpable. NEUROLOGICAL: The patient is awake, alert, oriented x3, mood and affect normal. Results CBC & Chem 7: 02/05/20 05:54 02/05/20 05:54 Labs: Abnormal Lab Results - Last 24 Hours (Table) 02/04/20 02/04/20 02/04/20 Range/Units 16:19 16:19 16:19 WBC 21.2 H (3.8-10.6) k/uL Hct 46.1 H (34.0-46.0) % Neutrophils # 20.2 H (1.3-7.7) k/uL Lymphocytes # 0.3 L (1.0-4.8) k/uL VBG pCO2 (37-51) mmHg VBG HCO3 (24-28) mmol/L Sodium 128 L (137-145) mmol/L Chloride (98-107) mmol/L Carbon Dioxide 16 L (22-30) mmol/L BUN 18 H (7-17) mg/dL Creatinine 1.07 H (0.52-1.04) mg/dL Glucose 118 H (74-99) mg/dL Plasma Lactic Acid Dylon 3.2 H* (0.7-2.0) mmol/L Calcium (8.4-10.2) mg/dL AST 125 H (14-36) U/L ALT 50 H (4-34) U/L Creatine Kinase 1559 H* (30-135) U/L Total Protein 5.9 L (6.3-8.2) g/dL Albumin 3.2 L (3.5-5.0) g/dL Ur Specific [place] (1.001-1.035) Urine Protein (Negative) Urine Ketones (Negative) Urine Blood (Negative) Urine Bacteria (None) /hpf 05/08/20 05/08/20 05/09/20 Range/Units 16:19 19:53 05:54 WBC 16.7 H (3.8-10.6) k/uL Hct (34.0-46.0) % Neutrophils # (1.3-7.7) k/uL Lymphocytes # (1.0-4.8) k/uL VBG pCO2 30 L (37-51) mmHg VBG HCO3 17 L (24-28) mmol/L Sodium (137-145) mmol/L Chloride (98-107) mmol/L Carbon Dioxide (22-30) mmol/L BUN (7-17) mg/dL Creatinine (0.52-1.04) mg/dL Glucose (74-99) mg/dL Plasma Lactic Acid Dylon (0.7-2.0) mmol/L Calcium (8.4-10.2) mg/dL AST (14-36) U/L ALT (4-34) U/L Creatine Kinase (30-135) U/L Total Protein (6.3-8.2) g/dL Albumin (3.5-5.0) g/dL Ur Specific [place] 1.041 H (1.001-1.035) Urine Protein 1+ H (Negative) Urine Ketones 1+ H (Negative) Urine Blood Trace H (Negative) Urine Bacteria Rare H (None) /hpf 02/05/20 Range/Units 05:54 WBC (3.8-10.6) k/uL Hct (34.0-46.0) % Neutrophils # (1.3-7.7) k/uL Lymphocytes # (1.0-4.8) k/uL VBG pCO2 (37-51) mmHg VBG HCO3 (24-28) mmol/L Sodium 132 L (137-145) mmol/L Chloride 108 H (98-107) mmol/L Carbon Dioxide 15 L (22-30) mmol/L BUN (7-17) mg/dL Creatinine (0.52-1.04) mg/dL Glucose 110 H (74-99) mg/dL Plasma Lactic Acid Dylon (0.7-2.0) mmol/L Calcium 7.7 L (8.4-10.2) mg/dL AST 116 H (14-36) U/L ALT 60 H (4-34) U/L Creatine Kinase 1389 H* (30-135) U/L Total Protein 5.0 L (6.3-8.2) g/dL Albumin 2.5 L (3.5-5.0) g/dL Ur Specific [place] (1.001-1.035) Urine Protein (Negative) Urine Ketones (Negative) Urine Blood (Negative) Urine Bacteria (None) /hpf Assessment and Plan Assessment: 1-patient with acute right her lower extremity cellulitis in this patient did have diffuse swelling and redness with some superficial cracking of the skin likely streptococcal cellulitis with concern for possible component of fungal dermatitis clinically doubt MRSA or gram-negative infection. 2-patient with multiple antibiotic allergies that would limit the number of antibiotics safe to use (1) Cellulitis of right lower extremity Current Visit: Yes Status: Acute Code(s): L03.115 - CELLULITIS OF RIGHT LOWER LIMB SNOMED Code(s): 763784562 Plan: 1-discontinue the vancomycin 2 cefazolin 2 g every 8 hour 3-Mycolog cream to the right leg to be applied daily, followed by Ciro wrap from just above the toe to below the knee to be changed daily We will follow on clinical condition and cultures to further adjust medication if needed Thank you for this consultation we will follow the patient along with you Time with Patient: Greater than 30
[2020-02-06] MEDS: HEPARIN SODIUM,PORCINE 5,000 UNIT/ML 1 ML VIAL SQ SCH ×3 (00:16→16:02)
[2020-02-06] MEDS: SODIUM CHLORIDE 0.9% 1,000 ML IV SCH ×3 (06:26→15:58)
[2020-02-06 06:29] LABS: Basophils % (A) 0 %; Eosinophils % (A) 0 %; HCT 39.3 % (34.0-46.0); HGB 12.8 gm/dL (11.4-16.0); Lymphocytes # (A) 0.3 k/uL (1.0-4.8); Lymphocytes % (A) 2 %; MCH 31.3 pg (25.0-35.0); MCHC 32.7 g/dL (31.0-37.0); MCV 95.7 fL (80.0-100.0); Mean Platelet Volume 8.2; Monocytes # (A) 0.3 k/uL (0-1.0); Monocytes % (A) 1 %; Neutrophils # (A) 17.5 k/uL (1.3-7.7); Neutrophils % (A) 96 %; Platelet Count 153 k/uL (150-450); RDW 14.5 % (11.5-15.5); WBC 18.1 k/uL (3.8-10.6)
[2020-02-06] MEDS: LEVOTHYROXINE 50 MCG TAB PO SCH (06:30)
[2020-02-06 06:37] LABS: ALT 44 U/L (4-34); AST 76 U/L (14-36); African American GFR (CKD) >90 (>60 ml/min/1.73 sqM); Albumin 2.3 g/dL (3.5-5.0); Alkaline Phosphatase 97 U/L (38-126); Anion Gap 6 mmol/L; Blood Urea Nitrogen 15 mg/dL (7-17); Calcium 8.4 mg/dL (8.4-10.2); Carbon Dioxide 17 mmol/L (22-30); Chloride 108 mmol/L (98-107); Creatine Kinase 568 U/L (30-135); Glucose 78 mg/dL (74-99); Non-African American GFR(CKD) >90 (>60 ml/min/1.73 sqM); Potassium 3.6 mmol/L (3.5-5.1); Sodium 131 mmol/L (137-145); Total Bilirubin 0.4 mg/dL (0.2-1.3); Total Protein 4.7 g/dL (6.3-8.2)
[2020-02-06] MEDS: IPRATROPIUM-ALBUTEROL 3 ML NEB INHALATION SCH ×4 (07:39→19:52)
[2020-02-06] MEDS ORDERED: methylPREDNISolone SOD SUCCI 125 MG/2 ML VIAL IM STA (07:50)
[2020-02-06] MEDS ORDERED: FUROSEMIDE 10 MG/ML 2 ML VIAL IV STA (07:52)
[2020-02-06] MEDS ORDERED: IPRATROPIUM-ALBUTEROL 3 ML NEB INHALATION STA (07:53)
[2020-02-06] MEDS ORDERED: VANCOMYCIN TROUGH DUE 1 EACH MISC MISCELLANE ONE (08:00)
[2020-02-06] MEDS: ACETAMINOPHEN TAB 325 MG TAB PO PRN ×3 (08:03→21:44)
[2020-02-06] MEDS: FAMOTIDINE 20 MG TAB PO SCH (08:05)
[2020-02-06] MEDS ORDERED: VANCOMYCIN IV PER PHARMACY 1 EACH MISC MISCELLANE PRN (08:17)
[2020-02-06] MEDS ORDERED: VANCOMYCIN 1,500 MG in SODIUM CHLORIDE 0.9% 250 ML IVPB ONE (09:00)
--- NOTE | 2020-02-06 09:00 | XR ---
EXAMINATION TYPE: XR chest 2V DATE OF EXAM: 02/06/2020 HISTORY: shortness of breath. REFERENCE: Previous study dated 02/04/2020. FINDINGS: The lungs are overinflated. The heart is mildly enlarged. There is vascular congestion and mild pulmonary edema. There is confluent opacity at the left lung base. This may represent confluent edema or pneumonia. There is blunting of the right CP angle. I could not exclude a small effusion. IMPRESSION: 1. COPD. 2. FINDINGS SUGGESTIVE OF MILD HEART FAILURE. 3. CONFLUENT AIRSPACE DISEASE THE LEFT LUNG BASE MAY REPRESENT CONFLUENT EDEMA OR PNEUMONIA. 4. I CANNOT EXCLUDE A SMALL RIGHT EFFUSION.
[2020-02-06] MEDS: VANCOMYCIN 1,250 MG in SODIUM CHLORIDE 0.9% 250 ML IVPB SCH ×2 (09:13→17:01)
--- NOTE | 2020-02-06 09:13 | P.PN ---
Subjective Progress Note Date: 02/06/20 Patient seen and examined at bedside. I was called to patient's room this morning by her nurse after was appearing more distressed. Patient had increased flushing in her skin, increased expiratory wheezing, and difficulty breathing. Patient is alert and awake but appears to be more toxic than yesterday. Stat chest x-ray IV Lasix and IV Solu-Medrol were given to patient. Patient's IV antibiotics were recently changed from vancomycin to cefazolin sodium by ID. There is concern for ALLERGY. Dr. Zee has been paged. IV fluids have been hep-locked. Patient is a 69-year-old female with a PMH of COPD and hyperlipidemia who presented to the ED from home due to right leg pain and swelling, fall at home, and difficulty breathing. The patient is a somewhat poor historian. She notes that her leg has been hurting for the past few days and that earlier today she was walking to her restroom when she lost her balance and fell, prompting her to call EMS. She reports falling on her knees, and denied loss of consciousness, or head/hip trauma. She also denied any pain in her knees currently, or tingling or numbness of her legs. The patient denied trauma to the R leg prior to onset of her symptoms. The patient states that she lives by herself though her children often check in on her. She also reports mild shortness of breath for which she has been taking inhalers at home. She denied fever, chills, chest pain, nausea, vomiting, or diarrhea. The patient underwent an extensive evaluation in the emergency room with chest x-ray showing chronic interstitial changes, with brain CT that was unremarkable. Lower extremity duplex was negative for DVT with a lower extremity CT showing cellulitis without evidence of an abscess. Objective - Vital Signs Vital signs: Vital Signs Temp 98.3 F 02/06/20 04:00 Pulse 116 H 02/06/20 04:00 Resp 28 H 02/06/20 04:00 BP 115/72 02/06/20 04:00 Pulse Ox 99 02/06/20 04:00 Intake & Output 02/05/20 02/06/20 02/06/20 18:59 06:59 18:59 Intake Total 1200 Balance 1200 Intake: Intake, IV Titration 1200 Amount Sodium Chloride 0.9% 1, 1200 000 ml @ 150 mls/hr IV . Q6H40M [facility] Rx#:[id number] Other: Voiding Method Bedside Commode Diaper # Voids 0 # Bowel Movements 1 1 - Exam General: [ toxic], [ mild distress], [appears older than stated age] Derm: [warm], [dry] Head: [atraumatic], [normocephalic], [symmetric] Eyes: [EOMI], [no lid lag], [anicteric sclera] Mouth: [no lip lesion], [mucus membranes moist] Cardiovascular: [S1S2 reg], [no murmur], [positive posterior tibial pulse bilateral], Lungs: [CTA bilateral], [no rhonchi, no rales] , [no accessory muscle use] Abdominal: [soft], [ nontender to palpation], [no guarding], [no appreciable organomegaly] Ext: [no gross muscle atrophy], [+2 edema with erythema], [no contractures] Neuro: [ CN II-XI grossly intact], [no focal neuro deficits] Psych: [Alert], [oriented], [appropriate affect] - Labs CBC & Chem 7: 02/06/20 06:06 02/06/20 06:06 Labs: Abnormal Lab Results - Last 24 Hours (Table) 02/06/20 02/06/20 Range/Units 06:06 06:06 WBC 18.1 H (3.8-10.6) k/uL Neutrophils # 17.5 H (1.3-7.7) k/uL Lymphocytes # 0.3 L (1.0-4.8) k/uL Sodium 131 L (137-145) mmol/L Chloride 108 H (98-107) mmol/L Carbon Dioxide 17 L (22-30) mmol/L AST 76 H (14-36) U/L ALT 44 H (4-34) U/L Creatine Kinase 568 H (30-135) U/L Total Protein 4.7 L (6.3-8.2) g/dL Albumin 2.3 L (3.5-5.0) g/dL Microbiology - Last 24 Hours (Table) 02/04/20 16:19 Blood Culture - Final Blood Assessment and Plan Plan: Acute respiratory failure failure likely secondary to fluid overload and COPD exacerbation with allergic reaction IV Lasix 1 provided Solu-Medrol 1 provided Chest x-ray ordered and reveals mild, pulmonary congestion Duonebs q 4 hours Hep-Lock fluids Severe sepsis secondary to right lower extremity cellulitis -Status post cefepime and clindamycin single doses restart Vanco IVPB -Continue with vancomycin dc cefazolin for now until ID reevaluates the patient concern for ALLERGY to cefazolin -Monitor for signs of fluid overload -ID and wound care recommendations appreciated -PT/OT Lactic acidosis -Monitor to resolution Acute COPD exacerbation -Duonebs -Solu-Medrol IV push every 6 hours Mild toxic metabolic encephalopathy in setting of severe sepsis -C/w cellulitis management as above Rhabdomyolysis -Continue with IV fluids and monitor CK improving -Possibly due to cellulitis along with poor oral intake Abnormal LFTs, possibly secondary to severe sepsis -Monitor LFTs for now Hyponatremia, possibly secondary to poor oral intake- improving -Monitor BMP for now GI and DVT prophylaxis -Pepcid daily -Heparin subq The patient is admitted with an anticipated greater than 2 midnight stay for evaluation of severe sepsis CODE STATUS: Full Code Discussed with: Patient Anticipated discharge date: 02/[address]: Rehab vs home Case management consulted A total of 30 minutes was spent on the care of this complex patient more than 50 % of the time was spent in counseling and care coordination.
[2020-02-06] MEDS ORDERED: FUROSEMIDE 10 MG/ML 2 ML VIAL IV ONE (12:00)
[2020-02-06] MEDS: TRIAMCINOLONE 0.1% CREAM 80 GM TUBE TOPICAL SCH (15:57)
[2020-02-06] MEDS: NYSTATIN 100,000UNIT/GM CREAM 30 GM TUBE TOPICAL SCH (15:57)
[2020-02-06] MEDS: methylPREDNISolone SOD SUCCI 125 MG/2 ML VIAL IV SCH (16:03)
[2020-02-06] MEDS: OLANZapine 10 MG TAB PO SCH (21:41)
--- NOTE | 2020-02-06 22:59 | PN ---
PROGRESS NOTE DATE OF SERVICE: 02/06/2020 REASON FOR FOLLOWUP: Right lower extremity cellulitis. INTERVAL HISTORY: The patient was noted this morning to have increasing shortness of breath though patient did have a low-grade fever of 99.7. Some redness was noticed on the upper chest area as well as the right leg. Vancomycin has been restarted. The patient is currently feeling better. Breathing comfortably. No chest pain or cough. No abdominal pain. Still complaining of pain to the right leg, almost 10 out of 10. PHYSICAL EXAMINATION: On examination, her blood pressure 102/67 with a pulse of 95, temperature 97.9. She is 96% 4 L nasal cannula. General description is an elderly female lying in bed in no distress. RESPIRATORY SYSTEM: Unlabored breathing, clear to auscultation anteriorly. HEART: S1, S2. Regular rate and rhythm. ABDOMEN: Soft, no tenderness. Right leg did have significant swelling and redness. There was a small amount of purulent drainage, has been cultured. LABS: Hemoglobin is 12.8, white count 18.1. BUN of 15, creatinine 0.54. Blood culture showing gram-positive bacilli. DIAGNOSTIC IMPRESSION AND PLAN: 1. Patient with right lower extremity cellulitis with some worsening onset for which vancomycin has been restarted. We will discontinue the cefazolin. Continue with vancomycin. There was slight area of for purulent drainage that will be cultured and followed. Will discontinue the Mycolog cream as well. Adjusting antibiotic further on the basis of culture with clinical response. 2. Positive blood culture with gram-positive bacilli, possible contamination. Repeat blood culture has been ordered to document clearance already on vancomycin to continue. MMODL / IJN: [id number] /
[2020-02-07] MEDS: methylPREDNISolone SOD SUCCI 125 MG/2 ML VIAL IV SCH ×3 (00:33→15:30)
[2020-02-07] MEDS: VANCOMYCIN 1,250 MG in SODIUM CHLORIDE 0.9% 250 ML IVPB SCH ×3 (00:33→20:21)
[2020-02-07] MEDS: HEPARIN SODIUM,PORCINE 5,000 UNIT/ML 1 ML VIAL SQ SCH ×4 (00:34→23:16)
[2020-02-07] MEDS: LEVOTHYROXINE 50 MCG TAB PO SCH (05:58)
[2020-02-07] MEDS: ACETAMINOPHEN TAB 325 MG TAB PO PRN ×3 (06:25→23:17)
[2020-02-07] MEDS: FAMOTIDINE 20 MG TAB PO SCH (08:04)
[2020-02-07] MEDS: IPRATROPIUM-ALBUTEROL 3 ML NEB INHALATION SCH ×4 (08:33→21:00)
[2020-02-07 08:40] LABS: ALT 40 U/L (4-34); AST 50 U/L (14-36); African American GFR (CKD) >90 (>60 ml/min/1.73 sqM); Albumin 2.4 g/dL (3.5-5.0); Alkaline Phosphatase 122 U/L (38-126); Anion Gap 7 mmol/L; Blood Urea Nitrogen 17 mg/dL (7-17); Calcium 8.8 mg/dL (8.4-10.2); Carbon Dioxide 20 mmol/L (22-30); Chloride 107 mmol/L (98-107); Glucose 128 mg/dL (74-99); Non-African American GFR(CKD) >90 (>60 ml/min/1.73 sqM); Potassium 2.9 mmol/L (3.5-5.1); Sodium 134 mmol/L (137-145); Total Bilirubin 0.4 mg/dL (0.2-1.3); Total Protein 4.9 g/dL (6.3-8.2)
[2020-02-07 08:46] LABS: Basophils # (A) 0.1 k/uL (0-0.2); Basophils % (A) 0 %; Eosinophils # (A) 0.1 k/uL (0-0.7); Eosinophils % (A) 0 %; HCT 38.7 % (34.0-46.0); HGB 12.9 gm/dL (11.4-16.0); Lymphocytes # (A) 0.3 k/uL (1.0-4.8); Lymphocytes % (A) 1 %; MCH 31.8 pg (25.0-35.0); MCHC 33.4 g/dL (31.0-37.0); Mean Platelet Volume 9.3; Monocytes # (A) 0.9 k/uL (0-1.0); Monocytes % (A) 4 %; Neutrophils # (A) 23.8 k/uL (1.3-7.7); Neutrophils % (A) 94 %; Platelet Count 164 k/uL (150-450); RBC 4.07 m/uL (3.80-5.40); RDW 14.7 % (11.5-15.5); WBC 25.2 k/uL (3.8-10.6)
[2020-02-07] MEDS ORDERED: POTASSIUM CHLORIDE ER 20 MEQ TAB.ER PO STA (09:24)
[2020-02-07] MEDS ORDERED: POTASSIUM CHLORIDE 20 MEQ in WATER FOR INJECTION 1 100ML.BAG IVPB ONE (09:30)
[2020-02-07] MEDS ORDERED: POTASSIUM CHLORIDE 2 MEQ/ML 20 ML VIAL IVPB ONE (09:30)
[2020-02-07] MEDS: SPIRONOLACTONE 25 MG TAB PO SCH (10:28)
[2020-02-07] MEDS: AMMONIUM LACTATE 12% LOTION 225 GM BTL TOPICAL SCH ×2 (12:01→20:21)
--- NOTE | 2020-02-07 13:47 | P.CONS ---
History of Present Illness - Reason for Consult Consult date: 02/07/20 Wound care - History of Present Illness This is a 68-year-old pleasant female who is being seen by the wound care center on [address]. Patient has cellulitis to the right lower extremity extending from the calcaneus to superior popliteal. Patient has no open ulcerations at this time. Patient states that she did have an ulceration to the right calcaneus however at this time it is epithelialized. Asians past medical history significant for edema to lower extremities, hyperlipidemia, osteoarthritis, hypo-thyroidism, breast cancer, patient is a current half a pack smoker smoking of smoking since she was 17 so greater than 50 years. Patient also has history of anxiety bipolar and schizophrenia. Review of Systems Review Of Systems: Constitutional: No fever, no chills, no night sweats. No weight change. No weakness, fatigue or lethargy. No daytime sleepiness. Integumentary:reports wounds, no lesions. No rash or pruritus. No unusual bruising. No change in hair or nails. Past Medical History Past Medical History: Asthma, Cancer, Eye Disorder, Hyperlipidemia, Osteoarthritis (OA), Thyroid Disorder Additional Past Medical History / Comment(s): "low BP", edema lower legs, uses a cane, emphysema, glaucoma, "lump on kidney", breast cancer, last seizure 2011 History of Any Multi-Drug Resistant Organisms: None Reported Past Surgical History: Breast Surgery, Hysterectomy, Tubal Ligation Additional Past Surgical History / Comment(s): left mastectomy Past Anesthesia/Blood Transfusion Reactions: Motion Sickness Past Psychological History: Anxiety, Bipolar, Schizophrenia Smoking Status: Current every day smoker Past Alcohol Use History: None Reported Past Drug Use History: Marijuana - Past Family History Father Additional Family Medical History / Comment(s): Father at age at 87 from old age. Daughter(s) Additional Family Medical History / Comment(s): Patient states that she has 3 children and 2 are on drugs. Sister(s) Family Medical History: Cancer Additional Family Medical History / Comment(s): She has one sister that from some type of cancer. Mother Family Medical History: Cancer Additional Family Medical History / Comment(s): Mother at age 56 from cancer, unknown type. Medications and Allergies Home Medications Medication Instructions Recorded Confirmed Type Cyclobenzaprine [Flexeril] 10 mg PO HS #30 tab 10/06/18 02/04/20 Rx Levothyroxine Sodium 150 mcg PO DAILY #30 tablet 10/06/18 02/04/20 Rx Simvastatin [Zocor] 10 mg PO DAILY #30 tablet 10/06/18 02/04/20 Rx Spironolactone [Aldactone] 25 mg PO DAILY #30 tab 10/06/18 02/04/20 Rx Cholecalciferol [Vitamin D3 (25 1,000 unit PO DAILY 12/25/19 02/04/20 History Mcg = 1000 Iu)] Fluphenazine Deconoate 25mg/1mg Oil 50 mg IM Q14D 12/25/19 02/04/20 History Multivitamins, Thera [Multivitamin 1 tab PO DAILY 12/25/19 02/04/20 History (formulary)] OLANZapine [ZyPREXA] 20 mg PO HS 12/25/19 02/04/20 History rOPINIRole HCL [Requip] 0.25 mg PO TID-W/MEALS 12/25/19 02/04/20 History Albuterol Sulfate [Ventolin HFA] 2 puff INHALATION RT-Q6H PRN 02/04/20 02/04/20 History Allergies Allergy/AdvReac Type Severity Reaction Status Date / Time lamotrigine [From Lamictal] Allergy Severe throat Verified 02/04/20 23:08 swelling metronidazole [From Flagyl] Allergy Severe Swelling Verified 02/04/20 23:08 pregabalin [From Lyrica] Allergy Severe throat Verified 02/04/20 23:08 swelling Sulfa (Sulfonamide Allergy Severe Swelling Verified 02/04/20 23:08 Antibiotics) morphine AdvReac Severe passed out Verified 02/04/20 23:08 cortisone AdvReac Rash/Hives Verified 02/04/20 23:08 Penicillins AdvReac Rash/Hives Verified 02/04/20 23:08 Physical Exam Vitals: Vital Signs Temp Pulse Pulse Resp BP Pulse Ox 02/07/20 11:15 97.6 F 90 16 107/73 99 02/07/20 08:44 80 02/07/20 08:36 78 02/07/20 05:34 97.0 F L 81 20 97/65 100 02/06/20 23:07 100/66 02/06/20 21:20 96.7 F L 77 20 93/61 98 Intake and Output 02/06/20 02/07/20 02/07/20 22:59 06:59 14:59 Intake Total 100 750 250 Balance 100 750 250 Intake: Intake, IV Titration 250 250 Amount Vancomycin 1,250 mg In 250 250 Sodium Chloride 0.9% 250 ml @ 125 mls/hr IVPB Q8H [facility] Rx#:[id number] Oral 100 500 Other: Voiding Method Bedside Commode Diaper # Voids 1 3 Physical exam: General Appearance: Alert, cooperative, no distress, appears stated age. Skin: No ulcerations noted right calcaneus epithelialized all other Skin color, texture, tugor normal, no rashes or lesions. Neurologic: Alert oriented x3 Results CBC & Chem 7: 02/07/20 08:04 02/07/20 08:04 Labs: Abnormal Lab Results - Last 24 Hours (Table) 02/07/20 02/07/20 Range/Units 08:04 08:04 WBC 25.2 H (3.8-10.6) k/uL Neutrophils # 23.8 H (1.3-7.7) k/uL Lymphocytes # 0.3 L (1.0-4.8) k/uL Sodium 134 L (137-145) mmol/L Potassium 2.9 L (3.5-5.1) mmol/L Carbon Dioxide 20 L (22-30) mmol/L Creatinine 0.45 L (0.52-1.04) mg/dL Glucose 128 H (74-99) mg/dL AST 50 H (14-36) U/L ALT 40 H (4-34) U/L Total Protein 4.9 L (6.3-8.2) g/dL Albumin 2.4 L (3.5-5.0) g/dL Microbiology - Last 24 Hours (Table) 02/06/20 15:12 Gram Stain - Preliminary Leg - Right Wound Culture - Preliminary 02/04/20 16:19 Blood Culture Gram Stain - Preliminary Blood Assessment and Plan (1) Cellulitis of right lower extremity Current Visit: Yes Status: Acute Code(s): L03.115 - CELLULITIS OF RIGHT LOWER LIMB SNOMED Code(s): 346609403 Plan: No open ulcerations noted at this time no wound care needed. If any ulcerations appear clear contact the wound care center for recommendations. Thank you kindly for the consultation any questions please contact the wound care center DNP note has been reviewed and discussed with Dr. Child and the impression and plan of care has been directed as dictated.
--- NOTE | 2020-02-07 16:17 | P.PN ---
Subjective Progress Note Date: 02/07/20 Principal diagnosis: Lower extremity redness Patient is 69-year-old female with COPD, dyslipidemia, osteoarthritis, chronic lower extremity edema, and multiple other chronic conditions who presented to the emergency department secondary to right leg pain and swelling, a fall at home and difficulty in breathing. In the ER she underwent an extensive evaluation was found have right lower extremity cellulitis. Chest x- ray showed interstitial lung disease. CT brain showed no acute abnormality. She was also found to be septic. She was started on IV fluids and antibiotics. She was also noted to have hyponatremia and acute kidney injury. Arrangements were made for admission. She was also found to have possible acute exacerbation of COPD and was started on prednisone. Infectious disease was consulted and felt that she likely had a streptococcal infection secondary to the redness and edema. They discontinued her Vanco and started cefazolin 2 g every 8 hours. On the morning of 02/05 the patient appeared more distressed and was having increased flushing of her skin and expiratory wheeze along with difficulty in breathing. It was felt to be likely a reaction to her cefazolin and she was started on solumedrol and given a dose of IV lasix. Chest x-ray showed COPD with mild heart failure and left lower wall edema versus pneumonia. Her cefazolin was stopped and she was transitioned to vancomycin. She was found to have a gram-negative bacteremia which ultimately resulted as diphtheroids and was felt to be contaminant. Patient seen and examined at bedside. She reports that she is having some shortness of breath that is much better than yesterday. She denies any nausea, vomiting, diarrhea, or chest pain. She does report some lower extremity pain. Objective - Vital Signs Vital signs: Vital Signs Temp 97.0 F L 02/07/20 05:34 Pulse 80 02/07/20 08:44 Resp 20 02/07/20 05:34 BP 97/65 02/07/20 05:34 Pulse Ox 100 02/07/20 05:34 Intake & Output 02/06/20 02/07/20 02/07/20 18:59 06:59 18:59 Intake Total 250 850 Balance 250 850 Intake: Intake, IV Titration 250 250 Amount Vancomycin 1,250 mg In 250 250 Sodium Chloride 0.9% 250 ml @ 125 mls/hr IVPB Q8H [facility] Rx#:[id number] Oral 600 Other: Voiding Method Bedside Commode Diaper # Voids 3 - Exam General: ill appearing, no distress, appears older than stated age Derm: Right lower extremity erythema with some more extending beyond the line of demarcation. Skin softening with skin noted, no open wounds identified, warm, dry Head: atraumatic, normocephalic, symmetric Eyes: EOMI, no lid lag, anicteric sclera Mouth: no lip lesion, mucus membranes moist Cardiovascular: S1S2 reg, no murmur, positive posterior tibial pulse bilateral, Lungs: CTA bilateral, no rhonchi, no rales , no accessory muscle use Abdominal: soft, nontender to palpation, no guarding, no appreciable organomega ly Ext: no gross muscle atrophy, no edema, no contractures Neuro: CN II-XI grossly intact, no focal neuro deficits Psych: Alert, oriented, appropriate affect - Labs CBC & Chem 7: 02/07/20 08:04 02/07/20 08:04 Labs: Abnormal Lab Results - Last 24 Hours (Table) 02/07/20 02/07/20 Range/Units 08:04 08:04 WBC 25.2 H (3.8-10.6) k/uL Neutrophils # 23.8 H (1.3-7.7) k/uL Lymphocytes # 0.3 L (1.0-4.8) k/uL Sodium 134 L (137-145) mmol/L Potassium 2.9 L (3.5-5.1) mmol/L Carbon Dioxide 20 L (22-30) mmol/L Creatinine 0.45 L (0.52-1.04) mg/dL Glucose 128 H (74-99) mg/dL AST 50 H (14-36) U/L ALT 40 H (4-34) U/L Total Protein 4.9 L (6.3-8.2) g/dL Albumin 2.4 L (3.5-5.0) g/dL Microbiology - Last 24 Hours (Table) 02/06/20 15:12 Gram Stain - Preliminary Leg - Right Wound Culture - Preliminary 02/04/20 16:19 Blood Culture Gram Stain - Preliminary Blood Assessment and Plan Assessment: Right lower extremity cellulitis with severe sepsis -Possible ALLERGIC reaction to cephalosporins -Continue with vancomycin -ID recommendations appreciated -Continue wrapping leg -Lac-Hydrin secondary to skin sloughing - WBC likely increasing due to steroids Acute exacerbation of COPD with acute hypoxic respiratory failure and possible ALLERGIC reaction -Off IV fluids -Resume Aldactone -Solu-Medrol 60 every 8 8 will be decreased -When necessary and scheduled bronchodilators Hypokalemia -IV and oral replacements -Recheck in a.m. along with magnesium level Transaminitis -Improving -Likely reflective of severity of sepsis -Now numbers have returned to near baseline, no need for further monitoring Lactic acidosis, resolved Rhabdo ruled out patient did have elevated CK consistent with her cellulitis Acute kidney injury, resolved Hyponatremia, improved Bacteremia, ruled on and conistent with contaminant Toxic metabolic encephalopathy, resolved DVT prophylaxis: heparin Discussed with: nursing, patient Anticipated discharge: 2-[address]: home A total of 35 minutes was spent on the care of this complex patient more than 50% of the time was spent in counseling and care coordination.
--- NOTE | 2020-02-07 19:33 | PN ---
PROGRESS NOTE DATE OF SERVICE: 02/07/2020 REASON FOR FOLLOWUP: Right lower extremity cellulitis. INTERVAL HISTORY: The patient is currently afebrile. The patient is breathing comfortably. No chest pain or shortness of breath. Minimal cough. No abdominal pain. Overall pain and discomfort to the right leg has slightly improved. PHYSICAL EXAMINATION: Blood pressure 107/73 with a pulse of 90, temperature 97.6. She is 99% on 2 L nasal cannula. General description is an elderly female lying in bed in no distress. RESPIRATORY SYSTEM: Unlabored breathing. Clear to auscultation anteriorly. HEART: S1, S2. Regular rate and rhythm. ABDOMEN: Soft. No tenderness. Right leg overall swelling has slightly decreased. Blood culture with diphtheroid species. DIAGNOSTIC IMPRESSION AND PLAN: 1. Patient with acute right lower extremity cellulitis, currently on IV vancomycin. She did not do well on the cefazolin. To continue and monitor clinical course closely while waiting for the local culture to finalize. 2. Positive blood culture with diphtheroid species; possible contamination. Repeat culture so far pending. MMODL / IJN: [id number] /
[2020-02-07] MEDS: OLANZapine 10 MG TAB PO SCH (20:21)
[2020-02-07] MEDS: methylPREDNISolone SOD SUCCI 40 MG/ML 1 ML VIAL IV SCH (23:15)
[2020-02-08] MEDS: LEVOTHYROXINE 50 MCG TAB PO SCH (06:13)
[2020-02-08] MEDS: ACETAMINOPHEN TAB 325 MG TAB PO PRN (06:17)
[2020-02-08 07:20] LABS: HCT 41.9 % (34.0-46.0); HGB 13.2 gm/dL (11.4-16.0); MCH 30.4 pg (25.0-35.0); MCHC 31.4 g/dL (31.0-37.0); MCV 96.9 fL (80.0-100.0); Mean Platelet Volume 9.7; Platelet Count 195 k/uL (150-450); RBC 4.33 m/uL (3.80-5.40); RDW 14.9 % (11.5-15.5); WBC 31.7 k/uL (3.8-10.6)
[2020-02-08 07:30] LABS: African American GFR (CKD) >90 (>60 ml/min/1.73 sqM); Anion Gap 8 mmol/L; Blood Urea Nitrogen 19 mg/dL (7-17); Calcium 9.6 mg/dL (8.4-10.2); Carbon Dioxide 20 mmol/L (22-30); Chloride 110 mmol/L (98-107); Glucose 120 mg/dL (74-99); Non-African American GFR(CKD) >90 (>60 ml/min/1.73 sqM); Potassium 3.6 mmol/L (3.5-5.1); Sodium 138 mmol/L (137-145)
[2020-02-08] MEDS: VANCOMYCIN 1,250 MG in SODIUM CHLORIDE 0.9% 250 ML IVPB SCH ×2 (08:00→20:45)
[2020-02-08] MEDS: methylPREDNISolone SOD SUCCI 40 MG/ML 1 ML VIAL IV SCH (08:01)
[2020-02-08] MEDS: SPIRONOLACTONE 25 MG TAB PO SCH (08:01)
[2020-02-08] MEDS: HEPARIN SODIUM,PORCINE 5,000 UNIT/ML 1 ML VIAL SQ SCH ×3 (08:01→23:12)
[2020-02-08] MEDS: FAMOTIDINE 20 MG TAB PO SCH (08:01)
[2020-02-08] MEDS: AMMONIUM LACTATE 12% LOTION 225 GM BTL TOPICAL SCH ×2 (08:02→20:13)
[2020-02-08] MEDS: IPRATROPIUM-ALBUTEROL 3 ML NEB INHALATION SCH ×4 (08:46→20:36)
--- NOTE | 2020-02-08 16:28 | P.PN ---
Subjective Progress Note Date: 02/08/20 (delayed charting seen at bedside) Principal diagnosis: Lower extremity redness Patient is 69-year-old female with COPD, dyslipidemia, osteoarthritis, chronic lower extremity edema, and multiple other chronic conditions who presented to the emergency department secondary to right leg pain and swelling, a fall at home and difficulty in breathing. In the ER she underwent an extensive evaluation was found have right lower extremity cellulitis. Chest x- ray showed interstitial lung disease. CT brain showed no acute abnormality. She was also found to be septic. She was started on IV fluids and antibiotics. She was also noted to have hyponatremia and acute kidney injury. Arrangements were made for admission. She was also found to have possible acute exacerbation of COPD and was started on prednisone. Infectious disease was consulted and felt that she likely had a streptococcal infection secondary to the redness and edema. They discontinued her Vanco and started cefazolin 2 g every 8 hours. On the morning of 02/05 the patient appeared more distressed and was having increased flushing of her skin and expiratory wheeze along with difficulty in breathing. It was felt to be likely a reaction to her cefazolin and she was started on solumedrol and given a dose of IV lasix. Chest x-ray showed COPD with mild heart failure and left lower wall edema versus pneumonia. Her cefazolin was stopped and she was transitioned to vancomycin. She was found to have a gram-negative bacteremia which ultimately resulted as diphtheroids and was felt to be contaminant. She continues to have increasing white blood cell count which was felt to be possibly related to steroids. Her lower extremity cellulitis continued to spread beyond the lines of demarcation on the morning of 02/08/20. Patient seen and examined at bedside. She is feeling very tired today. She denies any chest pain, shortness of breath, nausea, vomiting, or diarrhea. She states that her leg is feeling better. She is having less pain. No other complaints currently. Objective - Vital Signs Vital signs: Vital Signs Temp 97.6 F 02/08/20 04:50 Pulse 86 02/08/20 08:54 Resp 18 02/08/20 04:50 BP 103/69 02/08/20 04:50 Pulse Ox 98 02/08/20 04:50 Intake & Output 02/07/20 02/08/20 02/08/20 18:59 06:59 18:59 Intake Total 250 Balance 250 Intake: Intake, IV Titration 250 Amount Vancomycin 1,250 mg In 250 Sodium Chloride 0.9% 250 ml @ 125 mls/hr IVPB Q8H [facility] Rx#:[id number] Other: Voiding Method Bedside Commode Bedside Commode Bedside Commode Diaper Diaper Diaper # Voids 3 - Exam General: ill appearing, no distress, appears older than stated age Derm: Right lower extremity erythema with some more extending beyond the line of demarcation. Skin sloughing, no open wounds identified, warm, dry Head: atraumatic, normocephalic, symmetric Eyes: EOMI, no lid lag, anicteric sclera Mouth: no lip lesion, mucus membranes moist Cardiovascular: S1S2 reg, no murmur, positive posterior tibial pulse bilateral, Lungs: Decreased breath sounds bilateral, no rhonchi, no rales , no accessory muscle use Abdominal: soft, nontender to palpation, no guarding, no appreciable organomegaly Ext: no gross muscle atrophy, no edema, no contractures Neuro: CN II-XI grossly intact, no focal neuro deficits Psych: Lethargic, oriented when awake, appropriate affect - Labs CBC & Chem 7: 02/08/20 06:49 02/08/20 06:49 Labs: Abnormal Lab Results - Last 24 Hours (Table) 02/08/20 02/08/20 Range/Units 06:49 06:49 WBC 31.7 H (3.8-10.6) k/uL Chloride 110 H (98-107) mmol/L Carbon Dioxide 20 L (22-30) mmol/L BUN 19 H (7-17) mg/dL Glucose 120 H (74-99) mg/dL Microbiology - Last 24 Hours (Table) 02/06/20 15:12 Gram Stain - Preliminary Leg - Right Wound Culture - Preliminary 02/06/20 15:32 Blood Culture - Preliminary Blood No Growth after 24 hours 02/04/20 16:19 Blood Culture Gram Stain - Final Blood Blood Culture - Final Diphtheroid species Assessment and Plan Assessment: Right lower extremity cellulitis with severe sepsis -Possible ALLERGIC reaction to cephalosporins -Continue with vancomycin -ID recommendations appreciated -Continue wrapping leg, wound care recs appreciated -Lac-Hydrin secondary to skin sloughing - WBC likely increasing due to steroids Acute exacerbation of COPD with acute hypoxic respiratory failure and possible ALLERGIC reaction -Transition to medrol dose pack -When necessary and scheduled bronchodilators Toxic metabolic encephalopathy, resolved - hold zyprexa tonight - Supportive care as listed above Transaminitis -Improving -Likely reflective of severity of sepsis -Now numbers have returned to near baseline, no need for further monitoring Lactic acidosis, resolved Rhabdo ruled out patient did have elevated CK consistent with her cellulitis Acute kidney injury, resolved Hyponatremia, improved Bacteremia, ruled on and consistent with contaminant. Repeat cultures neg X 24 hours. Hypokalemia, resolved DVT prophylaxis: heparin Discussed with: nursing, patient Anticipated discharge: 2-[address]: home A total of 35 minutes was spent on the care of this complex patient more than 50% of the time was spent in counseling and care coordination.
--- NOTE | 2020-02-08 17:30 | PN ---
PROGRESS NOTE DATE OF SERVICE: 02/08/2020 REASON FOR FOLLOWUP: Right lower extremity cellulitis. INTERVAL HISTORY: The patient is currently afebrile. The patient is breathing comfortably. Denies having any chest pain. She did have some cough but no sputum. No nausea or vomiting. No abdominal pain or pain to the right leg area. PHYSICAL EXAMINATION: Blood pressure 109/70 with a pulse of 89, temperature 98.7. She is 96% on room air. General description is an elderly female lying in bed in no distress. RESPIRATORY SYSTEM: Unlabored breathing. Clear to auscultation anteriorly. HEART: S1, S2. Regular rate and rhythm. ABDOMEN: Soft. No tenderness. Right leg swelling and redness decreased in intensity. LABS: Hemoglobin 13.2, white count 31.7, BUN of 19, creatinine 0.53. DIAGNOSTIC IMPRESSION AND PLAN: 1. Patient with acute right lower extremity cellulitis in this patient clinically responding to the vancomycin. She does have SULFA ALLERGIES and may need placement for IV antibiotics in the outpatient setting. This will be discussed with the pillowcase cleaner for her cellulitis. 2. Elevated white count, more likely steroid effect. Should be discontinued and monitor clinical course closely. MMODL / IJN: [id number] /
[2020-02-09] MEDS: LEVOTHYROXINE 50 MCG TAB PO SCH (05:12)
[2020-02-09 06:52] LABS: Basophils # (A) 0.1 k/uL (0-0.2); Basophils % (A) 0 %; Eosinophils % (A) 0 %; HCT 37.7 % (34.0-46.0); HGB 11.7 gm/dL (11.4-16.0); Lymphocytes # (A) 0.5 k/uL (1.0-4.8); Lymphocytes % (A) 2 %; MCH 30.3 pg (25.0-35.0); MCHC 31.2 g/dL (31.0-37.0); MCV 97.1 fL (80.0-100.0); Mean Platelet Volume 9.3; Monocytes # (A) 1.1 k/uL (0-1.0); Monocytes % (A) 5 %; Neutrophils # (A) 20.7 k/uL (1.3-7.7); Neutrophils % (A) 91 %; Platelet Count 273 k/uL (150-450); RBC 3.88 m/uL (3.80-5.40); WBC 22.7 k/uL (3.8-10.6)
[2020-02-09 07:10] LABS: ALT 40 U/L (4-34); AST 44 U/L (14-36); African American GFR (CKD) >90 (>60 ml/min/1.73 sqM); Albumin 2.3 g/dL (3.5-5.0); Alkaline Phosphatase 177 U/L (38-126); Anion Gap 7 mmol/L; Blood Urea Nitrogen 21 mg/dL (7-17); Calcium 9.3 mg/dL (8.4-10.2); Carbon Dioxide 19 mmol/L (22-30); Chloride 112 mmol/L (98-107); Glucose 104 mg/dL (74-99); Magnesium 1.9 mg/dL (1.6-2.3); Non-African American GFR(CKD) >90 (>60 ml/min/1.73 sqM); Potassium 4.1 mmol/L (3.5-5.1); Sodium 138 mmol/L (137-145); Total Bilirubin 0.3 mg/dL (0.2-1.3); Total Protein 4.9 g/dL (6.3-8.2)
[2020-02-09] MEDS: FAMOTIDINE 20 MG TAB PO SCH (07:39)
[2020-02-09] MEDS: SPIRONOLACTONE 25 MG TAB PO SCH ×2 (07:42→09:54)
[2020-02-09] MEDS: AMMONIUM LACTATE 12% LOTION 225 GM BTL TOPICAL SCH ×2 (07:43→20:24)
[2020-02-09] MEDS: methylPREDNISolone 4 MG TAB TAPER PO SCH (07:43)
[2020-02-09] MEDS: HEPARIN SODIUM,PORCINE 5,000 UNIT/ML 1 ML VIAL SQ SCH ×3 (07:43→23:12)
[2020-02-09] MEDS: VANCOMYCIN 1,250 MG in SODIUM CHLORIDE 0.9% 250 ML IVPB SCH ×2 (07:43→20:24)
[2020-02-09] MEDS: IPRATROPIUM-ALBUTEROL 3 ML NEB INHALATION SCH ×4 (08:35→21:28)
--- NOTE | 2020-02-09 11:15 | P.PN ---
Subjective Progress Note Date: 02/09/20 (delayed charting seen at 0850) Principal diagnosis: Lower extremity redness Patient is 69-year-old female with COPD, dyslipidemia, osteoarthritis, chronic lower extremity edema, and multiple other chronic conditions who presented to the emergency department secondary to right leg pain and swelling, a fall at home and difficulty in breathing. In the ER she underwent an extensive evaluation was found have right lower extremity cellulitis. Chest x- ray showed interstitial lung disease. CT brain showed no acute abnormality. She was also found to be septic. She was started on IV fluids and antibiotics. She was also noted to have hyponatremia and acute kidney injury. Arrangements were made for admission. She was also found to have possible acute exacerbation of COPD and was started on prednisone. Infectious disease was consulted and felt that she likely had a streptococcal infection secondary to the redness and edema. They discontinued her Vanco and started cefazolin 2 g every 8 hours. On the morning of 02/05 the patient appeared more distressed and was having increased flushing of her skin and expiratory wheeze along with difficulty in breathing. It was felt to be likely a reaction to her cefazolin and she was started on solumedrol and given a dose of IV lasix. Chest x-ray showed COPD with mild heart failure and left lower wall edema versus pneumonia. Her cefazolin was stopped and she was transitioned to vancomycin. She was found to have a gram-negative bacteremia which ultimately resulted as diphtheroids and was felt to be contaminant. She continues to have increasing white blood cell count which was felt to be possibly related to steroids. Her lower extremity cellulitis continued to spread beyond the lines of demarcation on the morning of 02/08/20. Her WBC started decreasing on 02/08. Patient seen and examined at bedside. Less tired today and feeling better overall. No chest pain, SOB, or nausea. no diarrhea. No leg pain. Objective - Vital Signs Vital signs: Vital Signs Temp 97.7 F 02/09/20 04:41 Pulse 86 02/09/20 08:42 Resp 18 02/09/20 08:00 BP 117/74 02/09/20 09:12 Pulse Ox 93 L 02/09/20 04:41 Intake & Output 02/08/20 02/09/20 02/09/20 18:59 06:59 18:59 Intake Total 250 490 200 Balance 250 490 200 Intake: Intake, IV Titration 250 250 Amount Vancomycin 1,250 mg In 250 250 Sodium Chloride 0.9% 250 ml @ 125 mls/hr IVPB Q12HR [facility] Rx#:[id number] Oral 240 200 Other: Voiding Method Bedside Commode Bedside Commode Bedside Commode Diaper Diaper Diaper # Voids 2 - Exam General: ill appearing, no distress, appears older than stated age Derm: Right lower extremity erythema lessened in intensity no warmth, Skin slou ghing, no open wounds identified, warm, dry Head: atraumatic, normocephalic, symmetric Eyes: EOMI, no lid lag, anicteric sclera Mouth: no lip lesion, mucus membranes moist Cardiovascular: S1S2 reg, no murmur, positive posterior tibial pulse bilateral, Lungs: Ronchi bilateral R>L no accessory muscle use Abdominal: soft, nontender to palpation, no guarding, no appreciable organomegaly Ext: no gross muscle atrophy, no edema, no contractures Neuro: CN II-XI grossly intact, no focal neuro deficits Psych: Awake, alert, appropriate affect - Labs CBC & Chem 7: 02/09/20 05:42 02/09/20 05:42 Labs: Abnormal Lab Results - Last 24 Hours (Table) 02/09/20 02/09/20 Range/Units 05:42 05:42 WBC 22.7 H (3.8-10.6) k/uL Neutrophils # 20.7 H (1.3-7.7) k/uL Lymphocytes # 0.5 L (1.0-4.8) k/uL Monocytes # 1.1 H (0-1.0) k/uL Chloride 112 H (98-107) mmol/L Carbon Dioxide 19 L (22-30) mmol/L BUN 21 H (7-17) mg/dL Glucose 104 H (74-99) mg/dL AST 44 H (14-36) U/L ALT 40 H (4-34) U/L Alkaline Phosphatase 177 H (38-126) U/L Total Protein 4.9 L (6.3-8.2) g/dL Albumin 2.3 L (3.5-5.0) g/dL Microbiology - Last 24 Hours (Table) 02/06/20 15:12 Gram Stain - Final Leg - Right Wound Culture - Final 02/06/20 15:32 Blood Culture - Preliminary Blood No Growth after 48 hours Assessment and Plan Assessment: Right lower extremity cellulitis with severe sepsis -Possible ALLERGIC reaction to cephalosporins -Continue with vancomycin -ID recommendations appreciated likely will need IV ABX to complete course of care: -Continue wrapping leg, wound care recs appreciated -Lac-Hydrin secondary to skin sloughing - WBC likely increasing due to steroids Acute exacerbation of COPD with acute hypoxic respiratory failure and possible ALLERGIC reaction -Transitioned to medrol dose pack 02/07 -When necessary and scheduled bronchodilators - repeat CXR in AM if Cough not improving Toxic metabolic encephalopathy, resolved - zyprexa held on 02/07 and more awake on 02/08 will resume at lower dose. - Supportive care as listed above Transaminitis -Improving -Likely reflective of severe sepsis -Now numbers have returned to near baseline, no need for further monitoring Lactic acidosis, resolved Rhabdo ruled out patient did have elevated CK consistent with her cellulitis Acute kidney injury, resolved Hyponatremia, improved Bacteremia, ruled on and consistent with contaminant. Repeat cultures neg X 24 hours. Hypokalemia, resolved DVT prophylaxis: heparin Discussed with: nursing, patient Anticipated discharge: 1-[address]: home A total of 35 minutes was spent on the care of this complex patient more than 50% of the time was spent in counseling and care coordination.
[2020-02-09] MEDS: ACETAMINOPHEN TAB 325 MG TAB PO PRN ×2 (15:30→20:26)
--- NOTE | 2020-02-09 17:06 | PN ---
PROGRESS NOTE DATE OF SERVICE: 02/09/2020 REASON FOR FOLLOWUP: Right lower extremity cellulitis. INTERVAL HISTORY: The patient is currently afebrile, patient is breathing comfortably on room air. Denies having any chest pain or any cough. No abdominal pain. There is also pain to the right leg area. PHYSICAL EXAMINATION: Blood pressure 120/70 with a pulse of 80, temperature 97.5. She is 98% on room air. General description is an elderly female up in the chair in no distress. RESPIRATORY SYSTEM: Unlabored breathing, clear to auscultation anteriorly. HEART: S1, S2. Regular rate and rhythm. ABDOMEN: Soft, no tenderneess. Right leg is improving and redness not worsening. There is no significant warmth to touch. LABS: Hemoglobin is 11.1, white count , BUN of 21, creatinine 0.56. Blood culture repeat has been negative. DIAGNOSTIC IMPRESSION AND PLAN: 1. Patient with acute right lower extremity cellulitis and the patient seemed to have shown overall clinical improvement. Culture has been negative for resistant pathogen. Recommend applying Ciro wrap to keep some of the swelling down and hopefully finish therapy with oral antibiotics. 2. Positive blood culture with diphtheroids, likely contaminant. Blood culture negative. No further workup for the same. MMODL / IJN: [id number] /
[2020-02-09] MEDS: OLANZapine 5 MG TAB PO SCH (20:24)
[2020-02-10] MEDS: ACETAMINOPHEN TAB 325 MG TAB PO PRN ×2 (03:11→17:49)
[2020-02-10] MEDS: LEVOTHYROXINE 50 MCG TAB PO SCH (06:30)
[2020-02-10] MEDS: methylPREDNISolone 4 MG TAB TAPER PO SCH (07:53)
[2020-02-10] MEDS: HEPARIN SODIUM,PORCINE 5,000 UNIT/ML 1 ML VIAL SQ SCH ×3 (07:53→23:55)
[2020-02-10] MEDS: FAMOTIDINE 20 MG TAB PO SCH (07:54)
[2020-02-10] MEDS: ATORVASTATIN 10 MG TAB PO SCH (07:54)
[2020-02-10] MEDS: AMMONIUM LACTATE 12% LOTION 225 GM BTL TOPICAL SCH ×2 (07:56→19:59)
[2020-02-10] MEDS ORDERED: VANCOMYCIN TROUGH DUE 1 EACH MISC MISCELLANE ONE (08:00)
[2020-02-10 08:37] LABS: HCT 38.4 % (34.0-46.0); Hypochromasia Slight; MCH 30.9 pg (25.0-35.0); MCHC 31.4 g/dL (31.0-37.0); MCV 98.5 fL (80.0-100.0); Mean Platelet Volume 8.5; Platelet Count 338 k/uL (150-450); RDW 15.1 % (11.5-15.5); WBC 15.8 k/uL (3.8-10.6)
[2020-02-10 08:53] LABS: African American GFR (CKD) >90 (>60 ml/min/1.73 sqM); Anion Gap 5 mmol/L; Blood Urea Nitrogen 24 mg/dL (7-17); Calcium 8.7 mg/dL (8.4-10.2); Carbon Dioxide 23 mmol/L (22-30); Chloride 109 mmol/L (98-107); Glucose 91 mg/dL (74-99); Non-African American GFR(CKD) >90 (>60 ml/min/1.73 sqM); Sodium 137 mmol/L (137-145)
[2020-02-10] MEDS: IPRATROPIUM-ALBUTEROL 3 ML NEB INHALATION SCH ×4 (09:24→19:49)
[2020-02-10] MEDS: SPIRONOLACTONE 25 MG TAB PO SCH (10:12)
[2020-02-10] MEDS: VANCOMYCIN 1,250 MG in SODIUM CHLORIDE 0.9% 250 ML IVPB SCH ×2 (10:12→11:38)
[2020-02-10 10:30] VITALS: BMI 29.2
--- NOTE | 2020-02-10 18:34 | PN ---
PROGRESS NOTE DATE OF SERVICE: 02/10/2020 REASON FOR FOLLOWUP: Right lower extremity cellulitis. INTERVAL HISTORY: The patient is currently afebrile. The patient is breathing comfortably. Apparently the patient has not been letting the nursing staff apply the Ciro wrap for her. Patient denies having any chest pain or cough. No abdominal pain or any worsening discomfort to the right leg area. PHYSICAL EXAMINATION: On examination, her blood pressure is 133/77 with a pulse of 89, temperature 97.4. She is 95% on room air. General description is an elderly female lying in bed in no distress. RESPIRATORY SYSTEM: Unlabored breathing. Clear to auscultation anteriorly. HEART: S1, S2. Regular rate and rhythm. ABDOMEN: Soft. No tenderness. Right leg still has some swelling superficial wound. LABS: White count 15.8, creatinine 0.50. DIAGNOSTIC IMPRESSION AND PLAN: 1. Patient with acute right lower extremity cellulitis with diffuse swelling and redness, and culture negative for any resistant pathogen. Will switch antibiotic to cefazolin 2 grams q.8. Local wound care with dry Aquacel Silver followed by Ciro wrap to keep some of the swelling down. Will re-evaluate the leg tomorrow. If overall improvement, hopefully to finish therapy with oral Keflex. 2. Positive blood culture, likely skin contamination. Repeat blood pressure has been negative. No need for further workup for the same. MMODL / IJN: [id number] /
--- NOTE | 2020-02-10 19:08 | P.PN ---
Progress Note - Text Progress Note Date: 02/10/20 Principal diagnosis: Lower extremity redness History of presenting complaint: Patient is 69-year-old female with COPD, dyslipidemia, osteoarthritis, chronic lower extremity edema, and multiple other chronic conditions who presented to the emergency department secondary to right leg pain and swelling, a fall at home and difficulty in breathing. In the ER she underwent an extensive evaluation was found have right lower extremity cellulitis. Chest x- ray showed interstitial lung disease. CT brain showed no acute abnormality. She was also found to be septic. She was started on IV fluids and antibiotics. She was also noted to have hyponatremia and acute kidney injury. Arrangements were made for admission. She was also found to have possible acute exacerbation of COPD and was started on prednisone. Infectious disease was consulted and felt that she likely had a streptococcal infection secondary to the redness and edema. They discontinued her Vanco and started cefazolin 2 g every 8 hours. On the morning of 02/05 the patient appeared more distressed and was having increased flushing of her skin and expiratory wheeze along with difficulty in breathing. It was felt to be likely a reaction to her cefazolin and she was started on solumedrol and given a dose of IV lasix. Chest x-ray showed COPD with mild heart failure and left lower wall edema versus pneumonia. Her cefazolin was stopped and she was transitioned to vancomycin. She was found to have a gram-negative bacteremia which ultimately resulted as diphtheroids and was felt to be contaminant. She continues to have increasing white blood cell count which was felt to be possibly related to steroids. Her lower extremity cellulitis continued to spread beyond the lines of demarcation on the morning of 02/08/20. Her WBC started decreasing on 02/08. Today-feeling bit better. Starting a diet. Some decreased redness electrolytes extremity. Review of systems: Was done for constitutional, cardiovascular, GI, pulmonary. relevant finding as above Active Medications Acetaminophen (Tylenol Tab) 650 mg PO Q6HR PRN PRN Reason: Mild Pain or Fever > 100.5 Last Admin: 02/10/20 17:49 Dose: 650 mg Documented by: Albuterol/Ipratropium (Duoneb 0.5 Mg-3 Mg/3 Ml Soln) 3 ml INHALATION RT-QID PRN PRN Reason: Shortness Of Breath Or Wheezing Albuterol/Ipratropium (Duoneb 0.5 Mg-3 Mg/3 Ml Soln) 3 ml INHALATION RT-QID [facility] Last Admin: 02/10/20 16:25 Dose: 3 ml Documented by: Atorvastatin Calcium (Lipitor) 10 mg PO DAILY [facility] Last Admin: 02/10/20 07:54 Dose: 10 mg Documented by: Famotidine (Pepcid) 40 mg PO DAILY [facility] Last Admin: 02/10/20 07:54 Dose: 40 mg Documented by: Heparin Sodium (Porcine) (Heparin) 5,000 unit SQ Q8HR [facility] Last Admin: 02/10/20 16:55 Dose: 5,000 unit Documented by: Cefazolin Sodium 2 gm/ Sodium (Chloride) 50 mls @ 100 mls/hr IVPB Q8H [facility] Last Admin: 02/10/20 17:38 Dose: 100 mls/hr Documented by: Lactic Acid (Lac-Hydrin 12%) 1 applic TOPICAL BID [facility] Last Admin: 02/10/20 07:56 Dose: 1 applic Documented by: Levothyroxine Sodium (Synthroid) 150 mcg PO DAILY@0630 [facility] Last Admin: 02/10/20 06:30 Dose: 150 mcg Documented by: Methylprednisolone (Medrol Dose Pack) 20 mg PO DAILY [facility]; Taper Stop: 02/15/20 08:59 Last Admin: 02/10/20 07:53 Dose: 20 mg Documented by: Naloxone HCl (Narcan) 0.2 mg IV Q2M PRN PRN Reason: Opioid Reversal Olanzapine (Zyprexa) 5 mg PO HS [facility] Last Admin: 02/09/20 20:24 Dose: 5 mg Documented by: Ropinirole HCl (Requip) 0.25 mg PO TID-W/MEALS [facility] Last Admin: 02/10/20 16:55 Dose: 0.25 mg Documented by: Spironolactone (Aldactone) 25 mg PO DAILY [facility] Last Admin: 02/10/20 10:12 Dose: 25 mg Documented by: On examination: VITAL SIGNS: 97.4, 89, 17, 133 was 37, 95% on room air GENERAL APPEARANCE: Sitting up in a chair, comfortable HEENT: Normal external appearance of nose and ear. Oral cavity normal EYES: Pupils equal. Conjunctiva normal. NECK: JVD not raised. Mass not palpable. RESPIRATORY: Respiratory effort normal. Lungs clear to auscultation. CARDIOVASCULAR: First and second sounds normal. Some edema ABDOMEN: Soft. Liver and spleen not palpable. No tenderness. No mass palpable. PSYCHIATRY: Alert and oriented x3. Mood and affect normal. EXTREMITY: Right lower extremity cellulitis INVESTIGATIONS, reviewed in the clinical context: White count 15.8 hemoglobin 12 potassium 4 bun 24 creatinine 0.50 Assessment: -Acute right lower extremity cellulitis with severe sepsis, POA -Acute COPD exacerbation-in a current smoker, POA -Primary osteoarthritis -Hypothyroid -Hyperlipidemia -Acute hypoxic respiratory failure from COPD exacerbation -Acute toxic metabolic encephalopathy from cellulitis, POA -Acute transaminitis secondary to sepsis -Acute lactic acidosis -Bipolar disorder Plan: Patient had been on IV vancomycin. Switched over by Dr. Clement to IV Ancef today. Improving. Other medications to continue. Local wound care. Dried Aquacel silver followed by Ciro wrap's. Discussed with the patient.
[2020-02-10] MEDS: OLANZapine 5 MG TAB PO SCH (20:00)
[2020-02-10] MEDS ORDERED: VANCOMYCIN 1,000 MG in SODIUM CHLORIDE 0.9% 250 ML IVPB SCH (21:00)
[2020-02-11] MEDS: LEVOTHYROXINE 50 MCG TAB PO SCH (05:13)
[2020-02-11 06:55] LABS: African American GFR (CKD) >90 (>60 ml/min/1.73 sqM); Non-African American GFR(CKD) >90 (>60 ml/min/1.73 sqM)
[2020-02-11] MEDS: IPRATROPIUM-ALBUTEROL 3 ML NEB INHALATION SCH ×4 (07:05→18:51)
[2020-02-11] MEDS: SPIRONOLACTONE 25 MG TAB PO SCH (07:51)
[2020-02-11] MEDS: methylPREDNISolone 4 MG TAB TAPER PO SCH (07:51)
[2020-02-11] MEDS: HEPARIN SODIUM,PORCINE 5,000 UNIT/ML 1 ML VIAL SQ SCH ×3 (07:51→23:56)
[2020-02-11] MEDS: FAMOTIDINE 20 MG TAB PO SCH (07:51)
[2020-02-11] MEDS: ATORVASTATIN 10 MG TAB PO SCH (07:51)
[2020-02-11] MEDS: AMMONIUM LACTATE 12% LOTION 225 GM BTL TOPICAL SCH ×2 (07:52→20:48)
[2020-02-11 12:25] LABS: Basophils # (A) 0.1 k/uL (0-0.2); Basophils % (A) 1 %; Eosinophils # (A) 0.1 k/uL (0-0.7); Eosinophils % (A) 1 %; HCT 37.4 % (34.0-46.0); HGB 11.8 gm/dL (11.4-16.0); Hypochromasia Slight; Lymphocytes # (A) 1.3 k/uL (1.0-4.8); Lymphocytes % (A) 9 %; MCH 30.8 pg (25.0-35.0); MCHC 31.6 g/dL (31.0-37.0); MCV 97.7 fL (80.0-100.0); Mean Platelet Volume 10.1; Monocytes # (A) 1.1 k/uL (0-1.0); Monocytes % (A) 7 %; Neutrophils # (A) 12.8 k/uL (1.3-7.7); Neutrophils % (A) 81 %; Platelet Count 397 k/uL (150-450); RBC 3.83 m/uL (3.80-5.40); RDW 14.9 % (11.5-15.5); WBC 15.7 k/uL (3.8-10.6)
[2020-02-11] MEDS: NYSTATIN 100,000UNIT/GM CREAM 30 GM TUBE TOPICAL SCH ×2 (14:24→20:48)
--- NOTE | 2020-02-11 19:42 | P.PN ---
Progress Note - Text Progress Note Date: 02/11/20 Principal diagnosis: Lower extremity redness History of presenting complaint: Patient is 69-year-old female with COPD, dyslipidemia, osteoarthritis, chronic lower extremity edema, and multiple other chronic conditions who presented to the emergency department secondary to right leg pain and swelling, a fall at home and difficulty in breathing. In the ER she underwent an extensive evaluation was found have right lower extremity cellulitis. Chest x- ray showed interstitial lung disease. CT brain showed no acute abnormality. She was also found to be septic. She was started on IV fluids and antibiotics. She was also noted to have hyponatremia and acute kidney injury. Arrangements were made for admission. She was also found to have possible acute exacerbation of COPD and was started on prednisone. Infectious disease was consulted and felt that she likely had a streptococcal infection secondary to the redness and edema. They discontinued her Vanco and started cefazolin 2 g every 8 hours. On the morning of 02/05 the patient appeared more distressed and was having increased flushing of her skin and expiratory wheeze along with difficulty in breathing. It was felt to be likely a reaction to her cefazolin and she was started on solumedrol and given a dose of IV lasix. Chest x-ray showed COPD with mild heart failure and left lower wall edema versus pneumonia. Her cefazolin was stopped and she was transitioned to vancomycin. She was found to have a gram-negative bacteremia which ultimately resulted as diphtheroids and was felt to be contaminant. She continues to have increasing white blood cell count which was felt to be possibly related to steroids. Her lower extremity cellulitis continued to spread beyond the lines of demarcation on the morning of 02/08/20. Her WBC started decreasing on 02/08. Today-patient has been refusing dressing on the right lower extremity. This is impairing her healing. Otherwise tolerating a diet. Dr. Zee had talked to the patient about this yesterday 2. Review of systems: Was done for constitutional, cardiovascular, GI, pulmonary. relevant finding as above Active Medications Acetaminophen (Tylenol Tab) 650 mg PO Q6HR PRN PRN Reason: Mild Pain or Fever > 100.5 Last Admin: 02/10/20 17:49 Dose: 650 mg Documented by: Albuterol/Ipratropium (Duoneb 0.5 Mg-3 Mg/3 Ml Soln) 3 ml INHALATION RT-QID PRN PRN Reason: Shortness Of Breath Or Wheezing Albuterol/Ipratropium (Duoneb 0.5 Mg-3 Mg/3 Ml Soln) 3 ml INHALATION RT-QID [facility] Last Admin: 02/11/20 18:51 Dose: 3 ml Documented by: Atorvastatin Calcium (Lipitor) 10 mg PO DAILY [facility] Last Admin: 02/11/20 07:51 Dose: 10 mg Documented by: Famotidine (Pepcid) 40 mg PO DAILY [facility] Last Admin: 02/11/20 07:51 Dose: 40 mg Documented by: Heparin Sodium (Porcine) (Heparin) 5,000 unit SQ Q8HR [facility] Last Admin: 02/11/20 17:07 Dose: 5,000 unit Documented by: Cefazolin Sodium 2 gm/ Sodium (Chloride) 50 mls @ 100 mls/hr IVPB Q8H [facility] Last Admin: 02/11/20 17:07 Dose: 100 mls/hr Documented by: Lactic Acid (Lac-Hydrin 12%) 1 applic TOPICAL BID [facility] Last Admin: 02/11/20 07:52 Dose: 1 applic Documented by: Levothyroxine Sodium (Synthroid) 150 mcg PO DAILY@0630 [facility] Last Admin: 02/11/20 05:13 Dose: 150 mcg Documented by: Methylprednisolone (Medrol Dose Pack) 16 mg PO DAILY [facility]; Taper Stop: 02/15/20 08:59 Last Admin: 02/11/20 07:51 Dose: 16 mg Documented by: Naloxone HCl (Narcan) 0.2 mg IV Q2M PRN PRN Reason: Opioid Reversal Nystatin (Mycostatin Cream) 1 applic TOPICAL BID [facility] Last Admin: 02/11/20 14:24 Dose: 1 applic Documented by: Olanzapine (Zyprexa) 5 mg PO HS [facility] Last Admin: 02/10/20 20:00 Dose: 5 mg Documented by: Ropinirole HCl (Requip) 0.25 mg PO TID-W/MEALS [facility] Last Admin: 02/11/20 17:07 Dose: 0.25 mg Documented by: Spironolactone (Aldactone) 25 mg PO DAILY [facility] Last Admin: 02/11/20 07:51 Dose: 25 mg Documented by: On examination: VITAL SIGNS: 97.6, 97, 17, 130 was 621, 95% on room air GENERAL APPEARANCE: Sitting up in a chair, comfortable HEENT: Normal external appearance of nose and ear. Oral cavity normal EYES: Pupils equal. Conjunctiva normal. NECK: JVD not raised. Mass not palpable. RESPIRATORY: Respiratory effort normal. Lungs clear to auscultation. CARDIOVASCULAR: First and second sounds normal. Some edema ABDOMEN: Soft. Liver and spleen not palpable. No tenderness. No mass palpable. PSYCHIATRY: Alert and oriented x3. Mood and affect normal. EXTREMITY: Right lower extremity cellulitis INVESTIGATIONS, reviewed in the clinical context: White count 15.7 hemoglobin 11.8 Assessment: -Acute right lower extremity cellulitis with severe sepsis, POA-slow to respond -Acute COPD exacerbation-in a current smoker, POA -Primary osteoarthritis -Hypothyroid -Hyperlipidemia -Acute hypoxic respiratory failure from COPD exacerbation -Acute toxic metabolic encephalopathy from cellulitis, POA -Acute transaminitis secondary to sepsis -Acute lactic acidosis -Bipolar disorder Plan: -Patient is now on IV Ancef. Discussed with Dr. Clement. Healing is slow because patient been refusing pressure dressings. Continue current medication treatment plan follow.
[2020-02-11] MEDS: OLANZapine 5 MG TAB PO SCH (20:47)
[2020-02-11] MEDS: ACETAMINOPHEN TAB 325 MG TAB PO PRN (20:50)
--- NOTE | 2020-02-11 23:27 | PN ---
PROGRESS NOTE DATE OF SERVICE: 02/11/2020 REASON FOR FOLLOWUP: Right lower extremity cellulitis. INTERVAL HISTORY: The patient is currently afebrile. The patient has been breathing comfortably. Still complaining of some pain and discomfort to the right leg area. No chest pain, shortness of breath or cough. No abdominal pain or diarrhea. PHYSICAL EXAMINATION: Blood pressure is 104/69 with a pulse of 81, temperature 97.7. She is 94% on room air. General description is an elderly female up in the chair in no distress. RESPIRATORY SYSTEM: Unlabored breathing. Clear to auscultation anteriorly. HEART: S1, S2. Regular rate and rhythm. ABDOMEN: Soft. No tenderness. Right leg still has some swelling, redness and some superficial wound. DIAGNOSTIC IMPRESSION AND PLAN: Patient with right lower extremity cellulitis. Unfortunately, patient has not been applying Ciro wrap. That would help cut down the swelling and heal the cellulitis. She has been instructed to do so. Also apply Mycolog cream to the leg. Continue with cefazolin. Will reevaluate the leg tomorrow. Hold the discharge for today. This was discussed with the admitting physician. Continue supportive care. MMODL / IJN: [id number] /
[2020-02-12] MEDS: LEVOTHYROXINE 50 MCG TAB PO SCH (05:04)
[2020-02-12 06:47] LABS: HCT 41.8 % (34.0-46.0); HGB 12.9 gm/dL (11.4-16.0); Hypochromasia Moderate; MCH 30.8 pg (25.0-35.0); MCHC 30.8 g/dL (31.0-37.0); MCV 100.1 fL (80.0-100.0); Macrocytosis Slight; Mean Platelet Volume 8.7; Platelet Count 391 k/uL (150-450); RBC 4.18 m/uL (3.80-5.40); RDW 14.9 % (11.5-15.5)
[2020-02-12 06:50] LABS: African American GFR (CKD) >90 (>60 ml/min/1.73 sqM); Anion Gap 5 mmol/L; Blood Urea Nitrogen 18 mg/dL (7-17); Calcium 8.7 mg/dL (8.4-10.2); Carbon Dioxide 25 mmol/L (22-30); Chloride 107 mmol/L (98-107); Glucose 65 mg/dL (74-99); Non-African American GFR(CKD) >90 (>60 ml/min/1.73 sqM); Sodium 137 mmol/L (137-145)
[2020-02-12 06:55] LABS: Potassium 5.5 mmol/L (3.5-5.1)
[2020-02-12] MEDS: IPRATROPIUM-ALBUTEROL 3 ML NEB INHALATION SCH ×4 (07:51→20:28)
[2020-02-12] MEDS: methylPREDNISolone 4 MG TAB TAPER PO SCH (08:18)
[2020-02-12] MEDS: FAMOTIDINE 20 MG TAB PO SCH (08:18)
[2020-02-12] MEDS: SPIRONOLACTONE 25 MG TAB PO SCH (08:18)
[2020-02-12] MEDS: AMMONIUM LACTATE 12% LOTION 225 GM BTL TOPICAL SCH ×2 (08:19→19:14)
[2020-02-12] MEDS: HEPARIN SODIUM,PORCINE 5,000 UNIT/ML 1 ML VIAL SQ SCH ×3 (08:19→23:08)
[2020-02-12] MEDS: ATORVASTATIN 10 MG TAB PO SCH (08:19)
[2020-02-12] MEDS: NYSTATIN 100,000UNIT/GM CREAM 30 GM TUBE TOPICAL SCH ×2 (08:19→19:15)
[2020-02-12 08:33] LABS: Band Neutrophils % 2 %; Eosinophils # (M) 0.17 k/uL (0-0.7); Lymphocytes # (M) 1.02 k/uL (1.0-4.8); Metamyelocytes # (M) 0.34 k/uL (0); Metamyelocytes % 2 %; Monocytes # (M) 0.51 k/uL (0-1.0); Myelocytes # (M) 0.85 k/uL (0); Myelocytes % 5 %; Neutrophils % (M) 83 %; Nucleated Red Blood Cells 0 /100 WBC (0-0); Total Cells Counted 200
[2020-02-12] MEDS: ACETAMINOPHEN TAB 325 MG TAB PO PRN ×2 (11:34→19:44)
[2020-02-12] MEDS: OLANZapine 5 MG TAB PO SCH (19:45)
[2020-02-12] MEDS ORDERED: SODIUM POLYSTYRENE SULFONATE 15 GM/60 ML BOTTLE PO STA (19:50)
--- NOTE | 2020-02-12 19:51 | P.PN ---
Progress Note - Text Progress Note Date: 02/12/20 Principal diagnosis: Lower extremity redness History of presenting complaint: Patient is 69-year-old female with COPD, dyslipidemia, osteoarthritis, chronic lower extremity edema, and multiple other chronic conditions who presented to the emergency department secondary to right leg pain and swelling, a fall at home and difficulty in breathing. In the ER she underwent an extensive evaluation was found have right lower extremity cellulitis. Chest x- ray showed interstitial lung disease. CT brain showed no acute abnormality. She was also found to be septic. She was started on IV fluids and antibiotics. She was also noted to have hyponatremia and acute kidney injury. Arrangements were made for admission. She was also found to have possible acute exacerbation of COPD and was started on prednisone. Infectious disease was consulted and felt that she likely had a streptococcal infection secondary to the redness and edema. They discontinued her Vanco and started cefazolin 2 g every 8 hours. On the morning of 02/05 the patient appeared more distressed and was having increased flushing of her skin and expiratory wheeze along with difficulty in breathing. It was felt to be likely a reaction to her cefazolin and she was started on solumedrol and given a dose of IV lasix. Chest x-ray showed COPD with mild heart failure and left lower wall edema versus pneumonia. Her cefazolin was stopped and she was transitioned to vancomycin. She was found to have a gram-negative bacteremia which ultimately resulted as diphtheroids and was felt to be contaminant. She continues to have increasing white blood cell count which was felt to be possibly related to steroids. Her lower extremity cellulitis continued to spread beyond the lines of demarcation on the morning of 02/08/20. Her WBC started decreasing on 02/08. Today-starting a diet. No new issues. Had a bowel movement. On antibiotics. Review of systems: Was done for constitutional, cardiovascular, GI, pulmonary. relevant finding as above Active Medications Acetaminophen (Tylenol Tab) 650 mg PO Q6HR PRN PRN Reason: Mild Pain or Fever > 100.5 Last Admin: 02/12/20 19:44 Dose: 650 mg Documented by: Albuterol/Ipratropium (Duoneb 0.5 Mg-3 Mg/3 Ml Soln) 3 ml INHALATION RT-QID PRN PRN Reason: Shortness Of Breath Or Wheezing Albuterol/Ipratropium (Duoneb 0.5 Mg-3 Mg/3 Ml Soln) 3 ml INHALATION RT-QID [facility] Last Admin: 02/12/20 15:11 Dose: 3 ml Documented by: Atorvastatin Calcium (Lipitor) 10 mg PO DAILY [facility] Last Admin: 02/12/20 08:19 Dose: 10 mg Documented by: Famotidine (Pepcid) 40 mg PO DAILY [facility] Last Admin: 02/12/20 08:18 Dose: 40 mg Documented by: Heparin Sodium (Porcine) (Heparin) 5,000 unit SQ Q8HR [facility] Last Admin: 02/12/20 16:53 Dose: 5,000 unit Documented by: Cefazolin Sodium 2 gm/ Sodium (Chloride) 50 mls @ 100 mls/hr IVPB Q8H [facility] Last Admin: 02/12/20 16:53 Dose: 100 mls/hr Documented by: Lactic Acid (Lac-Hydrin 12%) 1 applic TOPICAL BID [facility] Last Admin: 02/12/20 19:14 Dose: 1 applic Documented by: Levothyroxine Sodium (Synthroid) 150 mcg PO DAILY@0630 [facility] Last Admin: 02/12/20 05:04 Dose: 150 mcg Documented by: Methylprednisolone (Medrol Dose Pack) 12 mg PO DAILY [facility]; Taper Stop: 02/15/20 08:59 Last Admin: 02/12/20 08:18 Dose: 12 mg Documented by: Naloxone HCl (Narcan) 0.2 mg IV Q2M PRN PRN Reason: Opioid Reversal Nystatin (Mycostatin Cream) 1 applic TOPICAL BID [facility] Last Admin: 02/12/20 19:15 Dose: 1 applic Documented by: Olanzapine (Zyprexa) 5 mg PO HS [facility] Last Admin: 02/12/20 19:45 Dose: 5 mg Documented by: Ropinirole HCl (Requip) 0.25 mg PO TID-W/MEALS [facility] Last Admin: 02/12/20 16:54 Dose: 0.25 mg Documented by: Spironolactone (Aldactone) 25 mg PO DAILY [facility] Last Admin: 02/12/20 08:18 Dose: 25 mg Documented by: On examination: VITAL SIGNS: 97.8, 79, 20, 111/56, 95% on room air GENERAL APPEARANCE: Sitting up in a chair, comfortable HEENT: Normal external appearance of nose and ear. Oral cavity normal EYES: Pupils equal. Conjunctiva normal. NECK: JVD not raised. Mass not palpable. RESPIRATORY: Respiratory effort normal. Lungs clear to auscultation. CARDIOVASCULAR: First and second sounds normal. Some edema ABDOMEN: Soft. Liver and spleen not palpable. No tenderness. No mass palpable. PSYCHIATRY: Alert and oriented x3. Mood and affect normal. EXTREMITY: Right lower extremity cellulitis INVESTIGATIONS, reviewed in the clinical context: White count 17 hemoglobin 12.9 potassium 5.5 bun 18 creatinine 0.5 Assessment: -Acute right lower extremity cellulitis with severe sepsis, POA-slow to respond -Acute COPD exacerbation-in a current smoker, POA -Primary osteoarthritis -Hypothyroid -Hyperlipidemia -Acute hypoxic respiratory failure from COPD exacerbation -Acute toxic metabolic encephalopathy from cellulitis, POA -Acute transaminitis secondary to sepsis -Acute lactic acidosis -Bipolar disorder -Hyperkalemia Plan: -Continue on IV Ancef. Give Kayexalate. Recheck potassium.
[2020-02-12] MEDS ORDERED: FLUCONAZOLE 100 MG TAB PO ONE (19:59)
--- NOTE | 2020-02-12 21:42 | PN ---
PROGRESS NOTE DATE OF SERVICE: 02/12/2020 REASON FOR FOLLOWUP: 1. Right lower extremity cellulitis. 2. Leukocytosis. INTERVAL HISTORY: The patient is currently afebrile. The patient is breathing comfortably. Denies having any chest pain. No shortness of breath. Minimal cough. No nausea, vomiting, abdominal pain. Overall swelling of the right leg has improved. PHYSICAL EXAMINATION: Blood pressure 111/56, pulse of 79, temperature 97.8. She is 95% on room air. General description: The patient is an elderly female up in the chair in no distress. Respiratory system: Unlabored breathing. Clear to auscultation anteriorly. Heart S1, S2. Regular rate and rhythm. Abdomen soft, no tenderness. Right leg swelling persists. Redness has much improved. LABS: Hemoglobin is 12.8, white count 23203, BUN of 18, creatinine 0.50. DIAGNOSTIC IMPRESSION AND PLAN: 1. Patient with acute right lower extremity cellulitis in this patient who has shown clinical improvement on cefazolin to continue finish therapy with oral Keflex. Continue with Mycolog cream and Ciro wrap to keep the swelling down. 2. Elevated white count, possibly steroid effect. Underlying oropharyngeal disease not excluded. We will give a dose of Diflucan and repeat CBC tomorrow. 3. Monitor clinical course closely. MMODL / IJN: [id number] /
[2020-02-13] MEDS: LEVOTHYROXINE 50 MCG TAB PO SCH (04:59)
[2020-02-13 06:34] LABS: African American GFR (CKD) >90 (>60 ml/min/1.73 sqM); Anion Gap 2 mmol/L; Blood Urea Nitrogen 16 mg/dL (7-17); Calcium 8.6 mg/dL (8.4-10.2); Carbon Dioxide 30 mmol/L (22-30); Chloride 104 mmol/L (98-107); Glucose 82 mg/dL (74-99); Non-African American GFR(CKD) >90 (>60 ml/min/1.73 sqM); Potassium 4.3 mmol/L (3.5-5.1); Sodium 136 mmol/L (137-145)
[2020-02-13 06:40] LABS: HCT 38.6 % (34.0-46.0); HGB 12.3 gm/dL (11.4-16.0); MCH 31.3 pg (25.0-35.0); MCHC 31.9 g/dL (31.0-37.0); Mean Platelet Volume 8.5; Platelet Count 426 k/uL (150-450); RBC 3.94 m/uL (3.80-5.40); RDW 14.5 % (11.5-15.5); WBC 13.9 k/uL (3.8-10.6)
[2020-02-13 07:17] LABS: Band Neutrophils % 11 %; Eosinophils # (M) 0.14 k/uL (0-0.7); Lymphocytes # (M) 1.53 k/uL (1.0-4.8); Metamyelocytes # (M) 0.42 k/uL (0); Metamyelocytes % 3 %; Monocytes # (M) 1.25 k/uL (0-1.0); Myelocytes # (M) 0.42 k/uL (0); Myelocytes % 3 %; Neutrophils % (M) 64 %; Nucleated Red Blood Cells 0 /100 WBC (0-0); Total Cells Counted 200
[2020-02-13 07:18] LABS: Anisocytosis (M) Present; Large Platelets Present
[2020-02-13 07:52] LABS: C Reactive Protein 19.4 mg/L (<10.0)
[2020-02-13] MEDS: ATORVASTATIN 10 MG TAB PO SCH (08:14)
[2020-02-13] MEDS: HEPARIN SODIUM,PORCINE 5,000 UNIT/ML 1 ML VIAL SQ SCH ×3 (08:14→22:59)
[2020-02-13] MEDS: SPIRONOLACTONE 25 MG TAB PO SCH (08:14)
[2020-02-13] MEDS: FAMOTIDINE 20 MG TAB PO SCH (08:14)
[2020-02-13] MEDS: methylPREDNISolone 4 MG TAB TAPER PO SCH (08:14)
[2020-02-13] MEDS: AMMONIUM LACTATE 12% LOTION 225 GM BTL TOPICAL SCH ×2 (08:15→20:04)
[2020-02-13] MEDS: NYSTATIN 100,000UNIT/GM CREAM 30 GM TUBE TOPICAL SCH ×2 (08:15→20:04)
[2020-02-13] MEDS: IPRATROPIUM-ALBUTEROL 3 ML NEB INHALATION SCH ×4 (08:20→21:04)
--- NOTE | 2020-02-13 17:20 | P.PN ---
Progress Note - Text Progress Note Date: 02/13/20 Principal diagnosis: Lower extremity redness History of presenting complaint: Patient is 69-year-old female with COPD, dyslipidemia, osteoarthritis, chronic lower extremity edema, and multiple other chronic conditions who presented to the emergency department secondary to right leg pain and swelling, a fall at home and difficulty in breathing. In the ER she underwent an extensive evaluation was found have right lower extremity cellulitis. Chest x- ray showed interstitial lung disease. CT brain showed no acute abnormality. She was also found to be septic. She was started on IV fluids and antibiotics. She was also noted to have hyponatremia and acute kidney injury. Arrangements were made for admission. She was also found to have possible acute exacerbation of COPD and was started on prednisone. Infectious disease was consulted and felt that she likely had a streptococcal infection secondary to the redness and edema. They discontinued her Vanco and started cefazolin 2 g every 8 hours. On the morning of 02/05 the patient appeared more distressed and was having increased flushing of her skin and expiratory wheeze along with difficulty in breathing. It was felt to be likely a reaction to her cefazolin and she was started on solumedrol and given a dose of IV lasix. Chest x-ray showed COPD with mild heart failure and left lower wall edema versus pneumonia. Her cefazolin was stopped and she was transitioned to vancomycin. She was found to have a gram-negative bacteremia which ultimately resulted as diphtheroids and was felt to be contaminant. She continues to have increasing white blood cell count which was felt to be possibly related to steroids. Her lower extremity cellulitis continued to spread beyond the lines of demarcation on the morning of 02/08/20. Her WBC started decreasing on 02/08. Today-couple. No new issues. Getting antibiotics. Tolerating a diet.. Review of systems: Was done for constitutional, cardiovascular, GI, pulmonary. relevant finding as above Active Medications Acetaminophen (Tylenol Tab) 650 mg PO Q6HR PRN PRN Reason: Mild Pain or Fever > 100.5 Last Admin: 02/12/20 19:44 Dose: 650 mg Documented by: Albuterol/Ipratropium (Duoneb 0.5 Mg-3 Mg/3 Ml Soln) 3 ml INHALATION RT-QID PRN PRN Reason: Shortness Of Breath Or Wheezing Albuterol/Ipratropium (Duoneb 0.5 Mg-3 Mg/3 Ml Soln) 3 ml INHALATION RT-QID [facility] Last Admin: 02/13/20 15:24 Dose: 3 ml Documented by: Atorvastatin Calcium (Lipitor) 10 mg PO DAILY [facility] Last Admin: 02/13/20 08:14 Dose: 10 mg Documented by: Famotidine (Pepcid) 40 mg PO DAILY [facility] Last Admin: 02/13/20 08:14 Dose: 40 mg Documented by: Heparin Sodium (Porcine) (Heparin) 5,000 unit SQ Q8HR [facility] Last Admin: 02/13/20 16:56 Dose: 5,000 unit Documented by: Cefazolin Sodium 2 gm/ Sodium (Chloride) 50 mls @ 100 mls/hr IVPB Q8H [facility] Last Admin: 02/13/20 16:55 Dose: 100 mls/hr Documented by: Lactic Acid (Lac-Hydrin 12%) 1 applic TOPICAL BID [facility] Last Admin: 02/13/20 08:15 Dose: 1 applic Documented by: Levothyroxine Sodium (Synthroid) 150 mcg PO DAILY@0630 [facility] Last Admin: 02/13/20 04:59 Dose: 150 mcg Documented by: Methylprednisolone (Medrol Dose Pack) 8 mg PO DAILY [facility]; Taper Stop: 02/15/20 08:59 Last Admin: 02/13/20 08:14 Dose: 8 mg Documented by: Naloxone HCl (Narcan) 0.2 mg IV Q2M PRN PRN Reason: Opioid Reversal Nystatin (Mycostatin Cream) 1 applic TOPICAL BID [facility] Last Admin: 02/13/20 08:15 Dose: 1 applic Documented by: Olanzapine (Zyprexa) 5 mg PO HS [facility] Last Admin: 02/12/20 19:45 Dose: 5 mg Documented by: Ropinirole HCl (Requip) 0.25 mg PO TID-W/MEALS [facility] Last Admin: 02/13/20 16:55 Dose: 0.25 mg Documented by: Spironolactone (Aldactone) 25 mg PO DAILY [facility] Last Admin: 02/13/20 08:14 Dose: 25 mg Documented by: On examination: VITAL SIGNS: 98.4, 81, 16, 130/78, 98% on room air GENERAL APPEARANCE: Sitting up in a chair, comfortable HEENT: Normal external appearance of nose and ear. Oral cavity normal EYES: Pupils equal. Conjunctiva normal. NECK: JVD not raised. Mass not palpable. RESPIRATORY: Respiratory effort normal. Lungs clear to auscultation. CARDIOVASCULAR: First and second sounds normal. Some edema ABDOMEN: Soft. Liver and spleen not palpable. No tenderness. No mass palpable. PSYCHIATRY: Alert and oriented x3. Mood and affect normal. EXTREMITY: Dressing with Ciro wrap on the right lower extremity INVESTIGATIONS, reviewed in the clinical context: White count 13.9 creatinine 0.5 potassium 4.3 Assessment: -Acute right lower extremity cellulitis with severe sepsis, POA-slow to respond -Acute COPD exacerbation-in a current smoker, POA -Primary osteoarthritis -Hypothyroid -Hyperlipidemia -Acute hypoxic respiratory failure from COPD exacerbation -Acute toxic metabolic encephalopathy from cellulitis, POA -Acute transaminitis secondary to sepsis -Acute lactic acidosis -Bipolar disorder -Hyperkalemia Plan: -Continue current medication treatment plan including IV Ancef and local treatment. Medrol taper.-Complete Tomorrow
[2020-02-13] MEDS: OLANZapine 5 MG TAB PO SCH (20:04)
[2020-02-13] MEDS: ACETAMINOPHEN TAB 325 MG TAB PO PRN (20:07)
[2020-02-13] MEDS: FLUCONAZOLE 100 MG TAB PO SCH (23:00)
--- NOTE | 2020-02-14 03:13 | PN ---
PROGRESS NOTE DATE OF SERVICE: 02/13/2020 REASON FOR FOLLOWUP: Right lower extremity cellulitis. INTERVAL HISTORY: The patient is currently afebrile. The patient is breathing comfortably. The patient denies having any chest pain, no shortness of breath or cough. No abdominal pain or diarrhea. PHYSICAL EXAMINATION: Blood pressure 119/58 with a pulse of 79, temperature is 97.8. She is 96% on room air. General description is an elderly female up in the bed in no distress. RESPIRATORY SYSTEM: Unlabored breathing, clear to auscultation anteriorly. HEART: S1, S2. Regular rate and rhythm. ABDOMEN: Soft, no tenderness. LABS: Hemoglobin is 12.3, white count 13.9, BUN of 16, creatinine 0.59. DIAGNOSTIC IMPRESSION AND PLAN: 1. Patient with acute right lower extremity cellulitis, clinically responding to cefazolin and switch to short course of oral Keflex. Continue with Ciro wrap of the leg to keep the swelling down. 2. Elevated white count possible oropharyngeal candidiasis. The patient's white count responded to the Diflucan. Will give a short course of oral Diflucan. Continue with supportive care. MMODL / IJN: [id number] /
[2020-02-14 04:24] VITALS: RESP 16
[2020-02-14] MEDS: LEVOTHYROXINE 50 MCG TAB PO SCH (06:19)
[2020-02-14] MEDS: IPRATROPIUM-ALBUTEROL 3 ML NEB INHALATION SCH ×3 (07:08→15:03)
[2020-02-14] MEDS: FLUCONAZOLE 100 MG TAB PO SCH (09:41)
[2020-02-14] MEDS: HEPARIN SODIUM,PORCINE 5,000 UNIT/ML 1 ML VIAL SQ SCH ×2 (09:41→17:46)
[2020-02-14] MEDS: SPIRONOLACTONE 25 MG TAB PO SCH (09:41)
[2020-02-14] MEDS: ATORVASTATIN 10 MG TAB PO SCH (09:41)
[2020-02-14] MEDS: FAMOTIDINE 20 MG TAB PO SCH (09:41)
[2020-02-14] MEDS: methylPREDNISolone 4 MG TAB TAPER PO SCH (09:42)
[2020-02-14] MEDS: AMMONIUM LACTATE 12% LOTION 225 GM BTL TOPICAL SCH (09:43)
[2020-02-14] MEDS: NYSTATIN 100,000UNIT/GM CREAM 30 GM TUBE TOPICAL SCH (09:43)
[2020-02-14 11:34] VITALS: BP 127/83; PULSE 79; TEMP 97.5
--- NOTE | 2020-02-14 12:08 | P.DS ---
Providers Date of admission: 02/04/20 19:18 Expected date of discharge: 02/14/20 Attending physician: Mike Cedeño Consults: 02/05/20 07:47 Consult Physician Routine Consulting Provider: Gabe Estrada Consult Reason/Comments: cellulitis Do you want consulting provider notified?: Yes Primary care physician: [facility] Course: Principal diagnosis: Lower extremity redness History of presenting complaint: Patient is 69-year-old female with COPD, dyslipidemia, osteoarthritis, chronic lower extremity edema, and multiple other chronic conditions who presented to the emergency department secondary to right leg pain and swelling, a fall at home and difficulty in breathing. In the ER she underwent an extensive evaluation was found have right lower extremity cellulitis. Chest x- ray showed interstitial lung disease. CT brain showed no acute abnormality. She was also found to be septic. She was started on IV fluids and antibiotics. She was also noted to have hyponatremia and acute kidney injury. Arrangements were made for admission. She was also found to have possible acute exacerbation of COPD and was started on prednisone. Infectious disease was consulted and felt that she likely had a streptococcal infection secondary to the redness and edema. They discontinued her Vanco and started cefazolin 2 g every 8 hours. On the morning of 02/05 the patient appeared more distressed and was having increased flushing of her skin and expiratory wheeze along with difficulty in breathing. It was felt to be likely a reaction to her cefazolin and she was started on solumedrol and given a dose of IV lasix. Chest x-ray showed COPD with mild heart failure and left lower wall edema versus pneumonia. Her cefazolin was stopped and she was transitioned to vancomycin. She was found to have a gram-negative bacteremia which ultimately resulted as diphtheroids and was felt to be contaminant. She continues to have increasing white blood cell count which was felt to be possibly related to steroids. Her lower extremity cellulitis continued to spread beyond the lines of demarcation on the morning of 02/08/20. Her WBC started decreasing on 02/08. Today-comfortable. No new issues. Tolerating a diet. Came to be discharged. Patient completed a course of Keflex as per ID and local topical care with Kerlix and Ciro wrap. Consultation: Dr. estrada from [facility] Dr. jimenez [facility] On examination: VITAL SIGNS: 97.5, 79, 16, 127/83, 97% on room air GENERAL APPEARANCE: Sitting up in a chair, comfortable HEENT: Normal external appearance of nose and ear. Oral cavity normal EYES: Pupils equal. Conjunctiva normal. NECK: JVD not raised. Mass not palpable. RESPIRATORY: Respiratory effort normal. Lungs clear to auscultation. CARDIOVASCULAR: First and second sounds normal. Some edema ABDOMEN: Soft. Liver and spleen not palpable. No tenderness. No mass palpable. PSYCHIATRY: Alert and oriented x3. Mood and affect normal. EXTREMITY: Dressing with Ciro wrap on the right lower extremity INVESTIGATIONS, reviewed in the clinical context: White count 13.9 creatinine 0.5 potassium 4.3 Blood cultures negative except for 1 C diphtheroids species possibly contaminant, wound cultures unremarkable Assessment: -Acute right lower extremity cellulitis with severe sepsis, POA- -Acute COPD exacerbation-in a current smoker, POA -Primary osteoarthritis -Hypothyroid -Hyperlipidemia -Acute hypoxic respiratory failure from COPD exacerbation -Acute toxic metabolic encephalopathy from cellulitis, POA -Acute transaminitis secondary to sepsis -Acute lactic acidosis -Bipolar disorder -Hyperkalemia -Hypoalbuminemia,-acute phase reactant Disposition: [facility] Patient Condition at Discharge: Stable Plan - Discharge Summary New Discharge Prescriptions: New Fluconazole [Diflucan] 100 mg PO DAILY #7 tab Ipratropium-Albuterol Nebulize [Duoneb 0.5 mg-3 mg/3 ml Soln] 3 ml INHALATION RT-QID PRN ml PRN Reason: Shortness Of Breath Or Wheezing Cephalexin [Keflex] 500 mg PO Q6HR #21 cap Ammonium Lactate Lotion [Lac-Hydrin 12% Lotion] 1 applic TOPICAL BID applic Nystatin 100,000Unit/gm Cream [Mycostatin Cream] 1 applic TOPICAL BID applic Famotidine [Pepcid] 20 mg PO BID tab OLANZapine [ZyPREXA] 5 mg PO HS tab Continue Cyclobenzaprine [Flexeril] 10 mg PO HS #30 tab Levothyroxine Sodium 150 mcg PO DAILY #30 tablet Simvastatin [Zocor] 10 mg PO DAILY #30 tablet Spironolactone [Aldactone] 25 mg PO DAILY #30 tab Cholecalciferol [Vitamin D3 (25 Mcg = 1000 Iu)] 1,000 unit PO DAILY rOPINIRole HCL [Requip] 0.25 mg PO TID-W/MEALS Multivitamins, Thera [Multivitamin (formulary)] 1 tab PO DAILY Fluphenazine Deconoate 25mg/1mg Oil 50 mg IM Q14D Albuterol Sulfate [Ventolin HFA] 2 puff INHALATION RT-Q6H PRN PRN Reason: Shortness Of Breath Discontinued OLANZapine [ZyPREXA] 20 mg PO HS Discharge Medication List Cyclobenzaprine [Flexeril] 10 mg PO HS #30 tab 10/06/18 [Rx] Levothyroxine Sodium 150 mcg PO DAILY #30 tablet 10/06/18 [Rx] Simvastatin [Zocor] 10 mg PO DAILY #30 tablet 10/06/18 [Rx] Spironolactone [Aldactone] 25 mg PO DAILY #30 tab 10/06/18 [Rx] Cholecalciferol [Vitamin D3 (25 Mcg = 1000 Iu)] 1,000 unit PO DAILY 12/25/19 [History] Fluphenazine Deconoate 25mg/1mg Oil 50 mg IM Q14D 12/25/19 [History] Multivitamins, Thera [Multivitamin (formulary)] 1 tab PO DAILY 12/25/19 [ History] rOPINIRole HCL [Requip] 0.25 mg PO TID-W/MEALS 12/25/19 [History] Albuterol Sulfate [Ventolin HFA] 2 puff INHALATION RT-Q6H PRN 02/04/20 [History] Ammonium Lactate Lotion [Lac-Hydrin 12% Lotion] 1 applic TOPICAL BID applic 02/14/20 [Rx] Cephalexin [Keflex] 500 mg PO Q6HR #21 cap 02/14/20 [Rx] Famotidine [Pepcid] 20 mg PO BID tab 02/14/20 [Rx] Fluconazole [Diflucan] 100 mg PO DAILY #7 tab 02/14/20 [Rx] Ipratropium-Albuterol Nebulize [Duoneb 0.5 mg-3 mg/3 ml Soln] 3 ml INHALATION RT-QID PRN ml 02/14/20 [Rx] Nystatin 100,000Unit/gm Cream [Mycostatin Cream] 1 applic TOPICAL BID applic 02/14/20 [Rx] OLANZapine [ZyPREXA] 5 mg PO HS tab 02/14/20 [Rx] Follow up Appointment(s)/Referral(s): [facility], [NON-STAFF] - Bolivar Carrizales DO [STAFF PHYSICIAN] - 1-2 Days Alex Morrissey MD [Primary Care Provider] - As Needed
--- NOTE | 2020-02-14 15:02 | PN ---
PROGRESS NOTE DATE OF SERVICE: 02/14/2020 REASON FOR FOLLOWUP: 1. Right lower extremity cellulitis. 2. Leukocytosis. INTERVAL HISTORY: The patient is currently afebrile. The patient overall is feeling better. Breathing comfortably. No chest pain or cough. No abdominal pain. No pain in the right leg. PHYSICAL EXAMINATION: Blood pressure 126/84, with a pulse of 79, temperature 97.8, she is 97% on room air. General description is this elderly female, up in the chair in no distress. RESPIRATORY SYSTEM: Unlabored breathing, clear to auscultation anteriorly. HEART: S1, S2. Regular rate and rhythm. ABDOMEN: Soft, no tenderness. Right leg is currently wrapped up. No obvious drainage on the dressing. LABS: No new labs have been obtained today. DIAGNOSTIC IMPRESSION AND PLAN: 1. Patient with acute right lower extremity cellulitis, finishing therapy with oral Keflex. Continue with Ciro wrap to the leg. 2. Possible oropharyngeal candidiasis and swish and swallow and Diflucan for a week. Plan of care was discussed with the admitting physician working on this case. MMODL / IJN: [id number] /
== END 2020-02-14 17:55 | disposition home or self-care (01) | DRG 871 ==
LOC: EC 15:41 → 5NMEDONC 19:18
PROVIDERS: ADMIT Hospitalist; ATTEND Hospitalist
DX: A41.9 Sepsis, unspecified organism (principal); G92 Toxic encephalopathy; J96.01 Acute respiratory failure with hypoxia; E87.1 Hypo-osmolality and hyponatremia; E87.2 Acidosis; J44.1 Chronic obstructive pulmonary disease with (acute) exacerbation; J84.9 Interstitial pulmonary disease, unspecified; L03.115 Cellulitis of right lower limb; M62.82 Rhabdomyolysis; N17.9 Acute kidney failure, unspecified; B37.0 Candidal stomatitis; E03.9 Hypothyroidism, unspecified; E78.5 Hyperlipidemia, unspecified; E87.5 Hyperkalemia; E87.6 Hypokalemia; F17.210 Nicotine dependence, cigarettes, uncomplicated; F20.9 Schizophrenia, unspecified; F41.9 Anxiety disorder, unspecified; H40.9 Unspecified glaucoma; Z20.828 Contact with and (suspected) exposure to other viral communicable diseases; M19.91 Primary osteoarthritis, unspecified site; R65.20 Severe sepsis without septic shock; D72.829 Elevated white blood cell count, unspecified; I11.0 Hypertensive heart disease with heart failure; R94.5 Abnormal results of liver function studies; R56.9 Unspecified convulsions; T38.0X5A Adverse effect of glucocorticoids and synthetic analogues, initial encounter; Z91.81 History of falling; Z79.890 Hormone replacement therapy; Z79.899 Other long term (current) drug therapy; Z88.2 Allergy status to sulfonamides; Z88.1 Allergy status to other antibiotic agents; Z88.0 Allergy status to penicillin; Z90.12 Acquired absence of left breast and nipple; Z90.710 Acquired absence of both cervix and uterus; R74.0 Nonspecific elevation of levels of transaminase and lactic acid dehydrogenase [LDH]; I50.9 Heart failure, unspecified; E66.3 Overweight; Z68.29 Body mass index [BMI] 29.0-29.9, adult; Z80.9 Family history of malignant neoplasm, unspecified; Z98.51 Tubal ligation status; Z85.3 Personal history of malignant neoplasm of breast
CPT/HCPCS: 36415; 70450; 71046; 80048; 80053; 80202; 81001; 82550; 82565; 82803; 83605; 83735; 85025; 85027; 85610; 85730; 86140; 87040; 87070; 87205; 87635; 93005; 94640; 94760; 96361; 96365; 96366; 96367; 96368; 99291

== ENCOUNTER 2020-02-29 15:01 | Emergency (ER) | payer MEDICARE, OTHER ==
[2020-02-29 15:09] VITALS: BP 143/72; PULSE 51; RESP 18; TEMP 98
--- NOTE | 2020-02-29 15:28 | ED ---
Extremity Problem HPI - General Chief complaint: Extremity Problem,Nontraumatic Stated complaint: R Leg Pain Time Seen by Provider: 02/29/20 15:09 Source: patient Mode of arrival: ambulatory Limitations: no limitations - History of Present Illness Initial comments: Patient is 69-year-old female presenting to the emergency department with a chief complaint of leg infection. Patient reports recently she was discharged from the hospital with an infection on the right leg. States the infection has gradually and increasing severity. States she noticed a "lump" on the anterior aspect of her right lower extremity which seems to be increasing in size. Also reports tenderness in region. Denies any night sweats fevers or chills. States she is not diabetic or immunocompromised. Does report cellulitic changes. States there are also some swelling in the region which was present after discharge from the hospital. Denies any chest pain or shortness of breath. - Related Data Home Medications Medication Instructions Recorded Confirmed Cholecalciferol [Vitamin D3 (25 1,000 unit PO DAILY 12/25/19 02/04/20 Mcg = 1000 Iu)] Fluphenazine Deconoate 25mg/1mg Oil 50 mg IM Q14D 12/25/19 02/04/20 Multivitamins, Thera [Multivitamin 1 tab PO DAILY 12/25/19 02/04/20 (formulary)] rOPINIRole HCL [Requip] 0.25 mg PO TID-W/MEALS 12/25/19 02/04/20 Albuterol Sulfate [Ventolin HFA] 2 puff INHALATION RT-Q6H PRN 02/04/20 02/04/20 Previous Rx's Medication Instructions Recorded Cyclobenzaprine [Flexeril] 10 mg PO HS #30 tab 10/06/18 Levothyroxine Sodium 150 mcg PO DAILY #30 tablet 10/06/18 Simvastatin [Zocor] 10 mg PO DAILY #30 tablet 10/06/18 Spironolactone [Aldactone] 25 mg PO DAILY #30 tab 10/06/18 Ammonium Lactate Lotion 1 applic TOPICAL BID #30 gm 02/14/20 [Lac-Hydrin 12% Lotion] Cephalexin [Keflex] 500 mg PO Q8HR #21 cap 02/14/20 Famotidine [Pepcid] 20 mg PO BID #60 tablet 02/14/20 Fluconazole [Diflucan] 100 mg PO DAILY #7 tab 02/14/20 Nystatin 100,000Unit/gm Cream 1 applic TOPICAL BID #30 gm 02/14/20 [Mycostatin Cream] OLANZapine [ZyPREXA] 5 mg PO HS #30 tablet 02/14/20 Doxycycline Monohydrate [Monodox] 100 mg PO Q12HR #20 cap 02/29/20 Allergies Allergy/AdvReac Type Severity Reaction Status Date / Time lamotrigine [From Lamictal] Allergy Severe throat Verified 02/04/20 23:08 swelling metronidazole [From Flagyl] Allergy Severe Swelling Verified 02/04/20 23:08 pregabalin [From Lyrica] Allergy Severe throat Verified 02/04/20 23:08 swelling Sulfa (Sulfonamide Allergy Severe Swelling Verified 02/04/20 23:08 Antibiotics) morphine AdvReac Severe passed out Verified 02/04/20 23:08 cortisone AdvReac Rash/Hives Verified 02/04/20 23:08 Penicillins AdvReac Rash/Hives Verified 02/04/20 23:08 Review of Systems ROS Statement: Those systems with pertinent positive or pertinent negative responses have been documented in the HPI. ROS Other: All systems not noted in ROS Statement are negative. Past Medical History Past Medical History: Asthma, Cancer, Eye Disorder, Hyperlipidemia, Osteoarthritis (OA), Thyroid Disorder Additional Past Medical History / Comment(s): "low BP", edema lower legs, uses a cane, emphysema, glaucoma, "lump on kidney", breast cancer, last seizure 2011 History of Any Multi-Drug Resistant Organisms: None Reported Past Surgical History: Breast Surgery, Hysterectomy, Tubal Ligation Additional Past Surgical History / Comment(s): left mastectomy Past Anesthesia/Blood Transfusion Reactions: Motion Sickness Past Psychological History: Anxiety, Bipolar, Schizophrenia Smoking Status: Current every day smoker Past Alcohol Use History: None Reported Past Drug Use History: Marijuana - Past Family History Father Additional Family Medical History / Comment(s): Father at age at 87 from old age. Daughter(s) Additional Family Medical History / Comment(s): Patient states that she has 3 children and 2 are on drugs. Sister(s) Family Medical History: Cancer Additional Family Medical History / Comment(s): She has one sister that from some type of cancer. Mother Family Medical History: Cancer Additional Family Medical History / Comment(s): Mother at age 56 from cancer, unknown type. General Exam Limitations: no limitations General appearance: alert, in no apparent distress Head exam: Present: atraumatic, normocephalic, normal inspection Eye exam: Present: normal appearance, PERRL, EOMI Pupils: Present: normal accommodation ENT exam: Present: normal exam, normal oropharynx, mucous membranes moist Neck exam: Present: normal inspection, full ROM Respiratory exam: Present: normal lung sounds bilaterally. Absent: respiratory distress, wheezes, rales Cardiovascular Exam: Present: regular rate, normal rhythm, normal heart sounds Extremities exam: Present: full ROM, tenderness (Tenderness at the site of infection.), normal capillary refill, pedal edema (+2 pitting edema Right lower extremity), other (+2 ulnar and radial pulses bilaterally. +2 dorsalis pedis and posterior tibialis bilaterally.). Absent: normal inspection (Cellulitic changes noted on the anterior aspect of her right lower extremity. No active drainage at this time.) Back exam: Present: normal inspection, full ROM Neurological exam: Present: alert, oriented X3 Psychiatric exam: Present: normal affect, normal mood Skin exam: Present: warm, dry, intact, normal color Course Vital Signs 02/29/20 15:04 Temperature 98 F Pulse Rate 51 L Respiratory 18 Rate Blood Pressure 143/72 O2 Sat by Pulse 97 Oximetry Medical Decision Making - Medical Decision Making Patient is 69-year-old female presenting to emergency Department with a chief complaint of right leg infection. On exam patient has an area with fluctuance with no significant surrounding cellulitic changes. CBC CMP unremarkable. X- ray is negative for signs of osteoarthritis. That said ultrasound performed by myself reveals a fluid filled pocket. No signs of drainage at this time. Incision and drainage performed with 7 mL of pus obtained. Wound culture pending. Patient started on doxycycline. Return parameters though discussed with patient was understanding and agreeable. Advised follow-up with primary care. Case discussed with physician. - Lab Data Result diagrams: 02/29/20 16:00 02/29/20 16:00 Lab Results 02/29/20 02/29/20 Range/Units 16:00 16:00 WBC 9.8 (3.8-10.6) k/uL RBC 4.28 (3.80-5.40) m/uL Hgb 13.0 (11.4-16.0) gm/dL Hct 41.3 (34.0-46.0) % MCV 96.4 (80.0-100.0) fL MCH 30.4 (25.0-35.0) pg MCHC 31.5 (31.0-37.0) g/dL RDW 14.7 (11.5-15.5) % Plt Count 339 (150-450) k/uL Neutrophils % 74 % Lymphocytes % 16 % Monocytes % 6 % Eosinophils % 2 % Basophils % 1 % Neutrophils # 7.3 (1.3-7.7) k/uL Lymphocytes # 1.6 (1.0-4.8) k/uL Monocytes # 0.6 (0-1.0) k/uL Eosinophils # 0.2 (0-0.7) k/uL Basophils # 0.1 (0-0.2) k/uL Sodium 134 L (137-145) mmol/L Potassium 4.3 (3.5-5.1) mmol/L Chloride 103 (98-107) mmol/L Carbon Dioxide 26 (22-30) mmol/L Anion Gap 5 mmol/L BUN 11 (7-17) mg/dL Creatinine 0.53 (0.52-1.04) mg/dL Est GFR (CKD-EPI)AfAm >90 (>60 ml/min/1.73 sqM) Est GFR (CKD-EPI)NonAf >90 (>60 ml/min/1.73 sqM) Glucose 90 (74-99) mg/dL Calcium 9.7 (8.4-10.2) mg/dL Total Bilirubin 0.6 (0.2-1.3) mg/dL AST 22 (14-36) U/L ALT 13 (4-34) U/L Alkaline Phosphatase 103 (38-126) U/L Total Protein 6.8 (6.3-8.2) g/dL Albumin 3.8 (3.5-5.0) g/dL Disposition Clinical Impression: Abscess Disposition: HOME SELF-CARE Condition: Good Instructions (If sedation given, give patient instructions): Abscess Incision and Drainage (ED), Abscess (ED) Additional Instructions: Take prescribed medication as directed. Apply warm compress to the region. Return to emergency department if symptoms worsen. Prescriptions: Doxycycline Monohydrate [Monodox] 100 mg PO Q12HR #20 cap Is patient prescribed a controlled substance at d/c from ED?: No Referrals: Alex Morrissey MD [Primary Care Provider] - 1-2 days Time of Disposition: 16:58
--- NOTE | 2020-02-29 16:05 | XR ---
EXAMINATION TYPE: XR tibia fibula RT DATE OF EXAM: 02/29/2020 COMPARISON: None HISTORY: Large lump mid tibia x1 week TECHNIQUE: 2 view right tibia and fibula FINDINGS: There is soft tissue prominence over the mid anterior tibia. No acute fractures or dislocations are evident. The cortex appears intact. No suspicious changes to s uggest acute osteomyelitis are not radiographically apparent. IMPRESSION: 1. Superficial soft tissue swelling over the anterior mid tibia.
[2020-02-29 16:07] LABS: Basophils # (A) 0.1 k/uL (0-0.2); Basophils % (A) 1 %; Eosinophils # (A) 0.2 k/uL (0-0.7); Eosinophils % (A) 2 %; HCT 41.3 % (34.0-46.0); Lymphocytes # (A) 1.6 k/uL (1.0-4.8); Lymphocytes % (A) 16 %; MCH 30.4 pg (25.0-35.0); MCHC 31.5 g/dL (31.0-37.0); MCV 96.4 fL (80.0-100.0); Mean Platelet Volume 7.5; Monocytes # (A) 0.6 k/uL (0-1.0); Monocytes % (A) 6 %; Neutrophils # (A) 7.3 k/uL (1.3-7.7); Neutrophils % (A) 74 %; Platelet Count 339 k/uL (150-450); RBC 4.28 m/uL (3.80-5.40); RDW 14.7 % (11.5-15.5); WBC 9.8 k/uL (3.8-10.6)
[2020-02-29 16:15] LABS: ALT 13 U/L (4-34); AST 22 U/L (14-36); African American GFR (CKD) >90 (>60 ml/min/1.73 sqM); Albumin 3.8 g/dL (3.5-5.0); Alkaline Phosphatase 103 U/L (38-126); Anion Gap 5 mmol/L; Blood Urea Nitrogen 11 mg/dL (7-17); Calcium 9.7 mg/dL (8.4-10.2); Carbon Dioxide 26 mmol/L (22-30); Chloride 103 mmol/L (98-107); Glucose 90 mg/dL (74-99); Non-African American GFR(CKD) >90 (>60 ml/min/1.73 sqM); Potassium 4.3 mmol/L (3.5-5.1); Sodium 134 mmol/L (137-145); Total Bilirubin 0.6 mg/dL (0.2-1.3); Total Protein 6.8 g/dL (6.3-8.2)
[2020-02-29] MEDS ORDERED: cefTRIAXone IN SWFI 1,000 MG/10 ML SYRINGE IVP STA (16:25)
[2020-02-29] MEDS ORDERED: LIDOCAINE 1% INJ 10MG/ML (20 ML MDV) SQ ONE (16:52)
== END 2020-02-29 17:14 | disposition home or self-care (01) ==
LOC: EC 15:01
DX: L02.415 Cutaneous abscess of right lower limb (principal); J45.909 Unspecified asthma, uncomplicated; F41.9 Anxiety disorder, unspecified; F32.9 Major depressive disorder, single episode, unspecified; F20.9 Schizophrenia, unspecified; F17.200 Nicotine dependence, unspecified, uncomplicated; H40.9 Unspecified glaucoma; Z79.899 Other long term (current) drug therapy; Z85.3 Personal history of malignant neoplasm of breast; Z88.2 Allergy status to sulfonamides; Z88.0 Allergy status to penicillin; Z88.5 Allergy status to narcotic agent; Z88.1 Allergy status to other antibiotic agents; Z98.890 Other specified postprocedural states; Z90.12 Acquired absence of left breast and nipple
CPT/HCPCS: 36415; 80053; 85025; 87070; 87205; 73590; 99284; J2001

== ENCOUNTER → 2020-03-15 | Outpatient (CLI) | payer MEDICARE, OTHER ==
[2020-03-15 17:46] LABS: Basophils # (A) 0.1 k/uL (0-0.2); Basophils % (A) 1 %; Eosinophils # (A) 0.1 k/uL (0-0.7); Eosinophils % (A) 0 %; HCT 44.9 % (34.0-46.0); HGB 14.1 gm/dL (11.4-16.0); Hypochromasia Slight; Lymphocytes # (A) 2.1 k/uL (1.0-4.8); Lymphocytes % (A) 18 %; MCH 31.3 pg (25.0-35.0); MCHC 31.4 g/dL (31.0-37.0); MCV 99.8 fL (80.0-100.0); Mean Platelet Volume 8.5; Monocytes # (A) 0.7 k/uL (0-1.0); Monocytes % (A) 6 %; Neutrophils # (A) 8.3 k/uL (1.3-7.7); Neutrophils % (A) 73 %; Platelet Count 361 k/uL (150-450); RDW 14.6 % (11.5-15.5); WBC 11.4 k/uL (3.8-10.6)
[2020-03-16 00:10] LABS: African American GFR (CKD) 103.2 (60.0-200.0); Albumin 4.1 g/dL (3.80-4.90); Albumin/Globulin Ratio 1.86 (1.60-3.17); Anion Gap 7.8 mmol/L (4.00-12.00); BUN/Creat Ratio 15.71 Ratio (12.00-20.00); Calcium 9.8 mg/dL (8.7-10.3); Carbon Dioxide 27.2 mmol/L (21.6-31.8); Globulin 2.2 g/dL (1.6-3.3); Potassium 4.5 mmol/L (3.5-5.5); Total Bilirubin 0.6 mg/dL (0.3-1.2); Total Protein 6.3 g/dL (6.2-8.2)
== END | disposition home or self-care (01) ==
LOC: LABMAIN 16:08
PROVIDERS: ATTEND Thoracic Surgery (Cardiothoracic Vascular Surgery)
DX: L02.415 Cutaneous abscess of right lower limb (principal); L97.212 Non-pressure chronic ulcer of right calf with fat layer exposed
CPT/HCPCS: 36415; 80053; 84134; 85025

== ENCOUNTER → 2021-12-31 | Outpatient (CLI) | payer MEDICARE, OTHER ==
--- NOTE | 2022-01-01 11:00 | MM ---
Reason for exam: screening (asymptomatic). Last mammogram was performed 2 years and 5 months ago. History: Patient is postmenopausal and has history of breast cancer at age 41. Family history of breast cancer in sister at age 42. Benign MG stereo VAD BX RT of the right breast, October 29, 2018. Mastectomy of the left breast, 1991. Chemotherapy, 1991. Took antineoplastic for 5 years beginning at age 41. Physical Findings: A clinical breast exam by your physician is recommended on an annual basis and results should be correlated with mammographic findings. MG 3D Scr Sobeida Unilateral W/Cad CC, MLO, and XCCL view(s) were taken of the right breast. Prior study comparison: August 09, 2019, right breast MG diagnostic mammo RT w CAD. July 23, 2018, right breast MG 3d work up w/cad RT. There are scattered fibroglandular densities. No significant changes when compared with prior studies. ASSESSMENT: Benign, BI-RAD 2 RECOMMENDATION: Routine screening mammogram of the right breast in 1 year.
== END | disposition home or self-care (01) ==
LOC: RADMAMWWP 13:19
PROVIDERS: ATTEND Family Medicine
DX: Z12.31 Encounter for screening mammogram for malignant neoplasm of breast (principal); Z78.0 Asymptomatic menopausal state; Z85.3 Personal history of malignant neoplasm of breast; Z80.3 Family history of malignant neoplasm of breast; Z90.12 Acquired absence of left breast and nipple
CPT/HCPCS: 77067

== ENCOUNTER → 2022-05-16 | Outpatient (CLI) | payer MEDICARE, OTHER ==
--- NOTE | 2022-05-16 17:10 | XR ---
EXAMINATION TYPE: XR cervical spine 5 views comp, XR lumbosacral spine 5 views, XR thoracic spine 3 v iews DATE OF EXAM: 05/16/2022 COMPARISON: 05/01/2012 HISTORY: 71-year-old female with chronic back pain, M54.2, M54.50, G89.29, M51.9 FINDINGS: Cervical spine: Uncovertebral joint and facet arthropathy throughout. Levoconvex curvature of the cervical spine. Mod erate bony neuroforaminal narrowing on the left at C3-C4. On the right, obliquity limits assessment o f the neural foramen. There may be moderate narrowing C5-C6 and C7-T1. Odontoid view is limited. Some offset along the margin of the right lateral mass articulation seems to be chronic. If indicated, CT can provide more detailed assessment. Moderate spondylotic change mid to lower cervical spine. Degen erative grade 1 anterolisthesis C5-C6. Thoracic spine: Osteopenia. 12 rib. Thoracic vertebral bodies. Dextro convex curvature thoracolumbar junction. All pe dicles are visualized. Accentuated lower thoracic kyphosis. Mild degenerative disc disease lower thor acic spine. Vertebral body heights are preserved and alignment is maintained. Lumbar spine: Hypertrophic facet arthropathy. Baastrup's disease lower lumbar spine. Degenerative grade 1 retrolist hesis L2-L3, L3-L4, L4-L5. Moderate degenerative disc disease L4-L5. Vertebral body heights are prese rved. IMPRESSION: 1. Cervical spine: Moderate multilevel spondylotic change. Degenerative grade 1 anterolisthesis C5-C6 . There is levoconvex curvature of the cervical spine which limits the lateral view. Possible chronic offset along the right lateral mass articulation of C1-C2. If desired, CT can provide more detailed assessment. 2. Thoracic spine: Dextroconvex curvature at the thoracolumbar junction. Mild degenerative disc disea se lower thoracic spine with accentuated kyphosis. 3. Lumbar spine: Hypertrophic facet arthropathy with degenerative grade 1 retrolisthesis of L2-L5 lev els. Moderate degenerative disc disease L4-L5. No vertebral compression collapse.
== END | disposition home or self-care (01) ==
LOC: RADXRMAIN 12:44
PROVIDERS: ATTEND Family Medicine
DX: M47.815 Spondylosis without myelopathy or radiculopathy, thoracolumbar region (principal); M51.35 Other intervertebral disc degeneration, thoracolumbar region; M40.205 Unspecified kyphosis, thoracolumbar region; M43.12 Spondylolisthesis, cervical region
CPT/HCPCS: 72050; 72070; 72110

== ENCOUNTER → 2022-10-30 | Outpatient (CLI) | payer MEDICARE, OTHER ==
[2022-10-30 23:28] LABS: African American GFR (CKD) 73.3 (60.0-200.0); BUN/Creat Ratio 17.09 Ratio (12.00-20.00); Basophils # (A) 0.12 X 10*3/uL (0.00-0.10); Basophils % (A) 1.3 %; Blood Urea Nitrogen 15.6 mg/dL (9.0-27.0); Carbon Dioxide 24.4 mmol/L (20.0-27.5); Chloride 96 mmol/L (96-109); Chol/HDL Ratio 2.53 Ratio; Eosinophils # (A) 0.36 X 10*3/uL (0.04-0.35); Glucose 81 mg/dL (70-110); HCT 48.1 % (37.2-46.3); HGB 14.7 g/dL (12.0-15.0); Immature Grans, Automated 0.6 %; Lymphocytes # (A) 2.79 X 10*3/uL (0.90-5.00); Lymphocytes % (A) 31.2 %; MCH 30.4 pg (27.0-32.0); MCHC 30.6 g/dL (32.0-37.0); MCV 99.6 fL (80.0-97.0); Mean Platelet Volume 10.4 fL (9.5-12.2); Monocytes # (A) 0.66 X 10*3/uL (0.20-1.00); Monocytes % (A) 7.4 %; NRBC Per 100 WBC 0 /100 WBCS (0.0-0.0); Neutrophils # (A) 4.97 X 10*3/uL (1.80-7.70); Neutrophils % (A) 55.5 %; Non-African American GFR(CKD) 63.2 (60.0-200.0); Platelet Count 317 X 10*3/uL (140-440); RBC 4.83 X 10*6/uL (4.10-5.20); RDW 13.5 % (11.5-14.5); Sodium 136 mmol/L (135-145); VLDL Calculation 13.74 mg/dL (5.00-40.00); WBC 8.95 X 10*3/uL (4.50-10.00)
== END | disposition home or self-care (01) ==
LOC: LABWHC1 14:22
PROVIDERS: ATTEND Nurse Practitioner
DX: I10 Essential (primary) hypertension (principal); E78.5 Hyperlipidemia, unspecified; Z53.9 Procedure and treatment not carried out, unspecified reason
CPT/HCPCS: 36415; 80048; 80061; 84443; 85025

== ENCOUNTER → 2023-03-21 | Outpatient (CLI) | payer MEDICARE, OTHER ==
[~2023-03-21] MED LIST: IODINE/POTASSIUM IODIDE 14 ML BOTTLE ONE
--- NOTE | 2023-03-27 09:32 | NM ---
EXAMINATION TYPE: NM DatScan Brain SPECT DATE OF EXAM: 03/21/2023 COMPARISON: NONE CLINICAL INDICATION: Female, 72 years old with history of G25.0 ESSENTIAL TREMOR; TECHNIQUE: 10 drops of Lugol's solution was administered 1 hour prior to injection as a thyroid bloc lizette agent. After the administration of 4.7 mCi I-123 Ioflupane DaTscan. Images obtained [address] injection. SPECT images of the brain were acquired with axial and coronal reconstructions. FINDINGS: The DaTSCAN demonstrates normal uptake of tracer throughout the striata. Consequently there is no evidence of loss of the pre-synaptic dopaminergic terminals on this investig ation. IMPRESSION: * The DaTSCAN demonstrates normal uptake of tracer throughout the striata. * Consequently there is no evidence of loss of the pre-synaptic dopaminergic terminals on this inves tigation. In movement disorders * This normal appearance is against a diagnosis of idiopathic Parkinson?s disease (PD) or a Parkinso nian syndrome (PS) and is seen in healthy individuals and also patients with essential tremor (ET), d rug induced parkinsonism, and vascular pseudo-parkinsonism. In dementia * This normal appearance is against a diagnosis of DLB and is seen in healthy individuals and also p atients with AD.
== END | disposition home or self-care (01) ==
LOC: RADNMMAIN 11:07
PROVIDERS: ATTEND Psychiatry & Neurology Neurology
DX: G21.19 Other drug induced secondary parkinsonism (principal); G25.0 Essential tremor
CPT/HCPCS: 78803; A9584

== ENCOUNTER → 2023-03-25 | Outpatient (CLI) | payer MEDICARE, OTHER ==
--- NOTE | 2023-03-25 17:01 | CTL ---
EXAMINATION TYPE: CT Low Dose Lung DATE OF EXAM ORDERED: 03/25/2023 HISTORY: Current smoker. Lung cancer screening CT DLP: 81.[address] CTDI: 2.3 mGy Automated exposure control for dose reduction was used. SCREENING VISIT: Initial COMPARISON: None TECHNIQUE: Low dose computed tomography scan was performed through the chest at 1 mm thick sections a nd reconstructed images in the coronal plane at [address] DIAGNOSTIC QUALITY: Satisfactory FINDINGS: LUNG NODULES: None. LUNGS: COPD: Severity: Moderate Fibrosis: Severity: Mild Lymph nodes: None Other findings: None RIGHT PLEURAL SPACE: Effusion: None Calcification: None Thickening: None Pneumothorax: None LEFT PLEURAL SPACE: Effusion: None Calcification: None Thickening: None Pneumothorax: None HEART: Heart Size: Normal Coronary calcification: None Pericardial effusion: None OTHER FINDINGS: Upper abdomen: Right renal cyst is present in the posterior upper pole right kidney. Bony thorax: Normal Supraclavicular region: Normal Other: Ascending thoracic aorta at the level the main pulmonary artery measures 3.4 cm. The main pul monary artery at the bifurcation measures 2.4 cm. IMPRESSION: No suspicious changes suggest neoplasm FOLLOW UP CT CHEST RECOMMENDATION: Low-dose CT chest [address] LUNG RAD: Lung-Rad 2 Benign Appearance or Behavior
--- NOTE | 2023-03-26 08:11 | MM ---
Reason for Exam: Screening (asymptomatic). Last mammogram was performed 1 year(s) and 2 month(s) ago. Patient History: Menarche at age 17. First Full-Term at age 19. Left ovary removed at age 55. Right ovary removed at age 55. Hysterectomy at age 55. Postmenopausal. Breast cancer, left, age 41. 1991, Mastectomy on the Left side. 10/29/2018, Benign Core Biopsy on the right side. 1991, Chemotherapy. Sister had breast cancer, age 42. Prior Study Comparison: 07/23/2018 Right Diagnostic Mammogram, [facility]. 08/09/2019 Right Diagnostic Mammogram, [facility]. 12/31/2021 Bilateral Screening Mammogram, [facility]. Tissue Density: Left: There are scattered fibroglandular densities. Findings: Analyzed By CAD. There is no suspicious group of microcalcifications or new suspicious mass in either breast. Benign-appearing calcifications within the right breast. Biopsy clip within the right breast. Overall Assessment: Benign, BI-RAD 2 Management: Screening Mammogram of the right breast in 1 year. A clinical breast exam by your physician is recommended on an annual basis and results should be correlated with mammographic findings. Electronically signed and approved by: Julien Woods D.O.
== END | disposition home or self-care (01) ==
LOC: RADCTMAIN 14:55
PROVIDERS: ATTEND Family Medicine
DX: Z12.31 Encounter for screening mammogram for malignant neoplasm of breast (principal); Z12.2 Encounter for screening for malignant neoplasm of respiratory organs; F17.210 Nicotine dependence, cigarettes, uncomplicated; Z78.0 Asymptomatic menopausal state; Z80.3 Family history of malignant neoplasm of breast; Z85.3 Personal history of malignant neoplasm of breast
CPT/HCPCS: 71271; 77067

== ENCOUNTER → 2024-06-21 | Outpatient (CLI) | payer MEDICARE, OTHER ==
--- NOTE | 2024-06-21 19:00 | CTL ---
EXAMINATION TYPE: CT Low Dose Lung DATE OF EXAM ORDERED: 06/21/2024 HISTORY: Nicotine dependence. Lung cancer screening CT DLP: 77.[address] CTDI: 2.10 mGy Automated exposure control for dose reduction was used. SCREENING VISIT: Subsequent COMPARISON: 03/25/2023 TECHNIQUE: Low dose computed tomography scan was performed through the chest at 1 mm thick sections a nd reconstructed images in the coronal plane at [address] DIAGNOSTIC QUALITY: Satisfactory FINDINGS: LUNG NODULES: None. LUNGS: COPD: Severity: Moderate Fibrosis: Severity: None Lymph nodes: There is a 0.8 cm somewhat prominent lymph node in the left axillary region. Some subtle adjacent inflammatory change may be present. Series 5 image 17. Findings appear stable from comparis on study1 Other findings: Left mastectomy. RIGHT PLEURAL SPACE: Effusion: None Calcification: Small pleural calcification along the posterior lateral right apex. Series 4 image 24. Thickening: None Pneumothorax: None LEFT PLEURAL SPACE: Effusion: None Calcification: None Thickening: None Pneumothorax: None HEART: Other: Ascending thoracic aorta at the level the main pulmonary artery measures 3.1 cm. The main pul monary artery at the bifurcation measures 2.4 cm. Heart Size: Normal Coronary calcification: None Pericardial effusion: None OTHER FINDINGS: Upper abdomen: Normal Bony thorax: Normal Supraclavicular region: Normal IMPRESSION: 1. Stable findings from comparison. 2. No suspicious new changes to suggest metastatic disease FOLLOW UP CT CHEST RECOMMENDATION: Follow-up low-dose CT chest one year CT LUNG RAD: Lung-Rad 2 Benign Appearance or Behavior [facility], , 06/21/2024 6:58 PM
== END | disposition home or self-care (01) ==
LOC: RADCTMAIN 08:19
PROVIDERS: ATTEND Family Medicine
CPT/HCPCS: 71271